=== PATIENT | male | born 1955 | race Caucasian/White ===

== ENCOUNTER 2019-01-01 15:55 | Outpatient (REF) | payer OTHER, SELFPAY ==
[2019-01-01 21:47] LABS: HCT 44.9 % (40.0-50.0); HGB 14.6 g/dL (13.5-17.5); Mean Corp. HGB Concentration 32.5 g/dL (32.0-36.0); Mean Corpuscular Hemoglobin 31.3 pg (27.0-33.0); Mean Corpuscular Volume 96.4 fL (80-95); Mean Platelet Volume 10.9 fL (8.0-11.0); Platelet Count 134 x1000/uL (130-400); RBC 4.66 m/cumm (4.50-6.00); White Blood Cell Count 8.19 k/cumm (4.4-10.8)
[2019-01-01 22:02] LABS: ALT 24 U/L (12-78); AST 13 U/L (15-37); Albumin 3.5 g/dL (3.4-5.0); Alkaline Phosphatase 60 U/L (46-116); Anion Gap 5.5 mmol/L (3-11); BUN 19 mg/dL (7-18); Bilirubin, Total 0.6 mg/dL (0.2-1.0); CO2 33.5 mmol/L (21.0-32.0); Calcium 8.6 mg/dL (8.5-10.1); Calculated LDL 88 mg/dL; Chloride 103 mmol/L (98-107); Cholesterol 166 mg/dL (50-200); Glucose 115 mg/dL (70-100); HDL Cholesterol 43 mg/dL (40-60); Hemoglobin A1C 5.7 % (4.5-6.2); Sodium 142 mmol/L (136-145); Total Protein 6.6 g/dL (6.4-8.2); Triglyceride 175 mg/dL (30-150)
== END 2019-01-01 16:15 ==
LOC: NCHCN 15:55
PROVIDERS: PCP Specialist/Technologist Athletic Trainer; Visit Provider Specialist/Technologist Athletic Trainer
DX: I50.9 Heart failure, unspecified (principal); I10 Essential (primary) hypertension; E78.1 Pure hyperglyceridemia; G47.33 Obstructive sleep apnea (adult) (pediatric); R79.89 Other specified abnormal findings of blood chemistry
CPT/HCPCS: 80053; 80061; 83721; 85027; 83036

== ENCOUNTER 2019-03-10 16:04 | Outpatient (REF) | payer OTHER, SELFPAY ==
[2019-03-10 21:46] LABS: ALT 23 U/L (16-63); AST 12 U/L (15-37); Albumin 3.6 g/dL (3.4-5.0); Alkaline Phosphatase 55 U/L (46-116); Anion Gap 3.8 mmol/L (3-11); BUN 18 mg/dL (7-18); Bilirubin, Total 0.9 mg/dL (0.2-1.0); CO2 38.2 mmol/L (21.0-32.0); CREATININE 1.15 mg/dL (0.70-1.30); Calcium 8.5 mg/dL (8.5-10.1); Chloride 102 mmol/L (98-107); Glucose 103 mg/dL (70-100); NT-proBNP 108 pg/mL; Potassium 3.7 mmol/L (3.5-5.1); Sodium 144 mmol/L (136-145); Total Protein 6.5 g/dL (6.4-8.2)
== END 2019-03-10 16:24 ==
LOC: NCHCN 16:04
PROVIDERS: PCP Specialist/Technologist Athletic Trainer; Visit Provider Specialist/Technologist Athletic Trainer
DX: I50.9 Heart failure, unspecified (principal); R09.02 Hypoxemia
CPT/HCPCS: 80053; 83880

== ENCOUNTER 2019-03-24 11:57 | Observation (INO) | payer OTHER, SELFPAY ==
[2019-03-24] VITALS (53 sets, daily range): BP systolic 99–125; BP diastolic 55–75; PULSE 62–83; RESP 14–26; TEMP 36.5–36.9; O2SAT 90–97
--- NOTE | 2019-03-24 12:12 | W.ED.GENAD ---
Discharge Plan Disposition Patient Disposition: [facility] INPATIENT Condition: Serious Discharge Details Chief Complaint: Dizzy/Sync Clinical Impression: Dizziness Primary Care Provider: Angel Toscano ED Provider: Adarsh Whitney Home Meds and New Rx's Prescriptions: No Action ascorbic acid (vitamin C) [Vitamin C] 500 MG capsule, extended release 500 mg PO DAILY RF: 0 cholecalciferol (vitamin D3) 1,000 UNIT capsule 1,000 unit PO DAILY RF: 0 Oxygen EACH NS Qty: 2 RF: 0 vitamin B complex Capsule 1 cap PO DAILY RF: 0 losartan 25 mg tablet 25 mg PO DAILY RF: 0 vitamin E (dl, acetate) 1,000 unit capsule 1,000 unit PO DAILY RF: 0 metoprolol succinate 25 mg tablet extended release 24 hr 25 mg PO DAILY RF: 0 potassium chloride 20 mEq tablet extended release 20 meq PO DAILY RF: 0 mupirocin 2 % ointment 1 applic TP TID RF: 0 (DME) Oxygen Tank See Rx Instructions .ROUTE .MEDSUPPLY Qty: 1 RF: 0 meloxicam 15 MG tablet 15 mg PO DAILY RF: 0 allopurinol 300 MG tablet 300 mg PO DAILY RF: 0 Fish Oil 500 MG capsule,delayed release(DR/EC) 500 mg PO TID RF: 0 furosemide 40 MG tablet 40 mg PO DAILY Qty: 90 RF: 0 Medical Decision Making 12:22 --63-year-old male with history of CHF presents with dizziness and associated shortness of breath. Patient has no chest pain. ECG was reviewed and interpreted by me: Normal sinus rhythm 77 bpm, ST depressions with T wave inversions noted lead II, V1 and V3. A posterior ECG was reviewed and interpreted by me: Concern for minimal 0.5 ST elevation V3 to V6. Concern for ACS. Plan to obtain troponin. Patient has no active chest pain at this time. Consider pulmonary embolism. Plan to obtain CT of the chest. --CT chest was reviewed and interpreted by radiology: IMPRESSION: Negative chest CT. No evidence pulmonary emboli or other acute abnormality. Labs reviewed: Initial troponin negative. Second delta troponin at 3 hours negative and unchanged. Patient continues to have dizziness. Blood pressure with patient sitting up was systolic of 100. Patient is on multiple antihypertensive/diuretic and may need dosing adjustment. I called and spoke with Dr. Pires, on-call hospitalist, discussed ED presentation and course, she will admit the patient. HPI General Mode of arrival: EMS. Date/Time Provider Initiated Documentation: 03/24/19 12:10. Limitations to Documentation: no limitations. Information obtained by: patient and EMS. HPI Narrative: 63-year-old male with history of CHF, poor historian, presents with chief complaint of dizziness. Patient states he has been feeling dizzy, specifically described as lightheaded over the past 2 days. Dizziness is moderate to severe. Symptoms have persisted. No modifiers. He has associated shortness of breath and dyspnea on exertion. He denies associated chest pain. No new leg swelling or calf pain. No recent long distance travel. Related Data Home Medications Medication Instructions Recorded Confirmed Fish Oil 500 mg PO TID 01/12/14 03/24/19 allopurinol 300 mg PO DAILY 01/12/14 03/24/19 meloxicam 15 mg PO DAILY 01/12/14 03/24/19 furosemide 40 mg PO DAILY #90 tab 06/24/15 03/24/19 Oxygen l NS #2 10/17/17 ascorbic acid (vitamin C) [Vitamin 500 mg PO DAILY NS 10/17/17 03/24/19 C] cholecalciferol (vitamin D3) 1,000 unit PO DAILY NS 10/17/17 03/24/19 Oxygen #1 each 03/23/19 losartan 25 mg tablet 25 mg PO DAILY 03/23/19 03/24/19 metoprolol succinate 25 mg 25 mg PO DAILY 03/23/19 03/24/19 tablet,extended release 24 hr mupirocin 2 % topical ointment 1 applic TP TID 03/23/19 03/24/19 potassium chloride 20 mEq 20 meq PO DAILY 03/23/19 03/24/19 tablet,extended release vitamin B complex 1 cap PO DAILY 03/23/19 03/24/19 vitamin E (dl, acetate) 1,000 unit 1,000 unit PO DAILY 03/23/19 03/24/19 capsule Previous Rx's Medication Instructions Recorded furosemide 40 mg PO DAILY #90 tab 06/24/15 Allergies Allergy/AdvReac Type Severity Reaction Status Date / Time amlodipine besylate Allergy Severe Racing Unverified 03/24/19 12:21 [From [facility]] heart lisinopril Allergy Mild Verified 03/24/19 12:21 General Stated Complaint: Dizzy/Sync PAPI: 2 Review of Systems Review of Systems ROS Unobtainable: All systems reviewed & are unremarkable except as noted in HPI and below Constitutional Constitutional: Denies fever(s) Cardiovascular Cardiovascular: Reports chest pain, Reports lightheadedness and Reports dyspnea Respiratory Respiratory: Denies cough and Reports dyspnea Gastrointestinal Gastrointestinal: Denies vomiting [facility] Medical History Asbestos exposure (Acute) Carpal tunnel syndrome, bilateral upper limbs (Acute) Gout (Chronic) Hypertension (Chronic) Hypertriglyceridemia (Acute) Morbid obesity (Acute) Obstructive sleep apnea (Chronic) Osteoarthrosis (Chronic) Ulcer of foot, chronic (Acute) Social History Smoking/Tobacco Use Status: Never Alcohol Intake: current Alcohol Intake frequency: holidays/special occasions only Drug use: Rarely Substance use type: marijuana Do you feel safe at home: Yes Do you feel safe in your relationship?: Yes Exam Const General: cooperative, no acute distress and well developed Orientation: alert and awake [facility] Head: normocephalic and atraumatic Mouth: moist mucous membranes Eyes Conjunctivae: normal conjunctivae Sclera: normal sclerae Neck Neck: trachea midline and supple Resp Auscultation: clear to auscultation bilaterally, no rales, no rhonchi and no wheezes Cardio Jugular venous pressure: no JVD Rate: regular rate and not tachycardic Rhythm: regular rhythm GI Palpation: soft, not firm, no guarding, no masses, not rigid and nontender Skin General skin exam: no rashes or lesions noted Neuro General: alert, awake, oriented x3 and tone normal Extrem General: no edema Psych Appearance: grossly normal Mental Status: mental status grossly normal Course Vital Signs Vital signs: Vital Signs Temperature 36.5 C 03/24/19 12:02 Pulse 72 03/24/19 12:02 Respiratory Rate 24 03/24/19 12:02 Pulse Oximetry 94 L 03/24/19 12:02 Temperature 36.5 C 03/24/19 12:02 Temperature Source Skin 03/24/19 12:02 Pulse 72 03/24/19 12:02 Respiratory Rate 24 03/24/19 12:02 Pulse Oximetry 94 L 03/24/19 12:02 Oxygen Delivery Method Nasal Cannula 03/24/19 12:02 Oxygen Flow Rate 3 03/24/19 12:02 Pain Level 0 03/24/19 12:02
[2019-03-24 12:21] LABS: Abs Immature Grans 0.01 k/cumm (0.0-0.09); Absolute Basophil Count 0.03 k/cumm (0.0-0.2); Absolute Eosinophil Count 0.13 k/cumm (0.0-0.7); Absolute Lymphocyte Count 1.44 k/cumm (1.2-3.4); Absolute Neutrophil Count 5.14 k/cumm (1.2-6.7); Basophils % 0.4; Eosinophils % 1.8; HCT 49.5 % (40.0-50.0); HGB 15.5 g/dL (13.5-17.5); Immature Grans % 0.1; Lymphocytes % 19.9; Mean Corp. HGB Concentration 31.3 g/dL (32.0-36.0); Mean Corpuscular Hemoglobin 30.8 pg (27.0-33.0); Mean Corpuscular Volume 98.4 fL (80-95); Mean Platelet Volume 10.2 fL (8.0-11.0); Monocytes % 6.9; Neutrophils % 70.9; Platelet Count 135 x1000/uL (130-400); RBC 5.03 m/cumm (4.50-6.00); RBC Distribution Width 14.3 % (11.8-14.1); White Blood Cell Count 7.25 k/cumm (4.4-10.8)
[2019-03-24 12:36] LABS: ALT 21 U/L (16-63); AST 17 U/L (15-37); Albumin 3.7 g/dL (3.4-5.0); Alkaline Phosphatase 65 U/L (46-116); BUN 16 mg/dL (7-18); Bilirubin, Total 0.8 mg/dL (0.2-1.0); CREATININE 1.02 mg/dL (0.70-1.30); Calcium 8.6 mg/dL (8.5-10.1); Chloride 101 mmol/L (98-107); Glucose 109 mg/dL (70-100); Magnesium 1.9 mg/dL (1.8-2.4); PTT Activated 25.1 sec (21.0-31.4); Prothrombin Time 9.6 sec (9.3-11.0); Sodium 141 mmol/L (136-145); Total Protein 7.2 g/dL (6.4-8.2)
[2019-03-24 12:39] LABS: Troponin I < 0.05 ng/mL (0.00-0.06)
[2019-03-24 12:40] LABS: NT-proBNP 154 pg/mL
[2019-03-24] MEDS: Omnipaque 350 MG/ML 100 ML BTL IJ (13:17)
[2019-03-24] MEDS: Normal Saline Flush 10 ML SYR IVP (13:18)
--- NOTE | 2019-03-24 13:18 | DI.CT_ITS ---
EXAM: CT CHEST PE CTA CLINICAL HISTORY: shortness of breath. TECHNIQUE: PE COMPARISON: CHEST 2 VIEWS PA,LAT from 06/24/2015 FINDINGS: The pulmonary arteries are well opacified with IV contrast and no pulmonary emboli are identified. The aorta is normal in diameter. There is no evidence of dissection. Heart size is normal. There a re no pleural or pericardial effusions. No infiltrates masses or is IMPRESSION: Negative chest CT. No evidence pulmonary emboli or other acute abnormality.
--- NOTE | 2019-03-24 15:22 | NUR.NOTE ---
Nursing Note: provided pt with water. pt reading his book NAD
[2019-03-24 15:43] LABS: Troponin I < 0.05 ng/mL (0.00-0.06)
[2019-03-24] MEDS: Enoxaparin 40 MG/0.4 ML SYR SC (17:46)
[2019-03-24] MEDS: Normal Saline 1,000 ML 100 ML IV (17:47)
[2019-03-24 18:05] LABS: *AMPHETAMINES SCREEN URINE Negative (Negative); *BARBITURATES SCREEN URINE Negative (Negative); *BENZODIAZEPINES SCREEN URINE Negative (Negative); Cannabinoids THC Negative (Negative); Cocaine Screen,Urine Negative (Negative); METHADONE URINE SCREEN Negative (Negative); OPIATES URINE SCREEN Negative (Negative)
[2019-03-24 18:09] LABS: Tricyclic Antidepressants Negative (Negative)
--- NOTE | 2019-03-24 18:47 | NUR.NOTE ---
Nursing Note: Pt to [facility] floor at 1645. A&Ox3. VSS. Transferred from stretcher to bed with standby. Pt reports using cane at home; does not have it with him. Pt changed his mind multiple times regarding putting valuables in safe. At last ask, pt refusing offer of safe. RN unsure what pt has for valuables, money, etc. Pt could use a CM consult; many questions/insecurities regarding rent, living situation, etc. Pt oriented to MS floor, call [facility], TV, etc. Call langford within reach. RN will continue to monitor.
--- NOTE | 2019-03-24 19:34 | W.PM.HP.N ---
Date of service: 03/24/19 Time of Service: 19:34 Assessment and Plan Assessment and plan (1) Dizziness: Status: Acute Assessment and plan: I am underwhelmed by the physical exam, but worried about the EKG changes. The patient states that he got cardiac care about a year ago in a hospital in [place] - it would be a good idea to get those records and compare EKG's. Obtain CT of the head given the headache. Obtain an echo. Monitor serial troponins. Trial meclizine. (2) Abnormal EKG: Status: Acute Assessment and plan: As above (3) Chronic respiratory failure with hypoxia: Status: Chronic Assessment and plan: At baseline. Provide prn albuterol. (4) Obstructive sleep apnea: Status: Chronic Assessment and plan: Provide BIPAP tonight (5) Hypertension: Status: Chronic Assessment and plan: Hold BP meds as actually borderline hypotensive in ED and dizzy (6) Anxiety and depression: Status: Chronic Assessment and plan: Will need outpatient follow up (7) Headache: Status: Chronic Assessment and plan: Check CT head. This is a chronic issue and could have to do with EMI/not sleeping well. (8) DVT prophylaxis: Status: Acute Assessment and plan: Lovenox SC (9) Discharge planning issues: Status: Acute Assessment and plan: Full code History of Present Illness History of Present Illness Chief Complaint: dizziness Narrative: Mr Manzanares is a 63 year old male with PMHx of chronic hypoxic respiratory failure (?due to restrictive lung disease), as well as EMI, not on CPAP, chronic diastolic vs R-sided CHF, obesity with BMI of 41, who presented to [facility] today complaining of dizziness. The story the patient provided to me appears to differ significantly from the one he told to the ED provider. While reported shortness of breath in ED, to me he says that it's actually better than it had been before and it is not an issue at this time. However, dizziness is. He states he first felt dizzy while trying to get ouf bed in the camper where he was staying 2 days ago. He stated it was specifically moving the head side to side/turning around in bed that made him dizzy. The dizziness he describes feels like if you drink one too many drinks, which also characterizes a little bit like the room spinning and also feeling off balance. He did not have any nausea associated with the symptoms, any chest pain, worsening shortness of breath, palpitations, or felt like he might pass out. He again felt this way last night when he woke up in his now new apartment where he just moved in yesterday - he felt he had to hold on to something because he felt off balance. He states his ears are always ringing. Denies any recent colds, nasal congestions, fever, chills, sore throat, cough. His CTA of the chest done in the ED was negative. It is important to note that the patient describes a chronic headache and is worried he might have a growth. He states he had an MRI before, but got very claustrophobic. He also describes thoughts always running through his head and difficulty sleeping. Review of Systems Review of Systems Narrative: 12 systems reviewed. Pertinent positives and negatives as per HPI. [facility] Medical History Anxiety and depression (Chronic) Asbestos exposure (Acute) Carpal tunnel syndrome, bilateral upper limbs (Acute) Chronic respiratory failure with hypoxia (Chronic) COPD (chronic obstructive pulmonary disease) (Chronic) Gout (Chronic) Homeless single person (Inactive) Hypertension (Chronic) Hypertriglyceridemia (Acute) Morbid obesity (Acute) Obstructive sleep apnea (Chronic) Osteoarthrosis (Chronic) Shoulder pain, bilateral (Inactive) Ulcer of foot, chronic (Acute) Surgical History S/p bilateral carpal tunnel release (Acute) S/P bilateral cataract extraction (Acute) S/P bunionectomy (Acute) 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) Family History (Updated 03/24/19 @ 19:49 by Sarah Pires MD) Mother CHF (congestive heart failure) Hypertension Father Hypertension Alzheimer disease Social History Smoking/Tobacco Use Status: Never Alcohol Intake: current Alcohol Intake frequency: holidays/special occasions only Drug use: Rarely Substance use type: marijuana Do you feel safe at home: Yes Do you feel safe in your relationship?: Yes Meds Home Medications and Allergies Home Medications Medication Instructions Recorded Confirmed Type Fish Oil 500 mg PO TID 01/12/14 03/24/19 History allopurinol 300 mg PO DAILY 01/12/14 03/24/19 History meloxicam 15 mg PO DAILY 01/12/14 03/24/19 History furosemide 40 mg PO DAILY #90 tab 06/24/15 03/24/19 Rx Oxygen l NS #2 10/17/17 History ascorbic acid (vitamin C) [Vitamin 500 mg PO DAILY NS 10/17/17 03/24/19 History C] cholecalciferol (vitamin D3) 1,000 unit PO DAILY NS 10/17/17 03/24/19 History Oxygen #1 each 03/23/19 History losartan 25 mg tablet 25 mg PO DAILY 03/23/19 03/24/19 History metoprolol succinate 25 mg 25 mg PO DAILY 03/23/19 03/24/19 History tablet,extended release 24 hr mupirocin 2 % topical ointment 1 applic TP TID 03/23/19 03/24/19 History potassium chloride 20 mEq 20 meq PO DAILY 03/23/19 03/24/19 History tablet,extended release vitamin B complex 1 cap PO DAILY 03/23/19 03/24/19 History vitamin E (dl, acetate) 1,000 unit 1,000 unit PO DAILY 03/23/19 03/24/19 History capsule Allergies Allergy/AdvReac Type Severity Reaction Status Date / Time amlodipine besylate Allergy Severe Racing Unverified 03/24/19 12:21 [From [facility]] heart lisinopril Allergy Mild Verified 03/24/19 12:21 Exam Narrative Exam Narrative: General: very pleasant, obese male, anxious, A&Ox3, laying comfortably in bed, no tachypnea noted Neuro: A&Ox3, no nystagmus noted on EOM exam Psych: anxious Skin: visible skin inact HEENT: Atraumatic, normocephalic, EOMI, MMM, large neck diameter, PER, clear oropharynx with a large tongue (Mallampati IV), henriquez prevents good exam of submandibular lymph nodes, thyroid, or of JVD Heart: RRR, no m/r/g Lungs; CTAB GI: abdomen is soft, obese, nontender Extremities: no e/c/c BLE's Results Imaging Additional studies: CTA chest: Negative chest CT. No evidence pulmonary emboli or other acute abnormality. EKG: NSR, ?prolonged VT interval, Inferior T wave inversions, these are new since EKG in 2016 Labs Result diagrams: 03/24/19 11:45 03/24/19 11:45 Labs: Laboratory Results - last 24 hr 03/24/19 03/24/19 03/24/19 11:45 11:45 11:45 WBC RBC Hgb Hct MCV MCH MCHC RDW Plt Count MPV Immature Gran % Neutrophils % Lymphocytes % Monocytes % Eosinophils % Basophils % Absolute Neutrophils Absolute Lymphocytes Absolute Monocytes Absolute Eosinophils Absolute Basophils PT 9.6 INR 1.0 APTT 25.1 Sodium 141 Potassium 4.0 Chloride 101 Carbon Dioxide 35.0 H Anion Gap 5.0 BUN 16 Creatinine 1.02 Estimated GFR/1.73 m2 >= 60.00 Glucose 109 H Calcium 8.6 Magnesium 1.9 Total Bilirubin 0.8 AST 17 ALT 21 Alkaline Phosphatase 65 Troponin I < 0.05 NT-Pro-B Natriuret Pep 154 Total Protein 7.2 Albumin 3.7 Urine Opiates Screen Urine Methadone Screen Ur Barbiturates Screen Ur Tricyclics Screen Ur Amphetamines Screen U Benzodiazepines Scrn Urine Cocaine Screen Ur THC Screen 03/24/19 03/24/19 03/24/19 11:45 15:16 17:00 WBC 7.25 RBC 5.03 Hgb 15.5 Hct 49.5 MCV 98.4 H MCH 30.8 MCHC 31.3 L RDW 14.3 H Plt Count 135 MPV 10.2 Immature Gran % 0.1 Neutrophils % 70.9 Lymphocytes % 19.9 Monocytes % 6.9 Eosinophils % 1.8 Basophils % 0.4 Absolute Neutrophils 5.14 Absolute Lymphocytes 1.44 Absolute Monocytes 0.50 Absolute Eosinophils 0.13 Absolute Basophils 0.03 PT INR APTT Sodium Potassium Chloride Carbon Dioxide Anion Gap BUN Creatinine Estimated GFR/1.73 m2 Glucose Calcium Magnesium Total Bilirubin AST ALT Alkaline Phosphatase Troponin I < 0.05 NT-Pro-B Natriuret Pep Total Protein Albumin Urine Opiates Screen Negative Urine Methadone Screen Negative Ur Barbiturates Screen Negative Ur Tricyclics Screen Negative Ur Amphetamines Screen Negative U Benzodiazepines Scrn Negative Urine Cocaine Screen Negative Ur THC Screen Negative Last Vital Signs Temp 36.7 C 03/24/19 19:02 Pulse 70 03/24/19 19:02 Resp 18 03/24/19 19:02 BP 106/66 03/24/19 19:02 Pulse Ox 96 03/24/19 19:02
--- NOTE | 2019-03-24 20:35 | DI.CT_ITS ---
EXAM: CT HEAD WO CLINICAL HISTORY: long-standing headache. TECHNIQUE: The noncontrast enhanced examination was carried out according to the usual protocol. COMPARISON: No exams were available for comparison FINDINGS: There is no evidence of an intra or extra-axial hemorrhage. There is no evidence of a mass. The ayala -white matter differentiation is well maintained. There is nothing to suggest a territorial infarctio n. Ventricles are unremarkable. There is no skull fracture. The paranasal sinuses and mastoid air c ells are intact. No soft tissue abnormality is identified. IMPRESSION: No acute intracranial abnormality is demonstrated.
--- NOTE | 2019-03-24 20:53 | DI.VRAD_ITS ---
PROCEDURE INFORMATION: Exam: CT Head Without Contrast Exam date and time: 03/24/2019 7:35 PM Clinical history: 63 years old, male; Pain; Headache not specified; Patient HX: Long standing headache on top of head TECHNIQUE: Imaging protocol: Computed tomography of the head without contrast. Radiation optimization: All CT scans at this facility use at least one of these dose optimization techniques: automated exposure control; mA and/or kV adjustment per patient size (includes targeted exams where dose is matched to clinical indication); or iterative reconstruction. COMPARISON: No relevant prior studies available. FINDINGS: Brain: Normal. No hemorrhage. Unremarkable white matter. A 1.4 cm dural-based calcification is seen and the left frontal convexity, which could represent a small calcified meningioma. No signficant mass effect or midline shift. There is no large acute territorial cerebral infarct. Ventricles: Normal. No ventriculomegaly. Bones/joints: Unremarkable. No acute fracture. Sinuses: Visualized sinuses are unremarkable. No fluid levels. Mastoid air cells: Visualized mastoid air cells are well aerated. Soft tissues: Unremarkable. IMPRESSION: 1. No acute intracranial abnormality. 2. Small calcified lesion in the left frontal convexity could represent a small calcified meningioma. Dictated and Authenticated by: Chen Molina MD. Ordering:GRACIA Simth MD
[2019-03-24] MEDS: Aspirin E.C. 325 MG TABEC PO (21:33)
[2019-03-24 21:46] LABS: Troponin I < 0.05 ng/mL (0.00-0.06)
[2019-03-24 22:11] LABS: Hemoglobin A1C 5.4 % (4.5-6.2)
[2019-03-24] MEDS: Acetaminophen 325 MG TAB PO (23:37)
[2019-03-24] MEDS: Meloxicam 15 MG TAB PO (23:37)
[2019-03-25] VITALS (9 sets, daily range): BP systolic 87–118; BP diastolic 44–70; PULSE 60–84; RESP 14–20; TEMP 36.2–36.9; O2SAT 91–99
[2019-03-25] MEDS: Normal Saline 1,000 ML 100 ML IV (04:31)
[2019-03-25] MEDS: Acetaminophen 325 MG TAB PO ×2 (06:56→21:31)
[2019-03-25 07:33] LABS: ALT 15 U/L (16-63); AST 11 U/L (15-37); Albumin 3.3 g/dL (3.4-5.0); Alkaline Phosphatase 57 U/L (46-116); Anion Gap 4.3 mmol/L (3-11); BUN 14 mg/dL (7-18); Bilirubin, Direct 0.17 mg/dL (0.00-0.20); Bilirubin, Total 0.8 mg/dL (0.2-1.0); CO2 35.7 mmol/L (21.0-32.0); CREATININE 0.87 mg/dL (0.70-1.30); Calcium 8.8 mg/dL (8.5-10.1); Chloride 104 mmol/L (98-107); Glucose 112 mg/dL (70-100); Magnesium 2.2 mg/dL (1.8-2.4); Sodium 144 mmol/L (136-145); TSH (W/Ref FT4) 1.84 uIU/mL (0.36-3.74); Total Protein 6.5 g/dL (6.4-8.2)
--- NOTE | 2019-03-25 08:00 | DI.US_ITS ---
EXAM: US CAROTID CLINICAL HISTORY: dizziness. TECHNIQUE: Ultrasound performed using standard protocol. COMPARISON: No exams were available for comparison FINDINGS: No significant plaque is visible. The velocity measurements are within the normal range. The verteb ral arteries show antegrade. IMPRESSION: No significant internal carotid artery stenosis.
[2019-03-25] MEDS: Allopurinol 300 MG TAB PO (08:31)
[2019-03-25] MEDS: Potassium Chloride 20 MEQ TABCR PO (08:31)
[2019-03-25] MEDS: Ascorbic Acid 500 MG TAB PO (08:31)
[2019-03-25] MEDS: Aspirin E.C. 81 MG TABEC PO (08:31)
[2019-03-25] MEDS: Vitamins B Comp w/C TAB 1 TAB PO (08:31)
[2019-03-25] MEDS: Cholecalciferol (Vitamin D3) 1,000 UNIT TAB 1000 UNITS PO (08:31)
--- NOTE | 2019-03-25 09:00 | DI.US_ITS ---
APPROVED REPORT EXAM: Comprehensive 2D, Doppler, and color-flow Echocardiogram Patient Location: In-Patient [employer] Workers: DANIEL Beauchamp (AE) Rhythm: NSR Indications: dizziness Left Ventricle The left ventricle is normal size. The left ventricular systolic function is normal. The left ventric ular ejection fraction is within the normal range. Mild concentric left ventricular hypertrophy. Ther e is normal LV segmental wall motion. The left ventricular diastolic function is normal. LVEF is 55-6 0%. Right Ventricle Right ventricle is moderate to severely dilated. Right ventricle is mildly hypokinetic. The intravent ricular septum is flattened suggesting RV volume and pressure overload Atria Left atrium is moderately dilated. Right atrium is moderately dilated. Aortic Valve The Aortic valve is sclerotic. There is no aortic valvular stenosis. No aortic regurgitation is prese nt. Mitral Valve The mitral valve is normal in structure. No evidence of mitral valve stenosis. There is no mitral cecelia ve regurgitation noted. Tricuspid Valve The tricuspid valve is normal in structure. There is mild tricuspid regurgitation. TR peak gradient= 54 mmHg which corresponds with an RVSP over 60 mmHg. Pulmonic Valve The pulmonary valve is normal in structure. Trace to mild pulmonic regurgitation. Great Vessels The aortic root is normal in size. The IVC is mildly dilated with >50% collapse Pericardium There is no pericardial effusion. 2D Dimensions IVSd 1.7 cm M: 0.6-1.2 LA Volume Index A4C 39.0 mL/m2 PWd 1.4 cm M: 0.6 - 1.2 LA Area A4C 25.0 cm2 LVDd 4.7 cm M: 4.2 - 5.9 LVDs 3.2 cm M: 2.5 - 4.0 Aortic Root 3.1 cm M: 3.1 - 3.7 RA Area A4C 24.0 cm2 LVOT 2.2 cm (M/F) 1.5-2.5 Ascending Aorta 3.7 cm M: 2.6 - 3.4 LVEF (Loredo's) 61.0 % M: 52 - 72 FS 32.0 % LV Diastology E/A Ratio 0.9 MED E' 0.1 (<0.07 m/s) LV E/e MED 9.0 (>14) LAT E' 0.1 (<0.1 m/s) LV E/e LAT 10.2 (>14) Aortic Valve LVOT Peak Mehul. 1.1 m/s LVOT Peak Gr. 4.5 mmHg LVOT Mean Gr. 2.9 mmHg LVOT VTI 0.3 m Mitral Valve MV E Max Mehul. 0.8 (0.4-1.3 m/s) MV A Velocity 0.9 (0.4-1.3 m/s) E/A Ratio 1.0 MV Decel. Time 225.0 (160-240 msec) MV PHT 65.1 msec MVA PHT 3.4 cm2 Pulmonary Valve RVOT Mean Gr. 1.1 mmHg RVOT VTI 0.1 m Tricuspid Valve TR P. Velocity 3.7 m/s TR P. Gradient 54.0 mmHg Conclusion Left Ventricle : The left ventricle is normal size. Mild concentric left ventricular hypertrophy. The left ventricular diastolic function is normal. There is normal LV segmental wall motion. LVEF is 55- 60%. Right Ventricle : Right ventricle is moderate to severely dilated. Right ventricle is mildly hypokine tic. The intraventricular septum is flattened suggesting RV volume and pressure overload Atria : Left atrium is moderately dilated. Right atrium is moderately dilated. Aortic Valve : The Aortic valve is sclerotic. There is no aortic valvular stenosis. No aortic regurg itation is present. Mitral Valve : The mitral valve is normal in structure. There is no mitral valve regurgitation noted. No evidence of mitral valve stenosis. Tricuspid Valve : The tricuspid valve is normal in structure. There is mild tricuspid regurgitation. TR peak gradient=54 mmHg which corresponds with an RVSP >60 mmHg. Great Vessels : The aortic root is normal in size. Pericardium : There is no pericardial effusion. Great Vessels : The IVC is mildly dilated with >50% collapse
--- NOTE | 2019-03-25 16:25 | PT.INIE ---
Date of service: 03/25/19 Time of Service: 13:58 PT Notes Inpatient Physical Therapy Evaluation Date: 03/25/2019 Referring Doctor: Sarah Doherty MD PT Orders: PT CONSULT: Testing for vertigo Precautions: Fall. Standard. Patient Profile/Admitting Diagnosis: Patient is a 63 year old male with past medical history significant for chronic respiratory failure with hypoxia, COPD, anxiety morbid obesity and hypertension who presented to the ED on 03/24/2019 with chief complaint of dizziness. Patient was diagnosed with dizziness, abnormal EKG findings, and chronic respiratory failure with hypoxia. PMHX: Medical History Anxiety and depression (Chronic) Asbestos exposure (Acute) Carpal tunnel syndrome, bilateral upper limbs (Acute) Chronic respiratory failure with hypoxia (Chronic) COPD (chronic obstructive pulmonary disease) (Chronic) Gout (Chronic) Homeless single person (Inactive) Hypertension (Chronic) Hypertriglyceridemia (Acute) Morbid obesity (Acute) Obstructive sleep apnea (Chronic) Osteoarthrosis (Chronic) Shoulder pain, bilateral (Inactive) Ulcer of foot, chronic (Acute) Surgical History S/p bilateral carpal tunnel release (Acute) S/P bilateral cataract extraction (Acute) S/P bunionectomy (Acute) 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) Social History/Home Situation: Previously homeless but has spent one night in a new apartment on his own. He still has belongings to move from his temporary camper. He states he is independent with all aspects of ADLs without the need for an assistive ambulatory device nor adaptive equipment prior to admission. Equipment Owned/DME: None. Subjective: Patient reports he is not in pain. He denies dizziness at the time of evaluation except for when changing from [place]-hallpike position to sitting upright. He is agreeable to PT evaluation. Objective: General Observation: Patient is seen sitting in his chair with an IV in his R UE. Telemetry monitoring in place. Mental Status: Alert and oriented x 4 Pain: 0/10 ROM: Right Lower Extremity: Hip flexion WFL. Hip abduction WFL. Knee flexion WFL. Ankle dorsiflexion WFL. Ankle plantarflexion WFL. Left Lower Extremity: Hip flexion WFL. Hip abduction WFL. Knee flexion WFL. Ankle dorsiflexion 0 degrees. Ankle plantarflexion WFL. Strength: Right Lower Extremity: Hip flexors 5/5. Hip abductors 5/5. Knee flexors 5/5. Knee extensors 5/5. Ankle dorsiflexors 5/5. Ankle plantarflexors 5/5. Left Lower Extremity:Hip flexors 5/5. Hip abductors 5/5. Knee flexors 5/5. Knee extensors 5/5. Ankle dorsiflexors 3-/5. Ankle plantarflexors 5/5. Bed Mobility/Transfers: Rolling Independent Supine to sit Independent Sit to supine Independent Sit to stand Independent Stand to sit Independent Bed to chair Independent Chair to bed Independent Gait: Patient ambulated 5?+5? using reciprocal gait, no assistive device, and no level of assistance. He had moderate trunk sway which may be attributed to high BMI. Balance: Static Sitting: Normal Dynamic Sitting: Normal Static Standing: Normal Dynamic Standing: Good Special Tests: Mobility Limitations Standardized Measure [facility] 6 clicks Basic Mobility Inpatient Short Form: Raw Score: 24 CMS Score: 0% BPPV Testing: Patient was cleared for [place] Hallpike Maneuver after yielding negative to [employer] Saravanan and alar ligament testing. Patient did not present with nystagmus for the [place]-Hallpike maneuver on both sides but did report dizziness upon sitting up from supine after testing [place]-Hallpike on the left side. 4 Stage Balance Test: Completed 2 out of 4 stages indicating moderate fall risk. Informed Consent/Education: Patient instructed in purpose of PT consult and plan of care. Assessment: Patient is a 63 year old male admitted to the medical surgical unit complaining of dizziness. He has a history of CHF, which has caused episodes of dizziness in the past. He tested negative for vertigo using the [place]-hallpike maneuver. Patient's dizziness may be attributable to chronic hypoxia from pre-existing chronic respiratory failure. Although he has no functional deficits, he was only able to perform 2 stages of the 4-stage balance test. He would benefit from a home exercise program to enhance his balance. He is severely deconditioned. His prognosis is fair. Patient presents with clinical signs and symptoms consistent with current/admitting diagnoses that have resulted to mobility limitations, gait instability, generalized weakness, and impairment of motor control as demonstrated by the following impairment level findings: 1. Decreased strength to L ankle dorsiflexors 2. Impaired standing balance 3. Impaired activity tolerance 4. Limitation of joint range of motion in L ankle dorsiflexion Impairments are contributing to the following functional limitations: 1. Increase completion time for mobility ADL performance 2. Increased fall risk Patient is assessed as a 42420 moderate complexity based on the following: History: Patient was diagnosed with dizziness, abnormal EKG findings, and chronic respiratory failure with hypoxia. Examination: Demonstrable impairment in strength, balance, and range of motion with underlying impairments and functional limitations as documented above Presentation: Evolving Decision Makin moderate complexity Goals: Goals X1 week 1. Independent with home exercise program 2. Good static and dynamic standing balance/tolerance Plan of Care/Treatment Plan: 1x/day, 1 day/week, 1 week. Plan of care has been reviewed with the AERONAUTICAL DESIGN ENGINEER providing the service under Physical Therapy direction. Initiate Physical Therapy intervention for strengthening, bed mobility, transfers, gait, stairs, balance training, use of assistive device. DISCHARGE RECOMMENDATIONS: Patient is to be discharged to home after all of the above goals are met and he is medically stable. TREATMENT CODE/TIME: 05172 x 36 minutes beginning at 13:58 PM. Thank you very much for this referral. Brendan Figueredo, [facility] With supervision of: Ashley Cason PT, DPT, CLT [facility], [facility]
--- NOTE | 2019-03-25 17:00 | PDOC.CMIN ---
Care Management Initial Assess REASON FOR HOSPITALIZATION:: Dizziness, Presyncope PAST MEDICAL HISTORY/PAST SURGICAL HISTORY:: Anxiety and depression, asbestos exposure, carpal tunnel syndrome, chronic respiratory failure with hypoxia, COPD, previous homelessness, hypertension, hypertiglyceridemia, morbid obesity, EMI, osteoarthritis, shoulder pain, ulcer of foot; chronic. bilat carpal tunnel release, bilateral cataract extraction, bunionectomy, amputation of toe of left foot PREVIOUS FUNCTIONAL STATUS/SOCIAL/FAMILY SUPPORTS:: Jori reports he was given sixty days notice to vacate his home of 28 years in [place] this summer. He has been [place] since leaving his home. He moved into [facility] [address] last 03/24/19. CM updated demographic information. Jori reports no current natural supports in the area. 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 He is oxygen dependent and has a concentrator through [facility]. He reports his home is handicap accessible and he has met a nice gentleman who resides in the apartment next to his. He requests additional home supports including [place]/[employer] meals and homemaker services as he struggles to manage home tasks. CURRENT FUNCTIONAL STATUS:: Jori is sitting in his chair when meets with him. He is well spoken and friendly in interaction. He is forthcoming with information and agreeable to recommendations. ADVANCE DIRECTIVES:: None on file at [facility]. Has patient been provided with information about the portal?: No Did the patient sign up for the portal?: No CODE STATUS:: Full Code INSURANCE COVERAGE / FINANCIAL ISSUES:: [facility] PPO CURRENT HOME/COMMUNITY SERVICES/EQUIPMENT:: Oxygen, concentrator; [employer]. SSDI. PRIMARY CARE PHYSICIAN:: Angel Toscano POTENTIAL DISCHARGE NEEDS:: Increased home services. Follow up appointments. PATIENT/FAMILY EDUCATION NEEDS:: Review of community based supports, discharge planning considerations, [employer] Me Three. ANTICIPATED BARRIERS TO DISCHARGE:: None identified. TRANSPORTATION:: RCT PLAN:: Jori will return to his new home upon discharge. He will follow up with community providers and have new referrals for increased home services supports. He will transport via RCT coordinated by this screenplay writer.
[2019-03-25] MEDS: Enoxaparin 40 MG/0.4 ML SYR SC (17:05)
[2019-03-25] MEDS: Furosemide 20 MG/2 ML VIAL IVP (17:06)
[2019-03-25] MEDS: Normal Saline Flush 10 ML SYR IVP (17:06)
--- NOTE | 2019-03-25 18:01 | W.PM.PROGNOT ---
Date of Service Date of service: 03/25/19 Time of Service: 18:01 Assessment and Plan Assessment and plan (1) Dizziness: Status: Acute Assessment and plan: I am underwhelmed by the physical exam, but worried about the EKG changes. No ACS. Echo shows severe pulmonary hypertension with RV volume and pressure overload. I agree with PT that dizziness could be due to chronic hypoxia/hypercapnia. EKG's did not arrive with the patient's records from [place] - will try to obtain again. CT head negative. The decision to pursue MRI should be made after the patient is initiated on CPAP/BiPAP at home. (2) Abnormal EKG: Status: Acute Assessment and plan: As above We are not actually sure that EKG changes are acute. Obtaining EKG's from the hospital in [place]. Will benefit from outpatient cardiology follow up. (3) Obstructive sleep apnea: Status: Chronic Assessment and plan: Provide BIPAP. Patient advised why he has to wear it. Will investigate if he is a candidate for a trilogy machine. (4) Hypertension: Status: Chronic Assessment and plan: Resume lasix. (5) Anxiety and depression: Status: Chronic Assessment and plan: Will need outpatient follow up (6) Headache: Status: Chronic Assessment and plan: As above. LIkely due to EMI/not sleeping well. CT head negative. May consider outpatient MRI, if sx persist after treating EMI. (7) Pulmonary hypertension: Status: Acute Assessment and plan: I explained to the patient how the heart and the lungs are connected. Must undergo sleep study. Trial bipap here. D/c IVF and resume lasix. (8) Chronic respiratory failure with hypoxia and hypercapnia: Status: Chronic Assessment and plan: At baseline. Read above. Could be a candidate for a trilogy machine - we will look into this. 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 Will need referrals for a sleep study. Will need referral for outpatient pulmonology and cardiology. Subjective Subjective Interval history since last seen: Mr Manzanares states he is no longer dizzy. We spoke for a long time about why it is important for him to wear a mask at night. He states he didn't realize the connection between the EMI/hypoxia, pulmonary hypertension, and the heart. He states he understands it now and is willing to try to wear the mask. He does state he has a hard time accepting it. He denies chest pain, shortness of breath, nausea, vomiting. He expresses he is interested in a colonoscopy - we spoke about the fact that (a) he would have to get it done as an outpatient and (b) that it would have to be done at a tertiary care facility because of his pulmonary hypertension. Exam Narrative Exam Narrative: General: very pleasant, obese male, anxious, A&Ox3, sitting in a chair, looks well HEENT: EOMI, MMM Heart: RRR, no m/r/g Lungs; Crackles at B bases GI: abdomen is soft, obese, nontender Extremities:+1 edema BLE's, no c/c BLE's Objective Objective Clinical Data: Abnormal lab results 03/25/19 Range/Units 06:55 Carbon Dioxide 35.7 H (21.0-32.0) mmol/L Glucose 112 H (70-100) mg/dL AST 11 L (15-37) U/L ALT 15 L (16-63) U/L Albumin 3.3 L (3.4-5.0) g/dL Vital Signs Temperature 36.9 C 03/25/19 11:10 Temperature Source Tympanic 03/25/19 11:10 Pulse 60 03/25/19 15:16 Pulse Rhythm Regular 03/25/19 09:39 Pulse 66 03/24/19 16:01 Respiratory Rate 16 03/25/19 11:10 Respiratory Effort Non-Labored 03/25/19 09:39 Respiratory Depth Normal 03/25/19 09:39 Respiratory Pattern Normal 03/25/19 09:39 Blood Pressure 118/69 03/25/19 11:10 Blood Pressure Mean 65 03/24/19 16:01 Pulse Oximetry 97 03/25/19 11:10 Oxygen Delivery Method Room Air 03/25/19 11:10 Oxygen Flow Rate 3 03/25/19 16:57 Pain Level 7 03/25/19 11:10 Comment 03/25/19 04:25 Intake & Output 03/24/19 03/25/19 03/25/19 23:59 11:59 23:59 Intake Total 480 / 480 2438.333 / 2793.333 355 / 2793.333 Balance 480 / 480 2438.333 / 2793.333 355 / 2793.333 Weight 142.428 kg 143.7 kg Intake: IV 1498.333 / 1853.333 355 / 1853.333 Oral 480 / 480 940 / 940 Other: Urine Color Yellow Pale Urine Appearance Clear Clear Urine Odor Normal None Voiding Methods Bedside Commode Toilet Bedside Commode Laboratory Results WBC 7.25 k/cumm (4.4-10.8) 03/24/19 11:45 RBC 5.03 m/cumm (4.50-6.00) 03/24/19 11:45 Hgb 15.5 g/dL (13.5-17.5) 03/24/19 11:45 Hct 49.5 % (40.0-50.0) 03/24/19 11:45 MCV 98.4 fL (80-95) H 03/24/19 11:45 MCH 30.8 pg (27.0-33.0) 03/24/19 11:45 MCHC 31.3 g/dL (32.0-36.0) L 03/24/19 11:45 RDW 14.3 % (11.8-14.1) H 03/24/19 11:45 Plt Count 135 x1000/uL (130-400) 03/24/19 11:45 MPV 10.2 fL (8.0-11.0) 03/24/19 11:45 Immature Gran % 0.1 03/24/19 11:45 Neutrophils % 70.9 03/24/19 11:45 Lymphocytes % 19.9 03/24/19 11:45 Monocytes % 6.9 03/24/19 11:45 Eosinophils % 1.8 03/24/19 11:45 Basophils % 0.4 03/24/19 11:45 Absolute Neutrophils 5.14 k/cumm (1.2-6.7) 03/24/19 11:45 Absolute Lymphocytes 1.44 k/cumm (1.2-3.4) 03/24/19 11:45 Absolute Monocytes 0.50 k/cumm (0.11-0.7) 03/24/19 11:45 Absolute Eosinophils 0.13 k/cumm (0.0-0.7) 03/24/19 11:45 Absolute Basophils 0.03 k/cumm (0.0-0.2) 03/24/19 11:45 PT 9.6 sec (9.3-11.0) 03/24/19 11:45 INR 1.0 (0.9-1.1) 03/24/19 11:45 APTT 25.1 sec (21.0-31.4) 03/24/19 11:45 Sodium 144 mmol/L (136-145) 03/25/19 06:55 Potassium 4.0 mmol/L (3.5-5.1) 03/25/19 06:55 Chloride 104 mmol/L (98-107) 03/25/19 06:55 Carbon Dioxide 35.7 mmol/L (21.0-32.0) H 03/25/19 06:55 Anion Gap 4.3 mmol/L (3-11) 03/25/19 06:55 BUN 14 mg/dL (7-18) 03/25/19 06:55 Creatinine 0.87 mg/dL (0.70-1.30) 03/25/19 06:55 Estimated GFR/1.73 m2 >= 60.00 (mL/min/1.73m2) 03/25/19 06:55 Glucose 112 mg/dL (70-100) H 03/25/19 06:55 Hemoglobin A1c 5.4 % (4.5-6.2) 03/24/19 11:45 Calcium 8.8 mg/dL (8.5-10.1) 03/25/19 06:55 Magnesium 2.2 mg/dL (1.8-2.4) 03/25/19 06:55 Total Bilirubin 0.8 mg/dL (0.2-1.0) 03/25/19 06:55 Conjugated Bilirubin 0.17 mg/dL (0.00-0.20) 03/25/19 06:55 AST 11 U/L (15-37) L 03/25/19 06:55 ALT 15 U/L (16-63) L 03/25/19 06:55 Alkaline Phosphatase 57 U/L (46-116) 03/25/19 06:55 Troponin I < 0.05 ng/mL (0.00-0.06) 03/24/19 21:10 NT-Pro-B Natriuret Pep 154 pg/mL (-299) 03/24/19 11:45 Total Protein 6.5 g/dL (6.4-8.2) 03/25/19 06:55 Albumin 3.3 g/dL (3.4-5.0) L 03/25/19 06:55 TSH 1.84 uIU/mL (0.36-3.74) 03/25/19 06:55 Urine Opiates Screen Negative (Negative) 03/24/19 17:00 Urine Methadone Screen Negative (Negative) 03/24/19 17:00 Ur Barbiturates Screen Negative (Negative) 03/24/19 17:00 Ur Tricyclics Screen Negative (Negative) 03/24/19 17:00 Ur Amphetamines Screen Negative (Negative) 03/24/19 17:00 U Benzodiazepines Scrn Negative (Negative) 03/24/19 17:00 Urine Cocaine Screen Negative (Negative) 03/24/19 17:00 Ur THC Screen Negative (Negative) 03/24/19 17:00
[2019-03-25] MEDS: Meloxicam 15 MG TAB PO (21:31)
[2019-03-26 00:45] VITALS: BP 122/71; PULSE 69; RESP 16; RESP 20; TEMP 36.4; O2SAT 97
[2019-03-26 03:50] VITALS: BP 146/73; PULSE 76; RESP 22; TEMP 36.8; O2SAT 94
[2019-03-26 07:00] VITALS: PULSE 64
[2019-03-26 07:09] LABS: Anion Gap 2.8 mmol/L (3-11); BUN 18 mg/dL (7-18); CO2 36.2 mmol/L (21.0-32.0); CREATININE 0.96 mg/dL (0.70-1.30); Calcium 8.9 mg/dL (8.5-10.1); Chloride 102 mmol/L (98-107); Glucose 210 mg/dL (70-100); Magnesium 2.1 mg/dL (1.8-2.4); Potassium 3.9 mmol/L (3.5-5.1); Sodium 141 mmol/L (136-145)
[2019-03-26] MEDS: Aspirin E.C. 81 MG TABEC PO (07:36)
[2019-03-26] MEDS: Cholecalciferol (Vitamin D3) 1,000 UNIT TAB 1000 UNITS PO (07:37)
[2019-03-26] MEDS: Ascorbic Acid 500 MG TAB PO (07:37)
[2019-03-26] MEDS: Allopurinol 300 MG TAB PO (07:37)
[2019-03-26] MEDS: Potassium Chloride 20 MEQ TABCR PO (07:37)
[2019-03-26] MEDS: Vitamins B Comp w/C TAB 1 TAB PO (07:37)
[2019-03-26 08:02] VITALS: BP 107/62; PULSE 70; RESP 21; TEMP 36.8; O2SAT 95
[2019-03-26 10:24] VITALS: RESP 16
[2019-03-26] MEDS: Furosemide 40 MG TAB PO (11:40)
[2019-03-26 11:45] VITALS: BP 120/73; PULSE 66; RESP 20; TEMP 37; O2SAT 96
--- NOTE | 2019-03-26 12:03 | PT.INDS ---
Date of service: 03/26/19 Time of Service: 11:42 PT Notes Inpatient Physical Therapy Discharge Summary Dates: 03/26/2019 Dates of Service: 03/25/2019 and 03/26/2019 Referring Doctor: Sarah Doherty MD PT Orders: PT CONSULT: Testing for vertigo Precautions: Fall. Standard. Patient Profile/Admitting Diagnosis: Patient is a 63 year old male with past medical history significant for chronic respiratory failure with hypoxia, COPD, anxiety morbid obesity and hypertension who presented to the ED on 03/24/2019 with chief complaint of dizziness. Patient was diagnosed with dizziness, abnormal EKG findings, and chronic respiratory failure with hypoxia. PMHX: Medical History Anxiety and depression (Chronic) Asbestos exposure (Acute) Carpal tunnel syndrome, bilateral upper limbs (Acute) Chronic respiratory failure with hypoxia (Chronic) COPD (chronic obstructive pulmonary disease) (Chronic) Gout (Chronic) Homeless single person (Inactive) Hypertension (Chronic) Hypertriglyceridemia (Acute) Morbid obesity (Acute) Obstructive sleep apnea (Chronic) Osteoarthrosis (Chronic) Shoulder pain, bilateral (Inactive) Ulcer of foot, chronic (Acute) Surgical History S/p bilateral carpal tunnel release (Acute) S/P bilateral cataract extraction (Acute) S/P bunionectomy (Acute) 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) Social History/Home Situation: Previously homeless but has spent one night in a new apartment on his own. He still has belongings to move from his temporary camper. He states he is independent with all aspects of ADLs without the need for an assistive ambulatory device nor adaptive equipment prior to admission. Equipment Owned/DME: None. Subjective: Patient reports he is not in pain. Objective: General Observation: Patient is seen sitting in his chair with an IV in his R UE. Telemetry monitoring in place. Mental Status: Alert and oriented x 4 Pain: 0/10 ROM: Right Lower Extremity: Hip flexion WFL. Hip abduction WFL. Knee flexion WFL. Ankle dorsiflexion WFL. Ankle plantarflexion WFL. Left Lower Extremity: Hip flexion WFL. Hip abduction WFL. Knee flexion WFL. Ankle dorsiflexion 0 degrees. Ankle plantarflexion WFL. Strength: Right Lower Extremity: Hip flexors 5/5. Hip abductors 5/5. Knee flexors 5/5. Knee extensors 5/5. Ankle dorsiflexors 5/5. Ankle plantarflexors 5/5. Left Lower Extremity:Hip flexors 5/5. Hip abductors 5/5. Knee flexors 5/5. Knee extensors 5/5. Ankle dorsiflexors 3-/5. Ankle plantarflexors 5/5. Bed Mobility/Transfers: Rolling Independent Supine to sit Independent Sit to supine Independent Sit to stand Independent Stand to sit Independent Bed to chair Independent Chair to bed Independent Gait: Patient ambulated 300' x 2 using reciprocal gait, no assistive device, and no level of assistance. He had moderate trunk sway which may be attributed to high BMI. Balance: Static Sitting: Normal Dynamic Sitting: Normal Static Standing: Normal Dynamic Standing: Good Assessment: Patient is a 63-year-old male admitted to the medical surgical unit complaining of dizziness. He has a history of CHF, which has caused episodes of dizziness in the past. He tested negative for vertigo using the [place]-hallpike maneuver. Patient's dizziness may be attributable to chronic hypoxia from pre-existing chronic respiratory failure. Although he has no functional deficits, he was only able to perform 2 stages of the 4-stage balance test. He would benefit from a home exercise program to enhance his balance. He is severely deconditioned. His prognosis is fair. Patient presents with clinical signs and symptoms consistent with current/admitting diagnoses that have resulted to mobility limitations, gait instability, generalized weakness, and impairment of motor control as demonstrated by the following impairment level findings: 1. Decreased strength to L ankle dorsiflexors 2. Limitation of joint range of motion in L ankle dorsiflexion Impairments are contributing to the following functional limitations: 1. Increase completion time for mobility ADL performance 2. Increased fall risk Goals: Goals X1 week 1. Independent with home exercise program MET 2. Good static and dynamic standing balance/tolerance MET DISCHARGE RECOMMENDATIONS: Patient is to be discharged to home. No skilled PT services recommended at this time. TREATMENT CODE/TIME: 71897 x 36 minutes beginning at 13:58 PM. Thank you very much for this referral. Ashley Cason PT, DPT, CLT [facility]
--- NOTE | 2019-03-26 13:10 | W.PM.DS.N ---
Date of service: 03/26/19 Time of Service: 13:11 DS: Diagnosis Discharge Diagnosis (1) Dizziness: Status: Acute (2) Abnormal EKG: Status: Acute (3) Obstructive sleep apnea: Status: Chronic (4) Hypertension: Status: Chronic (5) Anxiety and depression: Status: Chronic (6) Headache: Status: Chronic (7) Pulmonary hypertension: Status: Acute (8) Chronic respiratory failure with hypoxia and hypercapnia: Status: Chronic (9) Obesity hypoventilation syndrome: Status: Acute Discharge Plan Disposition Patient Disposition: HOME W/HOME HEALTH SERVICE Condition: Stable Discharge Details Chief Complaint: Dizzy/Sync Clinical Impression: Dizziness Reason For Visit: DIZZINESS, PRESYNCOPE Admit Date/Time: 03/24/19 16:03 Admit Provider: Saarh Pires Attending Provider: Sarah Pires Primary Care Provider: Angel Toscano ED Provider: Adarsh [facility] Course Hospital Course: Mr Manzanares is a 63 year old male with PMHx of chronic hypoxic respiratory failure due to EMI/OHS, not on CPAP/BIPAP, ?COPD, normally on 3L of O2, as well as severe pulmonary hypertension, chronic diastolic CHF as well as cor pulmonale, who was observed on [facility] hospitalist service from 03/24/19 until 03/26/19 for dizziness in setting of hypotension. PE was ruled out by CTA. EKG was abnormal, but his troponins remained flat and negative. There were no wall motion abnormalities on his echo other than mildly hypokinetic RV consistent with RV pressure/volume overload. He did not have an acute coronary syndrome on this admission. We were unable to locate prior EKG's for comparison. As far as hypotension, the patient's antihypertensives were held, and he was given IV fluid to rehydrate him as there was suggestion of dehydration on his admission blood work. With this, the dizziness resolved. Lasix was re-introduced, but the balance of his blood pressure medications (losartan, metoprolol) are being discontinued on discharge home. The patient reports frequent headaches. He was worried he might have a brain tumor. The headache resolved after the patient used BiPAP overnight. He had a negative CT head. I do not think that further workup of headaches is necessary, but the patient must undergo a sleep study and start using his BiPAP. I am referring him for outpatient PFTs in hopes that he cane resume going to cardiopulmonary rehab. He is being referred to both cardiology and pulmonology for his severe pulmonary hypertension and RV pressure overload. He is at his baseline oxygen requirements. Oxygen is being delivered to his new apartment by Milag[facility] on the day of discharge. The patient is medically stable for discharge home today with home health nursing and HEALTH INFORMATION DIRECTOR. He will need to follow up with his PCP within 1 week, if possible. Home Meds and New Rx's Prescriptions: New aspirin 81 mg Tablet,Delayed Release (Dr/Ec) 81 mg PO DAILY 30 Days Qty: 30 RF: 0 Continued ascorbic acid (vitamin C) [Vitamin C] 500 MG capsule, extended release 500 mg PO DAILY RF: 0 cholecalciferol (vitamin D3) 1,000 UNIT capsule 1,000 unit PO DAILY RF: 0 Oxygen EACH NS Qty: 2 RF: 0 vitamin B complex Capsule 1 cap PO DAILY RF: 0 vitamin E (dl, acetate) 1,000 unit capsule 1,000 unit PO DAILY RF: 0 potassium chloride 20 mEq tablet extended release 20 meq PO DAILY RF: 0 mupirocin 2 % ointment 1 applic TP TID RF: 0 meloxicam 15 MG tablet 15 mg PO DAILY RF: 0 allopurinol 300 MG tablet 300 mg PO DAILY RF: 0 Fish Oil 500 MG capsule,delayed release(DR/EC) 500 mg PO TID RF: 0 furosemide 40 MG tablet 40 mg PO DAILY Qty: 90 RF: 0 Discontinued losartan 25 mg tablet 25 mg PO DAILY RF: 0 metoprolol succinate 25 mg tablet extended release 24 hr 25 mg PO DAILY RF: 0 No Action (DME) Oxygen Tank See Rx Instructions .ROUTE .MEDSUPPLY Qty: 1 RF: 0 Discharge Instructions Instructions: Cor Pulmonale (DC), Sleep Apnea (DC), Dehydration (DC), Pulmonary Arterial Hypertension (DC), Polysomnography (DC), Hypotension (DC) Additional Instructions: Return to the hospital with any fever, bleeding, chest pain, shortness of breath. Follow up with your PCP within 1 week of discharge. Follow up with cardiology, pulmonology, for your PFT's and your sleep study. Care Plan Goals: Home with home health nursing and HEALTH INFORMATION DIRECTOR. Stand Alone Forms: Nursing Discharge Form Referrals: PULMONOLOGY,[facility] [place] [OTHER] - (Severe pulmonary hypertension, EMI/OHS, ?COPD) SLEEP CLINIC,[facility] [OTHER] - (EMI, chronic hypoxic hypercapnic respiratory failure, evaluate for BiPAP) Angel Toscano [Primary Care Provider] - 04/01/19 11:30 am Ruslan Mays MD [MD CONSULTING PHYSICIAN] - (Severe pulmonary hypertension with RV pressure/volume overload) Activity:: Activity as Tolerated Equipment/Supplies:: No Equipment Needed Diet:: Low Sodium Discharge Orders Discharge Orders: Discharge Order (Routine); Ordered 03/26/19 Ordered By: Sarah Pires Other Ambulatory Orders: PFT ([place]/[facility]/Volumes) (Outpt) (ONCE) Location: None Selected Ordered By: Sarah Pires DS: Summary Status at Discharge Functional status at discharge: independent ambulation Overall status at discharge: patient is back to baseline Mental Status: mental status grossly normal Speech and Movement: speech and movement normal Mood: congruent mood and anxious mood Affect: normal affect Exam Narrative Exam Narrative: General: very pleasant, obese male, anxious, A&Ox3, sitting in a chair, looks well HEENT: EOMI, MMM Heart: RRR, no m/r/g Lungs; CTAB GI: abdomen is soft, obese, nontender Extremities:+1 edema BLE's, no c/c BLE's Psych Mental Status: mental status grossly normal Speech and Movement: speech and movement normal Mood: congruent mood and anxious mood Affect: normal affect DS: Data Vitals/I&O Vitals and I&O: Vital Signs Temperature 37 C 03/26/19 11:45 Temperature Source Tympanic 03/26/19 11:45 Pulse 66 03/26/19 11:45 Pulse Rhythm Regular 03/26/19 11:20 Pulse 66 03/24/19 16:01 Respiratory Rate 20 03/26/19 11:45 Respiratory Effort Non-Labored 03/26/19 11:20 Respiratory Depth Normal 03/26/19 11:20 Respiratory Pattern Normal 03/26/19 11:20 Blood Pressure 120/73 03/26/19 11:45 Blood Pressure Mean 65 03/24/19 16:01 Pulse Oximetry 96 03/26/19 11:45 Oxygen Delivery Method Nasal Cannula 03/26/19 11:45 Oxygen Flow Rate 3 03/26/19 11:45 Pain Level 7 03/26/19 11:45 Comment 03/25/19 04:25 Intake & Output 03/25/19 03/26/19 03/26/19 23:59 11:59 23:59 Intake Total 835 / 3273.333 360 / 360 Balance 835 / 3273.333 360 / 360 Weight 143 kg Intake: IV 355 / 1853.333 Oral 480 / 1420 360 / 360 Other: Comment Pt voids independently Data Completed and Pending Completed studies during hospitalization [Text1]: Echo 03/25/19: Left Ventricle : The left ventricle is normal size. Mild concentric left ventricular hypertrophy. The left ventricular diastolic function is normal. There is normal LV segmental wall motion. LVEF is 55-60%. Right Ventricle : Right ventricle is moderate to severely dilated. Right ventricle is mildly hypokinetic. The intraventricular septum is flattened suggesting RV volume and pressure overload Atria : Left atrium is moderately dilated. Right atrium is moderately dilated. Aortic Valve : The Aortic valve is sclerotic. There is no aortic valvular stenosis. No aortic regurgitation is present. Mitral Valve : The mitral valve is normal in structure. There is no mitral valve regurgitation noted. No evidence of mitral valve stenosis. Tricuspid Valve : The tricuspid valve is normal in structure. There is mild tricuspid regurgitation. TR peak gradient=54 mmHg which corresponds with an RVSP >60 mmHg. Great Vessels : The aortic root is normal in size. Pericardium : There is no pericardial effusion. Great Vessels : The IVC is mildly dilated with >50% collapse US carotid: No significant internal carotid artery stenosis. CT head: No acute intracranial abnormality is demonstrated. CTA chest: Negative chest CT. No evidence pulmonary emboli or other acute abnormality. Labs on day of discharge: Labs from last 24 hours 03/26/19 06:12 Sodium 141 Potassium 3.9 Chloride 102 Carbon Dioxide 36.2 H Anion Gap 2.8 L BUN 18 Creatinine 0.96 Estimated GFR/1.73 m2 >= 60.00 Glucose 210 H D Calcium 8.9 Magnesium 2.1 [facility] Medical History (Updated 03/25/19 @ 18:19 by Sarah Pires MD) Anxiety and depression (Chronic) Asbestos exposure (Acute) Carpal tunnel syndrome, bilateral upper limbs (Acute) Chronic respiratory failure with hypoxia (Chronic) Chronic respiratory failure with hypoxia and hypercapnia (Chronic) COPD (chronic obstructive pulmonary disease) (Chronic) Gout (Chronic) Homeless single person (Inactive) Hypertension (Chronic) Hypertriglyceridemia (Acute) Morbid obesity (Acute) Obesity hypoventilation syndrome (Acute) Obstructive sleep apnea (Chronic) Osteoarthrosis (Chronic) Pulmonary hypertension (Acute) Shoulder pain, bilateral (Inactive) Ulcer of foot, chronic (Acute) Surgical History S/p bilateral carpal tunnel release (Acute) S/P bilateral cataract extraction (Acute) S/P bunionectomy (Acute) 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) Family History (Updated 03/24/19 @ 19:49 by Sarah Pires MD) Mother CHF (congestive heart failure) Hypertension Father Hypertension Alzheimer disease Social History Smoking/Tobacco Use Status: Never Alcohol Intake: current Alcohol Intake frequency: holidays/special occasions only Drug use: Rarely Substance use type: marijuana Do you feel safe at home: Yes Do you feel safe in your relationship?: Yes
--- NOTE | 2019-03-26 13:37 | PDOC.HHF2F_ITS ---
Home Health Certification Home Health Certification: 1. Encounter Date and Reason I certify that JONAS MARTINEZ was seen by Sarah Pires on 03/26/19 and that I had a [id number] encounter with this patient that meets the physician face to face encounter requirements. 2. Clinical Findings Supporting Skilled Need and Homebound Status I certify that home health services are medically necessary, include either intermittent group home and/or physical/speech therapy, and that this patient is homebound in that absences from the home require considerable and taxing effort and are infrequent or of short duration, or are attributable to the need to receive medical care. [X] (a) Attached documentation from encounter provides clinical findings supporting skilled need and homebound status (including what assistance patient requires to leave the home). The encounter with the patient was in whole, or in part, for the following medical condition, which is the primary reason for home health care: DIZZINESS, PRESYNCOPE Fdc: patient with CHF, pulmonary hypertension, chronic hypoxic hypercapnic respiratory failure, EMI, OHS. TEST SPECIALIST: evaluate for needs at home Homebound: unable to leave home without assistance 3. Certification and Authentication I certify that I composed the above information based on my clinical judgement relating to this patient's medical condition and, if applicable, clinical findings communicated to me by the NPP or inpatient physician who performed the Home Health Referral. All further orders will be obtained through ____Angel Toscano____ (Community Based Physician - PCP)
--- NOTE | 2019-03-27 08:55 | CMDISCH_ITS ---
LACE Index Scoring Tool - Questions: Length of Stay (in days): 2 Acuity (Admit via E.D.?): Yes Comorbidities: Congestive Heart Failure, Chronic Pulmonary Disease E.D. Visits: 1 - Answers: Total Score: 11 Risk of Readmission: High Risk Care Management Discharge Reason for Hospitalization: Dizziness, Presyncope Discharge Plan: Jori will return to his new home upon discharge. He will follow up with his community providers and have new referrals through the [facility] for [place] meals and Options Counseling. He will have skilled services ordered through [facility] for Nursing and Social work. Respiratory therapist yoselin Milagros will be meeting him at home shortly after discharge to provide updated equipment. Jori will transport via [facility] coordinated by this mortgage or loan underwriter. Patient/Family Education Needs: Review of community based supports, discharge recommendations, Ask Me Three. Services Needed at Discharge: DME Agency, Home Delivered Meals, Home Health Care Services, Homemaking Services, Oxygen Therapy, Respiratory Care Services, Transportation
== END 2019-03-26 14:09 | disposition home health service (06) ==
LOC: ER 16:32 → MS 16:56
PROVIDERS: Admitting Provider Internal Medicine; Emergency Provider Student in an Organized Health Care Education/Training Program; PCP Specialist/Technologist Athletic Trainer; Visit Provider Internal Medicine
DX: R42 Dizziness and giddiness (principal); R94.31 Abnormal electrocardiogram [ECG] [EKG]; E86.0 Dehydration; I95.9 Hypotension, unspecified; I10 Essential (primary) hypertension; E87.79 Other fluid overload; F41.8 Other specified anxiety disorders; R51 Headache; I27.20 Pulmonary hypertension, unspecified; J96.12 Chronic respiratory failure with hypercapnia; J96.11 Chronic respiratory failure with hypoxia; E66.2 Morbid (severe) obesity with alveolar hypoventilation; Z68.42 Body mass index [BMI] 45.0-49.9, adult; Z99.81 Dependence on supplemental oxygen; I50.32 Chronic diastolic (congestive) heart failure
CPT/HCPCS: 36415; 71275; 80048; 80053; 80076; 80307; 93005; 93306; 94618; 97162; 97530; 99217; 99220; 99225; 99285; J1650; 70450; 83036; 83735; 83880; 84443; 84484; 85025; 85610; 85730; 93010; 93880; 94660; G0378; J1941; J3490

== ENCOUNTER 2019-04-16 08:22 | Outpatient (CLI) | payer OTHER, SELFPAY | END 2019-04-16 08:42 | PROVIDERS: PCP Specialist/Technologist Athletic Trainer; Visit Provider Internal Medicine Cardiovascular Disease | DX: R94.31 Abnormal electrocardiogram [ECG] [EKG] (principal); E66.2 Morbid (severe) obesity with alveolar hypoventilation; I11.0 Hypertensive heart disease with heart failure; I50.9 Heart failure, unspecified | CPT/HCPCS: 99205; 93005; 93010 ==

== ENCOUNTER → 2019-07-21 14:11 | Outpatient (BNVA) | payer OTHER, SELFPAY | PROVIDERS: PCP Specialist/Technologist Athletic Trainer; Referring Provider Specialist/Technologist Athletic Trainer; Visit Provider Internal Medicine Cardiovascular Disease | DX: E66.2 Morbid (severe) obesity with alveolar hypoventilation (principal); I10 Essential (primary) hypertension; R94.31 Abnormal electrocardiogram [ECG] [EKG] | CPT/HCPCS: 99214 ==

== ENCOUNTER 2019-08-14 12:32 | Outpatient (CLI) | payer OTHER, SELFPAY ==
[2019-08-14 14:44] LABS: Ferritin 161 ng/mL (26-388)
== END 2019-08-14 12:52 ==
PROVIDERS: PCP Specialist/Technologist Athletic Trainer; Visit Provider Nurse Practitioner
DX: M25.50 Pain in unspecified joint (principal)
CPT/HCPCS: 36415; 82728

== ENCOUNTER 2019-08-19 14:37 | Outpatient (REF) | payer OTHER, SELFPAY ==
[2019-08-19 22:34] LABS: HCT 43.5 % (40.0-50.0); HGB 13.4 g/dL (13.5-17.5)
[2019-08-19 22:48] LABS: BUN 18 mg/dL (7-18); CREATININE 1.02 mg/dL (0.70-1.30); Calcium 8.5 mg/dL (8.5-10.1); Chloride 102 mmol/L (98-107); Glucose 111 mg/dL (74-106); NT-proBNP 73 pg/mL (<300); Potassium 3.5 mmol/L (3.5-5.1); Sodium 145 mmol/L (136-145)
[2019-08-19 22:58] LABS: Anion Gap -0.3 mmol/L (3-11); CO2 43.3 mmol/L (21.0-32.0)
== END 2019-08-19 14:57 ==
LOC: NCHCN 14:37
PROVIDERS: PCP Specialist/Technologist Athletic Trainer; Visit Provider Specialist/Technologist Athletic Trainer
DX: I50.30 Unspecified diastolic (congestive) heart failure (principal); Z51.81 Encounter for therapeutic drug level monitoring
CPT/HCPCS: 80048; 83880; 85014; 85018

== ENCOUNTER 2019-10-15 10:14 | Emergency (ER) | payer OTHER, SELFPAY ==
[2019-10-15] VITALS (7 sets, daily range): BP systolic 152–156; BP diastolic 76–124; PULSE 76–88; RESP 20; TEMP 36.6; O2SAT 78–93
--- NOTE | 2019-10-15 10:35 | ED.GENADUL_ITS ---
Discharge Plan Disposition Patient Disposition: HOME Condition: Stable Discharge Details Chief Complaint: Epistaxis Clinical Impression: Epistaxis Primary Care Provider: Angel Toscano ED Provider: Michelle Toure Home Meds and New Rx's Prescriptions: Continued ginkgo biloba 40 mg capsule 40 mg PO TID RF: 0 losartan 25 mg tablet 25 mg PO DAILY RF: 0 glucosamine sulfate [Glucosamine] 500 mg tablet 500 mg PO BID RF: 0 furosemide 20 mg tablet 60 mg PO BID RF: 0 ascorbic acid (vitamin C) [Vitamin C] 500 MG capsule, extended release 500 mg PO DAILY RF: 0 cholecalciferol (vitamin D3) 1,000 UNIT capsule 1,000 unit PO DAILY RF: 0 vitamin B complex Capsule 1 cap PO DAILY RF: 0 vitamin E (dl, acetate) 1,000 unit capsule 1,000 unit PO DAILY RF: 0 (DME) Oxygen Tank See Rx Instructions .ROUTE .MEDSUPPLY Qty: 1 RF: 0 meloxicam 15 MG tablet 15 mg PO DAILY RF: 0 allopurinol 300 MG tablet 300 mg PO DAILY RF: 0 gabapentin 300 mg Capsule 300 mg PO TID RF: 0 saw palmetto 500 mg Capsule 500 mg BID RF: 0 sertraline 50 mg Tablet 50 mg PO DAILY RF: 0 potassium chloride 20 mEq Tablet Extended Release 20 meq PO DAILY RF: 0 Discharge Instructions Instructions: Nosebleed (ED) Additional Instructions: Mil[facility] will come to your home tomorrow to set up your humidified oxygen. You can leave a bowl of water out today and overnight to help with moisture in the air. Keep your nose lubricated with Vaseline. Avoid picking or blowing your nose. Be sure to sneeze with your mouth open. You can call respiratory therapy here at [facility] at [phone] to schedule a time to bring in your CPAP machine to help with set up if needed. A referral was placed to Home health to follow up with you at home regarding your humidified oxygen set up and to assist you with your CPAP machine if needed. Follow up with your primary care doctor's office in 1 week. Return to the emergency department if you develop any worsening or new concerning symptoms. Discharge Data Discharge Physician: Michelle Toure Medical Decision Making 1025 -- 63-year-old male with morbid obesity, obesity hypoventilation syndrome, CHF, COPD, pulmonary hypertension, sleep apnea presents for left-sided epistaxis for the past 90 minutes. Bleeding stopped on arrival. There is some blood noted within left nares but no obvious source. There is no blood in oropharynx. He denies any symptoms at present. He is chronically on 4 L nasal cannula during the day and 5 L at night. He states he is awaiting a veterans contact representative to set up his CPAP at home. 2 sprays of Afrin placed in left nares. Oxygen saturation 85% on room air. Patient placed on facemask 6 L with O2 sat 95%. We will continue to monitor to make sure nosebleed does not restart. Patient evaluated by respiratory bedside. There is no humidified oxygen bottle or tubing to send with patient for home so recommends a humidifier to place in room at home while awaiting [facility]. 1200 -- No further bleeding noted. There was a small area of fresh blood noted anteriorly on septum which was cauterized with silver nitrate. His O2 was decreased to 3L and O2 mid-high 90s and no acute complaints. Case discussed with care management who called [facility] who will come to patient's home tomorrow. A referral was also made for home health to ensure that patient's home humidifier and CPAP set up. Patient was advised that he can call respiratory therapy here to bring in his CPAP machine if he needs help with setting up. Patient feels good with plan for home. Usual and customary return precautions given prior to discharge. HPI General Mode of arrival: EMS . Date/Time Provider Initiated Documentation: 10/15/19 10:16 . Limitations to Documentation: no limitations . Information obtained by: patient . HPI Narrative: Patient is a 63-year-old male with multiple medical problems including morbid obesity, COPD, obesity hypoventilation syndrome, CHF, pulmonary hypertension, obstructive sleep apnea who presents for nosebleed for the past 90 minutes. Patient states nosebleed awoke him from sleep. He states he is chronically on 4 L of nasal cannula oxygen during the day and 5 L at night for the past 2 years. He states prior to this he had been on intermittent nasal cannula oxygen as needed. He states he takes aspirin occasionally for headaches but denies any chest pain, shortness of breath, headache or dizziness at this time. He does not use to humidified oxygen and he was not aware of this option. He states he occasionally uses Vaseline. Related Data Home Medications Medication Instructions Recorded Confirmed allopurinol 300 mg PO DAILY 01/12/14 10/15/19 meloxicam 15 mg PO DAILY 01/12/14 10/15/19 ascorbic acid (vitamin C) [Vitamin 500 mg PO DAILY NS 10/17/17 10/15/19 C] cholecalciferol (vitamin D3) 1,000 unit PO DAILY NS 10/17/17 10/15/19 Oxygen #1 each 03/23/19 07/21/19 vitamin B complex 1 cap PO DAILY 03/23/19 10/15/19 vitamin E (dl, acetate) 1,000 unit 1,000 unit PO DAILY 03/23/19 10/15/19 capsule glucosamine sulfate 500 mg tablet 500 mg PO BID 04/16/19 10/15/19 furosemide 20 mg tablet 60 mg PO BID tab 07/21/19 10/15/19 ginkgo biloba 40 mg capsule 40 mg PO TID 07/21/19 07/21/19 losartan 25 mg tablet 25 mg PO DAILY 07/21/19 07/21/19 gabapentin 300 mg PO TID 10/15/19 10/15/19 potassium chloride 20 meq PO DAILY 10/15/19 10/15/19 saw palmetto 500 mg BID 10/15/19 10/15/19 sertraline 50 mg PO DAILY 10/15/19 10/15/19 Allergies Allergy/AdvReac Type Severity Reaction Status Date / Time lisinopril Allergy Mild Verified 10/15/19 10:32 amlodipine besylate AdvReac Severe Racing Unverified 10/15/19 10:[address] [[address] [facility]] heart General Stated Complaint: Epistaxis PAPI: 4 Review of Systems All systems reviewed & are unremarkable except as noted in HPI and below Constitutional Constitutional: Reports as per HPI, Denies chills and Denies fever(s) Eyes Eyes: Denies blurry vision ENT Ears, Nose, Mouth, and Throat: Denies dizziness, Reports epistaxis, Denies sore throat and Denies throat swelling Cardiovascular Cardiovascular: Denies chest pain and Denies dyspnea Respiratory Respiratory: Denies cough and Denies dyspnea Gastrointestinal Gastrointestinal: Denies abdominal pain, Denies diarrhea and Denies vomiting Genitourinary Genitourinary: Denies hematuria and Denies dysuria Musculoskeletal Musculoskeletal: Denies back pain and Denies numbness Integumentary/Breasts Skin/Breast: Denies lesions and Denies rash Neurologic Neurologic: Denies dizziness, Denies localized weakness and Denies numbness Allergic/Immunologic Allergic/Immunologic: Denies throat swelling [facility] Social History Smoking/Tobacco Use Status: Never Alcohol Intake: current Alcohol Intake frequency: holidays/special occasions only Drug use: Rarely Substance use type: marijuana Do you feel safe at home: Yes Do you feel safe in your relationship?: Yes Exam Const General: cooperative and no acute distress Nutritional Appearance: obese morbidly obese Orientation: alert, awake and oriented x3 HENMT Head: normal to inspection Ears: hearing grossly normal bilaterally and external ears normal General nose exam: epistaxis on the left source not visualized (blood noted within L nares) and other (clotted blood noted from L nares, L side of mustache and henriquez. ) Face and sinus: normal facial exam Mouth: oral mucosae normal Throat: posterior oropharynx normal, tonsils normal, uvula midline and no peritonsillar masses Eyes General: appearance normal, both eyes and all related structures EOM: EOM intact bilaterally Neck Neck: normal visual inspection and No submandibular swelling Lymphatic: no lymphadenopathy noted Chest Chest: normal inspection of the chest and no tenderness Resp Effort & Inspection: normal respiratory effort and able to speak in complete sentences Auscultation: clear to auscultation bilaterally Cardio Rate: regular rate Rhythm: regular rhythm Skin General skin exam: no rashes or lesions noted Neuro General: patient alert, patient awake and patient oriented x3 Cognition: normal cognition Speech: speech normal Motor: muscle tone normal throughout Sensory Exam: no sensory deficits noted Extrem General: normal to inspection, full ROM, capillary refill normal, no calf tenderness bilaterally and no edema Psych Appearance: grossly normal Mental Status: mental status grossly normal Speech and Movement: speech and movement normal Affect: normal affect Course Vital Signs Vital signs: Vital Signs Temperature 97.9 F 10/15/19 10:19 Pulse 76 10/15/19 10:19 Respiratory Rate 20 10/15/19 10:19 Blood Pressure 156/124 H 10/15/19 10:19 Pulse Oximetry 85 L 10/15/19 10:19 Temperature 97.9 F 10/15/19 10:19 Temperature Source Temporal Artery Scan 10/15/19 10:19 Pulse 76 10/15/19 10:19 Respiratory Rate 20 10/15/19 10:19 Respiratory Effort Non-Labored 10/15/19 10:33 Blood Pressure 156/124 H 10/15/19 10:19 Blood Pressure Position Sitting 10/15/19 10:19 Pulse Oximetry 85 L 10/15/19 10:19 Oxygen Delivery Method Room Air 10/15/19 10:19 Oxygen Flow Rate 0 10/15/19 10:19
[2019-10-15] MEDS: Oxymetazolone 0.05% SPRAY 15 ML BTL (10:40)
[2019-10-15] MEDS: Silver Nitrate Stick 1 EACH (11:51)
--- NOTE | 2019-10-15 11:58 | CMPROGNOTE_ITS ---
- If Service Date Differs Date of service: 10/15/19 Time of Service: 11:58 Care Management Progress Note ADRIANA was consulted to meet with Jori during his ED visit. Jori presented with nose bleeds, which the provider states may be from his O2, as he does not have a humidifier for it. ADRIANA contacted [facility]ag[facility], who stated they will deliver the O2 humidifier tomorrow to his apartment in [facility]. CM verified his address and phone number, which match the information currently on the EMR. Jori also s tated that he has not been using his CPAP machine because it has not been set up. The provider ordered HH RN for assessment of compliance and to assist him with his new O2 requirements. (CPAP machine as well as humidified O2). Jori stated that his 'mind is not what it used to be'. If HH cannot visit him due to Covid restrictions, Jori was given the option to bring in his CPAP machine to [facility] RT department, who can assist him in setting it up. ADRIANA advised that he call ahead to make an appointment due to Covid restrictions.
== END 2019-10-15 12:15 | disposition home or self-care (01) ==
PROVIDERS: Emergency Provider Physician Assistant; PCP Specialist/Technologist Athletic Trainer
DX: R04.0 Epistaxis (principal); I11.0 Hypertensive heart disease with heart failure; I50.9 Heart failure, unspecified; J44.9 Chronic obstructive pulmonary disease, unspecified; Z99.81 Dependence on supplemental oxygen
CPT/HCPCS: 30901; 99282

== ENCOUNTER → 2019-12-30 13:56 | Outpatient (BNVA) | payer OTHER, SELFPAY | PROVIDERS: PCP Specialist/Technologist Athletic Trainer; Referring Provider Family Medicine; Visit Provider Nurse Practitioner Adult Health | DX: G56.23 Lesion of ulnar nerve, bilateral upper limbs (principal); G56.03 Carpal tunnel syndrome, bilateral upper limbs; I11.0 Hypertensive heart disease with heart failure; I50.9 Heart failure, unspecified; J44.9 Chronic obstructive pulmonary disease, unspecified | CPT/HCPCS: 95911; 99214 ==

== ENCOUNTER 2020-01-26 11:08 | Outpatient (CLI) | payer OTHER, SELFPAY ==
--- NOTE | 2020-01-26 11:00 | DI.RAD_ITS ---
EXAM: XR HIP RT COMPLETE AP PELVIS CLINICAL HISTORY: pain. TECHNIQUE: 2D digital imaging was performed. COMPARISON: No exams were available for comparison FINDINGS: BONES: No acute fracture is present. No bony destructive lesion is seen. JOINTS: No dislocation present. Degenerative changes of the hips are noted characterized by joint spa ce narrowing and small osteophytes. SOFT TISSUE: Normal. IMPRESSION: Mild degenerative changes of the right hip. DATA REPOSITORY: RADIATION DOSE DELIVERED:
== END 2020-01-26 11:28 ==
PROVIDERS: PCP Internal Medicine; Referring Provider Nurse Practitioner Adult Health; Visit Provider Orthopaedic Surgery
DX: M16.11 Unilateral primary osteoarthritis, right hip (principal); G56.23 Lesion of ulnar nerve, bilateral upper limbs; G56.03 Carpal tunnel syndrome, bilateral upper limbs; J44.9 Chronic obstructive pulmonary disease, unspecified; I11.0 Hypertensive heart disease with heart failure; I50.9 Heart failure, unspecified
CPT/HCPCS: 99201; 99213; 73502

== ENCOUNTER → 2020-02-04 14:01 | Outpatient (BNVA) | payer OTHER, SELFPAY | PROVIDERS: PCP Internal Medicine; Referring Provider Specialist/Technologist Athletic Trainer; Visit Provider Internal Medicine Cardiovascular Disease | DX: I27.20 Pulmonary hypertension, unspecified (principal); E66.8 Other obesity; G47.33 Obstructive sleep apnea (adult) (pediatric); I11.0 Hypertensive heart disease with heart failure; I50.9 Heart failure, unspecified; J44.9 Chronic obstructive pulmonary disease, unspecified | CPT/HCPCS: 99214 ==

== ENCOUNTER → 2020-03-08 10:34 | Outpatient (BNVA) | payer OTHER, SELFPAY | PROVIDERS: PCP Internal Medicine; Referring Provider Internal Medicine; Visit Provider Orthopaedic Surgery | DX: M25.551 Pain in right hip (principal); G56.23 Lesion of ulnar nerve, bilateral upper limbs; G56.03 Carpal tunnel syndrome, bilateral upper limbs; J44.9 Chronic obstructive pulmonary disease, unspecified; I11.0 Hypertensive heart disease with heart failure; I50.9 Heart failure, unspecified | CPT/HCPCS: 99213 ==

== ENCOUNTER 2020-04-29 03:36 | Outpatient (CLI) | payer OTHER, SELFPAY ==
--- NOTE | 2020-04-29 | DI.MRI_ITS ---
EXAM: MR LOWER EXTREMITY LT WO/W CLINICAL HISTORY: ACUTE OSTEOMYELITIS PHALANX OF [id number]. TECHNIQUE: Multiplanar multisequence MRI was performed. COMPARISON: No exams were available for comparison FINDINGS: MR examination of the foot was performed according to the usual protocol with additional pre and post contrast T1 fat sat imaging. There is reportedly suspicion of acute osteomyelitis of the toe, not s pecified. There is no visible ulceration of the soft tissues of the toes on these images. Bones: There are multiple apparent small periarticular degenerative cysts of the hindfoot and midfoot bones. Mild marginal osteophytes noted at multiple sites. The great toe contains an approximately 19 x 12 millimeter in diameter rounded well-circumscribed les ion at the head of the 1st metatarsal. This has a a low signal subtle rim on T2 fat sat images sugge sting bony sclerosis at this site. The lesion is intermediate to high signal on T2 fat sat images an d shows significant enhancement on post contrast imaging. Smaller focus of high signal is also seen on T2 weighted images in the head of the 1st metatarsal measuring up to about 4 millimeters in diamet er. Of note is that the surrounding bone is not of increased signal on T2 weighted images nor does n ot show significant enhancement on postcontrast imaging. The well-circumscribed lesion of the head of the 1st metatarsal is of low signal on T1 weighted image s. There are apparent severe degenerative changes of the joints of the toes. There is lateral deviation /cysts subluxation of the proximal phalanx of the 2nd toe, the phalanges of the 3rd toe are absent. There is deformity of the base of the distal phalanx of the great toe which appears to be old. Pleas e correlate regarding prior surgical history. Of note is at the sesamoids of the 1st metatarsal head show normal signal and do not enhance on post contrast imaging. This would be unusual in the presence of osteomyelitis. Tendons: No gross tendinous disruption identified. Ligaments: Apart from the aforementioned deformity at the base of the 2nd toe there is no gross acute ligamentous injury in the region surveyed. IMPRESSION: Indeterminate findings involving the head of the 1st metatarsal, possibility of osteomyelitis is rais ed but the findings are not typical for osteomyelitis and other etiologies including inflammatory art hritis could cause a similar picture. Please correlate clinically. DATA REPOSITORY:
[2020-04-29 14:22] LABS: CREATININE 1.02 mg/dL (0.70-1.30)
[2020-04-29] MEDS: Normal Saline Flush 10 ML SYR IVP (14:27)
[2020-04-29] MEDS: Gadoterate meglumine 20 ML VIAL IVP (14:28)
== END 2020-04-29 03:56 ==
PROVIDERS: PCP Podiatrist Foot Surgery; Visit Provider Podiatrist Foot Surgery
DX: R93.6 Abnormal findings on diagnostic imaging of limbs (principal); M89.8X7 Other specified disorders of bone, ankle and foot; M19.072 Primary osteoarthritis, left ankle and foot; L97.828 Non-pressure chronic ulcer of other part of left lower leg with other specified severity
CPT/HCPCS: 73720; 82565

== ENCOUNTER → 2020-08-23 13:21 | Outpatient (BNVA) | payer OTHER, SELFPAY | PROVIDERS: PCP Podiatrist Foot Surgery; Referring Provider Internal Medicine; Visit Provider Internal Medicine Cardiovascular Disease | DX: I27.20 Pulmonary hypertension, unspecified (principal); G47.33 Obstructive sleep apnea (adult) (pediatric); I50.9 Heart failure, unspecified; I11.0 Hypertensive heart disease with heart failure; Z79.899 Other long term (current) drug therapy | CPT/HCPCS: 99214 ==

== ENCOUNTER 2020-09-01 02:45 | Outpatient (CLI) | payer OTHER, SELFPAY ==
[2020-09-01 14:29] LABS: Anion Gap 2.7 mmol/L (3-11); BUN 21 mg/dL (7-18); CO2 38.3 mmol/L (21.0-32.0); CREATININE 1.1 mg/dL (0.70-1.30); Chloride 99 mmol/L (98-107); Glucose 143 mg/dL (74-106); Potassium 3.8 mmol/L (3.5-5.1); Sodium 140 mmol/L (136-145)
== END 2020-09-01 02:46 | disposition home or self-care (01) ==
LOC: LBO 02:45
PROVIDERS: PCP Podiatrist Foot Surgery; Visit Provider Internal Medicine Cardiovascular Disease
DX: I10 Essential (primary) hypertension (principal)
CPT/HCPCS: 36415; 80048

== ENCOUNTER → 2020-09-26 13:18 | Outpatient (BNVA) | payer OTHER, SELFPAY | PROVIDERS: PCP Podiatrist Foot Surgery; Referring Provider Podiatrist Foot Surgery; Visit Provider Internal Medicine Cardiovascular Disease | DX: E66.2 Morbid (severe) obesity with alveolar hypoventilation (principal); I27.20 Pulmonary hypertension, unspecified | CPT/HCPCS: 99212; 99442 ==

== ENCOUNTER → 2021-03-28 13:54 | Outpatient (BNVA) | payer OTHER, SELFPAY | PROVIDERS: PCP Podiatrist Foot Surgery; Referring Provider Podiatrist Foot Surgery; Visit Provider Internal Medicine Cardiovascular Disease | DX: J96.11 Chronic respiratory failure with hypoxia (principal); J96.12 Chronic respiratory failure with hypercapnia; I27.20 Pulmonary hypertension, unspecified; J44.9 Chronic obstructive pulmonary disease, unspecified; I11.0 Hypertensive heart disease with heart failure; G47.33 Obstructive sleep apnea (adult) (pediatric); I50.9 Heart failure, unspecified | CPT/HCPCS: 99214 ==

== ENCOUNTER 2021-06-30 04:56 | Outpatient (CLI) | payer MEDICARE, SELFPAY ==
[2021-06-30] MEDS: Inhaler, Assist Device 1 EACH MC (16:18)
[2021-06-30] MEDS: Albuterol HFA 18 GM 200 PUFF INH IH (16:18)
--- NOTE | 2021-07-03 10:59 | W.PFT ---
Date of service: 06/30/21 Time of Service: 14:50 Pulmonary Function Test Result Requesting Provider Duchene Indications: Dyspnea Interpretation Spirometry: There is no airflow limitation. Spirometry has a restricted pattern. There is no significant bronchodilator response. Lung Volumes: Moderate restrictive lung disease Diffusion Capacity: Uncorrected diffusion is low normal. Airway Pressure: Normal airways resistance. Impression Moderate restrictive lung disease. Clinical Correlation therefore is recommended.
== END 2021-06-30 04:57 | disposition home or self-care (01) ==
LOC: RT 04:57
PROVIDERS: PCP Family Medicine; Visit Provider Student in an Organized Health Care Education/Training Program
DX: J96.10 Chronic respiratory failure, unspecified whether with hypoxia or hypercapnia (principal); R06.09 Other forms of dyspnea; J98.4 Other disorders of lung
CPT/HCPCS: 94060; 94726; 94729

== ENCOUNTER 2021-07-20 01:26 | Outpatient (CLI) | payer MEDICARE, SELFPAY ==
--- NOTE | 2021-07-20 08:15 | DI.CT_ITS ---
Exam(s) CT CHEST HIGH RESOLUTION EXAM: CT CHEST HIGH RESOLUTION CLINICAL HISTORY: restrictive lung disease on PFT's - r/o ILD,j98.4 TECHNIQUE: COMPARISON: No exams were available for comparison FINDINGS: Noncontrast CT examination of the chest was performed utilizing helical scanning as well as inspirato ry and expiratory high-resolution imaging. The patient was unable to comply Lafleur with breathing ins tructions. Images obtained through the upper abdomen show grossly unremarkable appearance of visualized portions of the liver, spleen, and pancreas. Note is made of a few prominent lymph nodes in the upper abdome n, the largest an approximately 20 millimeter in diameter celiac node. No gross mediastinal or hilar adenopathy seen. Tracheobronchial tree appears intact. There are multiple small calcified pulmonary nodules. There is mild mosaic attenuation seen on the h elical scan. No focal consolidation or mass identified. No pleural effusion or pleural-based mass. Cardiac size within normal limits. Inspiratory and expiratory high-resolution scanning shows mild scattered no specific abnormality iden tified involving the pulmonary interstitium or the bronchi on high-resolution imaging. Air trapping in all pulmonary lobes of on the expiratory images. IMPRESSION: Mild mosaic attenuation noted which is nonspecific, mild scattered air trapping noted on expiratory i mages. Multiple calcified small intrapulmonary nodules are consistent with healed granulomatous disease. Incidental finding of mildly enlarged upper abdominal lymph nodes, the largest a 20 millimeter in hany meter celiac node. Incidental Findings RADIATION DOSE DELIVERED: 1,030.28mGy.cm Total DLP CTDIvol RADIATION OPTIMIZATION: All CT scans at this facility use at least one of these dose optimization te chniques: automated exposure control; mA and/or kV adjustment per patient size (includes targeted exa ms where dose is matched to clinical indication); or iterative reconstruction.
== END 2021-07-20 01:46 ==
PROVIDERS: PCP Family Medicine; Visit Provider Student in an Organized Health Care Education/Training Program
DX: J98.4 Other disorders of lung (principal); R59.0 Localized enlarged lymph nodes; R91.8 Other nonspecific abnormal finding of lung field
CPT/HCPCS: 71250

== ENCOUNTER 2021-07-31 00:17 | Outpatient (CLI) | payer MEDICARE, SELFPAY ==
--- NOTE | 2021-07-31 07:15 | DI.NM_ITS ---
Exam(s) NM LUNG SCAN VENT PERF GRP EXAM: NM LUNG SCAN VENT PERF GRP CLINICAL HISTORY: concern for CTEPH, pulmonary hypertension,restrictive lung disease,i27.20. TECHNIQUE: Injected Dose: Ventilation: 35 mCi Tc-99m DTPA via inhalation Perfusion: 4.5 mCi Tc-99m MAA via IV COMPARISON: NM MPI REST AND STRESS 2 DAY from 06/23/2015 CR XR CHEST 2V PA LATERAL from 07/31/2021 FINDINGS: Chest x-ray performed today was reviewed. There are no significant perfusion defects. There are no V/Q mismatches. IMPRESSION: 1. By the PIOPED criteria this scan is low probability for the presence of recent hemodynamically sig nificant pulmonary emboli. DATA REPOSITORY:
--- NOTE | 2021-07-31 07:15 | DI.RAD_ITS ---
Exam(s) XR CHEST 2V PA LATERAL EXAM: XR CHEST 2V PA LATERAL CLINICAL HISTORY: pulmonary hypertension,i27.20,restrictive lung disease,j98.4. TECHNIQUE: 2D digital imaging was performed. COMPARISON: CR CHEST 2 VIEWS PA,LAT from 06/24/2015 FINDINGS: Heart size is upper normal. The mediastinum is not widened. Mild increased markings in the right lung base. No pleural effusion. Increased markings behind the left side of the heart are unchanged from 2016 and most probably vascular markings. IMPRESSION: Mild increased markings in the right lung base. No pleural effusions. No pulmonary edema DATA REPOSITORY: RADIATION DOSE DELIVERED:
== END 2021-07-31 00:37 ==
PROVIDERS: PCP Family Medicine; Visit Provider Student in an Organized Health Care Education/Training Program
DX: I27.20 Pulmonary hypertension, unspecified (principal); J98.4 Other disorders of lung; R91.8 Other nonspecific abnormal finding of lung field
CPT/HCPCS: 78582; 71046

== ENCOUNTER 2021-08-23 18:17 | Outpatient (REF) | payer MEDICARE, SELFPAY ==
[2021-08-24 23:31] LABS: Rheumatoid Factor <8.6 IU/mL (<12.0)
[2021-08-25 09:42] LABS: Cyclic Citrullinated Peptide <2.5 U/mL (<5.0)
[2021-08-25 10:52] LABS: HIV-1/2 Ag & Ab Screen Negative (Negative)
[2021-08-25 12:13] LABS: ANA Interpretation Positive (Negative); ANA Titer Pattern 1:320 Homogeneous
[2021-08-25 16:09] LABS: Myeloperoxidase Ab IgG <0.2 U; Proteinase 3 Ab (PR3) <0.2 U; Scl 70 Antibodies, IgG <0.2 U
[2021-08-29 13:22] LABS: SS-A Antibody 1.7 Units (<20.0)
[2021-08-29 13:25] LABS: SS-B (La) Ab, IgG 1.7 Units (<20.0)
[2021-08-29 15:47] LABS: dsDNA Ab, IgG 102.3 IU/mL (<30.0)
== END 2021-08-23 18:18 | disposition home or self-care (01) ==
LOC: LBN 18:17
PROVIDERS: PCP Family Medicine; Visit Provider Student in an Organized Health Care Education/Training Program
DX: I27.20 Pulmonary hypertension, unspecified (principal)
CPT/HCPCS: 86200; 87389; 83516; 86038; 86225; 86235; 86431

== ENCOUNTER 2021-09-05 16:40 | Outpatient (REF) | payer MEDICARE, SELFPAY ==
[2021-09-07 13:42] LABS: dsDNA Ab, IgG 84.4 IU/mL (<30.0)
== END 2021-09-05 16:41 | disposition home or self-care (01) ==
LOC: LBN 16:40
PROVIDERS: PCP Family Medicine; Visit Provider Student in an Organized Health Care Education/Training Program
DX: R89.9 Unspecified abnormal finding in specimens from other organs, systems and tissues (principal)
CPT/HCPCS: 86225

== ENCOUNTER → 2021-11-16 01:17 | Outpatient (CLI) | payer MEDICARE, SELFPAY ==
--- NOTE | 2021-11-16 13:59 | DI.US_ITS ---
APPROVED REPORT EXAM: Comprehensive 2D, Doppler, and color-flow Echocardiogram Patient Location: Out-Patient Tunnel Worker: Shanna Pillai RDCS (AE) Indications: Pulmonary Hypertension Echo Enhancing Agent Indication: Rule out Shunt Agent(s) / Amount(s) Used: Agitated Saline 30.0 cc Comments: Contrast study was performed with 3 IV injections of 10ccs of agitated normal saline, at re st, with cough and post valsalva maneuver. Negative contrast study for shunt flow. Bubble study was limited by body habitus. Other Information Study Quality: Fair. Technically limited study due to body habitus. Conclusion Technically limited study Left ventricle appears normal in size, wall thickness and systolic function. Estimated EF is 55%. N o wall motion abnormalities were identified The right ventricle was not well visualized Both atria were normal in size The aortic valve is sclerotic and probably trileaflet without stenosis or regurgitation Mild mitral annular calcification. Trace to mild mitral regurgitation Normal tricuspid valve with trace regurgitation. Estimated right ventricular systolic pressure is 34 mmHg Mildly dilated ascending aorta measuring 3.75 cm No intracardiac shunting identified with agitated saline Wall motion Left Ventricle The left ventricle is normal size. The overall left ventricular systolic function appears normal. The re is normal left ventricular wall thickness. Regional wall motion is grossly normal. There is no gabby tricular septal defect visualized. LVEF is 55%. Right Ventricle Right ventricle is not well visualized. Right ventricular systolic function could not be assessed. Th e RVSP is 33.7mmHg. Atria The left atrium size is normal. Right atrium is not well visualized. The interatrial septum is intact with no evidence for an atrial septal defect. Saline bubble contrast intravenous injection does not demonstrate PFO. Aortic Valve The Aortic valve is sclerotic. Aortic valve is probably trileaflet. There is no aortic valvular steno sis. No aortic regurgitation is present. Mitral Valve Mild mitral annular calcification. No evidence of mitral valve stenosis. Trace to mild mitral regurgi tation. Tricuspid Valve The tricuspid valve is normal in structure. There is no tricuspid valve stenosis. Trace tricuspid reg urgitation. Pulmonic Valve The pulmonary valve is normal in structure. There is no pulmonic valvular stenosis. There is no pulmo alysia valvular regurgitation. Great Vessels The aortic root is normal in size. The ascending aorta is mildly dilated.3.75 cm Aortic arch is not w ell visualized. IVC is normal in size and collapses >50% with inspiration. Pericardium There is no pericardial effusion. 2D Dimensions IVSD d PLAX 1.10 cm M: 0.6-1.2 LV Vol A2C d MOD 155.9 mL LVPW d PLAX 1.10 cm M: 0.6 - 1.2 LV Vol A4C d MOD 170.8 mL LVID d PLAX 5.51 cm M: 4.2 - 5.8 LA vol/ BSA A2C s A-L 22.8 mL/m2 LVDs 3.90 cm M: 2.5 - 4.0 LA Area A2C s MOD 19.20 cm2 Ao Root d 2.69 cm M: 3.1 - 3.7 LV EF A4C MOD 55.4 % Ao Asc Diam d 3.75 cm M: 2.6 - 3.4 LV EF A2C MOD 55.6 % LV EF Teichholz 54.3 % LV EF Biplane MOD 55.7 % LVEF (Loredo's) 55.75 % M: 52 - 72 SV 95.67 mL LV Volume 119.26 mL M: 62 - 150 SV Index 37.29 mL/m2 LV Volume Index 46.58 mL/m2 M: 34 - 74 LV Vol Biplane MOD 171.6 mL FS 28.40 % LV Diastology MV E' medial 0.070 (>0.07 m/s) E/A Ratio 0.9 LV E/e MED 9.40 (<14) MV E Vmax 0.66 (0.4-1.3 m/s) MV E' lateral 0.074 (>0.1 m/s) MV A Vmax 0.75 (0.4-1.3 m/s) LV E/e LAT 8.85 (<14) MV E/A Ratio 0.86 MV E/E' medial 9.43 MV E/E' lateral 8.86 Aortic Valve LVOT Area 3.35 cm2 AoV Area Vmax 2.31 cm2 LVOT Vmax 1.01 m/s AoV Area/ BSA (Vmax) 0.90 cm2/m2 LVOT Mean Mehul. 0.69 m/s KEREN Mean Mehul. 2.17 cm2 LVOT Peak Grad 4.1 mmHg KEREN Mean Mehul. Index 0.84 cm2/m2 LVOT Mean Grad 2.2 mmHg LVOT VTI 0.236 m LVOT Diam s 2.05 cm AoV Vmax 1.47 m/s Velocity Ratio 0.68 AoV Mean Mehul. 1.06 m/s AoV Peak Grad 8.6 mmHg LVOT SV 79.01 mL AoV Mean Grad 5.0 mmHg AoV VTI 0.333 m AoV Area VTI 2.37 cm2 AoV Area/ BSA (VTI) 0.92 cm/m2 Mitral Valve MV DT 254 (160-240 msec) MV PHT 74 msec MV Area PHT 2.98 cm2 MV VTI 0.308 m MV Area VTI 2.56 (4.0-6.0 cm2) Pulmonary Valve PV Vmax 1.55 (0.5-1.5 m/s) RVOT Peak Gr. 3.77 mmHg PV Peak Grad 9.6 mmHg RVOT Mean Gr. 1.85 mmHg PV Mean Grad 5.3 mmHg RVOT VTI 0.210 m PV VTI 0.324 m RVOT Vmax 0.97 m/s Tricuspid Valve TR Peak Grad 30.6 mmHg TR Vmax 2.77 m/s RA Pressure 3.00 mmHg RVSP (TR) 33.7 mmHg
== END ==
PROVIDERS: PCP Family Medicine; Visit Provider Student in an Organized Health Care Education/Training Program
DX: I27.20 Pulmonary hypertension, unspecified (principal)
CPT/HCPCS: 93306

== ENCOUNTER 2021-12-22 02:35 | Outpatient (CLI) | payer MEDICARE, SELFPAY ==
[2021-12-22] MEDS: Inhaler, Assist Device 1 EACH MC (15:53)
[2021-12-22] MEDS: Albuterol HFA 18 GM 200 PUFF INH IH (15:53)
--- NOTE | 2021-12-25 11:41 | W.PFT ---
Date of service: 12/22/21 Time of Service: 14:43 Pulmonary Function Test Result Requesting Provider Duchene Indications: Dyspnea Interpretation Spirometry: There is no airflow limitation. Spirometry is restrictive. No significant bronchodilator response. Lung Volumes: Moderate restrictive lung disease. Diffusion Capacity: Normal diffusion Airway Pressure: Normal airways resistance. Impression Moderate restrictive lung disease with a normal diffusion. Note: When compared to 06/30/21, the TLC has significantly decreased. Clinical Correlation therefore is recommended.
== END 2021-12-22 02:36 | disposition home or self-care (01) ==
LOC: RT 02:35
PROVIDERS: PCP Family Medicine; Visit Provider Student in an Organized Health Care Education/Training Program
DX: J98.4 Other disorders of lung (principal); J44.9 Chronic obstructive pulmonary disease, unspecified; R94.2 Abnormal results of pulmonary function studies; R06.09 Other forms of dyspnea; R05.9 Cough, unspecified
CPT/HCPCS: 94060; 94726; 94729

== ENCOUNTER 2022-03-27 08:15 | Outpatient (CLI) | payer MEDICARE, SELFPAY | END 2022-03-27 08:16 | disposition home or self-care (01) | LOC: DI.CARD 08:18 | PROVIDERS: PCP Family Medicine; Visit Provider Internal Medicine Cardiovascular Disease | CPT/HCPCS: 93010 ==

== ENCOUNTER → 2022-06-04 13:09 | Outpatient (BNVA) | payer MEDICARE, SELFPAY | PROVIDERS: PCP Family Medicine; Visit Provider Internal Medicine Cardiovascular Disease | DX: I27.20 Pulmonary hypertension, unspecified (principal); I10 Essential (primary) hypertension; J96.11 Chronic respiratory failure with hypoxia; J96.12 Chronic respiratory failure with hypercapnia; G47.33 Obstructive sleep apnea (adult) (pediatric); Z99.89 Dependence on other enabling machines and devices | CPT/HCPCS: 99212; 99213 ==

== ENCOUNTER 2022-07-11 13:47 | Outpatient (CLI) | payer MEDICARE, SELFPAY ==
--- NOTE | 2022-07-11 13:32 | DI.RAD_ITS ---
Exam(s) XR SHOULDER LT COMPLETE 2+V EXAM: XR SHOULDER LT COMPLETE 2+V CLINICAL HISTORY: left shoulder pain. TECHNIQUE: 2D digital imaging was performed. AP and axillary views. COMPARISON: No exams were available for comparison FINDINGS: BONES: No acute fracture is present. No bony destructive lesion is seen. Small degenerative cysts in the humeral head. JOINTS: No dislocation present. Mild spurring at the AC joint. Moderate to severe narrowing glenohu meral joint with mild spurring at the inferior humeral head. SOFT TISSUE: Normal. IMPRESSION: Moderate to severe degenerative changes of the glenohumeral joint. DATA REPOSITORY: RADIATION DOSE DELIVERED:
--- NOTE | 2022-07-11 13:51 | DI.RAD_ITS ---
Exam(s) XR SHOULDER RT COMPLETE 2+V EXAM: XR SHOULDER RT COMPLETE 2+V CLINICAL HISTORY: right shoulder pain. TECHNIQUE: 2D digital imaging was performed. AP and axillary views. COMPARISON: CR XR SHOULDER LT COMPLETE 2+V from 07/11/2022 FINDINGS: BONES: No acute fracture is present. No bony destructive lesion is seen. Degenerative cystic changes at the greater tuberosity. JOINTS: No dislocation present. Severe degenerative changes with of the glenohumeral joint. Spurrin g at the inferior humeral head. AC joint spurring also present. SOFT TISSUE: Normal. IMPRESSION: Severe degenerative changes of the glenohumeral joint. DATA REPOSITORY: RADIATION DOSE DELIVERED:
== END 2022-07-11 13:48 | disposition home or self-care (01) ==
PROVIDERS: PCP Family Medicine; Referring Provider Family Medicine; Visit Provider Student in an Organized Health Care Education/Training Program
DX: M19.011 Primary osteoarthritis, right shoulder (principal); M19.012 Primary osteoarthritis, left shoulder
CPT/HCPCS: 20610; 99203; 99213; 73030; J1030

== ENCOUNTER 2023-01-11 13:18 | Outpatient (REF) | payer MEDICARE, SELFPAY ==
[2023-01-11 21:21] LABS: Anion Gap 4.5 mmol/L (3-11); BUN 20 mg/dL (7-18); CO2 33.5 mmol/L (21.0-32.0); CREATININE 1.1 mg/dL (0.70-1.30); Calcium 9.1 mg/dL (8.5-10.1); Chloride 103 mmol/L (98-107); Glucose 105 mg/dL (74-106); Potassium 4.3 mmol/L (3.5-5.1); Sodium 141 mmol/L (136-145)
== END 2023-01-11 13:19 | disposition home or self-care (01) ==
LOC: NCHCN 13:18
PROVIDERS: PCP Family Medicine; Visit Provider Family Medicine
DX: I50.30 Unspecified diastolic (congestive) heart failure (principal); I10 Essential (primary) hypertension
CPT/HCPCS: 80048

== ENCOUNTER → 2023-01-23 13:18 | Outpatient (BNVA) | payer MEDICARE, SELFPAY | PROVIDERS: PCP Family Medicine; Referring Provider Family Medicine; Visit Provider Student in an Organized Health Care Education/Training Program | DX: M19.011 Primary osteoarthritis, right shoulder (principal); M19.012 Primary osteoarthritis, left shoulder | CPT/HCPCS: 20610; 99213; J1030 ==

== ENCOUNTER 2023-11-02 15:25 | Emergency (ER) | payer MEDICARE, SELFPAY ==
[2023-11-02] VITALS (26 sets, daily range): BP systolic 106; BP diastolic 83; PULSE 76–95; RESP 11–31; TEMP 37; O2SAT 90–98
--- NOTE | 2023-11-02 15:30 | RT.EKG_ITS ---
APPROVED REPORT Exam: Resting ECG Reason for Exam: Ab Pain Patient Location: E HR:82 bpm ECG Measurements Heart Rate 82 AXIS VA 190 P 72 QRSd 97 QRS 60 QT 394 T 63 QTc 459 Conclusion Sinus rhythm. 82 no stemi
--- NOTE | 2023-11-02 15:45 | DI.CT_ITS ---
Exam(s) CT ABDOMEN PELVIS W EXAM: CT ABDOMEN PELVIS W CLINICAL HISTORY: periumbilical pain, acute in onset,radiates to rigo. TECHNIQUE: Imaging Protocol: Axial computed tomography images with coronal and sagittal reformatted images were created and reviewed CONTRAST MATERIAL: Intravenous: Omnipaque-350 100cc Oral: None COMPARISON: CT CT CHEST PE CTA from 03/24/2019 FINDINGS: VISUALIZED LUNG BASES: No nodules nor pleural effusions evident. ABDOMEN: There is no ascites. Stomach is distended. There is a hyperdensity in the dependent aspect of the g astric fundus which is probably a recently swallowed pill. There is no evidence of bowel obstruction . Some streaking in the central mesentery is noted. No gross lymphadenopathy. Incidentally noted i s a fat containing lesion in the distal duodenal wall measuring 1.3 x 1.1 cm consistent with a lipoma . LIVER: There are no focal hepatic lesions evident. No dilated intrahepatic ducts. GALLBLADDER/BILIARY: No obvious gallbladder pathology. CBD is not dilated. PANCREAS: No evidence of pancreatic mass nor dilatation of the pancreatic duct. SPLEEN: Spleen is not enlarged. No obvious intrasplenic lesions. Splenic and portal veins are paten t. ADRENALS: There are no significant adrenal masses. KIDNEYS:There is a 1 millimeter punctate calculus in the right kidney, nonobstructive. There is a sm all cyst in the superior pole of the left kidney measuring 1 cm. No other focal left kidney findings . No hydronephrosis but the urinary bladder is grossly distended, measuring 16 cm by 11.5 cm by 11 c m.. Prostate not enlarged.. ABDOMINAL AORTA: Abdominal aorta is not enlarged. LYMPH NODES:There is no retroperitoneal nor paraaortic adenopathy. ABDOMINAL WALL: No evidence of significant anterior abdominal wall nor inguinal hernia. GI: There is no evidence of bowel obstruction, free air, nor abscess. PELVIS: GI: No evidence of appendicitis.Redundant sigmoid with diverticuli. No obvious acute diverticulitis. LYMPH NODES: There is no intrapelvic nor inguinal adenopathy. REPRODUCTIVE: Prostate not enlarged. Seminal vesicles unremarkable URINARY BLADDER: Grossly distended as described above. OSSEOUS: No fractures. Multilevel degenerative disc disease. The inferior endplate of L2 vertebral body appears somewhat ragged. Cannot exclude sequelae of discitis. IMPRESSION: 1. Urinary bladder is grossly distended. Prostate not enlarged. No true hydronephrosis. Punctate n onobstructive 1 millimeter calculus noted in the right kidney. 2. Redundant sigmoid with diverticulosis. No obvious acute diverticulitis. 3. Stomach is distended with fluid. No evidence of small bowel obstruction. 4. There is mild nonspecific streaking in the central mesentery. Few slightly prominent mesenteric l ymph nodes are noted... 5. Some irregularity of the inferior endplate of L2 vertebral body is noted. This may imply the presenc e of discitis/osteomyelitis. Findings discussed by phone with ER provider. RADIATION DOSE DELIVERED: 1,616.4mGy.cm Total DLP DATA REPOSITORY: All CT scans at this facility are submitted to the National Radiology Data Registry (NRDR) Dose Index Registry (DIR) with the [employer] (A[employer]). RADIATION OPTIMIZATION: All CT scans at this facility use at least one of these dose optimization te chniques: automated exposure control; mA and/or kV adjustment per patient size (includes targeted exa ms where dose is matched to clinical indication); or iterative reconstruction.
[2023-11-02 16:22] LABS: Abs Immature Grans 0.04 10^3/uL (0.0-0.06); Absolute Basophil Count 0.04 10^3/uL (0.0-0.2); Absolute Eosinophil Count 0.11 10^3/uL (0.0-0.7); Absolute Lymphocyte Count 1.19 10^3/uL (1.2-3.4); Absolute Monocyte Count 0.53 10^3/uL (0.1-0.8); Absolute Neutrophil Count 5.91 10^3/uL (1.2-6.7); Basophils % 0.5 %; Eosinophils % 1.4 %; HCT 43.1 % (40.0-50.0); Immature Grans % 0.5 %; Lymphocytes % 15.2 %; MCH 29.2 pg (27.0-33.0); MCHC 32.5 % (32.0-36.0); MCV 90 fL (80-95); MPV 10.5 fL (8.0-11.0); Monocytes % 6.8 %; Neutrophils % 75.6 %; Platelet Count 196 10^3/uL (130-400); RDW 14.4 % (11.8-14.1); RDW-SD 47.6 fL; WBC 7.82 10^3/uL (4.4-10.8)
[2023-11-02 16:23] LABS: Lactate 2.2 mmol/L (0.6-1.4)
[2023-11-02] MEDS: Normal Saline - Diluent 50 ML VIAL IJ (16:30)
[2023-11-02] MEDS: Omnipaque 350 MG/ML 100 ML BTL IJ (16:31)
[2023-11-02 16:43] LABS: ALT 20 U/L (16-63); AST 11 U/L (15-37); Alkaline Phosphatase 81 U/L (46-116); Anion Gap 11.6 mmol/L (3-11); BUN 22 mg/dL (7-18); Bilirubin, Total 0.5 mg/dL (0.2-1.0); CO2 28.4 mmol/L (21.0-32.0); CREATININE 1.1 mg/dL (0.70-1.30); Calcium 9.2 mg/dL (8.5-10.1); Chloride 99 mmol/L (98-107); Estimated GFR 74.04 (mL/min/1.73m2); Glucose 111 mg/dL (74-106); Lipase 107 U/L (16-77); Potassium 3.6 mmol/L (3.5-5.1); Sodium 139 mmol/L (136-145); Total Protein 8.3 g/dL (6.4-8.2)
--- NOTE | 2023-11-02 17:26 | W.ED.GENAD ---
Discharge Plan Disposition Patient Disposition: Home Discharge Details Clinical Impression: Acute urinary retention Primary Care Provider: Neha Mcmahan ED Provider: Saba Sanchez Home Meds and New Rx's Prescriptions: New tamsulosin [Flomax] 0.4 mg capsule 0.4 mg PO QHS Qty: 6 0RF Continued furosemide 20 mg tablet 60 mg PO BID Patient Comments: per patient. vitamin E 1,000 unit capsule 1,000 unit PO DAILY potassium chloride 20 mEq tablet extended release 20 meq PO DAILY melatonin 5 mg tablet 5 mg PO HS PRN glucosamine HCl 500 mg tablet 500 mg PO BID Rx Instructions: administer with meals ascorbic acid (vitamin C) [Vitamin C] 500 MG capsule, extended release 500 mg PO DAILY cholecalciferol (vitamin D3) 1,000 UNIT capsule 1,000 unit PO DAILY (DME) Oxygen Tank See Rx Instructions .ROUTE .MEDSUPPLY Qty: 1 Rx Instructions: As directed acetaminophen [Tylenol] 325 mg tablet 650 mg PO ONCE Patient Comments: Takes daily at night for arthritis. spironolactone 25 mg tablet 12.5 mg PO DAILY Qty: 45 6RF allopurinol 300 MG tablet 300 mg PO DAILY Discharge Instructions Instructions: Urinary Retention in Men (ED) Additional Instructions: Take the Flomax as prescribed Follow up with Dr. Fong in 1 week to have your Lafleur catheter removed Follow-up with your primary care physician on Saturday, you have abnormal finding on your CT scan , however I have very low suspicion that this is an infectious process and likely not an acute process your inflammatory markers are reassuring Referrals: Neha Mcmahan [Primary Care Provider] - 2 days Bronson Fong MD [ [facility] STAFF PHYSICIAN] - 2 days HPI General Date/Time Provider Initiated Documentation: 11/02/23 15:33. HPI Narrative: This 68-year-old male presents with report of abdominal pain and rectal pressure which came on suddenly after eating a tuna fish sandwich this afternoon. Denies history of similar symptoms in the past. Denies any chest pain or shortness of breath states he typically has bowel movement daily and has not had a bowel movement since which is atypical for him. He denies any changes in medications. Denies any prior abdominal surgeries. Denies any current chest pain or shortness of breath. Denies any nausea or vomiting. Denies known exacerbating or alleviating factors. Related Data Home Medications Medication Instructions Recorded Confirmed allopurinol 300 mg tablet 300 mg PO DAILY 01/12/14 11/02/23 Vitamin C 500 mg capsule,extended 500 mg PO DAILY 10/17/17 11/02/23 release (ascorbic acid (vitamin C)) cholecalciferol (vitamin D3) 25 1,000 unit PO DAILY 10/17/17 11/02/23 mcg (1,000 unit) capsule Oxygen #1 ea 03/23/19 11/02/23 furosemide 20 mg tablet 60 mg PO BID 07/21/19 11/02/23 acetaminophen 325 mg tablet 650 mg PO ONCE 08/23/20 11/02/23 (Tylenol) potassium chloride 20 mEq 20 meq PO DAILY 06/21/21 11/02/23 tablet,extended release vitamin E 670 mg (1,000 unit) 1,000 unit PO DAILY 06/21/21 11/02/23 capsule glucosamine HCl 500 mg tablet 500 mg PO BID 08/23/21 11/02/23 melatonin 5 mg tablet 5 mg PO HS PRN 08/23/21 11/02/23 spironolactone 25 mg tablet 12.5 mg (1/2 x 25 mg) PO DAILY #45 10/31/21 11/02/23 tabs tamsulosin 0.4 mg capsule (Flomax) 0.4 mg PO QHS #6 caps 11/02/23 Previous Rx's Medication Instructions Recorded spironolactone 25 mg tablet 12.5 mg (1/2 x 25 mg) PO DAILY #45 10/31/21 tabs tamsulosin 0.4 mg capsule (Flomax) 0.4 mg PO QHS #6 caps 11/02/23 Allergies Allergy/AdvReac Type Severity Reaction Status Date / Time lisinopril Allergy Mild Verified 01/23/23 13:29 amlodipine besylate AdvReac Severe Racing Verified 01/23/23 13:29 [From [facility]] heart General Stated Complaint: Abd Prob PAPI: 3 Exam Narrative Exam Narrative: Alert and oriented oxygen dependent male with out scleral icterus, lungs clear to auscultation, cardiac rate rhythm regular, abdominal tenderness with guarding suprapubically, no pallor, alert and oriented x 4, 1+ edema to bilateral lower extremities, neurovascularly intact all 4 extremities, no CVA tenderness, no palpable abdominal bruit or pulsatile mass Course Vital Signs Vital signs: Vital Signs Temperature 37.0 C 11/02/23 15:28 Pulse 85 11/02/23 15:28 Respiratory Rate 15 11/02/23 15:28 Blood Pressure 106/83 11/02/23 15:28 Pulse Oximetry 97 11/02/23 15:28 Temperature 37.0 C 11/02/23 15:31 Temperature Source Tympanic 11/02/23 15:31 Pulse 85 11/02/23 15:31 Respiratory Rate 15 11/02/23 15:31 Respiratory Effort Non-Labored 11/02/23 15:31 Blood Pressure 106/83 11/02/23 15:31 Blood Pressure Position Sitting 11/02/23 15:31 Pulse Oximetry 97 11/02/23 15:31 Oxygen Delivery Method Room Air 11/02/23 15:31 Oxygen Flow Rate 0 11/02/23 15:31 Pain Level 8 11/02/23 15:31 Lab/Test Results Lab/Test Results: Laboratory Tests Range/Units 11/02/23 16:05 WBC (4.4-10.8) 10^3/uL 7.82 RBC (4.36-5.78) 10^6/uL 4.80 Hgb (13.5-17.5) g/dL 14.0 Hct (40.0-50.0) % 43.1 MCV (80-95) fL 90 MCH (27.0-33.0) pg 29.2 MCHC (32.0-36.0) % 32.5 RDW (11.8-14.1) % 14.4 H Plt Count (130-400) 10^3/uL 196 MPV (8.0-11.0) fL 10.5 Immature Gran % % 0.5 Neutrophils % % 75.6 Lymphocytes % % 15.2 Monocytes % % 6.8 Eosinophils % % 1.4 Basophils % % 0.5 Nucleated RBC % (0.0-0.3) % 0.0 Absolute Neutrophils (1.2-6.7) 10^3/uL 5.91 Absolute Lymphocytes (1.2-3.4) 10^3/uL 1.19 L Absolute Monocytes (0.1-0.8) 10^3/uL 0.53 Absolute Eosinophils (0.0-0.7) 10^3/uL 0.11 Absolute Basophils (0.0-0.2) 10^3/uL 0.04 VBG Lactate (0.6-1.4) mmol/L 2.2 H* Sodium (136-145) mmol/L 139 Potassium (3.5-5.1) mmol/L 3.6 Chloride (98-107) mmol/L 99 Carbon Dioxide (21.0-32.0) mmol/L 28.4 Anion Gap (3-11) mmol/L 11.6 H BUN (7-18) mg/dL 22 H Creatinine (0.70-1.30) mg/dL 1.1 Est GFR (CKD-EPI 2020) (mL/min/1.73m2) 74.04 Glucose (74-106) mg/dL 111 H Calcium (8.5-10.1) mg/dL 9.2 Total Bilirubin (0.2-1.0) mg/dL 0.5 AST (15-37) U/L 11 L ALT (16-63) U/L 20 Alkaline Phosphatase (46-116) U/L 81 Total Protein (6.4-8.2) g/dL 8.3 H Albumin (3.4-5.0) g/dL 4.0 Lipase (16-77) U/L 107 H Medical Decision Making 68-year-old male presenting with rectal pressure and suprapubic pain. Initial bladder scan showed 200 cc of urine, however on CT scan, bladder is significantly enlarged and pressing on sigmoid colon which is likely contributing to patient's constipation. A Lafleur catheter was placed with 2400 cc of urine and patient is feeling marked improvement. I did a rectal exam and there is no stool in the vault, patient is encouraged to give bowel movement some time as his colon has been decompressed with Lafleur catheter placement. Patient will be placed on Flomax and referred to urology in the outpatient setting. The CT scan did show some evidence of a possible discitis or osteomyelitis, of note, the patient has no acute back pain, is not an IV drug user and is not immunosuppressed. I evaluated patient's back and he has no palpable spinal tenderness or radicular symptoms. He also has a CRP and sed rate that are quite reassuring. His pain is completely alleviated after Lafleur catheter placement and he is encouraged to take his Lasix and follow-up with urology in the outpatient setting. At this time I am not sure contributed to the acute urinary retention. There is no physical finding consistent with cauda equina syndrome and patient is ambulatory with steady gait with marked improvement. Lafleur education was performed by nursing staff. I personally discussed the CT scan with the radiologist, Dr. Chauhan. Patient is encouraged to follow-up with his primary care physician on Saturday and they may order an outpatient MRI at their discretion. I see no indication for admission at this time as my suspicion that this is infectious in nature is quite low. Urinalysis was reviewed and does not show evidence of acute abnormality. Quality:[facility] Health Related Social Needs: No Data to Display PFSH All Active Problems (Updated 11/02/23 @ 20:46 by DANIEL Hayes) Acute urinary retention (Acute) Osteoarthritis of bilateral glenohumeral joints (Chronic) Bilateral 40 mg subacromial injections: 01/23/23, 07/11/22 Restrictive lung disease (Acute) Right hip pain (Acute) Cubital tunnel syndrome, bilateral (Acute) Bilateral carpal tunnel syndrome (Acute) Obesity hypoventilation syndrome (Acute) Chronic respiratory failure with hypoxia and hypercapnia (Chronic) Pulmonary hypertension (Acute) Discharge planning issues (Acute) DVT prophylaxis (Acute) Headache (Chronic) Abnormal EKG (Acute) Dizziness (Acute) Hypertriglyceridemia (Acute) Hypertension (Chronic) Anxiety and depression (Chronic) Obstructive sleep apnea (Chronic) Tachycardia (Acute) Elevated glucose (Acute) Medical History Anxiety with depression Asbestos exposure CHF (congestive heart failure) Chronic respiratory failure with hypoxia Diastolic heart failure Gout Low back pain Morbid obesity Nail hypertrophy Osteoarthrosis Shoulder pain, bilateral Ulcer of foot, chronic Surgical History S/p bilateral carpal tunnel release S/P bilateral cataract extraction S/P bunionectomy Status post amputation of toe of left foot Family History Mother CHF (congestive heart failure) Hypertension Father Hypertension Alzheimer disease Social History Smoking/Tobacco Use Status: Never Smoking risk assessment performed?: Yes Alcohol Intake: current Alcohol Intake frequency: holidays/special occasions only Drug use: Never Housing: apartment Number of Children: 0 Current gender identity: male What type of physical activity do you participate in: none Seatbelt use: sometimes Do you feel safe at home: Yes Do you feel safe in your relationship?: Yes
--- NOTE | 2023-11-02 17:40 | DI.VRAD_ITS ---
PROCEDURE INFORMATION: Exam: CT Abdomen And Pelvis With Contrast Exam date and time: 11/02/2023 4:43 PM Age: 68 years old Clinical indication: Other: Periumbilical pain, acute in onset, radiates to rigo TECHNIQUE: Imaging protocol: Computed tomography of the abdomen and pelvis with contrast. Contrast material: OMNIPAQUE 350; Contrast volume: 100 ml; Contrast route: INTRAVENOUS (IV); COMPARISON: CR XR HIP RT COMPLETE AP PELVIS 01/26/2020 11:09 AM FINDINGS: Liver: No mass. Gallbladder and bile ducts: No calcified stones. No ductal dilation. Pancreas: No ductal dilation. No masses. Spleen: No splenomegaly or focal lesions. Adrenal glands: No mass. Kidneys and ureters: Mild bilateral hydronephrosis. Punctate right nephrolithiasis. No renal masses. Normal morphology of the appendix. Stomach and bowel: Incidental benign-appearing duodenal lipoma. Rectum mildly distended with stool however no specific proctitis identified. Colonic diverticulosis without diverticulitis. No focal pathology in the small bowel. Appendix: See Kidneys and ureters finding. Intraperitoneal space: Minimal densities in the root of the small bowel mesentery suggesting a nonspecific mesenteric edema or fibrosis. Vasculature: No abdominal aortic aneurysm. Lymph nodes: No significantly enlarged lymph nodes. Urinary bladder: The urinary bladder is distended. Mild edema around the urinary bladder without significant wall thickening. Reproductive: Unremarkable as visualized. Bones/joints: Chronic bony changes with no acute fracture. Soft tissues: Prominent subcutaneous fat. Large fat-containing umbilical hernia. IMPRESSION: 1. Mild bilateral hydronephrosis, favor reflux from the distended urinary bladder. 2. Mild edema around the urinary bladder without significant wall thickening, could be secondary to distension, less likely cystitis. 3. Minimal densities in the root of the small bowel mesentery suggesting a nonspecific mesenteric edema or fibrosis. 4. Incidental findings as described. Dictated and Authenticated by: Mary Jane Wong MD. Ordering:ALBERT Walter MD
[2023-11-02 18:07] LABS: Bilirubin Negative (Negative); Blood Negative (Negative); Clarity Clear (Clear); Glucose Negative (Negative); Ketones Negative (Negative); Leukocyte Esterase Negative (Negative); Nitrite Negative (Negative); Specific Gravity <= 1.005 (1.005-1.025); Urobilinogen 0.2 mg/dL (Up to 0.2); pH 5.5 (5-8)
[2023-11-02] MEDS: Normal Saline 250 ML IV (18:21)
[2023-11-02 19:28] LABS: Lactate 1.6 mmol/L (0.6-1.4)
[2023-11-02] MEDS: Lidocaine 2% Jelly 11 ML SYR UR (20:07)
[2023-11-02 20:09] LABS: ESR 26 mm/hr (0-20)
[2023-11-02 20:17] LABS: C-Reactive Protein 0.53 mg/dL (<or=0.5)
[2023-11-02] MEDS: Magnesium Citrate 300 ML BTL PO (20:58)
[2023-11-02] MEDS: Tamsulosin 0.4 MG CAPCR PO (20:58)
--- NOTE | 2023-11-03 00:33 | NUR.NOTE ---
Referrals faxed to patients pcp and [facility] Urology to f/u for urinary retention and abnormal CT read. Urology per Dr Fong, pcp in one week.Nursing Note:
[2023-11-03] MEDS: Tamsulosin 0.4 MG CAPCR PO (01:08)
== END 2023-11-02 23:00 | disposition home or self-care (01) ==
LOC: ER 22:23
PROVIDERS: Emergency Provider Physician Assistant; PCP Family Medicine
DX: R10.30 Lower abdominal pain, unspecified (principal); R33.8 Other retention of urine
CPT/HCPCS: 36415; 51702; 80053; 83690; 85652; 93005; 96360; 99284; 74177; 81003; 83605; 85025; 86140; 93010; 99283; J3490

== ENCOUNTER → 2023-11-20 07:56 | Outpatient (BNVA) | payer MEDICARE, SELFPAY | PROVIDERS: PCP Family Medicine; Referring Provider Family Medicine; Visit Provider Nurse Practitioner Gerontology | DX: R33.8 Other retention of urine (principal) | CPT/HCPCS: 51798; 99214 ==

== ENCOUNTER → 2023-12-05 13:35 | Outpatient (BNVA) | payer MEDICARE, SELFPAY | PROVIDERS: PCP Family Medicine; Referring Provider Family Medicine; Visit Provider Urology | DX: R33.8 Other retention of urine (principal) | CPT/HCPCS: 51798; 99213 ==

== ENCOUNTER 2024-01-10 01:54 | Outpatient (CLI) | payer MEDICARE, SELFPAY ==
--- OUTSIDE RECORDS SUMMARY | 2024-01-10 02:14 | XMS_ITS | Data Portability ---
Author Organization [place] - [facility] Address [facility] [place] [address] Assessment Encounter Date Assessment Date Assessment LastModified by Organization Details LastModified Time 11/08/2023 11/08/2023 The total time devoted to today's encounter, including both the [id number] time with the patient and/or family/caregi cm and mgh-wnts-ov-f angie time I personally spent is 37 minutes. lbisson Not available 11/08/2023 16:49:16 Plan of Treatment Reminders Order Date Submit Date Provider Last Modified By Organization Details Last Modified Time Details Appointments Office Visit 30 2023 02:10P M NEHA ALMAGUER Not available Not available Not available Lab None recorded. Referral None recorded. Procedures None recorded. Surgeries None recorded. Imaging None recorded. Medication Orders albuterol sulfate HFA 90 mcg/actua tion aerosol inhaler 2023 024 [facility], [address] [place], [address], 07/05/2023 13:37:55 docusate sodium 100 mg capsule 2023 024 [facility], [address] [place], [address], 11/08/2023 16:41:09 Miralax 17 gram/dose oral powder 2023 024 [facility] [address], [address] [place], [address], 11/08/2023 16:42:35 tamsulosi n 0.4 mg capsule 2023 024 [facility], [address] [place], [address], 11/08/2023 16:39:51 Patient TargetsNo targets recorded. Patient InstructionsNo instructions recorded. Reason for Referral Director Of Tax Services Referral for Package Checker alysia ulcer of foot Referring Physician: Neha Almaguer, [facility], Encounter Date: 09/13/2023 Referring Physician: Neha cagle, [facility], Encounter Date: 09/18/2023 Urologist Referral for Reten tion of urine Referring Physician: Neha Almaguer, [facility], Encounter Date: 11/04/2023 Results Created Date Observation Date Name Description Value Unit Range Abnormal Flag LastModifiedBy Organization Detail LastModifiedTime 11/02/1911/02/2023 LACTA TE lactate 2.2 mmol/ L 0.6-1. 4 panic high Not Available [address] [place], [address] 11/02/2023 16:25:44 11/02/19 24 11/02/2023 COMPL ETE BLOOD COUNT W/DIF F WBC 7.82 10_3/ uL 4.4-10 .8 normal Not Available [address] [facility] [place], [address] 11/02/2023 16:25:45 11/02/19 24 11/02/2023 COMPL ETE BLOOD COUNT W/DIF F RBC 4.80 10_6/ uL 4.36-5 .78 normal Not Available [address] [facility] [place], [address] 11/02/2023 16:25:45 11/02/19 24 11/02/2023 COMPL ETE BLOOD COUNT W/DIF F HGB 14.0 g/dL 13.5-1 7.5 normal Not Available [address] [place] [facility] [place], [address] 11/02/2023 16:25:45 11/02/19 24 11/02/2023 COMPL ETE BLOOD COUNT W/DIF F HCT 43.1 % 40.0-5 0.0 normal Not Available [address] [place], [address] 11/02/2023 16:25:45 11/02/19 24 11/02/2023 COMPL ETE BLOOD COUNT W/DIF F MCV 90 fL 80-95 normal Not Available [address] [place], [address] 11/02/2023 16:25:45 11/02/19 24 11/02/2023 COMPL ETE BLOOD COUNT W/DIF F MCH 29.2 pg 27.0-3 3.0 normal Not Available [address] [place], [address] 11/02/2023 16:25:45 11/02/19 24 11/02/2023 COMPL ETE BLOOD COUNT W/DIF F MCHC 32.5 % 32.0-3 6.0 normal Not Available [address] [place], [address] 11/02/2023 16:25:45 11/02/19 24 11/02/2023 COMPL ETE BLOOD COUNT W/DIF F RDW 14.4 % 11.8-1 4.1 high Not Available [address] [place], [address] 11/02/2023 16:25:45 11/02/19 24 11/02/2023 COMPL ETE BLOOD COUNT W/DIF F platelet count 196 10_3/ uL 130-40 0 normal Not Available [address] [place], [address] 11/02/2023 16:25:45 11/02/19 24 11/02/2023 COMPL ETE BLOOD COUNT W/DIF F MPV 10.5 fL 8.0-11 .0 normal Not Available [address] [place], [address] 11/02/2023 16:25:45 11/02/19 24 11/02/2023 COMPL ETE BLOOD COUNT W/DIF F neutrophils % 75.6 % Not Available [address] [place], [address] 11/02/2023 16:25:45 11/02/19 24 11/02/2023 COMPL ETE BLOOD COUNT W/DIF F lymphocytes % 15.2 % Not Available [address] [place], [address] 11/02/2023 16:25:45 11/02/19 24 11/02/2023 COMPL ETE BLOOD COUNT W/DIF F monocytes % 6.8 % Not Available [address] [place], [address] 11/02/2023 16:25:45 11/02/19 24 11/02/2023 COMPL ETE BLOOD COUNT W/DIF F eosinophils % 1.4 % Not Available [address] [place], [address] 11/02/2023 16:25:45 11/02/19 24 11/02/2023 COMPL ETE BLOOD COUNT W/DIF F basophils % 0.5 % Not Available [address] [place], [address] 11/02/2023 16:25:45 11/02/19 24 11/02/2023 COMPL ETE BLOOD COUNT W/DIF F immature grans % 0.5 % Not Available [address] [place], [address] 11/02/2023 16:25:45 11/02/19 24 11/02/2023 COMPL ETE BLOOD COUNT W/DIF F nucleated RBC 0.0 % 0.0-0. 3 normal Not Available [address] [place], [address] 11/02/2023 16:25:45 11/02/19 24 11/02/2023 COMPL ETE BLOOD COUNT W/DIF F absolute neutrophil count 5.91 10_3/ uL 1.2-6. 7 normal Not Available [address] [place], [address] 11/02/2023 16:25:45 11/02/19 24 11/02/2023 COMPL ETE BLOOD COUNT W/DIF F absolute lymphocyte count 1.19 10_3/ uL 1.2-3. 4 low Not Available [address] [place], [address] 11/02/2023 16:25:45 11/02/19 24 11/02/2023 COMPL ETE BLOOD COUNT W/DIF F absolute monocyte count 0.53 10_3/ uL 0.1-0. 8 normal Not Available [address] [place], [address] 11/02/2023 16:25:45 11/02/19 24 11/02/2023 COMPL ETE BLOOD COUNT W/DIF F absolute eosinophil count 0.11 10_3/ uL 0.0-0. 7 normal Not Available [address] [place], [address] 11/02/2023 16:25:45 11/02/19 24 11/02/2023 COMPL ETE BLOOD COUNT W/DIF F absolute basophil count 0.04 10_3/ uL 0.0-0. 2 normal Not Available [address] [place], [address] 11/02/2023 16:25:45 11/02/19 24 11/02/2023 COMPR EHENS MARION METAB OLIC PANEL calcium 9.2 mg/dL 8.5-10 .1 normal Not Available [address] [place], [address] 11/02/2023 16:45:45 11/02/19 24 11/02/2023 COMPR EHENS MARION METAB OLIC PANEL glucose 111 mg/dL 74-106 high Not Available [address] [place], [address] 11/02/2023 16:45:45 11/02/19 24 11/02/2023 COMPR EHENS MARION METAB OLIC PANEL BUN 22 mg/dL 7-18 high Not Available [address] [place], [address] 11/02/2023 16:45:45 11/02/19 24 11/02/2023 COMPR EHENS MARION METAB OLIC PANEL creatinine 1.1 mg/dL 0.70-1 .30 normal Not Available [address] [place], [address] 11/02/2023 16:45:45 11/02/19 24 11/02/2023 COMPR EHENS MARION METAB OLIC PANEL estimated GFR 74.04 mL/min /1.73m 2 Not Available [address] [place], [address] 11/02/2023 16:45:45 11/02/19 24 11/02/2023 COMPR EHENS MARION METAB OLIC PANEL total protein 8.3 g/dL 6.4-8. 2 high Not Available [address] [place], [address] 11/02/2023 16:45:45 11/02/19 24 11/02/2023 COMPR EHENS MARION METAB OLIC PANEL albumin 4.0 g/dL 3.4-5. 0 normal Not Available [address] [place], [address] 11/02/2023 16:45:45 11/02/19 24 11/02/2023 COMPR EHENS MARION METAB OLIC PANEL bilirubin, total 0.5 mg/dL 0.2-1. 0 normal Not Available [address] [place], [address] 11/02/2023 16:45:45 11/02/19 24 11/02/2023 COMPR EHENS MARION METAB OLIC PANEL alk phos 81 U/L 46-116 normal Not Available [address] [place], [address] 11/02/2023 16:45:45 11/02/19 24 11/02/2023 COMPR EHENS MARION METAB OLIC PANEL sodium 139 mmol/ L 136-14 5 normal Not Available [address] [place], [address] 11/02/2023 16:45:45 11/02/19 24 11/02/2023 COMPR EHENS MARION METAB OLIC PANEL potassium 3.6 mmol/ L 3.5-5. 1 normal Not Available [address] [place], [address] 11/02/2023 16:45:45 11/02/19 24 11/02/2023 COMPR EHENS MARION METAB OLIC PANEL chloride 99 mmol/ L 98-107 normal Not Available [address] [place], [address] 11/02/2023 16:45:45 11/02/19 24 11/02/2023 COMPR EHENS MARION METAB OLIC PANEL CO2 28.4 mmol/ L 21.0-3 2.0 normal Not Available [address] [place], [address] 11/02/2023 16:45:45 11/02/19 24 11/02/2023 COMPR EHENS MARION METAB OLIC PANEL anion gap 11.6 mmol/ L 3-11 high Not Available [address] [place], [address] 11/02/2023 16:45:45 11/02/19 24 11/02/2023 COMPR EHENS MARION METAB OLIC PANEL AST 11 U/L 15-37 low Not Available [address] [place], [address] 11/02/2023 16:45:45 11/02/19 24 11/02/2023 COMPR EHENS MARION METAB OLIC PANEL ALT 20 U/L 16-63 normal Not Available [address] [place], [address] 11/02/2023 16:45:45 11/02/19 24 11/02/2023 LIPAS E lipase 107 U/L 16-77 high Not Available [address] [place], [address] 11/02/2023 16:45:46 11/02/19 24 11/02/2023 URINA LYSIS color Yellow yellow Not Available [address] [place], [address] 11/02/2023 18:13:50 11/02/19 24 11/02/2023 URINA LYSIS clarity Clear clear Not Available [address] [place], [address] 11/02/2023 18:13:50 11/02/19 24 11/02/2023 URINA LYSIS specific gravity <= 1.005 1.005- 1.025 normal Not Available [address] [place], [address] 11/02/2023 18:13:50 11/02/19 24 11/02/2023 URINA LYSIS pH 5.5 5-8 normal Not Available Pete hannonjs [address] [place], [address] 11/02/2023 18:13:50 11/02/19 24 11/02/2023 URINA LYSIS leukocyte esterase Negati ve negati ve Not Available [address] [place], [address] 11/02/2023 18:13:50 11/02/19 24 11/02/2023 URINA LYSIS nitrite Negati ve negati ve Not Available [address] [place], [address] 11/02/2023 18:13:50 11/02/19 24 11/02/2023 URINA LYSIS protein Negati ve mg/dL neg-tr angie Not Available [address] [place], [address] 11/02/2023 18:13:50 11/02/19 24 11/02/2023 URINA LYSIS glucose Negati ve mg/dL negati ve Not Available [address] [place], [address] 11/02/2023 18:13:50 11/02/19 24 11/02/2023 URINA LYSIS ketones Negati ve mg/dL negati ve Not Available [address] [place], [address] 11/02/2023 18:13:50 11/02/19 24 11/02/2023 URINA LYSIS urobilinogen 0.2 mg/dL up to 0.2 Not Available [address] [place], [address] 11/02/2023 18:13:50 11/02/19 24 11/02/2023 URINA LYSIS bilirubin Negati ve negati ve Not Available [address] [place], [address] 11/02/2023 18:13:50 11/02/19 24 11/02/2023 URINA LYSIS blood Negati ve negati ve Not Available [address] [place], [address] 11/02/2023 18:13:50 11/02/19 24 11/02/2023 LACTA TE lactate 1.6 mmol/ L 0.6-1. 4 high Not Available [address] [place], [address] 11/02/2023 19:32:58 11/02/1911/02/2023 ESR ESR 26 mm/HR 0-20 high Not Available [address] [place], [address] 11/02/2023 20:14:00 11/02/19 24 11/02/2023 C-GUI CTIVE PROTE IN C-reactive protein 0.53 mg/dL <or=0. 5 high Not Available [address] [place], [address] 11/02/2023 20:20:00 09/13/19 24 09/12/2023 XR, foot No observ ation record ed. [facility] (Med Surg) [address] [place] [address], [place], [address], 09/13/2023 10:14:59 11/02/19 24 11/02/2023 vrad rafat hassan Name: Jori Manzanares Unit #: [id number] Loc: ER Orderi [facility] er: Accoun t #: [id number] Status : PRE ER Primar y Care Provid er: Neha Almaguer Date of Exam: Sex: M : 1955 Age: 68 Exam(s ) PROCED URE INFORM ATION: Exam: CT Abdome n And Pelvis With Contra st Exam date and time: 024 4:43 PM Age: 68 years old Clinic al indica tion: Other: Perium bilica l pain, acute in onset, radiat es to rigo TECHNI QUE: Imagin g protoc ol: Comput ed tomogr aphy of the abdome n and pelvis with contra st. Contra st materi al: OMNIPA QUE 350; Contra st volume : 100 ml; Contra st route: INTRAV ENOUS (IV); COMPAR FRAN: CR XR HIP RT COMPLE TE AP PELVIS 020 11:09 AM FINDIN GS: Liver: No mass. Gallbl adder and bile ducts: No calcif ied stones . No ductal dilati on. Pancre as: No ductal dilati on. No masses . Spleen : No spleno megaly or focal lesion s. Adrena l glands : No mass. Kidney s and ureter s: Mild bilate ral hydron ephros is. Puncta te right nephro lithia sis. No renal masses . Normal morpho logy of the append ix. Stomac h and bowel: Incide ntal benign -appea ring duoden al lipoma . Rectum mildly disten ded with stool howeve r no specif ic procti tis identi fied. Coloni c divert iculos is withou t divert iculit is. No focal pathol ogy in the small bowel. Append ix: See Kidne ys and ureter s findin g. Intrap eriton eal space: Minima l densit ies in the root of the small bowel mesent modesto sugges ting a nonspe cific mesent felix edema or fibros is. Vascul ature: No abdomi nal aortic aneury sm. Lymph nodes: No signif icantl y enlarg ed lymph nodes. Urinar y bladde r: The urinar y bladde r is disten ded. Mild edema around the urinar y bladde r withou t signif icant wall thicke cory. Reprod uctive : Unrema rkable as visual ized. Bones/ joints : Chroni c bony change s with no acute fractu re. Soft tissue s: Promin ent subcut aneous fat. 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 IMPRES TOD: 1. Mild bilate ral hydron ephros is, favor reflux from the disten ded urinar y bladde r. 2. Mild edema around the urinar y bladde r withou t signif icant wall thicke cory, could be second kenneth to disten tod, less likely cystit is. 3. Minima l densit ies in the root of the small bowel mesent modesto sugges ting a nonspe cific mesent felix edema or fibros is. 4. Incide ntal findin gs as descri bed. Dictat ed and Authen ticate d by: Tiffanie Wong MD. Orderi ng:Dipti Walter MD Access ion#=[id number] Ordere d By: CC: ------ ------ ------ ------ ------ ------ ------ ------ ------ ------ ------ ------ ---- Dictat ed By: Report s vrad 1643 1739 Transc ribed By: Di Merge 1643 This is privil eged, confid ential inform ation intend ed only for the provid er named. Any use or distri bution by any person other than this provid er is strict ly prohib ited. If you receiv e this report in error, please notify us immedi ately at and return the origin al report to us at the addres s above. Thank- you. [facility] [address], [place], [address] 11/04/2023 07:16:21 11/02/19 24 11/02/2023 CT imagi ng repor t Corinne t Name: Jori Manzanares Unit #: [id number] Loc: ER Orderi ng Provid er: Yumiko Gallagher Accoun t #: [id number] Status : PRE ER Primar y Care Provid er: Neha Almaguer Date of Exam: Sex: M : 1955 Age: 68 Exam(s ) a CT:CT abdome n pelvis w Exam(s ) CT ABDOME N PELVIS W EXAM: CT ABDOME N PELVIS W CLINIC AL HISTOR Y: perium bilica l pain, acute in onset, radiat es to rigo. TECHNI QUE: Imagin g Protoc ol: Axial comput ed tomogr aphy images with monroy l and sagerika davis reform atted images were create d and review ed CONTRA ST MATERI AL: Intrav enous: Omnipa que-35 0 100cc Oral: None COMPAR FRAN: CT CT CHEST PE CTA from 2018 FINDIN GS: VISUAL IZED LUNG BASES: No nodule s nor pleura l effusi ons eviden t. ABDOME N: There is no ascite s. Stomac h is disten ded. There is a hyperd ensity in the depend ent aspect of the gastri c fundus which is probab ly a recent ly swallo wed pill. There is no eviden ce of bowel obstru ction. Some streak ing in the centra l mesent modesto is noted. No gross lympha denopa thy. Incide ntally noted is a fat contai cory lesion in the distal duoden al wall measur ing 1.3 x 1.1 cm consis tent with a lipoma . LIVER: There are no focal hepati c lesion s eviden t. No dilate d intrah epatic ducts. GALLBL ADDER/ BILIAR Y: No obviou s gallbl adder pathol ogy. CBD is not dilate d. PANCRE : No eviden ce of pancre atic mass nor dilata tion of the pancre atic duct. SPLEEN : Spleen is not enlarg ed. No obviou s intras plenic lesion s. Spleni c and portal veins are patent . ADRENA LS: There are no signif icant adrena l masses . KIDNEY S:Ther e is a 1 millim eter puncta te calcul us in the right kidney , nonobs tructi ve. There is a small cyst in the superi or pole of the left kidney measur ing 1 cm. No other focal left kidney findin gs. No hydron ephros is but the urinar y bladde r is grossl y disten ded, measur ing 16 cm by 11.5 cm by 11 cm.. Prosta te not enlarg ed.. ABDOMI NAL AORTA: Abdomi nal aorta is not enlarg ed. LYMPH NODES: There is no retrop eriton eal nor paraao rtic adenop athy. ABDOMI NAL WALL: No eviden ce of signif icant anteri or abdomi nal wall nor inguin al hernia . GI: There is no eviden ce of bowel obstru ction, free air, nor absces s. PELVIS : GI: No eviden ce of append icitis .Redun dant sigmoi d with divert iculi. No obviou s acute divert iculit is. LYMPH NODES: There is no intrap elvic nor inguin al adenop athy. REPROD UCTIVE : Prosta te not enlarg ed. Semina l vesicl es unrema rkable URINAR Y BLADDE R: Grossl y disten ded as descri bed above. OSSEOU S: No fractu res. Multil evel degene rative disc diseas e. The inferi or endpla te of L2 verteb ral body appear s somewh at ragged . Cannot exclud e sequel ae of discit is. IMPRES TOD: 1. Urinar y bladde r is grossl y disten ded. Prosta te not enlarg ed. No true hydron ephros is. Puncta te nonobs tructi ve 1 millim eter calcul us noted in the right kidney . 2. Redund ant sigmoi d with divert iculos is. No obviou s acute divert iculit is. 3. Stomac h is disten ded with fluid. No eviden ce of small bowel obstru ction. 4. There is mild nonspe cific streak ing in the centra l mesent modesto. Few slight ly promin ent mesent felix lymph nodes are noted. .. 5. Some irregu larity of the inferi or endpla te of L2 verteb ral body is noted. This may imply the presen ce of discit is/ost eomyel itis. Findin gs discus sed by phone with ER provid er. RADIAT ION DOSE DELIVE RED: 1,616. 4mGy.c m Total DLP DATA REPOSI TORY: All CT scans at this facili ty are submit mally to the Nation al Radiol ogy Data Regist ry (NRDR) Dose Index Regist ry (DIR) with the [place] shawn rajput of Radiol ogy (ACR). RADIAT ION OPTIMI ZATION : All CT scans at this facili ty use at least one of these dose optimi zation techni ques: automa mally exposu re contro l; mA and/or kV adjust ment per patien t size (inclu norma target ed exams where dose is matche d to clinic al indica tion); or iterat marion recons tructi on. 012: Total DLP = 0.00 mGy-cm Ordere d By: Ricci gore,Yumiko SANCHEZ CC: ------ ------ ------ ------ ------ ------ ------ ------ ------ ------ ------ ------ ---- Dictat ed By: Nguyễn Chauhan M.D. 1739 Transc ribed By: Gissel RODRIGUEZ,Uma krueger 1739 This is privil eged, confid ential inform ation intend ed only for the provid er named. Any use or distri bution by any person other than this provid er is strict ly prohib ited. If you receiv e this report in error, please notify us immedi haleyly at and return the origin al report to us at the addres s above. Thank- you. vivienne [facility] [address] [place], [address] 11/04/2023 07:16:21 Result Notes None recorded. Problems Name Status Onset Date Resolution Date Notes Provider Name and Address Organization Details Recorded Time Obstructive sleep apnea syndrome Active 2002 EMI[facility]CPAP Hunter Fernandez [facility] 4 10:03:42 Severe obesity Active 2001 [facility]log[facility] Fernandez [facility] 4 10:04:49 Essential hypertension Active 2007 [facility]logan Fernandez [facility] 4 10:02:21 History of clinical finding in subject Completed 200209/07/2023 Problem Code: Z87.898; Problem Code Type: ICD-10; Hunter Fernandez [facility] 4 10:06:39 Gout Active 2002 [facility]. 4 10:02:45 Pure hyperglyceridemia Active 2010 [facility]. 4 10:05:42 Osteoarthritis of multiple joints Active 2002 Chronic left knee [facility] 4 10:04:16 Chronic ulcer of foot Active 2014 [facility] 4 10:03:16 Diastolic heart failure Active 2015 [facility]. 4 10:02:03 Bilateral carpal tunnel syndrome Active 2015 [facility] 4 10:01:47 Therapeutic drug monitoring assay Active 2017 [facility] 4 10:05:27 Anxiety Active 2017 [facility]. 4 10:01:39 Pneumonia Completed 201701/18/2018 Problem Code: J18.9; Problem Code Type: ICD-10; Not Available [facility] 3 04:49:40 Shoulder joint pain Active 2018 [facility]. 4 10:05:03 Extreme obesity with alveolar hypoventilation Active 2018 [facility] 4 10:03:28 Onychogryphosis Active 2019 [facility] 4 10:03:59 Low back pain Active 2019 [facility] 4 10:02:53 Screening for malignant neoplasm of colon Active 2019 [facility] 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 Active [facility] 4 10:01:26 Dizziness and giddiness Active 2019 [facility] 4 10:02:13 Adult health examination Active 2021 [facility] 4 10:01:32 Pain of left upper arm Active 2022 [facility] 4 10:04:30 Seborrheic dermatitis of scalp Active 2022 [facility] 4 10:04:53 Pain in finger Active 20[facility] 4 10:04:23 Localized eruption of skin Completed 202202/11/2023 Problem Code: R21; Problem Code Type: ICD-10; Not Available [facility] 3 04:49:41 Sleep apnea Completed 200203/13/2023 Not Available [facility] 3 04:49:42 Hyperglycemia Completed 201703/13/2023 Problem Code: R73.9; Problem Code Type: ICD-10; Not Available [facility] 3 04:49:42 Dyspnea Completed 201506/03/2017 Problem Code: R06.02; Problem Code Type: ICD-10; Not Available [facility] 3 04:49:42 Osteoarthritis Completed 200203/13/2023 Not Available [facility] 3 04:49:42 Edema Completed 201506/03/2017 Problem Code: R60.9; Problem Code Type: ICD-10; Not Available [facility] 3 04:49:42 Fever Completed 201506/03/2017 Problem Code: R50.9; Problem Code Type: ICD-10; Not Available [facility] 3 04:49:42 Rumination disorder of infancy Completed 201409/23/2017 Problem Code: F98.21; Problem Code Type: ICD-10; Not Available [facility] 3 04:49:42 Chest pain Completed 201501/01/2019 Problem Code: R07.89; Problem Code Type: ICD-10; Not Available [facility] 3 04:49:42 Blood chemistry outside reference range Completed 201003/13/2023 Problem Code: 790.6; Problem Code Type: ICD-9; Not Available [facility] 3 04:49:43 Prediabetes Completed 201708/19/2019 Problem Code: R73.03; Problem Code Type: ICD-10; Not Available [facility] 3 04:49:43 History of asbestos exposure Completed 200203/13/2023 Problem Code: V15.84; Problem Code Type: ICD-9; Not Available [facility] 3 04:49:43 Homeless Completed 201805/08/2019 Problem Code: Z59.0; Problem Code Type: ICD-10; Not Available [facility] 3 04:49:43 Traumatic or non-traumatic injury Completed 201506/03/2017 Problem Code: T14.8; Problem Code Type: ICD-10; Not Available [facility] 3 04:49:43 Heart failure Completed 201503/13/2023 Problem Code: I50.9; Problem Code Type: ICD-10; Not Available [facility] 3 04:49:44 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 Problem Code: M94.0; Problem Code Type: ICD-10; Not Available [facility] 3 04:49:44 Hypertensive disorder Completed 200703/13/2023 Not Available [facility] 3 04:49:44 Morbid obesity Completed 200103/13/2023 Not Available [facility] 3 04:49:44 Tachycardia Completed 201605/08/2019 Problem Code: R00.0; Problem Code Type: ICD-10; Not Available [facility] 3 04:49:44 Paresthesia Completed 201503/13/2023 Problem Code: R20.2; Problem Code Type: ICD-10; Not Available [facility] 3 04:49:44 Hypoxemia Completed 201803/13/2023 1 - Comments only - Neha Almaguer MD - Patient has chronic hypoxia and is O2 dependent . He has been stable. Problem Code: R09.02; Problem Code Type: ICD-10; Not Available [facility] 3 04:49:45 Pulmonary hypertension Active 2023 RENNY DEUTSCH RN null, [facility]. 4 11:10:16 Ulcer of right foot Active 2023 RENNY DEUTSCH RN null, [facility]. 4 08:11:04 Ulcer of left foot Active 2023 RENNY DEUTSCH RN null, [facility]. 4 08:11:21 Idiopathic peripheral neuropathy Active 2023 RENNY DEUTSCH RN null, [facility]. 4 08:13:56 Chronic ulcer of foot Active [address], [place], [address] , [facility]. 4 10:32:49 Ulcer of toe Active 2023 OLIVA MCNEILL CMA null, [facility]. 4 13:13:03 Retention of urine Active 2023 Jamaica Varghese RN null, [facility]. 4 12:20:29 Acute retention of urine Active [address], [place], [address] , [facility] 4 16:38:43 Constipation Active [address], [place], [address] , [facility] 4 16:39:49 Chronic ulcer of lower extremity Active 2023 JACK LOWE MA null, [facility] 4 15:39:17 Neuropathy Active 2023 JACK LOWE MA null, [facility] 5 15:39:34 Problem Notes None recorded. Procedures Surgical History None recorded. Imaging Results Imaging Date Name Status LastModified by Organiz ation Details LastModified Time 09/12/2023 [facility] [address] [facility], [place], [address], 09/13/2023 10:14:59 11/02/2023 vrad report completed [address] , [facility] [place], [address] 11/04/2023 07:16:21 11/02/2023 CT imaging report completed [address] [place], [address] 11/04/2023 07:16:21 Procedure Notes None recorded. Medical Equipment None Reported. Allergies Allergen ID Allergen Name Allergen Category Reaction Reaction Severity Criticality Documentation Date Start Date Code Code System Note Provider Name and Address Organization Details Recorded Time 34883 Norvasc medicatio n tachycard ia moderate Not available 04/26/20232002 10436 [facility] 4 10:01:11 69422 lisinopri l medicatio n cough mild Not available 04/26/20232017 61757 [facility] 4 10:00:58 Medications Name Sig Start Date Stop Date Status Note LastModified by Organization Details LastModified Time Prescript ion - Prior Authoriza tion Request active Not Available Not Available Not Available losartan 50 mg tablet 05/18 completed Not Available Not Available Not Available amoxicill in 500 mg capsule Take 1 cap by mouth four times daily 06/03 completed Not Available Not Available Not Available furosemid e 40 mg tablet Take 1 tab by mouth daily 2015 active Not Available Not Available Not Avai lable ketoconaz ole 2 % shampoo SHAMPOO LIBERALL Y DIRECTED THREE TIMES A WEEK 06/27 completed Not Available Not Available Not Available Vitamin C 500 mg tablet Take 1 tablet by mouth daily 2016 active Not Available Not Available Not Avai lable trazodone 50 mg tablet 1 tab PO QHS as needed for sleep. 03/04 completed Not Available Not Available Not Available hydrochlo rothiazid e 50 mg tablet Take 1 by mouth daily 06/29 completed Not Available Not Available Not Available Ativan 1 mg tablet 1 TAB twice daily 01/14 completed Not Available Not Available Not Available Keflex 500 mg capsule Take 1 tab by mouth four times daily 05/23 completed Not Available Not Available Not Available vitamin E 100 unit capsule 03/28 completed Not Available Not Available Not Available meloxicam 15 mg tablet Take 1 tablet by mouth once daily 2023 active Not Available Not Available Not Avai lable lisinopri l 20 mg tablet Take 1 by mouth daily 2014 active Not Available Not Available Not Avai lable Tylenol Arthritis Pain 650 mg tablet,ex tended release Take 2 tablets at HS 2019 active Not Available Not Available Not Avai lable nifedipin e ER 30 mg tablet,ex tended release 1 tablet every morning 06/27 completed Not Available Not Available Not Available allopurin ol 100 mg tablet 1 tab daily 09/04 completed Not Available Not Available Not Available Vitamins B Complex capsule Take 1 by mouth daily 2009 active Not Available Not Available Not Avai lable tramadol 50 mg tablet TAKE 1 TABLET BY MOUTH EVERY 6 HOURS 2023 active Not Available Not Available Not Avai lable spironola ctone 25 mg tablet TAKE 1/2 (ONE-ASHELY F) TABLET BY MOUTH ONCE DAILY active Not Available Not Available No t Available lorazepam 0.5 mg tablet Take 1 tab by mouth twice daily as needed 06/03 completed Not Available Not Available Not Available nifedipin e ER 60 mg tablet,ex tended release 24 hr TAKE 1 TABLET BY MOUTH ONCE DAILY active Not Available Not Available No t Available tamsulosi n 0.4 mg capsule TAKE ONE CAPSULE BY MOUTH AT BEDTIME FOR PROSTATE active Not Available Not Available No t Available nystatin 100,000 unit/gram topical cream APPLY CREAM LIBERALL Y TOPICALL Y TO AFFECTED AREA TWICE DAILY 06/27 completed Not Available Not Available Not Available ascorbate calcium (vitamin C) 500 mg tablet Take 1 tablet by oral route. active Not Available Not Available No t Available Keflex 500 mg tablet 1TAB qid 10/29 completed Not Available Not Available Not Available salicylic acid 40 % topical patch 1/2 patch daily active Not Available Not Available No t Available losartan 25 mg tablet TAKE 1 TABLET BY MOUTH ONCE DAILY DIRECTED active Not Available Not Available No t Available indometha hanna 50 mg capsule Take 1 capsule twice a day by oral route. active Not Available Not Available No t Available docusate sodium 100 mg capsule Take 1 capsule 3 times a day by oral route as needed for 90 days, for constipa tion. 2023 active Not Available Not Available Not Avai lable gabapenti n 300 mg capsule TAKE 1 CAPSULE BY MOUTH THREE TIMES DAILY active Not Available Not Available No t Available cephalexi n 500 mg tablet Take 1 by mouth four times daily 03/21 completed [facility] DISCHARG [facility] Not Available Not Available Not Available allopurin ol 300 mg tablet TAKE 1 TABLET BY MOUTH ONCE DAILY active Not Available Not Available No t Available mupirocin 2 % topical ointment Apply 1 a small amount to affected area twice a day 04/03 completed Not Available Not Available Not Available furosemid e 20 mg tablet TAKE 3 TABLETS BY MOUTH TWICE DAILY active Not Available Not Available No t Available metoprolo l succinate ER 25 mg tablet,ex tended release 24 hr Take 1 tab by mouth daily 04/01 completed Not Available Not Available Not Available Aspir-81 mg tablet,de layed release Take 1 tablet by mouth daily 03/04 completed Not Available Not Available Not Available saw palmetto 500 mg capsule one capsule twice daily 2014 active [facility] Not Available Not Available Not Avai lable ibuprofen 600 mg tablet 1TAB four times daily 01/12 completed Not Available Not Available Not Available polyethyl danni glycol 3350 17 gram/dose oral powder MIX 17 GRAMS IN LIQUID AND DRINK BY MOUTH TWICE DAILY DIRECTED FOR CONSTIPA TION active Not Available Not Available No t Available albuterol sulfate HFA 90 mcg/actua tion aerosol inhaler INHALE 2 PUFFS BY MOUTH EVERY 6 HOURS NEEDED WITH SPACER active Not Available Not Available No t Available Naprosyn 500 mg tablet 1 TAB BID 07/24 completed Not Available Not Available Not Available lisinopri l 40 mg tablet Take 1 by mouth daily 2014 active dose increase d at [facility] 06/22/15 Not Available Not Available Not Available sertralin e 50 mg tablet Take 1 tablet every day by oral route. active Not Available Not Available No t Available doxycycli ne hyclate 100 mg tablet Take 1 tab by mouth twice daily 03/03 completed Not Available Not Available Not Available glucosami ne-chondr oitin 500 mg-400 mg capsule 1 tabs twice daily 2014 active [facility] Not Available Not Available Not Avai lable docusate sodium 100 mg tablet Take 1 tablet 3 times a day by oral route as directed . 09/08 completed Not Available Not Available Not Available amoxicill in 875 mg-potass ium clavulana te 125 mg tablet TAKE 1 TABLET BY MOUTH TWICE DAILY active Not Available Not Available No t Available Alph-E-Mi xed 1,000 unit capsule DAILY 2014 active [facility] Not Available Not Available Not Avai lable melatonin 1 mg tablet 3 tablet at bedtime 02/11 completed Not Available Not Available Not Available milk thistle BID 02/21 completed Not Available Not Available Not Available saw palmetto active Not Available Not Available Not Available vitamin E daily 2013 active Not Available Not Available Not Avai lable vitamin B complex 2 tabs daily active Not Available Not Available No t Available Fish Oil 1TAB three times daily 2010 active Not Available Not Available Not Avai lable Darvocet- N 100 1 TAB qid 05/08 completed Not Available Not Available Not Available Glucosami ne 1 tab 2x a day active Not Available Not Available No t Available Glucosami ne-Chondr oiti Complex 1 tablet twice a day 06/27 completed [facility] Not Available Not Available Not Available Hospital Bed to be placed in the home Dx: CHF, Hypoxia, on continui ous O2. 06/27 completed Not Available Not Available Not Available cholecalc iferol (vitamin D3) 25 mcg (1,000 unit) tablet once a day 2010 active Not Available Not Available Not Avai lable melatonin 5 mg tablet Take 1 tab by mouth at bedtime as needed 03/04 completed Not Available Not Available Not Available vitamin E (dl, acetate) 180 mg (400 unit) capsule Take 1000 mg every day by oral route. active Not Available Not Available No t Available Fish Oil 360 mg-1,200 mg capsule one capsul three times daily 03/04 completed Not Available Not Available Not Available potassium chloride ER 20 mEq tablet,ex tended release Take 1 tablet every day by oral route. active Not Available Not Available No t Available Fish Oil 1,000 mg (120 mg-180 mg) capsule Take 2 capsules every day by oral route. active Not Available Not Available No t Available oxygen Dx:CHF 5L per N/C continuo us 2015 active [facility] Not Available Not Available Not Avai lable Rybelsus 14 mg tablet TAKE 1 TABLET BY MOUTH ONCE DAILY active Not Available Not Available No t Available albuterol 90 mcg-budes onide 80 mcg/actua tion HFA aerosol inhaler Inhale 2 inhalati ons every day by inhalati on route. 09/08 completed Not Available Not Available Not Available Vitals Date Recorded Body height Body mass index (BMI) Body weight Body temperature Oxygen saturation Oxygen saturation in Arterial blood by Pulse oximetry Inhaled oxygen concentration Heart rate Respiratory rate Systolic blood pressure Diastolic blood pressure Provider Name and Address Organization Details Last Updated DateTime 4 172.212 cm 48.7 kg/m2 736964. 81 g 97.3 [degF] 95 % 95 % 4 % 78 /min 18 /min 126 mm[Hg] 70 mm[Hg] RENNY DEUTSCH RN [facility] 4 13:30:24 Date Recorded Body height Body mass index (BMI) Body weight Body temperature Oxygen saturation Oxygen saturation in Arterial blood by Pulse oximetry Inhaled oxygen flow rate Heart rate Systolic blood pressure Diastolic blood pressure Provider Name and Address Organization Details Last Updated DateTime 4 172.212 cm 47.8 kg/m2 670617. 9 g 97.3 [degF] 90 % 90 % 4 L/min 86 /min 118 mm[Hg] 60 mm[Hg] RENNY DEUTSCH RN [facility] 4 10:51:53 Date Recorded Body height Body mass index (BMI) Body weight Body temperature Oxygen saturation Oxygen saturation in Arterial blood by Pulse oximetry Heart rate Respiratory rate Systolic blood pressure Diastolic blood pressure Provider Name and Address Organization Details Last Updated DateTime 4 172.212 cm 46.6 kg/m2 569282. 52 g 97.4 [degF] 96 % 96 % 85 /min 16 /min 122 mm[Hg] 62 mm[Hg] RENNY DEUTSCH RN [facility] 4 15:49:46 Social History Question Answer Notes LastModified by Organizat ion Details LastModified Time Tobacco Smoking Status Never Smoker RENNY DEUTSCH RN [facility], [facility] 07/05/2023 13:34:39 What Type Of Diet Are You Following? REGULAR Information not available 07/05/2023 How Many Times Per Week Do You Exercise? Less Than 1 Time Per Week [email or web address] Information not available 07/05/2023 Last Care Team Meeting 10/02/2023 [email or web address] Information not available 10/08/2023 What Was The Date Of Your Most Recent Tobacco Screening? 07/05/2023 [email or web address] Information not available 07/05/2023 Has Tobacco Cessation Counseling Been Provided? No [email or web address] Information not available 07/05/2023 Do You Have Any Dietary Restrictions? No [email or web address] Information not available 07/05/2023 Do You Or Have You Ever Used Any Other Forms Of Tobacco Or Nicotine? No Information not available 07/05/2023 Sex: Male Functional Status Question Answer Note LastModified by Organizat ion Details LastModified Time What is your exercise level? Occasional [email or web address] Information not available 07/05/2023 Mental Status None recorded. Family History Relationship Description Onset Age of this Age Resolved Age Notes Mother Family history of Hypertension Mother Family history of Arthritis Mother Family history of he art failure Father Family history of malignant neoplasm Notes:*Problem: MOTHER - HTN , Depression, Cataracts, CHF, arthritis FATHER - of Ca (ear & kidney) at age 91, Cataracts, Dementia (Alzheimer's), BPH, arthritis BROTHER x 1 - L&W without ongoing medical issues No children Jori reports h/o unknown form of CA in [place], however denies known family h/o CAD, DM2, thyroid conditions, colon CA, or prostate CA. Medical History No medical history recorded. Immunizations Vaccine Type Date Status Provider Name and Address Organization Details Recorded Time Influenza, high-dose, quadrivalent, PF 07/05/2023 completed NEHA ALMAGUER MD [facility] [address], [place], [address], [facility] 07/05/2023 16:37:00 COVID-19, mRNA, LNP-S, PF, felix-sucrose, 30 mcg/0.3 mL 07/10/2023 completed VITOR JUAREZ CMA [facility], [facility] 07/10/2023 13:31:09 Td (adult), 2 Lf tetanus toxoid, preservative free, adsorbed 08/24/2021 completed Not Available [facility] 04/26/2023 05:17:30 Tdap 06/04/2011 completed Not Available [facility] 05:17:31 Td(adult) unspecified formulation 03/04/2008 completed Not Available [facility] 04/26/2023 05:17:31 Influenza, split virus, trivalent, preservative 07/09/2016 completed Not Available [facility] 04/26/2023 05:17:31 Influenza, split virus, quadrivalent, PF 03/09/2020 completed Not Available [facility] 04/26/2023 05:17:31 Influenza, split virus, quadrivalent, PF 03/10/2019 completed Not Available [facility] 04/26/2023 05:17:31 Influenza, split virus, quadrivalent, PF 04/04/2022 completed Not Available [facility] 04/26/2023 05:17:31 Influenza, split virus, quadrivalent, PF 05/09/2021 completed Not Available [facility] 04/26/2023 05:17:31 Influenza, split virus, quadrivalent, preservative 06/03/2017 completed Not Available [facility] 04/26/2023 05:17:31 zoster recombinant 02/22/2021 completed Not Available [facility] 04/26/2023 05:17:31 zoster recombinant 05/09/2021 completed Not Available [facility] 04/26/2023 05:17:31 COVID-19, mRNA, LNP-S, PF, 100 mcg/0.5mL dose or 50 mcg/0.25mL dose 10/12/2020 completed Not Available [facility] 04/26/2023 05:17:31 COVID-19, mRNA, LNP-S, PF, 100 mcg/0.5mL dose or 50 mcg/0.25mL dose 11/09/2020 completed Not Available [facility] 04/26/2023 05:17:32 COVID-19, mRNA, LNP-S, PF, 100 mcg/0.5mL dose or 50 mcg/0.25mL dose 12/12/2021 completed Not Available [facility] 04/26/2023 05:17:32 COVID-19, mRNA, LNP-S, PF, 100 mcg/0.5mL dose or 50 mcg/0.25mL dose 05/09/2021 completed Not Available [facility] 04/26/2023 05:17:32 COVID-19, mRNA, LNP-S, bivalent, PF, 30 mcg/0.3 mL dose 12/14/2022 completed Not Available [facility] 04/26/20 05:17:32 COVID-19, mRNA, LNP-S, bivalent, PF, 30 mcg/0.3 mL dose 04/04/2022 completed Not Available [facility] 04/26/20 05:17:32 pneumococcal polysaccharide PPV23 11/28/2015 completed Not Available [facility] 2022 05:17:32 influenza, unspecified formulation 02/22/2014 completed Not Available [facility] 04/26/2023 05:17:32 Pneumococcal conjugate PCV20, polysaccharide QUA680 conjugate, adjuvant, PF 09/09/2023 completed RENNY DEUTSCH RN [facility] 09/09/2023 12:33:32 Past Encounters Encounter ID Performer Location Encounter Start Date Encounter Closed Date Diagnosis/Indication Diagnosis SNOMED-CT Code [id number] NEHA ALMAGUER MD [address] [address] 07/05/2023 13:14:12 07/05/2023 14:41:29 Obstructive sleep apnea syndrome 10999705 Pre-surger y evaluation 728543450 Active or passive immunization 583224928 [id number] VITOR JUAREZ CMA [address] [address] 07/10/2023 13:15:34 07/10/2023 13:32:19 Active or passive immunization [id number] NEHA ALMAGUER MD [address] [address] 09/09/2023 10:42:46 09/09/2023 12:35:05 Chronic ulcer of foot 708745844 [id number] NEHA ALMAGUER MD [address] [address] 11/08/2023 15:31:45 11/08/2023 16:36:00 Acute retention of urine 070693312 Constipation 75008209 Chronic ulcer of foot 42 9921148 Health Concerns Section Related Observation LastModified by Organization Detai ls LastModified Time None Recorded Concern Status LastModified by Organization Details LastModified Time None Recorded Advance Directives Directive None Recorded Payers Encounter Date Sequence Insurance Name Policy Number Policy Lomeli Covered Member ID Lomeli Member ID Guarantor Name 07/05/2023 1 [facility] (MEDICARE REPLACEMENT/A DVANTAGE - PPO) [id number] Jori Manzanares [id number] Jori Manzanares 07/10/2023 1 [facility] (MEDICARE REPLACEMENT/A DVANTAGE - PPO) [id number] Jori Manzanares [id number] Jori Manzanares 09/09/2023 1 [facility] (MEDICARE REPLACEMENT/A DVANTAGE - PPO) [id number] Jori Manzanares [id number] Jori Manzanares 11/08/2023 1 [facility] (MEDICARE REPLACEMENT/A DVANTAGE - PPO) [id number] Jori Manzanares [id number] Jori Manzanares Notes Date Note Type Note Provider Name and Address Organization Details Recorded Time 07/05/2023 text/html HPI Notes: Jori is a morbidly obese 67-year-old gentleman who comes in today for for preop physical because he has a chronic ulcerative lesion on the plantar surface of his left first metatarsal. He is following with a bread icer who recommends removing the bone beneath that lesion. Jori was recently started on Ozempic to help promote weight loss. Patient has a history of hypoventilation syndrome secondary to morbid obesity. He has chronic sleep apnea and uses BiPAP. He has essential hypertension that is well-controlled significant amount of osteoarthritis. Jori reports that he had surgery on his foot in the past that did not require general anesthesia. He does not recall what was used to perform the surgery. Jori recently was seen by the facsimile machine operator that october and had an outpatient echocardiogram that was done on June 13, 2023 he does not remember what the outcome was. NEHA ALMAGUER MD [address], [place], [address], [facility]. 07/05/2023 16:49:12 09/09/2023 text/html HPI Notes: Jori is a 67-year-old gentleman with hypoventilation syndrome and hypoxia who has had a great deal of problems with nonhealing lesions on his feet. His left foot has a large bunion it with a very large open sore and tissue that seems to be trying to slough off. He is following very closely with a bread icer. He had been scheduled for surgery but the bread icer put the surgery on hold or stopped it because of his other health problems. Unfortunately Jori is not sure what the plan going forward is. I he states that today it does look so much worse that he came in to have us look at it. There is no signs of infection there is no drainage. It does not hurt he does not have a lot of sensation in his feet at all. Jori is morbidly obese and it is difficult for him to clean the foot. He is able to sit on his chair in the shower pull the leg up onto his other leg and then use the hands prior to cleaning. Unfortunately he has difficult reaching it to wrap it up once he is no longer in that sitting position. He does not clean it more than every other day because of the cost of the bandages and he has does not shower every day because it is difficult procedure for him. He does have follow-up with the surgeon on of this week. He is not really having any systemic symptoms he is not feverish she is not nauseous and does not really cause him pain. MD [address], [place], [address], [facility]. 09/16/2023 07:18:54 11/08/2023 text/html HPI Notes: Madeleine cantor is a 68-year-old gentleman who comes in today for an ER follow-up. He has severe hide both ventilation syndrome he has bilateral foot ulcers and because of the foot ulcers he has been taking protein powder. That is improved his healing but it has caused some constipation. He became quite constipated and that he could not urinate he became very painful and presented to the emergency room. While there they placed a Lafleur catheter to drain his bladder and sent him home with a Lafleur catheter in place. Visiting nurses are currently coming in on a regular basis to do wound care secondary to his severe foot ulcers. He states that he has been home the hospital given him stuff to get his bowels moving he has been having fairly good bowel movements he does take 3 Dukas 8 sodium's a day but that was not enough at work at once he started the protein powder. He has follow-up to be seen by urology on November 19 which is about 12 days from now. 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 He denies any fevers or chills he had no black or tarry stools. MD [address]ona [address], [place], [address], [facility]. 11/08/2023 16:49:33
--- OUTSIDE RECORDS SUMMARY | 2024-01-10 02:14 | XMS_ITS | Encounter Summary ---
[place] [address] Care Team Providers Care Wildlife Science Professor Name Role Phone Neha Mcmahan MD Primary Care Provider [phone] Encounter Details Date Type Department Care Team (Latest Contact Info) Description 01/07/2024 Travel Social History Tobacco Use Types Packs/Day Years Used Date Smoking Tobacco: Never Smokeless Tobacco: Never Alcohol Use Standard Drinks/Week Comments Not Currently 0 (1 standard drink = 0.6 oz pur e alcohol) Sex and Gender Information Value Date Recorded Sex Assigned at Not on file Gender Identity Not on file Sexual Orientation Not on file documented as of this encounter Plan of Treatment Upcoming Encounters Date Type Department Care Team (Late st Contact Info) Description 01/13/2024 2:30 PM EDT Office Visit Rheumatology at [place] [phone] Dillon Trinidad MD [facility] [place] [address] 01/21/2024 2:30 PM EDT Office [place] [phone] Rosa Elena Villagomez APRN [facility] [place] [address] 02/05/2024 2:00 PM EDT Office [place] [phone] Rosa Elena Muhammad, RN documented as of this encounter Visit Diagnoses Not on filedocumented in this encounter Care Teams Wildlife Science Professor Relationship Specialty Start Date End Date Neha Mcmahan MD [address] [place] [address] PCP - General Family Medicine 03/25/20 documented as of this encounter
--- OUTSIDE RECORDS SUMMARY | 2024-01-10 02:14 | XMS_ITS | Clinical Summary ---
Author Organization [facility] Address [facility] [place] [address] Care Team Providers Care Roto Rooter Operator Name Role Phone Neha Mcmahan MD Primary Care Provider [phone] Allergies Active Allergy Reactions Criticality Noted Date Comments Amlodipine Besylate High 03/24/2019 Lisinopril Low 03/24/2019 Medications Medication Sig Dispensed Refills Start Date End Date Status traMADol (ULTRAM) 50 mg tablet Take 50 mg by mouth every 6 hours as needed. Active indomethacin (INDOCIN) 50 mg capsule Take 50 mg by mouth 2 times daily (with meals). Active DOCOSAHEXANOIC ACID/EPA (FISH OIL ORAL) Take by mouth 2 times daily. Active VITAMIN B COMPLEX (B COMPLEX ORAL) Take by mouth daily. Active CHOLECALCIFEROL, VITAMIN D3, (VITAMIN D3 ORAL) Take 1,000 Units by mouth daily. Active SAW PALMETTO XTR/ZINC PICOLIN (SAW PALMETTO EXTRACT ORAL) Take by mouth 2 times daily. Active ASCORBATE CALCIUM (VITAMIN C ORAL) Take 500 mg by mouth daily. Active GLUC HCL/GLUC FLOYD/AC-D-GLUCOS (GLUCOSAMINE COMPLEX ORAL) Take by mouth 3 times daily. Active acetaminophen (Tylenol) 325 mg Tablet Take 650 mg by mouth every 6 hours as needed for Pain (2 tablets at befor bed). Active allopurinoL (Zyloprim) 300 mg Tablet Daily 01/12/2014 Active vitamin E (vitamin E) 400 unit Capsule Take 1,000 Units by mouth. Active losartan (Cozaar) 25 mg tablet Take 25 mg by mouth daily. Active Docusate Sodium 100 mg Tablet Take 100 mg by mouth daily. Active gabapentin (Neurontin) 300 mg capsule Take 300 mg by mouth nightly. Active sertraline (Zoloft) 50 mg tablet Take 50 mg by mouth Daily. Active potassium chloride ER (Klor-Con M) 20 mEq ER micro-encapsulated crystal tablet Take 20 mEq by mouth daily. Active mupirocin (Bactroban) 2 % Ointment Apply topically as needed. 03/23/2019 Active Epiyi-9-SHL-EPA-Fish Oil 1,000 mg (120 mg-180 mg) Capsule Take 2 capsules by mouth daily. 01/12/2014 Active meloxicam (Mobic) 15 mg tablet Take 15 mg by mouth daily. Active albuteroL 90 mcg/actuation HFA Aerosol Inhaler Inhale 2 puffs into the lungs every 6 hours as needed for Wheezing. Use with spacer Active furosemide (Lasix) 20 mg tabletIndications:Pulm onary hypertension TAKE 3 TABLETS BY MOUTH TWICE DAILY 180 tablet 2 04/05/2023 Active spironolactone (Aldactone) 25 mg tabletIndications:Pulm onary hypertension Take 1/2 (one-half) tablet by mouth once daily 45 tablet 2 05/08/2023 Active NIFEdipine (Procardia XL) 60 mg ER 24 hr tabletIndications:Pulm onary hypertension Take 1 tablet by mouth once daily 90 tablet 2 05/08/2023 Active Rybelsus 14 mg tablet Take 1 tablet by mouth Daily at Noon. 04/09/2023 Active amoxicillin-clavulanat e (Augmentin) 875-125 mg tabletIndications:Infl ammation of interphalangeal joint of right toe due to infection Take 1 tablet by mouth 2 times daily. 14 tablet 10/10/2023 Active salicylic acid (Mediplast Fdpx-Gldycu-Bkyw) 40 % Adhesive Patch, MedicatedIndications:V erruca plantaris Apply half patch daily to the bilateral big toes. 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, limited to breakdown of skin; Neuropathic ulcer of toe of left foot, limited to breakdown of skin; Verruca pedis 01/07/2024 Travel 12/24/2023 3:30 PM EDT [place] [address] Jeovanny, Evie, DPM Skin ulcer of left great toe with fat layer exposed; Plantar wart 12/24/2023 2:30 PM EDT Office [place] [phone] Rosa Elena Muhammad RN Neuropathic ulcer of toe of right foot with fat layer exposed; Neuropathic ulcer of toe of left foot with fat layer exposed; Neuropathy 12/24/2023 Travel 12/10/2023 2:30 PM EDT Office [place] [phone] Alexandra Renteria, ABIMAEL Neuropathic ulcer of toe of right foot with fat layer exposed; Neuropathic ulcer of toe of left foot with fat layer exposed 12/10/2023 Travel 11/27/2023 2:30 PM EDT [place] [address] Alison Guerrero RN Neuropathic ulcer of toe of right foot with fat layer exposed; Neuropathic ulcer of toe of left foot with fat layer exposed 11/27/2023 Travel 11/21/2023 9:00 AM EDT Office Visit Dermatology at [address] [phone] Kaylyn Capps MD Verruca plantaris; Impaired sensation to light touch; Charcot's joint of foot, unspecified laterality 11/21/2023 Travel 11/05/2023 4:00 PM EDT [place] [phone] Karma Souza RN Neuropathy; Onychomycosis 11/05/2023 3:15 PM EDT [place] [phone] Alexandra Renteria APRN Neuropathic ulcer of toe of right foot with fat layer exposed; Neuropathic ulcer of toe of left foot with fat layer exposed 11/05/2023 Travel 10/29/2023 Orders [place] [phone] Rosa Elena Villagomez APRN Neuropathic ulcer of toe of left foot with fat layer exposed 10/28/2023 2:30 PM EDT Tech [place] [phone] De[place] Diabetic ulcer of other part of left foot associated with diabetes mellitus due to underlying condition, with fat layer exposed 10/28/2023 Travel 10/14/2023 [place] [phone] Rosa Elena Diaz LPN 10/14/2023 [place] [phone] Evie Up DPM Skin ulcer of left great toe with fat layer exposed 10/11/2023 [place] [phone] Christi Velazquez APRN from Last 3 Months Family History Medical History Relation Comments Cancer Father ear, kidney Cancer Maternal Grandmother unknown Depression Mother Heart Failure Mother Relation Status Comments Father Maternal Grandmother Mother Social History Tobacco Use Types Packs/Day Years Used Date Smoking Tobacco: Never Smokeless Tobacco: Never Tobacco Cessation:Counseling Given: Not Answered Alcohol Use Standard Drinks/Week Comments Not Currently 0 (1 standard drink = 0.6 oz pur e alcohol) Sex and Gender Information Value Date Recorded Sex Assigned at Not on file Gender Identity Not on file Sexual Orientation Not on file Last Filed Vital Signs Vital Sign Reading Time Taken Comments Blood Pressure 118/58 11/21/2023 9:40 AM EDT Pulse 83 11/21/2023 9:40 AM EDT Temperature 36.6 ??C (97.9 ??F) 09/30/2023 2:46 PM ED T Respiratory Rate 20 09/30/2023 2:46 PM EDT Oxygen Saturation 94% 11/21/2023 9:40 AM EDT Inhaled Oxygen Concentration - - Weight 144.8 kg (319 lb 3.6 oz) 06/24/2023 2:50 PM EST Height 175.3 cm (5' 9) 06/24/2023 2:50 PM EST Body Mass Index 47.14 06/24/2023 2:50 PM EST Plan of Treatment Upcoming Encounters Date Type Department Care Team (Late st Contact Info) Description 01/13/2024 2:30 PM EDT Office [place] [phone] Dillon Trinidad MD [facility] [place] [address] 01/21/2024 2:30 PM EDT Office [place] [phone] Rosa Elena Villagomez APRN [facility] [place] [address] 02/05/2024 2:00 PM EDT Office [place] [phone] Rosa Elena Muhammad, RN Health Maintenance Due Date Last Done Comments CT Colonography 1957 Colonoscopy 1957 Colorectal Cancer Screening 1957 FIT DNA 1957 FIT 1957 Sigmoidoscopy (10 year) with FIT yearly 1957 Sigmoidoscopy 1957 Lipid Screening 10/28/1975 Tdap adult 1976 Tetanus vaccine 1976 Zoster vaccine (1 of 2) 10/28/2007 Advance Directive 2012 Pneumoccocal Vaccine: 65+ (1 of 1 - PCV) 2022 Covid-19 Vaccine (6 - 2022-2 4 season) 2023 07/10/2023, 12/14/2022, 04/04/2022, Additional history exists Influenza (Flu) vaccine (1 o f 1 - Influenza standard series) 02/16/2024 Diabetes Screening (HgbA1C o r Glucose) 02/07/2026 02/07/2023, 11/21/2021, 09/21/2021 Hepatitis C Screening Completed 09/21/2021 Procedures Procedure Name Priority Date/Time Associated Diagnosis Comments KATE, LEGS, MULTIPLE LEVELS Routine 10/28/2023 1:36 PM EDT Diabetic ulcer of other part of left foot associated with diabetes mellitus due to underlying condition, with fat layer exposed BASIC METABOLIC PANEL (NON-FASTING) Routine 02/07/2023 3:11 PM EDT Pulmonary hypertension Chronic respiratory failure with hypoxia Restrictive lung disease HC HEPATITIS C ANTIBODY Routine 09/21/2021 4:13 PM EDT Pulmonary hypertension from Last 3 Months or Most Recently Relevant to Health Maintenance Results * KATE, legs, multiple levels (10/28/2023 1:36 PM EDT) VB Text Report Department: Vascular Surgery Lab Patient: [id number] (JONAS MARTINEZ) CPT: 16912 Referring Physician: ROSA ELENA VILLAGOMEZ ?? Phone: Indications: Bilat foot wounds ? PAD Diabetes mellitus: No Findings: Right ?Pressure (mm Hg) ?? KATE ??Waveform ?TBI ?? Brachial Artery ?136 ? Common Femoral Artery ?Triphasic ? Popliteal Artery ? Triphasic ? Dorsalis Pedis (Ankle) Artery ?174 ? 1.28 ??Triphasic ? Posterior Tibial (Ankle) Artery ??163 ? 1.20 ??Triphasic ? Great Toe ?157 ?1.15 ?? Left ? Pressure (mm Hg) ?? KATE ??Waveform ?TBI ?? Brachial Artery ?130 ? Common Femoral Artery ?Triphasic ? Popliteal Artery ? Triphasic ? Dorsalis Pedis (Ankle) Artery ?165 ? 1.21 ??Triphasic ? Posterior Tibial (Ankle) Artery ??148 ? 1.09 ??Triphasic ? Great Toe ?167 ?1.23 ?? Interpretation: RIGHT: No significant lower extremity arterial occlusive disease. Normal ankle/brachial pressure ratios, ankle Doppler waveforms and toe pressures. LEFT: No significant lower extremity arterial occlusive disease. Normal ankle/brachial pressure ratios, ankle Doppler waveforms and toe pressures. Comparison: ??No previous study in our vascular lab database for comparison. Electronically Signed by: ROSA ELENA GALLAGHER on 2023-11-01 11:08:15 AM VASCU[facility] VB Text Report End of Report [facility] 10/28/2023 1:36 PM EDT Rosa Elena Villagomez PROPERTY VALUER VASCULAR ORDERABL ES [facility]ASCU[facility] * Basic Metabolic Panel (non-fasting) (02/07/2023 3:11 PM EDT) Glucose Lvl 98 65 - 199 mg/dL [facility] Comment:Diabetes: >=200 mg/d L plus symptoms BUN 18 10 - 20 mg/dL [facility] Creatinine 1.01 0.80 - 1.50 mg/dL [facility] Sodium 139 135 - 145 mmol/L [facility] Potassium 3.9 3.5 - 5.0 mmol/L [facility] Comment: Please note: ??Patients with WBC >100,000 may have falsely elevated Potassium levels. ??For accurate Potassium quantification in these patients send serum separator tube (gold top) for subsequent determinations. ??Contact the Clinical Chemistry Laboratory if there are any questions. Chloride 101 98 - 107 mmol/L [facility] CO2 28 22 - 31 mmol/L [facility] Anion Gap 10 5 - 15 mmol/L [facility] Calcium 9.3 8.5 - 10.5 mg/dL [facility] Estimated GFR 83 >=60 mL/min/1. 73 m?? [facility] Comment: This patient's estimated GFR was calculated using the 2020 CKD-EPI equation. The estimated GFR can vary from the measured GFR by up to 30% in the absence of rapidly changing kidney function. Assessment of the estimated GFR is not appropriate when creatinine concentrations are rapidly changing. For clinical situations in which a more precise estimate of GFR is necessary, consider alternative methods of GFR estimation such as a 24-hour urine creatinine clearance. Assignment of CKD stage 1-5 for patients with an eGFR near the transition point between stages may be based on clinical assessment of muscle mass and symptoms in addition to eGFR. Blood 02/07/2023 3:11 PM EDT 02/07/2023 3:21 PM EDT Narrative Resulting Agency Comment Spec In Lab Baldemar Castro MD CHEMISTRY ORDERABL ES Performing Organization Address [facility]/ZIP Co de Phone Number [facility] [place] [address] * Hepatitis C Antibody (09/21/2021 4:13 PM EDT) Hepatitis C Ab Negative Negative [facility] Blood 09/21/2021 4:13 PM EDT 09/21/2021 4:34 PM EDT Narrative Resulting Agency Comment Spec In Lab Cruz Tanner MD IMMUNOLOGY ORDERABLE S [facility] [place] [address] from Last 3 Months or Most Recently Relevant to Health Maintenance Advance Directives * Attempt Cardiopulmonary Resuscitation - Inpatient (Latest Code Status on File) Date Activated Date Inactivated Comments 11/21/2021 1:50 PM 11/21/2021 8:27 PM Question Answer Comments Code Status decision made by: Patient Care Teams Roto Rooter Operator Relationship Specialty Start Date End Date Neha Mcmahan MD [address] [place] [address] PCP - General Family Medicine 03/25/20
--- OUTSIDE RECORDS SUMMARY | 2024-01-10 02:14 | XMS_ITS | Encounter Summary ---
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, limited to breakdown of skin; Neuropathic ulcer of toe of left foot, limited to breakdown of skin; Verruca pedis Social History Tobacco Use Types Packs/Day Years Used Date Smoking Tobacco: Never Smokeless Tobacco: Never Alcohol Use Standard Drinks/Week Comments Not Currently 0 (1 standard drink = 0.6 oz pur e alcohol) Sex and Gender Information Value Date Recorded Sex Assigned at Not on file Gender Identity Not on file Sexual Orientation Not on file documented as of this encounter Patient Instructions * Patient Instructions* Rosa Elena Muhammad RN - 01/07/2024 2:30 PM EDT Right great toe and left hallux/plantar foot Change dressing every 2-3 days or sooner for 50% or greater strike through drainage. Remove old dressing. Cleanse wound with wound cleanser or normal saline and gauze. Cut a piece of Mediplast to fit wound bed. Cover with foam and secure with tape Patient could not afford the $70.00 compounded topical wart preparation Offload feet throughout the day. Float your heels. Use offloading shoes when up and ambulating. Please report to the Emergency Department if you develop signs/symptoms of infection, this may include the following: Fever Sweats Chills Nausea, Vomiting or Diarrhea: general malaise Spiking Blood Glucose levels, unprovoked Around the wound site: Redness Warmth Purulent drainage Malodor Try to eat 5-6 servings of following foods: High Protein foods: Beef, chicken, fish Beans, Lentils, peanut butter Citizen Of [place] and regular yogurt Cheese, eggs Boost, Ensure shakes Protein powder in a smoothie of your choice documented in this encounter Progress Notes * Rosa Elena Muhammad RN - 01/07/2024 2:30 PM EDT Images from the original note were not included. [facility] anesthesiologist assistant certified Note Reason for Visit: Patient is a 68 y.o.male who returns today for wound assessment and treatment. Etiology of Wound(s): Neuropathic ulcer Location of Wound(s): bilateral plantarHallux toe Patient denies fever, chills, sweats. Denies nausea, vomiting, loose bowels. Last FSBS: Denies having diabetes, PCP office reports no diabetes Appetite is good Taking protein supplements: Yes Protein powder (whey) mixed with water and eats meat, eggs, peanuts Updates/Changes/Reports since last visit: Patient saw dermatology on 11/21/23 who is treating wounds as warts. He has been using mediplast pads with good effect but has not cleared up the problem. Objective: Activity/Mobility: Ambulatory w. assistive device uses a wheelchair for office visits at hospital Imaging: Reviewed prior to exam, see report in EMR for details. -Date of Last Pertinent Imaging: sent for X-rays of bilateral feet today 10/10/23 Vascular Studies: Reviewed prior to visit 10/28/23 KATE's done Specialty Visits Since Last Wound Care Visit: None Pulses: Dorsalis Pedis: Right: Palpable Left: Palpable Posterior Tibia: Right: Palpable Left: Palpable Wound Assessment: Wound 01/07/24 12/24/23 12/10/23 11/27/23 11/05/23 10/10/23 Measurement (Initial) 09/30/23 Wound Bed & Thickness Periwound Skin Drainage Odor Debridement Primary Dressing Secondary Dressing Left hallux Open area: 0.4 cm x 0.1 cm x <0.1 cm Area of Verrucoid epidermal hyperplasia 0.8 cm x 1.0 cm x <0.1 cm Open area: 0.6 cm x 0.1 cm x <0.1 cm Area of Verrucoid epidermal hyperplasia 1.2 cm x 1.5 cm x <0.1 cm 0.8 cm x 0.2cm x <0.1cm 0.8 cm x 0.4 cm x <0.1 cm Open area on abnormal tissue: 1.1cm x 0.2cm x <0.1cm Area 2.5 cm x 2.5 cm @ 9 to 0.5 cm 2.8 x 2.0 x <0.1 cm 100% pink smooth tissue Full callus intradermal bleeding Moderate Serosanguineous No Surgical (sharps instrument or laser) Mediplast foam Foam, tape Left 2nd toe Healed Healed healed healed healed No open area 0.2 x 0.2 <0.1 cm 100% pale pink with verrucoid tissue full Callus skin tone None No None None None Right hallux 0.5 cm x 0.1 cm x <0.1 cm 0.5 cm x 0.6 cm x <0.1 cm 0.6 cm x 0.4cm x <0.1cm 0.7 cm x 0.7 cm x <0.1 cm 1.0cm x 0.7cm x 0.1cm UM@7-10: 0.1 1.0 cm x 0.5 cm 0.8 cm x <0.1 cm 2.0 x 1.5 x 0.1 cm 100% pale pink Full callus intradermal bleeding Moderate serosanguineous No Surgical sharp Mediplast foam Foam, tape Assessment of Wound: The wound remains stable to decreasing measurements. Right hallux wound with area of hypergranulation. There continues to be verrucoid tissue with dermal hyperplasia. There is also hemorrhagic crusting noted to periwound skin. Plan to continue with mediplast pads (1/2 pad per toe) as per dermatology. This was then covered by non-bordered foam for exudate management. Patient could not afford the $70.[address] medication [facility]. Signs of Infection: there are no signs or symptoms of infection noted on assessment today PHOTOS Right hallux Left hallux Wound Treatment: Cleansing: Wound cleansed with normal saline and cleansed with Vashe Analgesia: none administered prior to debridement Debridement: Conservative sharp debridement was performed of the bilateral hallux toe. Devitalized tissue was removed using a #15 blade and a curette, down to and including subcutaneous tissue to reveal healthier tissue. Total area of debridement was .09 cm sq. Bleeding: mild controlled with saline and gauze Silver Nitrate: None Dressings/Compression Applied: Dressings applied to wounds as indicated above. Offloading Device: Patient is wearing bilateral post-op offloading shoes . Patient has pes planus. Education Provided: offloading the wound, elevating lower extremities, increasing protein intake, inspecting their feet daily, as well as their footwear daily, keeping wound covered to prevent bacterial contamination and to promote moist wound healing, and when to change dressing Plan of Care: - Continue wound care. -Continue with Dermatology Continue with podiatry - Diagnostics: -ABIs: done on 10/28/23 -X-Ray: last done on 10/10/23 -Labs: Consider if wound stalls or deteriorates -Wound Culture: Consider if wound stalls or deteriorates -MRI: Appearance of Wound: Consider if wound stalls or deteriorates -Valve Incompetence Studies: Consider if wound stalls or deteriorates -Biopsy: 10/10/[address] Up Left plantar wound (looks verrucal in nature) - Scheduled Consultations/Referrals and Appointment Dates: -Follow-up as per dermatology Follow-up with Podiatry (Dr. Up) today. Rx for compounded Fluoroucil 5%/Salicylic Acid 17% cream-[facility] compounded cream (will stop medipast pads when compounded meds received and start new med as directed) PATIENT COULD NOT AFFORD RX, will continue mediplast pads - Offloading: continue to offload as able Wound Care Visit Orders/Medicare Plan of Care: RN Plan of Care: Patient to return to the wound center 1-3 times per week, over the next 10 weeks for ongoing wound evaluation, conservative sharp debridement and treatment by RN as indicated by Dr. Up, DPM, on DOS 12/24/23. Follow up with Provider at least every 10 visits. Post Visit Instructions: Return to Wound Clinic: in two weeks VNA: Yes [facility]. Instructions Faxed: Yes Dressing Instructions: Monitor for signs of infection which may include: Fever Sweats Chills Nausea, Vomiting or Diarrhea Unexplained increase in Blood Glucose levels At or around the wound site: Increased pain Swelling or edema Redness Warmth Purulent drainage (thick yellow/green drainage) Malodor [facility] with any above symptoms Saturday- Saturday 8:00AM-4:30PM ([phone]). If weekends / holidays / evenings, please report to the Emergency Department. Supplies Ordered: Jolene VNA documented in this encounter Plan of Treatment Upcoming Encounters Date Type Department Care Team (Late st Contact Info) Description 01/13/2024 2:30 PM EDT Office [place] [phone] Dillon Trinidad MD [facility] [place] [address] 01/21/2024 2:30 PM EDT Office [place] [phone] Rosa Elena Villagomez APRN [facility] [place] [address] 02/05/2024 2:00 PM EDT Office [place] [phone] Rosa Elena Muhammad, RN documented as of this encounter Visit Diagnoses Diagnosis 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
--- OUTSIDE RECORDS SUMMARY | 2024-01-10 02:14 | XMS_ITS | Encounter Summary ---
Author Organization [facility] Address [facility] [place] [address] Care Team Providers Care Social Insurance Specialist Name Role Phone Neha Mcmahan MD Primary Care Provider Encounter Details Date Type Department Care Team (Late st Contact Info) Description 12/24/2023 3:30 PM EDT Office Visit Podiatry at [facility] [place] [phone] Evie Up DPM [facility] [place] [address] Skin ulcer of left great toe with fat layer exposed; Plantar wart Social History Tobacco Use Types Packs/Day Years Used Date Smoking Tobacco: Never Smokeless Tobacco: Never Alcohol Use Standard Drinks/Week Comments Not Currently 0 (1 standard drink = 0.6 oz pur e alcohol) Sex and Gender Information Value Date Recorded Sex Assigned at Not on file Gender Identity Not on file Sexual Orientation Not on file documented as of this encounter Progress Notes * Evie Up DPM - 12/24/2023 3:30 PM EDT Asked to see Jori Manzanares at the request of Rosa Elena Muhammad RN, for evaluation and assessment of plantar warts. Plan: - compound topical Rx consisting of 5% 5-FU, 2% lidocaine, and 20% salicylic acid prescribed to [facility]. Reviewed process. Apply to affected sites BID. If any concerns call clinic. Poultry Feed Supervisor Updated Plan of Care: Patient presented for visit with RN today. Due to change in wound status, plan of care is updated. Patient will continue to follow up with RN. documented in this encounter Plan of Treatment Upcoming Encounters Date Type Department Care Team (Late st Contact Info) Description 01/13/2024 2:30 PM EDT Office [place] [phone] Dillon Trinidad MD [facility] [place] [address] 01/21/2024 2:30 PM EDT Office [place] [address] Rosa Elena Villagomez APRN [facility] [place] [place] [address] 02/05/2024 2:00 PM EDT Office [place] [phone] Rosa Elena Muhammad, RN documented as of this encounter Visit Diagnoses Diagnosis Skin ulcer of left great toe with fat layer exposed Plantar wart documented in this encounter Care Teams Social Insurance Specialist Relationship Specialty Start Date End Date Neah Mcmahan MD [address] [place] [address] PCP - General Family Medicine 03/25/20 documented as of this encounter
--- OUTSIDE RECORDS SUMMARY | 2024-01-10 02:14 | XMS_ITS | Continuity of Care Document ---
Author Organization [facility] Address [address] [place] [address] Assessment Encounter Date Assessment Date Assessment LastModified by Organization Details LastModified Time 11/08/2023 11/08/2023 The total time devoted to today's encounter, including both the kfim-rh-vzat time with the patient and/or family/caregi cm and jby-unmp-iy-f angie time I personally spent is 37 minutes. lbisson Not available 11/08/2023 16:49:16 Plan of Treatment Reminders Order Date Submit Date Provider Last Modified By Organization Details Last Modified Time Details Appointments Office Visit 30 2023 02:10P M NEHA ALMAGUER Not available Not available Not available Lab None recorded. Referral None recorded. Procedures None recorded. Surgeries None recorded. Imaging None recorded. Medication Orders docusate sodium 100 mg capsule 2023 024 [facility] [address] [place], [address], 11/08/2023 16:41:09 Miralax 17 gram/dose oral powder 2023 024 [facility] [address], [address] [place], [address], 11/08/2023 16:42:35 tamsulosi n 0.4 mg capsule 2023 024 [facility], [address] [place], [address], 11/08/2023 16:39:51 Patient TargetsNo targets recorded. Patient InstructionsNo instructions recorded. Reason for Referral Shipping Inspector Referral for Time Clock Inspector alysia ulcer of foot Referring Physician: Neha Almaguer, [facility], Encounter Date: 09/13/2023 Referring Physician: Neha cagle, [facility], Encounter Date: 09/18/2023 Urologist Referral for Reten tion of urine Referring Physician: Neha Almaguer [facility], Encounter Date: 11/04/2023 Results Created Date Observation Date Name Description Value Unit Range Abnormal Flag LastModifiedBy Organization Detail LastModifiedTime 11/02/19 24 11/02/2023 vrad repor t Patien t Name: Jori Manzanares Unit #: [id number] Loc: ER Orderi ng Provid er: Accoun t #: [id number] Status : PRE ER Primar y [...] gs as descri bed. Dictat ed and Kayla ulrich d by: Tiffanie Wong MD. Sid ng:Dipti Walter MD Access ion#=1 [id number] Orderatiya d By: CC: ------ ------ ------ ------ [...] at the addres s above. Thank- you. lbisson [facility] [address], [place], [address] 11/04/2023 07:16:21 11/02/19 24 11/02/2023 CT imagi ng repor t Patikathleen t Name: Jori Manzanares Unit #: [id number] Loc: ER Orderi ng Provid er: Ricci gore,Yumiko n PA Accoun t #: [id number] Status : PRE ER Primar [...] tomogr aphy images with monroy l and sagitt al reform atted images were create d and [...] ZATION : [facility] use at least one of these dose optimi zation techni ques: automa mally exposu re contro l; mA and/or kV adjust ment per patien t size (inclu norma target ed exams where dose is matche d to clinic al indica tion); or iterat jeremias recons tructi on. 012: Total DLP = 0.00 mGy-cm Ordere d By: Yumiko Gallagher CC: ------ ------ ------ ------ ------ ------ ------ ------ ------ ------ ------ ------ ---- Dictat ed By: Nguyễn Chauhan M.D. 1739 Transc ribed By: Gissel RODRIGUEZ,Uma krueger 1740 This is privil eged, confid ential inform ation intend ed only for the provid er named. Any use or distri bution by any person other than this provid er is strict ly prohib ited. If you receiv e this report in error, please notify us immedi johnny at [phone] and return the origin al report to us at the addres s above. Thank- you. vivienne [facility] [address] [place], [address] 11/04/2023 07:16:21 Result Notes None recorded. Problems Name Status Onset Date Resolution Date Notes Provider Name and Address Organization Details Recorded Time Obstructive sleep apnea syndrome Active 2002 EMI-CPAP [facility] 4 10:03:42 Severe obesity Active 2001 [facility] 4 10:04:49 Essential hypertension Active 2007 [facility] 4 10:02:21 History of clinical finding in subject Completed 200209/07/2023 Problem Code: Z87.898; Problem Code Type: ICD-10; [facility] 4 10:06:39 Gout Active 2002 [facility] 4 10:02:45 Pure hyperglyceridemia Active 2010 [facility] 4 10:05:42 Osteoarthritis of multiple joints Active 2002 Chronic left knee [facility] 4 10:04:16 Chronic ulcer of foot Active 2014 [facility] 4 10:03:16 Diastolic heart failure Active 2015 [facility] 4 10:02:03 Bilateral carpal tunnel syndrome [facility] 4 10:01[facility]47 Therapeutic drug monitoring assay [facility] 4 10:05:27 Anxiety [facility] 2017 [facility] 4 10:01:39 Pneumonia Completed 201701/18/2018 Problem Code: J18.9; Problem Code Type: ICD-10; Not Available [facility] 3 04:49:40 Shoulder joint pain Active 2018 Hunter Fernandez [facility]. 4 10:05:03 Extreme obesity with alveolar hypoventilation [facility] 2018 [facility] 4 10:03:28 [facility]ychogryphosis Active 2019 [facility] 4 10:03:59 Low back pain Active 2019 [facility] Fern[facility]. 4 10:02:53 Screening for malignant neoplasm of colon Active 2019 [facility] Fernandez [facility] 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 Active 2019 Hunter Rebecca [facility]. 4 10:01:26 Dizziness and giddiness Active 2019 [facility] 4 10:02:13 Adult health examination Active 2021 [facility] 4 10:01:32 Pain of left upper arm Active 2022 [facility]log[facility] Fernandez [facility] 4 10:04:30 Seborrheic dermatitis of scalp Active 2022 Hunter Fernandez [facility] 4 10:04:53 Pain in finger Active 2022 Hunter Fernandez [facility] 4 10:04:23 Localized eruption of skin Completed 202202/11/2023 Problem Code: R21; Problem Code Type: ICD-10; Not Available [facility] 3 04:49:41 Sleep apnea Completed 200203/13/2023 Not Available [facility] 3 04:49:42 Hyperglycemia Completed 201703/13/2023 Problem Code: R73.9; Problem Code Type: ICD-10; Not Available [facility] 3 04:49:42 Dyspnea Completed 201506/03/2017 Problem Code: R06.02; Problem Code Type: ICD-10; Not Available [facility] 3 04:49:42 Osteoarthritis Completed 200203/13/2023 Not Available [facility] 3 04:49:42 Edema Completed 201506/03/2017 Problem Code: R60.9; Problem Code Type: ICD-10; Not Available [facility] 3 04:49:42 Fever Completed 201506/03/2017 Problem Code: R50.9; Problem Code Type: ICD-10; Not Available [facility] 3 04:49:42 Rumination disorder of infancy Completed 201409/23/2017 Problem Code: F98.21; Problem Code Type: ICD-10; Not Available [facility] 3 04:49:42 Chest pain Completed 201501/01/2019 Problem Code: R07.89; Problem Code Type: ICD-10; Not Available [facility] 3 04:49:42 Blood chemistry outside reference range Completed 201003/13/2023 Problem Code: 790.6; Problem Code Type: ICD-9; Not Available [facility] 3 04:49:43 Prediabetes Completed 201708/19/2019 Problem Code: R73.03; Problem Code Type: ICD-10; Not Available [facility] 3 04:49:43 History of asbestos exposure Completed 200203/13/2023 Problem Code: V15.84; Problem Code Type: ICD-9; Not Available [facility] 3 04:49:43 Homeless Completed 201805/08/2019 Problem Code: Z59.0; Problem Code Type: ICD-10; Not Available [facility] 3 04:49:43 Traumatic or non-traumatic injury Completed 201506/03/2017 Problem Code: T14.8; Problem Code Type: ICD-10; Not Available [facility] 3 04:49:43 Heart failure Completed 201503/13/2023 Problem Code: I50.9; Problem Code Type: ICD-10; Not Available [facility] 3 04:49:44 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 Problem Code: M94.0; Problem Code Type: ICD-10; Not Available [facility] 3 04:49:44 Hypertensive disorder Completed 200703/13/2023 Not Available [facility] 3 04:49:44 Morbid obesity Completed 200103/13/2023 Not Available [facility] 3 04:49:44 Tachycardia Completed 201605/08/2019 Problem Code: R00.0; Problem Code Type: ICD-10; Not Available [facility] 3 04:49:44 Paresthesia Completed 201503/13/2023 Problem Code: R20.2; Problem Code Type: ICD-10; Not Available [facility] 3 04:49:44 Hypoxemia Completed 201803/13/2023 1 - Comments only - Neha Almaguer MD - Patient has chronic hypoxia and is O2 dependent . He has been stable. Problem Code: R09.02; Problem Code Type: ICD-10; Not Available [facility] 3 04:49:45 Pulmonary hypertension Active 2023 RENNY DEUTSCH RN null, [facility] 4 11:10:16 Ulcer of right foot Active 2023 RENNY DEUTSCH RN null, [facility] 4 08:11:04 Ulcer of left foot Active 2023 RENNY DEUTSCH RN null, [facility] 4 08:11:21 Idiopathic peripheral neuropathy Active 2023 RENNY DEUTSCH RN null, [facility] 4 08:13:56 Chronic ulcer of foot Active [address], [facility] [address] , [facility] 4 10:32:49 Ulcer of toe Active 2023 OLIVA MCNEILL CMA null, [facility] 4 13:13:03 Retention of urine Active 2023 Jamaica Varghese RN null, [facility] 4 12:20:29 Acute retention of urine Active [address], [facility] [address] , [facility] 4 16:38:43 Constipation Active [address], [facility] [address] , [facility] 4 16:39:49 Chronic ulcer of lower extremity Active 2023 JACK LOWE MA null, [facility] 4 15:39:17 Neuropathy Active 2023 JACK LOWE MA null, [facility] 4 15:39:34 Problem Notes None recorded. Medical Equipment None Reported. Allergies Allergen ID Allergen Name Allergen Category Reaction Reaction Severity Criticality Documentation Date Start Date Code Code System Note Provider Name and Address Organization Details Recorded Time 96027 Norvasc medicatio n tachycard ia moderate Not available 04/26/20232002 07455 [facility] 4 10:01:11 79710 lisinopri l medicatio n cough mild Not available 04/26/20232017 59487 Rx[facility] 4 10:00:58 Medications Name Sig Start Date [...] Updated DateTime 4 172.212 cm 46.6 kg/m2 162885. 52 g 97.4 [degF] 96 % 96 % 85 /min 16 /min 122 mm[Hg] 62 mm[Hg] RENNY DEUTSCH RN [facility] 15:49:46 Social History Question Answer Notes LastModified by Contests4Causes Details LastModified Time Tobacco Smoking Status Never Smoker RENNY DEUTSCH RN [facility], [facility] 07/05/2023 13:34:39 What Type Of Diet Are You Following? REGULAR Information not available 07/05/2023 How Many Times Per Week Do You Exercise? Less Than 1 Time Per Week [email or web address] Information not available 07/05/2023 Last Care Team Meeting 10/02/2023 [email or web address] Information not available 10/08/2023 What Was The Date Of Your Most Recent Tobacco Screening? 07/05/2023 [email or web address] Information not available 07/05/2023 Has Tobacco Cessation Counseling Been Provided? No [email or web address] Information not available 07/05/2023 Do You Have Any Dietary Restrictions? No [email or web address] Information not available 07/05/2023 Do You Or Have You Ever Used Any Other Forms Of Tobacco Or Nicotine? No [email or web address] Information not available 07/05/2023 Sex: Male Functional Status Question Answer Note LastModified by Contests4Causes Details LastModified Time What is your exercise level? Occasional [email or web address] Information not available 07/05/2023 Mental Status None [...] reports h/o unknown form of CA in MGM, however denies known family h/o CAD, DM2, thyroid conditions, colon CA, or prostate CA. Medical History No medical history recorded. Immunizations Vaccine Type Date Status Provider Name and Address Organization Details Recorded Time Influenza, high-dose, quadrivalent, PF 07/05/2023 completed NEHA ALMAGUER MD [facility] [address], [place], [address], [facility] - [facility] 07/05/2023 16:37:00 COVID-19, mRNA, LNP-S, PF, felix-sucrose, 30 mcg/0.3 mL 07/10/2023 completed VITOR JUAREZ CMA [facility], [place] - [facility] 07/10/2023 13:31:09 Td (adult), 2 Lf tetanus toxoid, preservative free, adsorbed 08/24/2021 completed Not Available [facility] 04/26/2023 05:17:30 Tdap 06/04/2011 completed Not Available [facility] 05:17:31 Td(adult) unspecified formulation 03/04/2008 completed Not Available [facility] 04/26/2023 05:17:31 Influenza, split virus, trivalent, preservative 07/09/2016 completed Not Available [facility] 04/26/2023 05:17:31 Influenza, split virus, quadrivalent, PF 03/09/2020 completed Not Available [facility] 04/26/2023 05:17:31 Influenza, split virus, quadrivalent, PF 03/10/2019 completed Not Available [facility] 04/26/2023 05:17:31 Influenza, split virus, quadrivalent, PF 04/04/2022 completed Not Available [facility] 04/26/2023 05:17:31 Influenza, split virus, quadrivalent, PF 05/09/2021 completed Not Available [facility] 04/26/2023 05:17:31 Influenza, split virus, quadrivalent, preservative 06/03/2017 completed Not Available [facility] 04/26/2023 05:17:31 zoster recombinant 02/22/[address] [facility] 04/26/2023 05:17:31 zoster recombinant 05/09/[address] [facility] 04/26/2023 05:17:31 COVID-19, mRNA, LNP-S, PF, 100 mcg/0.5mL dose or 50 mcg/0.25mL dose 10/12/2020 completed Not Available [facility] 04/26/2023 05:17:31 COVID-19, mRNA, LNP-S, PF, 100 mcg/0.5mL dose or 50 mcg/0.25mL dose 11/09/2020 completed Not Available [facility] 04/26/2023 05:17:32 COVID-19, mRNA, LNP-S, PF, 100 mcg/0.5mL dose or 50 mcg/0.25mL dose 12/12/2021 completed Not Available [facility] 04/26/2023 05:17:32 COVID-19, mRNA, LNP-S, PF, 100 mcg/0.5mL dose or 50 mcg/0.25mL dose 05/09/2021 completed Not Available [facility] 04/26/2023 05:17:32 COVID-19, mRNA, LNP-S, bivalent, PF, 30 mcg/0.3 mL dose 12/14/2022 completed Not Available [facility] 04/26/20 05:17:32 COVID-19, mRNA, LNP-S, bivalent, PF, 30 mcg/0.3 mL dose 04/04/2022 completed Not Available [facility] 04/26/20 05:17:32 pneumococcal polysaccharide PPV23 11/28/2015 completed Not Available [facility] 2022 05:17:32 influenza, unspecified formulation 02/22/2014 completed Not Available [facility] 04/26/2023 05:17:32 Pneumococcal conjugate PCV20, polysaccharide [id number] conjugate, adjuvant, PF 09/09/2023 completed RENNY DEUTSCH RN [facility], [place] - [facility] 09/09/2023 12:33:32 Past Encounters Encounter ID Performer Location Encounter Start Date Encounter Closed Date Diagnosis/Indication Diagnosis SNOMED-CT Code [id number] NEHA ALMAGUER MD [facility] [address] [place] [address] 11/08/2023 15:31:45 11/08/2023 16:36:00 Acute retention of urine [id number] Constipation 43049959 Chronic ulcer of foot 42 1811972 Health Concerns Section Related Observation LastModified by Organization Detai ls LastModified Time None Recorded Concern Status LastModified by Organization Details LastModified Time None Recorded Payers Encounter Date Sequence Insurance Name Policy Number Policy Lomeli Covered Member ID Lomeli Member ID Guarantor Name 11/08/2023 1 [facility] (MEDICARE REPLACEMENT/A DVANTAGE - PPO) [id number] Jori Manzanares [id number] Jori Manzanares Notes Date Note Type Note Provider Name and Address Organization Details Recorded Time 11/08/2023 text/html HPI Notes: Gentleman is a 68-year-old gentleman who comes in [...] needs to get to the pharmacy to product picker a prescription he is not sure if they sent 1 then. He denies any fevers or chills he had no black or tarry stools. MD [address], [place], [address], [facility]. 11/08/2023 16:49:33
--- OUTSIDE RECORDS SUMMARY | 2024-01-10 02:15 | XMS_ITS | Encounter Summary ---
[place] [address] Care Team Providers Care Facility Security Officer Name Role Phone Neha Mcmahan MD Primary Care Provider Encounter Details Date Type Department Care Team (Latest Contact Info) Description 03/18/2023 Travel Social History Tobacco Use Types Packs/Day [...] 2:30 PM EDT Office Visit Rheumatology at [place] [phone] Dillon Trinidad MD [facility] [place] [address] 01/21/2024 2:30 PM EDT Office [place] [phone] Rosa Elena Villagomez APRN [facility] [place] [place] [address] 02/05/2024 2:00 PM EDT Office [place] [phone] Rosa Elena Muhammad, RN documented as of this encounter Visit Diagnoses Not on filedocumented in this encounter Care Teams Facility Security Officer Relationship Specialty Start Date End Date Neha Mcmahan MD [address] [place] [address] PCP - General Family Medicine 03/25/20 documented as of this encounter
--- OUTSIDE RECORDS SUMMARY | 2024-01-10 02:15 | XMS_ITS | Encounter Summary ---
Author Organization [facility] Address [facility] [place] [address] Care Team Providers Care Welt Stitch Cleaner Name Role Phone Neha Mcmahan MD Primary Care Provider [phone] Encounter Details Date Type Department Care Team (Latest Contact Info) Description 04/12/2023 12:05 PM EDT - 04/12/2023 11:59 PM EDT Hospital En[place] [address] Pulmonary hypertension; Chronic respiratory failure with hypoxia; Restrictive lung disease Discharge Disposition: Home Social History Tobacco Use Types Packs/Day Years Used Date Smoking Tobacco: Never Smokeless Tobacco: Never Alcohol Use Standard Drinks/Week Comments Not Currently 0 (1 standard drink = 0.6 oz pur e alcohol) Sex and Gender Information Value Date Recorded Sex Assigned at Not on file Gender Identity Not on file Sexual Orientation Not on file documented as of this encounter Medications at Time of Discharge Medication Sig Dispensed Refills Start Date End Date Rybelsus 14 mg tablet Take 1 tablet by mouth Daily at Noon. 04/09/2023 furosemide (Lasix) 20 mg tabletIndications:Pulmo nary hypertension TAKE 3 TABLETS BY MOUTH TWICE DAILY 180 tablet 2 04/05/2023 albuteroL 90 mcg/actuation HFA Aerosol Inhaler Inhale 2 puffs into the lungs every 6 hours as needed for Wheezing. Use with spacer gabapentin (Neurontin) 300 mg capsule Take 300 mg by mouth nightly. sertraline (Zoloft) 50 mg tablet Take 50 mg by mouth Daily. potassium chloride ER (Klor-Con M) 20 mEq ER micro-encapsulated crystal tablet Take 20 mEq by mouth daily. mupirocin (Bactroban) 2 % Ointment Apply topically as needed. 03/23/2019 Tafsn-4-UTQ-EPA-Fish Oil 1,000 mg (120 mg-180 mg) Capsule Take 2 capsules by mouth daily. 01/12/2014 meloxicam (Mobic) 15 mg tablet Take 15 mg by mouth daily. losartan (Cozaar) 25 mg tablet Take 25 mg by mouth daily. Docusate Sodium 100 mg Tablet Take 100 mg by mouth daily. acetaminophen (Tylenol) 325 mg Tablet Take 650 mg by mouth every 6 hours as needed for Pain (2 tablets at befor bed). allopurinoL (Zyloprim) 300 mg Tablet Daily 01/12/2014 vitamin E (vitamin E) 400 unit Capsule Take 1,000 Units by mouth. traMADol (ULTRAM) 50 mg tablet Take 50 mg by mouth every 6 hours as needed. indomethacin (INDOCIN) 50 mg capsule Take 50 mg by mouth 2 times daily (with meals). DOCOSAHEXANOIC ACID/EPA (FISH OIL ORAL) Take by mouth 2 times daily. VITAMIN B COMPLEX (B COMPLEX ORAL) Take by mouth daily. CHOLECALCIFEROL, VITAMIN D3, (VITAMIN D3 ORAL) Take 1,000 Units by mouth daily. SAW PALMETTO XTR/ZINC PICOLIN (SAW PALMETTO EXTRACT ORAL) Take by mouth 2 times daily. ASCORBATE CALCIUM (VITAMIN C ORAL) Take 500 mg by mouth daily. GLUC HCL/GLUC FLOYD/AC-D-GLUCOS (GLUCOSAMINE COMPLEX ORAL) Take by mouth 3 times daily. NIFEdipine (Procardia XL) 60 mg ER 24 hr tabletIndications:Pulmo nary hypertension Take 1 tablet by mouth once daily 90 tablet 02/05/2023 05/08/2023 spironolactone (Aldactone) 25 mg tabletIndications:Pulmo nary hypertension Take 0.5 tablets by mouth daily. 45 tablet 02/04/2023 05/08/2023 Silver (SilvaSorb) Gel, Sustained Release daily. 06/24/2023 documented as of this encounter Plan of Treatment Upcoming Encounters Date Type Department Care Team (Late st Contact Info) Description 01/13/2024 2:30 PM EDT Office [place] [address] Dillon Trinidad MD [facility] [place] [address] 01/21/2024 2:30 PM EDT Office [place] [address] Rosa Elena Villagomez APRN [facility] [place] [address] 02/05/2024 2:00 PM EDT [place] [address] Rosa Elena Muhammad RN documented as of this encounter Procedures Procedure Name Priority Date/Time Associated Diagnosis Comments COMMON PULMONARY FUNCTION TEST Routine 04/12/2023 1:49 PM EDT Pulmonary hypertension Chronic respiratory failure with hypoxia Restrictive lung disease documented in this encounter Results * Pulmonary Function Testing (04/12/2023 1:49 PM EDT) FVC Actual Pre-BD 1.83 L COMPAS PFT FVC Pre-BD % of Predicted 47 % COMPAS PFT FVC Predicted 3.91 L COMPAS PFT FVC Pre-BD Z-Score -3.56 COMPAS PFT FVC Lower Limits of Normal 2.94 L COMPAS PFT FEV1 Actual Pre-BD 1.39 L COMPAS PFT FEV1 Pre-BD % of Predicted 46 % COMPAS PFT FEV1 Predicted 3.02 L COMPAS PFT FEV1 Pre-BD Z-Score -3.23 COMPAS PFT FEV1 Lower Limits of Normal 2.23 L COMPAS PFT FEV1 / FVC Actual Pre-BD 76 % COMPAS PFT FEV1/FVC Pre-BD Z-Score -0.14 COMPAS PFT FEV1 / FVC LLN 64 % COMPAS PFT YFG17-08 Actual Pre-BD 1.16 L/s COMPAS PFT [id number] Pre-BD % of Predicted 47 % COMPAS PFT [id number] Predicted 2.46 L/s COMPAS PFT [id number] Pre-BD Z-Score -1.61 COMPAS PFT DLCO Hb Actual Pre-BD 15.97 mL/min/mmHg COMPAS PFT DLCO Hb Pre-BD % of Predicted 67 % COMPAS PFT DLCO Hb Pre-BD Z-Score -2.19 COMPAS PFT DLCO Hb Predicted 23.91 mL/min/mmHg COMPAS PFT DLCO UNC ACT PRE-BD 15.97 mL/min/mmHg COMPAS PFT DLCO UNC PRE-BD % of PRED 67 % COMPAS PFT DLCO UNC PRE-BD Z-SCORE -2.19 % COMPAS PFT DLCO UNC Predicted 23.91 mL/min/mmHg COMPAS PFT DLCO/VA Actual Pre-BD 4.13 mL/min/mmHg /L COMPAS PFT DLCO/VA Pre-BD % of Predicted 98 % COMPAS PFT DLCO/VA Pre-BD Z-Score -0.13 COMPAS PFT DLCO/VA Predicted 4.22 mL/min/mmHg /L COMPAS PFT FRC Pre-BD % of Predicted 64 % COMPAS PFT FRC Pre-BD Z-Score -2.07 % COMPAS PFT FRC Actual Pre-BD 2.21 L COMPAS PFT FRC Predicted 3.45 L COMPAS PFT TLC Actual Pre-BD 4.08 L COMPAS PFT TLC Pre-BD % of Predicted 64 % COMPAS PFT TLC Pre-BD Z-Score -3.34 COMPAS PFT TLC Predicted 6.42 L COMPAS PFT RV Actual Pre-BD 2.03 L COMPAS PFT RV Pre-BD % of Predicted 84 % COMPAS PFT RV Pre-BD Z-Score -0.95 COMPAS PFT RV Predicted 2.42 L COMPAS PFT RVoTLC Actual Pre-BD 50 % COMPAS PFT RVoTLC Pre-BD % of Predicted 128 % COMPAS PFT RVoTLC Pre-BD Z-Score 2.01 COMPAS PFT RVoTLC Predicted 39 % COMPAS PFT VC Actual Pre-BD 2.05 L COMPAS PFT VC Pre-BD % of Predicted 52 % COMPAS PFT VC Pre-BD Z-Score -3.13 COMPAS PFT VC Predicted 3.91 L COMPAS PFT Narrative COMPAS PFT - 04/12/2023 1:49 PM EDT FINDINGS: FEV1 and FVC are reduced, FEV1/VC is normal. TLC is reduced and RV/TLC is increased. Diffusion capacity not adjusted for hemoglobin is reduced. IMPRESSION: Spirometry suggests restriction. Reduced TLC confirms moderate restriction (TLC 60 to 70%). The combination of a reduced TLC with an elevated RV/TLC suggests restriction due to respiratory muscle weakness. Mild reduction in diffusing capacity (DLCO > 60% and < lower limit of normal). Compared to the last study on 08/18/19, the FVC and FEV1 are not significantly changed, but the DLCO decreased by 17%. Restrictive physiology with a low diffusion capacity can be seen in interstitial lung disease, but is not specific. Procedure Note Karma Cee MD - 04/13/2023 FINDINGS: FEV1 and FVC are reduced, FEV1/VC is normal. TLC is reduced andRV/TLC is increased. Diffusion capacity not adjusted for hemoglobin is reduced. IMPRESSION:Spirometry suggests restriction. Reduced TLC confirms moderate restriction (TLC 60 to 70%).The combination of a reduced TLC with an elevated RV/TLC suggests restriction due torespiratory muscle weakness. Mild reduction in diffusing capacity (DLCO > 60% and < lower limit ofnormal). Compared to the last study on 08/18/19, the FVC and FEV1 are not significantly changed, butthe DLCO decreased by 17%. Restrictive physiology with a low diffusion capacity can be seen ininterstitial lung disease, but is not specific. Baldemar Castro MD PFT ORDERABLES COMPAS PFT documented in this encounter Visit Diagnoses Diagnosis Pulmonary hypertension Other chronic pulmonary heart diseases Chronic respiratory failure with hypoxia Chronic respiratory failure Restrictive lung disease Other diseases of lung, not elsewhere classified documented in this encounter Care Teams Welt Stitch Cleaner Relationship Specialty Start Date End Date Neha Mcmahan MD [address] [place] [address] PCP - General Family Medicine 03/25/20 documented as of this encounter
--- OUTSIDE RECORDS SUMMARY | 2024-01-10 02:15 | XMS_ITS | Encounter Summary ---
[place] [address] Care Team Providers Care Guitar Teacher Name Role Phone Neha Mcmahan MD Primary Care Provider [phone] Encounter Details Date Type Department Care Team (Latest Contact Info) Description 02/07/2023 Travel Social History Tobacco Use Types Packs/Day [...] 2:30 PM EDT Office Visit Rheumatology at [place] [phone] Dillon Trinidad MD [facility] [place] [address] 01/21/2024 2:30 PM EDT Office [place] [phone] Rosa Elena Villagomez APRN [facility] [place] [place] [address] 02/05/2024 2:00 PM EDT Office [place] [phone] Rosa Elena Muhammad, RN documented as of this encounter Visit Diagnoses Not on filedocumented in this encounter Care Teams Guitar Teacher Relationship Specialty Start Date End Date Neha Mcmahan MD [address] [place] [address] PCP - General Family Medicine 03/25/20 documented as of this encounter
--- OUTSIDE RECORDS SUMMARY | 2024-01-10 02:15 | XMS_ITS | Encounter Summary ---
[place] [address] Care Team Providers Care Flaker Tender Name Role Phone Neha Mcmahan MD Primary Care Provider [phone] Encounter Details Date Type Department Care Team (Late st Contact Info) Description 10/14/2023 Telephone [place] [address] Rosa Elena Diaz LPN Social History Tobacco Use Types Packs/Day Years Used Date Smoking Tobacco: Never Smokeless Tobacco: Never Alcohol Use Standard Drinks/Week Comments Not Currently 0 (1 standard drink = 0.6 oz pur e alcohol) Sex and Gender Information Value Date Recorded Sex Assigned at Not on file Gender Identity Not on file Sexual Orientation Not on file documented as of this encounter Miscellaneous Notes * Telephone Encounter - Rosa Elena Diaz LPN - 10/14/2023 10:24 AM EDT Call placed to patient relaying information. Patient will get labs drawn prior to his next appointment. ----- Message from Evie Up DPM sent at 10/14/2023 9:08 AM EDT ----- Regarding: Xrays This wound care patient's xrays returned showing mild bone changes with mild inconclusive resorption of the left great toe bone. I would recommend he have labs done prior to his next wound care visit. Orders placed today. If you could just let him know to go to the lab before wound care. Thanks! documented in this encounter Plan of Treatment Upcoming Encounters Date Type Department Care Team (Late st Contact Info) Description 01/13/2024 2:30 PM EDT Office [place] [address] Dillon Trinidad MD [facility] [place] [address] 01/21/2024 2:30 PM EDT Office [place] [phone] Rosa Elena Villagomez APRN [facility] [place] [place] [address] 02/05/2024 2:00 PM EDT Office [place] [phone] Rosa Elena Muhammad, RN documented as of this encounter Visit Diagnoses Not on filedocumented in this encounter Care Teams Flaker Tender Relationship Specialty Start Date End Date Neha Mcmahan MD [address] [place] [address] PCP - General Family Medicine 03/25/20 documented as of this encounter
--- OUTSIDE RECORDS SUMMARY | 2024-01-10 02:15 | XMS_ITS | Encounter Summary ---
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 Remove old dressing. Cleanse wound with wound cleanser or normal saline and gauze. Cut a piece of Hydrofera Blue Ready to fit wound bed. Apply the dressing over the wound bed with the foam side towards the wound and the shiny film side facing up. Secure the dressing in place using Medipore tape OR Conform gauze and tape. Left foot Change dressing every 2-3 days or sooner for 50% or greater strike through drainage. Remove old dressing. Cleanse wound with wound cleanser or normal saline and gauze. Cover wound bed with non-bordered Ag foam and secure with tape Please report to the Emergency Department if you develop signs/symptoms of infection, this may include the following: Fever Sweats Chills Nausea, Vomiting or Diarrhea: general malaise Spiking Blood Glucose levels, unprovoked Around the wound site: Redness Warmth Purulent drainage Malodor Try to eat 5-6 servings of following foods: High Protein foods: Beef, chicken, fish Beans, Lentils, peanut butter Scottish and regular yogurt Cheese, eggs Boost, Ensure shakes Protein powder in a smoothie of your choice documented in this encounter Progress Notes * Geri Villagomez APRN - 11/05/2023 3:15 PM EDT Images from the original note were not included. [facility] Follow up note CC: Jori Manzanares is a 68 y.o. male who presents for follow up of right hallux, left hallux and [id number] to neuropathic ulcers. HPI: referred by Neha Mcmahan for evaluation of foot ulcer. He has been followed by podiatry. PCP started him on medi honey on 09/16/23. He reports that wounds have been present for oral about 2 years. He has been followed by podiatry and would feel but does not recall ever having a biopsy or vascular studies. He states that he has been changing the dressings independently but now has [facility]NA helping him daily. On exam today he had Telfa pad and Ольга wrap. He reports he is not diabetic although his problem list reports him as being diabetic. No recent labs available for review. He did have x-ray of left foot recently which showed no signs of bone infection. He is wearing postop shoes which do not appear to apply pressure to hallux areas. He does have history of left third toe amputation 10/10/23: Dr Up A 3 mm punch biopsy was then taken from the chronic left hallux ulceration. A #15 scalpel and forceps were used to remove specimen which was sent in formalin for pathology. Order placed. Surgifoam and direct pressure used for hemostasis. No active bleeding. Dressing applied by wound care team. Encouraged close monitoring continue wound care. The medical history and recent labs were reviewed prior to the patient's appointment. ' PMH significant for pulmonary HTN (followed by Rheumatology), O2 requirement (4- 5 L via NC), Gout, severe obesity, anxiety, sleep apnea, HTN, diastolic HF, seborrheic dermaitits of scalp, chronic ulcer of foot, osteoarthritis, carpal tunnel. Home Care: Jolene [facility]. 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 Normal ankle/brachial pressure ratios, ankle Doppler waveforms and toe pressures. LEFT: No significant lower extremity arterial occlusive disease. Normal ankle/brachial pressure ratios, ankle Doppler waveforms and toe pressures. Imagin09/12/23 Left foot/Right foot IMPRESSION No radiographic finding of left forefoot osteomyelitis. 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 of Pathology, [place] [id number] Cigarette Making Machine Operator: Dixie Regan MD, FCAP, CLIA Certificate: [id number] DISCUSSION The differential diagnosis could include an irritated verruca, prurigo or less likely a digital fibrokeratoma. Clinicopathologic correlation is recommended. Should the biopsy represent portion of a larger lesion, then the diagnosis may not be extrapolated to the lesion in its entirety Review Of Systems: Denies constitutional symptoms of fever, chills, sweats, fatigue. Neuro: denies FINE, dizziness Diet: Reports eats fairly well, two meals daily and has Whey protein as well as other sources Wound care: VNA helping with dressing changes Leg fatigue +, calf cramping -, skin itching - Nocturnal pain - Pain with ambulation - Neuropathy: + Pain: None PE: There were no vitals taken for this visit. General: pleasant, 68 y.o. male in NAD. Arrives alone Mobility: Ambulates with cane Edema: Minimal to feet DP, PT pulses audible with doppler bilaterally: + DPs palpable Varicosities: Positive to ankles Hemosiderin staining: Some to lower legs Stasis dermatitis: None Callus: Significant to bilateral hallux Nails: Thick fungal long Wound 11/05/23 10/10/23 Measurement (Initial) 09/30/23 Wound Bed & Thickness Periwound Skin Drainage Odor Debridement Primary Dressing Secondary Dressing Left hallux Open area on abnormal tissue: 1.1cm x 0.2cm x <0.1cm Area 2.5 cm x 2.5 cm @ 9 to 0.5 cm 2.8 x 2.0 x <0.1 cm 100% pink smooth, hypergranular tissue Full Macerated callus intradermal bleeding Moderate Serosanguineous No Surgical (sharps instrument or laser) HFB tape Left 2nd toe healed No open area 0.2 x 0.2 <0.1 cm 100% pale pink full Callus skin tone Moderate serosanguineous No Surgical sharp Small bordered foam None Right hallux 1.0cm x 0.7cm x 0.1cm UM@7-10: 0.1 1.0 cm x 0.5 cm 0.8 cm x <0.1 cm 2.0 x 1.5 x 0.1 cm 50% pale pink 50% yellow Full Macerated callus intradermal bleeding Slight erythema no significant warmth Moderate serosanguineous Yes Surgical sharp Ag non bordered foam tape The following photo was taken: Left medial foot Right hallux Treatment: Cleansed wound with normal saline and gauze. Wound cleansed with VASHE wound cleanser Local Anesthesia used: None needed Conservative sharp debridement was performed of the bilateral great toe and foot. Devitalized tissue was removed using a #15 blade, down to and including subcutaneous tissue to reveal healthier tissue. Total area of debridement was 1.7 cm sq. Bleeding: minimal and controlled with NS Dsg: applied per above Patient tolerated procedure well Bilateral post op shoes given to patient today as his were worn out. Assessment: Jori Manzanares is a 68 y.o. male with skin ulcers of left and right hallux. ABIs done 10/2023 did not show any LEAD. Last x-ray of left foot was on 09/12/23 with results as above. 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 He was referred to Dermatology, however he has not yet heard from them to get scheduled. On exam today there are no signs or symptoms of infection. Left hallux/foot with irregular hyperkeratotic/veruccus type tissue. This was able to be debrided slightly though tissue is friable. Fissure of thefoot has healed. Area covered with Mepilex Ag foam for antimicrobial, protection, and exudate management. The right hallux has hypergranular tissue and significant periwound callus. The hypergranulartissue was treated with Silver Nitrate and the callus pared down. Will initiate HFB foam for antimicrobial as well as help with hypergranular tissue. Secured this with medipore tape. The patient continues to have VNA services to assist with dressing changes. The patient was wearing postop shoe to left and right to avoid pressure to hallux areas. . These were both significantly worn today so he was provided with new shoes today. He notes he will shower twice a week prior to VNA coming to change his dressings. He will then keep wound uncovered and wear flip flops for about an hour until they come to do his dressing. Strongly advised that he at least cover the wound with a bandaid and sock until VNA arrives to avoid contamination and further injury. Education was provided regarding the importance of offloading the wound, elevating lower extremities, increasing protein intake, keeping callus filed, inspecting their feet daily, as well as their footwear daily, keeping wound covered to prevent bacterial contamination and to promote moist wound healing, and when to change dressing to facilitate wound healing. Reviewed signs and symptoms of infection and when to seek emergency medical attention. The patient will contact us with any questions. The patient verbalized understanding and agreement with the plan of care. Goals: Wound healing, prevention of infection Perceived barriers: Co-morbidities, ability to offload Plan: -Wound care as above -Offloading -Schedule visit with Dermatology for assessment and management of the abnormal tissue on the left foot STEAMER OPERATOR Plan of Care: Patient to return to the wound center 1-3 times per week, over the next 10 weeks, for ongoing wound evaluation, conservative sharp debridement and treatment by RN as outlined below. Verbal and written wound care instructions were provided. He/she will call with any questions or concerns. The patient will follow up here at the [facility] in two weeks. Instructions: Right great toe Change dressing every 2-3 days or sooner for 50% or greater strike through drainage. Remove old dressing. Cleanse wound with wound cleanser or normal saline and gauze. Cut a piece of Hydrofera Blue Ready to fit wound bed. Apply the dressing over the wound bed with the foam side towards the wound and the shiny film side facing up. Secure the dressing in place using Medipore tape OR Conform gauze and tape. Left foot Change dressing every 2-3 days or sooner for 50% or greater strike through drainage. Remove old dressing. Cleanse wound with wound cleanser or normal saline and gauze. Cover wound bed with non-bordered Ag foam and secure with tape Please report to the Emergency Department if you develop signs/symptoms of infection, this may include the following: Fever Sweats Chills Nausea, Vomiting or Diarrhea: general malaise Spiking Blood Glucose levels, unprovoked Around the wound site: Redness Warmth Purulent drainage Malodor Try to eat 5-6 servings of following foods: High Protein foods: Beef, chicken, fish Beans, Lentils, peanut butter Scottish and regular yogurt Cheese, eggs Boost, Ensure shakes Protein powder in a smoothie of your choice Diabetic Foot Care If you have high blood pressure and/or high cholesterol, work with your health care provider to lower it. Never walk barefoot, neither indoors or outdoors. Examine your feet daily for redness, warmth, blisters, ulcers, scratches, cuts and nail problems from shoes or other sources. Look at the bottoms and between toes. Use a mirror or have someone else look for you. Call your doctor immediately if you experience any injury to your feet. Even a minor injury is an emergency for a patient at high risk. Examine your shoes for foreign objects, protruding nails and rough spots inside before putting themone. Look and feel. Buy shoes late in the day. Never buy shoes that need ???breaking in?? . They should be immediately comfortable. Request shoes with deep toe boxes and made of soft leather upper material. Lubricate your entire foot after bathing or if your skin is dry, but avoid putting cream between toes. Avoid Vaseline, petroleum jelly, mineral oil and baby oil. Godinez???s wool may be used between toes. Diabetaderm is one good foot cream option. Do not soak your feet. Skin can break down and won???t heal well. Avoid direct heat (heating pads, hot water pads, electric blankets, radiator, fireplaces). You can burn your feet without knowing it. Water temperature should be less than 92 degrees. Estimate with your elbow or bath thermometer (You can get one in any store that sells infant products.) Don???t use any tape or sticky products such as corn plasters on your feet. The can tear your skin. Do not file, remove or shave calluses or corns yourself, unless instructed otherwise. These should be taken care of by your physician or television production technician. Avoid using any chemical or strong antiseptic solutions on your feet. Iodine, salicylic acid, corn/callus removers may burn the skin. [facility] with any worsening symptoms Saturday-Saturday 8:00AM-4:30PM ([phone]). If weekends / holidays / evenings, please report to the urgent care or call specialty team if they follow your wound. Cc: No referring provider defined for this encounter. PCP: Neha Mcmahan MD documented in this encounter Plan of Treatment Upcoming Encounters Date Type Department Care Team ([place] Contact Info) Description 01/13/2024 2:30 PM EDT Office [place] [phone] Dillon Trinidad MD [facility] [place] [address] 01/21/2024 2:30 PM EDT Office [place] [address] Rosa Elena Villagomez APRN [facility] [place] [address] 02/05/2024 2:00 PM EDT Office [place] [phone] Rosa Elena Muhammad RN documented as of this encounter Visit Diagnoses Diagnosis 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
--- OUTSIDE RECORDS SUMMARY | 2024-01-10 02:15 | XMS_ITS | Encounter Summary ---
[place] [address] Care Team Providers Care Police Guard Name Role Phone Neha Mcmahan MD Primary Care Provider Encounter Details Date Type Department Care Team (Latest Contact Info) Description 10/10/2023 Travel Social History Tobacco Use Types Packs/Day [...] 2:30 PM EDT Office Visit Rheumatology at [place] [phone] Dillon Trinidad MD [facility] DR RHEUMATOLOGY [place] [address] 01/21/2024 2:30 PM EDT Office [place] [phone] Rosa Elena Villagomez APRN [facility] [place] [address] 02/05/2024 2:00 PM EDT Office [place] [phone] Rosa Elena Muhammad, RN documented as of this encounter Visit Diagnoses Not on filedocumented in this encounter Care Teams Police Guard Relationship Specialty Start Date End Date Neha Mcmahan MD [address] [place] [address] PCP - General Family Medicine 03/25/20 documented as of this encounter
--- OUTSIDE RECORDS SUMMARY | 2024-01-10 02:15 | XMS_ITS | Encounter Summary ---
Author Organization [facility] [place] [address] Care Team Providers Care Optic Fibre Drawer Name Role Phone Neha Mcmahan MD Primary Care Provider [phone] Reason for Visit * Reason Comments Medication Refill Nifedipine & Spirono lactone Encounter Details Date Type Department Care Team (Late st Contact Info) Description 05/06/2023 Refill Cardiology at [address] [phone] Mariam Dutta, [facility] [place] [address] Medication Refill (Nifedipine & Spironolactone) Social History Tobacco Use Types Packs/Day Years [...] 2:30 PM EDT Office [place] [address] Dillon Trinidad MD [facility] [place] [address] 01/21/2024 2:30 PM EDT [place] [address] Rosa Elena Villagomez, FRONT END WEB DESIGNER [facility] [place] [address] 02/05/2024 2:00 PM EDT Office [place] [address] Rosa Elena Muhammad RN documented as of this encounter Visit Diagnoses Diagnosis Pulmonary hypertension Other chronic pulmonary heart diseases documented in this encounter Care Teams Optic Fibre Drawer Relationship Specialty Start Date End Date Neha Mcmahan MD [address] [place] [address] PCP - General Family Medicine 03/25/20 documented as of this encounter
--- OUTSIDE RECORDS SUMMARY | 2024-01-10 02:15 | XMS_ITS | Encounter Summary ---
Author Organization [facility] [place] [address] Care Team Providers Care Loop Drier Operator Name Role Phone Neha Mcmahan MD Primary Care Provider [phone] Encounter Details Date Type Department Care Team (Late st Contact Info) Description 04/09/2023 Interpretation Only [address] [phone] Babita Guido, DPM [address] [place] [address] Social History Tobacco Use Types Packs/Day Years [...] 2:30 PM EDT Office [place] [phone] Dillon Trinidad MD [facility] DR [place] [address] 01/21/2024 2:30 PM EDT Office [place] [phone] Rosa Elena Villagomez APRN [facility] [place] [address] 02/05/2024 2:00 PM EDT Office [place] [address] Rosa Elena Muhammad RN documented as of this encounter Procedures Procedure Name Priority Date/Time Associated Diagnosis Comments XR FOOT MIN 3 VIEWS LEFT Routine 04/09/2023 3:26 PM EDT documented in this encounter Results * XR Foot Min 3 views Left (Generic) (04/09/2023 3:26 PM EDT) PT CLASS O RAD ADMITDTTM RAD PT RAD MD INFO [id number]^W ILTON^BABITA^ P RAD EXAM DESC [id number]^XR LEFT FOOT ROUTINE^RIS RAD Anatomical Region Laterality Modality Foot Left Radiographic Shayna ging Impressions 04/09/2023 3:44 PM EDT No interval change. Thank you for letting us participate in the care of this patient. ??If you are a health care provider and have any questions regarding this report, please contact the number below. ??For patients who have questions please contact the health landcare officer that requested your imaging first. ? Narrative 04/09/2023 3:44 PM EDT EXAMINATION: XR LEFT FOOT ROUTINE CLINICAL HISTORY: Pain in left foot TECHNIQUE: 3 views of the left foot COMPARISON: Left toes dated April 11, 2020 FINDINGS: Absent second digit. Unchanged lateral subluxation of the proximal second metatarsophalangeal joint with degenerative changes. Midfoot degenerative arthropathy and loss of longitudinal arch. Inferior calcaneal spurring. Procedure Note Jeb Sheldon MD - 04/09/2023 EXAMINATION: XR LEFT FOOT ROUTINE CLINICAL HISTORY: Pain in left foot TECHNIQUE: 3 views of the left foot COMPARISON: Left toes dated April 11, 2020 FINDINGS: Absent second digit. Unchanged lateral subluxation of the proximalsecond metatarsophalangeal joint with degenerative changes. Midfootdegenerative arthropathy and loss of longitudinal arch. Inferior calcaneal spurring. IMPRESSION No interval change. Thank you for letting us participate in the care of this patient. If youare a health care provider and have any questions regarding this report,please contact the number below. For patients who have questions please contactthe health landcare officer that requested your imaging first. Babita Guido DPM IMG DX ORDERABLES documented in this encounter Visit Diagnoses Not on filedocumented in this encounter Care Teams Loop Drier Operator Relationship Specialty Start Date End Date Neha Mcmahan MD [address] [place] [address] PCP - General Family Medicine 03/25/20 documented as of this encounter
--- OUTSIDE RECORDS SUMMARY | 2024-01-10 02:15 | XMS_ITS | Encounter Summary ---
[place] [address] Care Team Providers Care Relay Assembler Name Role Phone Neha Mcmahan MD Primary Care Provider [phone] Encounter Details Date Type Department Care Team (Latest Contact Info) Description 02/07/2023 1:30 PM EDT Procedure [place] [address] Cardiac Rehab Prog, Crp None Pulmonary hypertension Social History Tobacco Use Types Packs/Day Years Used Date Smoking Tobacco: Never Smokeless Tobacco: Never Alcohol Use Standard Drinks/Week Comments Not Currently 0 (1 standard drink = 0.6 oz pur e alcohol) Sex and Gender Information Value Date Recorded Sex Assigned at Not on file Gender Identity Not on file Sexual Orientation Not on file documented as of this encounter Progress Notes * Alyssa Cm RN - 02/07/2023 1:30 PM EDT 6 Minute Walk Test Pre-Walk Vitals: BP: 116/60 HR: 73 bpm O2 Sat: 93% O2 3L pulse Exertion Ratin to 3, slight to moderate Post-Walk Vitals: BP: 120/70 HR: 101 bpm O2 Sat: 89% O2 3L pulse, improved to 90% within 30 seconds of rest Exertion Ratin- somewhat severe Comments: Jori Manzanares walked a total of 122 meters during this attempted six minute test. He stopped this test after 3 minutes, 10 seconds due to lightheadedness. He walked with a cane for this test. documented in this encounter Plan of Treatment Upcoming Encounters Date Type Department Care Team (Late st Contact Info) Description 01/13/2024 2:30 PM EDT [place] [address] Dillon Trinidad MD [facility] [place] [address] 01/21/2024 2:30 PM EDT Office [place] [address] Rosa Elena Villagomez APRN [facility] [place] [place] [address] 02/05/2024 2:00 PM EDT Office [place] [phone] Rosa Elena Muhammad RN documented as of this encounter Visit Diagnoses Diagnosis Pulmonary hypertension Other chronic pulmonary heart diseases documented in this encounter Care Teams Relay Assembler Relationship Specialty Start Date End Date Neha Mcmahan MD [address] [place] [address] PCP - General Family Medicine 03/25/20 documented as of this encounter
--- OUTSIDE RECORDS SUMMARY | 2024-01-10 02:15 | XMS_ITS | Encounter Summary ---
[place] [address] Care Team Providers Care Transfer Engineer Name Role Phone Neha Mcmahan MD Primary Care Provider [phone] Encounter Details Date Type Department Care Team (Latest Contact Info) Description 12/10/2023 Travel Social History Tobacco Use Types Packs/Day [...] 2:30 PM EDT Office Visit Rheumatology at [place] [phone] Dillon Trinidad MD [facility] [place] [address] 01/21/2024 2:30 PM EDT Office [place] [phone] Rosa Elena Villagomez APRN [facility] [place] [place] [address] 02/05/2024 2:00 PM EDT Office [place] [phone] Rosa Elena Muhammad, RN documented as of this encounter Visit Diagnoses Not on filedocumented in this encounter Care Teams Transfer Engineer Relationship Specialty Start Date End Date Neha Mcmahan MD [address] [place] [address] PCP - General Family Medicine 03/25/20 documented as of this encounter
--- OUTSIDE RECORDS SUMMARY | 2024-01-10 02:15 | XMS_ITS | Encounter Summary ---
Author Organization [facility] [place] [address] Care Team Providers Care Catalyst Impregnator Name Role Phone Neha Mcmahan MD Primary Care Provider [phone] Reason for Referral * Diagnostic Test (Routine) - Closed Specialty Diagnoses / Procedures Referred By Contac t Referred To Contact Radiology Diagnoses Pulmonary hypertension Chronic respiratory failure with hypoxia Restrictive lung disease Procedures CT Chest wo Contrast (Generic) Baldemar Marshall MD [facility] [place] [address] [facility] [place] [address] Referral ID Status Reason Start Date Expiration Date V isits Requested Visits Authorized [id number] Closed Specialty Service Requested 02/07/2023 08/10/2024 1 1 Reason for Visit * Diagnostic Test (Routine) - Closed Specialty Diagnoses / Procedures Referred By Contac t Referred To Contact Radiology Diagnoses Pulmonary hypertension Chronic respiratory failure with hypoxia Restrictive lung disease Procedures CT Chest wo Contrast (Generic) Baldemar Marshall MD [facility] [place] [address] [facility] [place] [address] Referral ID Status Reason Start Date Expiration Date V isits Requested Visits Authorized [id number] Closed Specialty Service Requested 02/07/2023 08/10/2024 1 1 Encounter Details Date Type Department Care Team (Latest Contact Info) Description 04/12/2023 11:16 AM EDT - 04/12/2023 12:04 PM EDT Hospital [place] [address] Baldemar Marshall MD [facility] PULMONARY DISEASE [place] [id number] Pulmonary hypertension; Chronic respiratory failure with hypoxia; [...] % Ointment Apply topically as needed. 03/23/2019 Cduil-5-CGY-EPA-Fish Oil 1,000 mg (120 mg-180 mg) Capsule [...] 2:30 PM EDT Office [place] [address] Dillon Trinidad MD [facility] [place] [address] 01/21/2024 2:30 PM EDT Office [place] [address] Rosa Elena Villagomez APRN [facility] DR WOUND CENTER [place], [place] [id number] 02/05/2024 2:00 PM EDT Office [place] [address] Rosa Elena Muhammad, RN documented as of this encounter Procedures Procedure Name Priority Date/Time Associated Diagnosis Comments CT CHEST WO CONTRAST (GENERIC) Routine 04/12/2023 11:27 AM EDT Pulmonary hypertension Chronic respiratory failure with hypoxia Restrictive lung disease documented in this encounter Results * CT Chest wo Contrast (Generic) (04/12/2023 11:27 AM EDT) Anatomical Region Laterality Modality Chest Computed Tomogra phy Impressions 04/13/2023 8:36 AM EDT No apparent new pathology compared to prior outside CT from 2019. Multiple bilateral punctate calcified nodules may be the result of remote granulomatous disease or varicella pneumonia. There is a very subtle mosaic pattern of the lungs which is unchanged compared to the prior exam and is compatible with areas of air trapping. No expiratory images are available to confirm this. Enlarged caliber of the main pulmonary artery may indicate some degree of pulmonary arterial hypertension. Thank you for letting us participate in the care of this patient. ??If you are a health care provider and have any questions regarding this report, please contact the number below. ??For patients who have questions please contact the health health care specialist that requested your imaging first. ? Narrative 04/13/2023 8:36 AM EDT EXAMINATION: CT CHEST WO CONTRAST (GENERIC) CLINICAL HISTORY: Dyspnea, chronic, unclear etiology; Respiratory illness, nondiagnostic xray TECHNIQUE: Helical CT of the chest without intravenous contrast administration. Thin-section reconstructions as well as coronal and sagittal reformatted images were generated. COMPARISON: Outside CT 03/24/2019 FINDINGS: Pulmonary parenchyma: Stable sub-6 mm pleural-based nodule in the left lower lobe (series 5 image 287). Multiple bilateral punctate calcified granulomata. A very subtle mosaic pattern of the lungs is unchanged. Airways: No central endobronchial abnormality. Pleura: No effusion. Lymph nodes: No lymphadenopathy. Heart and vasculature: Normal size of the heart. No significant pericardial effusion. Normal caliber of the thoracic aorta. Mild coronary artery atherosclerotic calcification. Large caliber of the main pulmonary artery measures 35 mm. Other mediastinal structures: No significant findings. Upper abdomen: No significant findings. Skeletal structures: Degenerative changes of the spine and both shoulders. Procedure Note Linda Castro MD - 04/13/2023 EXAMINATION: CT CHEST WO CONTRAST (GENERIC) CLINICAL HISTORY: Dyspnea, chronic, unclear etiology; Respiratoryillness, nondiagnostic xray TECHNIQUE: Helical CT of the chest without intravenous contrastadministration. Thin-section reconstructions as well as coronal and sagittal reformattedimages were generated. COMPARISON: Outside CT 03/24/2019 FINDINGS: Pulmonary parenchyma: Stable sub-6 mm pleural-based nodule in the leftlower lobe (series 5 image 287). Multiple bilateral punctate calcified granulomata. A very subtle mosaic pattern of the lungs is unchanged. Airways: No central endobronchial abnormality. Pleura: No effusion. Lymph nodes: No lymphadenopathy. Heart and vasculature: Normal size of the heart. No significantpericardial effusion. Normal caliber of the thoracic aorta. Mild coronary artery atherosclerotic calcification. Large caliber of the main pulmonaryartery measures 35 mm. Other mediastinal structures: No significant findings. Upper abdomen: No significant findings. Skeletal structures: Degenerative changes of the spine and bothshoulders. IMPRESSION No apparent new pathology compared to prior outside CT from 2019. Multiple bilateral punctate calcified nodules may be the result ofremote granulomatous disease or varicella pneumonia. There is a very subtle mosaic pattern of the lungs which is unchangedcompared to the prior exam and is compatible with areas of air trapping. Noexpiratory images are available to confirm this. Enlarged caliber of the main pulmonary artery may indicate some degreeof pulmonary arterial hypertension. Thank you for letting us participate in the care of this patient. If youare a health care provider and have any questions regarding this report,please contact the number below. For patients who have questions please contactthe health health care specialist that requested your imaging first. Baldemar Castro MD IMG CT ORDERABLES documented in this encounter Visit Diagnoses Diagnosis Pulmonary hypertension Other chronic pulmonary heart diseases Chronic respiratory failure with hypoxia Chronic respiratory failure Restrictive lung disease Other diseases of lung, not elsewhere classified documented in this encounter Care Teams Catalyst Impregnator Relationship Specialty Start Date End Date Neha Mcmahan MD [address] [place] [address] PCP - General Family Medicine 03/25/20 documented as of this encounter
--- OUTSIDE RECORDS SUMMARY | 2024-01-10 02:15 | XMS_ITS | Encounter Summary ---
Author Organization [facility] [place] [address] Care Team Providers Care Manager Income Tax Name Role Phone Neha Mcmahan MD Primary Care Provider [phone] Encounter Details Date Type Department Care Team (Late st Contact Info) Description 10/10/2023 3:15 PM EDT Office [place] [id number] Rosa Elena Muhammad RN Neuropathic ulcer of [...] Patient Instructions* Rosa Elena Muhammad RN - 10/10/2023 3:15 PM EDT Left and Right plantar Hallux: Change dressing every 2-3 days or sooner for 50% or greater strike through drainage. Remove old dressing. Cleanse wound with wound cleanser or normal saline. Do not dry the wound surface. Apply VASHE wound cleanser to wound beds (Blue bottle)with gauze and let sit for 5-7 minutes (do not rinse) Remove IODOFLEX from the package, removing the clear plastic film on each side. Cut or mold to the shape of the wound. Apply IODOFLEX to the wound surface. Cover wound bed with non-bordered foam and secure with tape or similar. May secure with a piece of Tubigauze (no need for bulky Kerlix wrap) Left 2nd toe: Change dressing every 2-3 days or sooner for 50% or greater strike through drainage. Remove old dressing. Cleanse wound with wound cleanser or normal saline and gauze. Cover wound bed with bordered gauze dressing or similar . We have extended your Augmentin (amoxicillin- clavulanic acid) for the right great toe infection This is in the penicillin family and if you have had a reaction to penicillin in the past, do not take it. This antibiotic should be taken at the start of a meal. Avoid high fatty foods with the meal. Common side effects include nausea, loose bowels, diarrhea and rash. Call if you experience any of these symptoms. I suggest adding 1-2 yogurts/day or a probiotic to avoid diarrhea. The yogurt should have live cultures, ie: Georgian or Activia. Monitor for signs of infection which may include: Fever Sweats Chills Nausea, Vomiting or Diarrhea Unexplained increase in Blood Glucose levels At or around the wound site: Increased pain Swelling or edema Redness Warmth Purulent drainage (thick yellow/green drainage) Malodor High Protein foods: try to eat 5-6 servings of these per day Beef, chicken, fish Beans, Lentils, peanut butter Georgian and regular yogurt Cheese, eggs Boost, Ensure shakes Protein powder in a smoothie of your choice Contact the [facility] with any above symptoms Saturday- Saturday 8:00AM-4:30PM ([phone]). If weekends / holidays / evenings, please report to the Emergency Department. Please get your bilateral foot X-rays today We will coordinate KATE testing to check the blood flow to lower extremities with your next wound care visit as this needs to be scheduled with vascular documented in this encounter Progress Notes * Rosa Elena Muhammad RN - 10/10/2023 3:15 PM EDT Images from the original note were not included. [facility] steam drier operator Note Reason for Visit: Patient is a 67 y.o.male who returns today for wound assessment and treatment. Etiology of Wound(s): Neuropathic ulcer Location of Wound(s): bilateral plantarHallux toe He has been followed by podiatry (Dr. Marin) but does not recall ever having a biopsy or vascular studies. He states that he has been changing the dressings independently but now has [facility] helping (Jolene) him daily. He reports he is not diabetic. No recent labs available for review. He did have x-ray of left foot recently (09/09/23) which showed no signs of bone infection. He is wearing postop shoes which do not appear to apply pressure to hallux areas. He does have history of left third toe amputation PMH significant for pulmonary HTN (followed by Rheumatology), O2 requirement (4- 5 L via NC), Gout, severe obesity, anxiety, sleep apnea, HTN, diastolic HF, seborrheic dermaitits of scalp, chronic ulcer of foot, osteoarthritis, carpal tunnel. Patient denies fever, chills, sweats. Denies nausea, vomiting, loose bowels. Last FSBS: Denies having diabetes, PCP office reports no diabetes Appetite is good Taking protein supplements: Yes Protein powder (whey) mixed with water and eats meat, eggs, peanuts Updates/Changes/Reports since last visit: Patient was prescribed a course of Augmentin 09/29-10/10/23for presumptive cellulitis of right hallus. No reported side-effects. Objective: Activity/Mobility: Ambulatory w. assistive device uses a wheelchair for office visits at hospital Imaging: Reviewed prior to exam, see report in EMR for details. -Date of Last Pertinent Imaging: sent for X-rays of bilateral feet today 10/10/23 Vascular Studies: Ordered, not yet scheduled. -Date of Last ABIs: None spoke to wound care paralegal legal secretary to schedule KATE's coordinate with next visit, they will call patient with appt times. Specialty Visits Since Last Wound Care Visit: Podiatry today (Jeovanny) for biopsy of left hallux Pulses: Dorsalis Pedis: Right: Palpable Left: Palpable Posterior Tibia: Right: Palpable Left: Palpable Wound Assessment: Wound 10/10/23 Measurement (Initial) 09/30/23 Wound Bed & Thickness Periwound Skin Drainage Odor Debridement Primary Dressing Secondary Dressing Left hallux Area 2.5 cm x 2.5 cm @ 9 to 0.5 cm 2.8 x 2.0 x <0.1 cm 100% pink smooth Full Macerated callus intradermal bleeding Moderate Serosanguineous No Surgical (sharps instrument or laser) Iodoflex Foam and tape Left 2nd toe No open area 0.2 x 0.2 <0.1 cm 100% pale pink full Callus skin tone Moderate serosanguineous No Surgical sharp Small bordered foam None Right hallux 1.0 cm x 0.5 cm 0.8 cm x <0.1 cm 2.0 x 1.5 x 0.1 cm 50% pale pink 50% yellow Full Macerated callus intradermal bleeding Slight erythema no significant warmth Moderate serosanguineous Yes Surgical sharp Iodoflex Foam andtape Assessment of Wound: The wound remains stable to decreasing measurements. We will initiate the application of Iodoflex to the wound bed for autolytic debridement and its absorptive properties. This was then covered by non-bordered foam for exudate management. Signs of Infection: Resolving signs of infection to right hallux still with mild erythema without significant warmth to dorsal surface of toe. Plan to extend Augmentin 10/09-10/17/23. PHOTOS Left hallux (biopsied today) Right hallux Wound Treatment: Cleansing: Wound cleansed with normal saline and cleansed with Vashe Analgesia: none administered prior to debridement Debridement: Conservative sharp debridement was performed of the bilateral hallux toe. Devitalized tissue was removed using a #15 blade and a curette, down to and including subcutaneous tissue to reveal healthier tissue. Total area of debridement was 6.75 cm sq. Bleeding: Yes; moderate amount controlled with silver nitrate Silver Nitrate: used for hemostasis after BX by Dressings/Compression Applied: Dressings applied to wounds as indicated above. Offloading Device: Patient is wearing bilateral post-op offloading shoes Education Provided: offloading the wound, elevating lower extremities, increasing protein intake, inspecting their feet daily, as well as their footwear daily, keeping wound covered to prevent bacterial contamination and to promote moist wound healing, and when to change dressing Plan of Care: - Continue wound care. - Diagnostics: -ABIs: Ordered to be coordinated with the next visit -X-Ray: Bilateral foot X-ray s to be done today -Labs: Consider if wound stalls or deteriorates to be done if abnormal X-rays -Wound Culture: Consider if wound stalls or deteriorates -MRI: Appearance of Wound: Consider if wound stalls or deteriorates -Valve Incompetence Studies: Consider if wound stalls or deteriorates -Biopsy: 10/10/[address] Up Left plantar wound (looks verrucal in nature) - Scheduled Consultations/Referrals and Appointment Dates: To be scheduled for nail care May need referral to Ortho - - Offloading: Wound Care Visit Orders/Medicare Plan of Care: Post Visit Instructions: Return to Wound Clinic: in two weeks VNA: Yes [facility]. Instructions Faxed: Yes Dressing Instructions: Left and Right plantar Hallux: Change dressing every 2-3 days or sooner for 50% or greater strike through drainage. Remove old dressing. Cleanse wound with wound cleanser or normal saline. Do not dry the wound surface. Apply VASHE wound cleanser to wound beds (Blue bottle)with gauze and let sit for 5-7 minutes (do not rinse) Remove IODOFLEX from the package, removing the clear plastic film on each side. Cut or mold to the shape of the wound. Apply IODOFLEX to the wound surface. Cover wound bed with non-bordered foam and secure with tape or similar. May secure with a piece of Tubigauze (no need for bulky Kerlix wrap) Left 2nd toe: Change dressing every 2-3 days or sooner for 50% or greater strike through drainage. Remove old dressing. Cleanse wound with wound cleanser or normal saline and gauze. Cover wound bed with bordered gauze dressing or similar . We have extended your Augmentin (amoxicillin- clavulanic acid) for the right great toe infection This is in the penicillin family and if you have had a reaction to penicillin in the past, do not take it. This antibiotic should be taken at the start of a meal. Avoid high fatty foods with the meal. Common side effects include nausea, loose bowels, diarrhea and rash. Call if you experience any of these symptoms. I suggest adding 1-2 yogurts/day or a probiotic to avoid diarrhea. The yogurt should have live cultures, ie: Georgian or Activia. Monitor for signs of infection which may include: Fever Sweats Chills Nausea, Vomiting or Diarrhea Unexplained increase in Blood Glucose levels At or around the wound site: Increased pain Swelling or edema Redness Warmth Purulent drainage (thick yellow/green drainage) Malodor High Protein foods: try to eat 5-6 servings of these per day Beef, chicken, fish Beans, Lentils, peanut butter Georgian and regular yogurt Cheese, eggs Boost, Ensure shakes Protein powder in a smoothie of your choice [facility] with any above symptoms Saturday- Saturday 8:00AM-4:30PM ([phone]). If weekends / holidays / evenings, please report to the Emergency Department. Please get your bilateral foot X-rays today We will coordinate KATE testing to check the blood flow to lower extremities with your next wound care visit as this needs to be scheduled with vascular Supplies Ordered: Jolene HENRY * Alexandra Renteria APRN - 10/10/2023 3:15 PM EDT DROP SHIPMENT CLERK Addendum: Alexandra Castro APRN, agree with medical engineer from 10/10/23 date of service. Patient will continue to follow up with RN 1-3 times per week, over the next 10 weeks, for ongoing wound evaluation, conservative sharp debridement, and treatment by RN. Dressing changes to be performed as below. Alexandra Renteria APRN documented in this encounter Plan of Treatment Upcoming Encounters Date Type Department Care Team (Late st Contact Info) Description 01/13/2024 2:30 PM EDT Office [place] [address] Dillon Trinidad MD [facility] [place] [address] 01/21/2024 2:30 PM EDT Office [place] [phone] Rosa Elena Villagomez APRN [facility] [place] [address] 02/05/2024 2:00 PM EDT Office [place] [address] Rosa Elena Muhammad RN documented as of this encounter Visit Diagnoses Diagnosis 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
--- OUTSIDE RECORDS SUMMARY | 2024-01-10 02:15 | XMS_ITS | Encounter Summary ---
Author Organization [facility] [place] [address] Care Team Providers Care Matrix Repairer Name Role Phone Neha Mcmahan MD Primary Care Provider [phone] Reason for Referral * Diagnostic Test (Routine) - Closed Specialty Diagnoses / Procedures Referred By Contac t Referred To Contact Diagnoses Diabetic ulcer of other part of left foot associated with diabetes mellitus due to underlying condition, with fat layer exposed Procedures KATE, legs, multiple levels Andre Castrejon APRN [facility] [place] [address] [facility] Lab [address] [place] [address] Referral ID Status Reason Start Date Expiration Date V isits Requested Visits Authorized [id number] Closed Specialty Service Requested 09/30/2023 09/29/2024 1 1 Reason for Visit * Consultation (Routine) - Closed Specialty Diagnoses / Procedures Referred By Contac t Referred To Contact Wound Care Diagnoses Non-pressure chronic ulcer of other part of unspecified foot with unspecified severity chronic ulcer of foot Neha Mcmahan MD [address] [place] [address] [facility] [place] [address] Referral ID Status Reason Start Date Expiration Date V isits Requested Visits Authorized [id number] Closed Consult, Test & Treat PCP Updated and/or Approved 09/18/2023 09/17/2024 1 1 Encounter Details Date Type Department Care Team (Late st Contact Info) Description 09/30/2023 3:15 PM EDT Office [place] [address] Andre Castrejon APRN [facility] [place] [place] [address] Diabetic ulcer of other part of left foot associated with diabetes mellitus due to underlying condition, with fat layer exposed; Diabetic ulcer of toe of right foot associated with diabetes mellitus due to underlying condition, with fat layer exposed Social History Tobacco [...] on file documented as of this encounter Last Filed Vital Signs Vital Sign Reading Time Taken Comments Blood Pressure 136/63 09/30/2023 2:46 PM EDT Pulse 70 09/30/2023 2:46 PM EDT Temperature 36.6 ??C (97.9 ??F) 09/30/2023 2:46 PM ED T Respiratory Rate 20 09/30/2023 2:46 PM EDT Oxygen Saturation 96% 09/30/2023 2:46 PM EDT Inhaled Oxygen Concentration - - Weight - - Height - - Body Mass Index - - documented in this encounter Patient Instructions * Patient Instructions* Andre Castrejon APRN - 09/30/2023 3:15 PM EDT Left and right hallux Change dressing every 2-3 days or sooner for 50% or greater strike through drainage. Remove old dressing. Cleanse wound with wound cleanser or normal saline and gauze. Apply a nickel thick amount of Therahoney to wound bed(s). Cover wound bed(s) with non-bordered foam and secure with tape or similar. Please report to the Emergency Department if you develop signs/symptoms of infection, this may include the following: Fever Sweats Chills Nausea, Vomiting or Diarrhea: general malaise Spiking Blood Glucose levels, unprovoked Around the wound site: Redness Warmth Purulent drainage Malodor Try to eat 5-6 servings of following foods: High Protein foods: Beef, chicken, fish Beans, Lentils, peanut butter Hong Konger and regular yogurt Cheese, eggs Boost, Ensure [...] taken care of by your physician or information architect. Avoid using any chemical or strong antiseptic solutions on your feet. Iodine, salicylic acid, corn/callus removers may burn the skin. I have ordered Augmentin (amoxicillin- clavulanic acid) for you. This is in the penicillin family and [...] The yogurt should have live cultures, ie: Hong Konger or Activia. documented in this encounter Progress Notes * Andre Castrejon APRN - 09/30/2023 3:15 PM EDT Images from the original note were not included. [facility] Initial Consultation Note HPI: Jonas Manzanares is a 67 y.o. male referred by Neha Mcmahan for evaluation of [...] that he has been changing the dressings independentlybut now has VNA helping him daily. On [...] have history of left third toe amputation The medical history and recent labs were reviewed prior to the patient's appointment. ' PMH significant for pulmonary HTN (followed by Rheumatology), O2 requirement (4- 5 L via NC), Gout, severe obesity, anxiety, sleep apnea, HTN, diastolic HF, seborrheic dermaitits of scalp, chronic ulcer of foot, osteoarthritis, carpal tunnel. Home Care: Donna. Patient Active Problem List Diagnosis Code Chronic neck pain M54.2, G89.29 Chronic low back pain M54.50, G89.29 Hip osteoarthritis M16.9 Neuropathy G62.9 Social: Diagnostics: KATE's: none Imagin09/12/23 Left foot IMPRESSION No radiographic finding of left forefoot osteomyelitis. 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 Pertinent labs: none available. Review Of Systems: Denies constitutional symptoms of fever, chills, sweats, fatigue. Neuro: denies FINE, dizziness Diet: Reports eats fairly well Wound care: VNA helping with dressing changes Leg fatigue +, calf cramping -, skin itching - Nocturnal pain - Pain with ambulation - Neuropathy: + Pain: None PE: BP 136/63 Pulse 70 Temp 36.6 ??C (97.9 ??F) (Temporal) Resp 20 SpO2 96% General: pleasant, 67 y.o. male in NAD. Arrives alone Mobility: Ambulates with cane Edema: Minimal to feet DP, PT pulses audible with doppler bilaterally: + DPs palpable Varicosities: Positive to ankles Hemosiderin staining: Some to lower legs Stasis dermatitis: None Callus: Significant to bilateral hallux Nails: Thick fungal long Wound Measurement (Initial) 09/30/23 Wound Bed & Thickness Periwound Skin Drainage Odor Debridement Primary Dressing Secondary Dressing Left hallux 2.8 x 2.0 x <0.1 cm 100% pink smooth Full Callus intradermal bleeding Moderate Serosanguineous No Surgical (sharps instrument or laser) Thera honey None bordered foam and tape Left 2nd toe 0.2 x 0.2 <0.1 cm 100% pale pink full Callus skin tone Moderate serosanguineous No Surgical sharp Thera honey None bordered foam andtape Right hallux 2.0 x 1.5 x 0.1 cm 50% pale pink 50% yellow Full Callus intradermal bleeding Slight erythema no significant warmth Moderate serosanguineous Yes Surgical sharp Thera honey None bordered foam and tape The following photo was taken: Left foot Left 2nd toe Right Hallux Wound treatment: Cleansed wound with NS. Analgesia: None Conservative sharp debridement was performed of the bilateral hallux toe. Devitalized tissue was removed using a #15 blade and Forceps, down to and including subcutaneous tissue to reveal healthier tissue. Total area of debridement was 8.6 cm sq. Vashe soak x 5 minutes Patient tolerated treatment well. Assessment: Jonas Manzanares is a 67 y.o. male with skin ulcers of left and right hallux. ABIs (none). Last x-ray of left foot was on 09/12/23 with results as above. There are signs of infection noted on examination today, which include periwound erythema malodorous drainage increased drainage. Will start on Augmentin x 7 days for cellulitis of right hallux . Left hallux with irregular shaped epithelial tissue with ulceration with smooth with pink tissue did have significant callus which was debrided. Right hallux with positive erythema and odor as well as slough covered wound bed . We will initiate the application of Thera honey to the wound bed antimicrobial and debridement properties. This was then covered by non-bordered foam secured with Medipore tape. We discussed if this tape does not remain in place he could use Curlex or similar to keep dressing in place. The patient continues to have VNA services to assist with dressing changes. The patient was wearing postop shoe to left and provided new postop shoe to right to avoid pressure to hallux areas. . Education was provided regardingthe importance of offloading the wound, elevating lower [...] and agreement with the plan of care. Plan: Wound care as above KATE at next visit X-ray of right foot at next visit Discussed obtaining biopsy with Dr. Pennington of left hallux due to chronicity of wound and irregulartissue He is followed by information architect in [place] we discussed it is up to him if he continues to go to these appointments Needs nail care Augmentin twice a day for 7 days due to cellulitis of right hallux DREDGE MECHANIC Plan of Care: Patient to return to the wound center 1-3 times per week, over the next 10 weeks, for ongoing wound evaluation, conservative sharp debridement and treatment by RN as outlined below. Verbal and written wound care instructions were provided. He/she will call with any questions or concerns. The patient will follow up here at the [facility] in two weeks. Goals of Care: Wound healing and infection prevention Instructions:Left and right hallux Change dressing every 2-3 days or sooner for 50% or greater strike through drainage. Remove old dressing. Cleanse wound with wound cleanser or normal saline and gauze. Apply a nickel thick amount of Therahoney to wound bed(s). Cover wound bed(s) with non-bordered foam and secure with tape or similar. Please report to the Emergency Department if you develop signs/symptoms of infection, this may include the following: Fever Sweats Chills Nausea, Vomiting or Diarrhea: general malaise Spiking Blood Glucose levels, unprovoked Around the wound site: Redness Warmth Purulent drainage Malodor Try to eat 5-6 servings of following foods: High Protein foods: Beef, chicken, fish Beans, Lentils, peanut butter Hong Konger and regular yogurt Cheese, eggs Boost, Ensure [...] get one in any store that sells products.) Don???t use any tape or sticky products such as corn plasters on your feet. The can tear your skin. Do not file, remove or shave calluses or corns yourself, unless instructed otherwise. These should be taken care of by your physician or information architect. Avoid using any chemical or strong antiseptic solutions on your feet. Iodine, salicylic acid, corn/callus removers may burn the skin. I have ordered Augmentin (amoxicillin- clavulanic acid) for you. This is in the penicillin family and [...] The yogurt should have live cultures, ie: Hong Konger or Activia. [facility] with any worsening symptoms Saturday-Saturday 8:00AM-4:30PM ([phone]). If weekends / holidays / evenings, please report to the urgent care or call specialty team if they follow your wound. Cc: Neha Mcmahan MD [address] [place] [address] PCP: Neha Mcmahan MD documented in this encounter Plan of Treatment Upcoming Encounters Date Type Department Care Team (Late st Contact Info) Description 01/13/2024 2:30 PM EDT Office [place] [address] Dillon Trinidad MD [facility] [place] [address] 01/21/2024 2:30 PM EDT Office [place] [phone] Andre Castrejon APRN [facility] [place] [address] 02/05/2024 2:00 PM EDT Office [place] [address] Andre Muhammad RN documented as of this encounter Results * KATE, legs, multiple levels (10/28/2023 1:36 PM EDT) VB Text Report Department: Vascular Surgery Lab Patient: [id number] (JONAS MANZANARES) CPT: 98455 Referring Physician: ANDRE CASTREJON ?? Phone: Indications: Bilat foot wounds ? [...] lab database for comparison. Electronically Signed by: ANDRE GALLAGHER on 2023-11-01 11:08:15 AM VASCUBASE VB Text Report End of Report VASCUBASE 10/28/2023 1:36 PM EDT Andre Castrejon DREDGE MECHANIC VASCULAR ORDERABL ES VASCUBASE * XR Foot Min 3 views Right (Generic) (10/10/2023 4:24 PM EDT) WORKSTATION ID [id number] RAD Anatomical Region Laterality Modality Foot Right Digital Radiogra phy Impressions 10/11/2023 9:56 AM EDT 1. Soft tissue swelling at right great toe without radiographic finding of osteomyelitis. 2. Osteoarthropathy at right ankle and forefoot. Thank you for letting us participate in the care of this patient. ??If you are a health care provider and have any questions regarding this report, please contact the number below. ??For patients who have questions please contact the health director of career resources that requested your imaging first. ? Narrative 10/11/2023 9:56 AM EDT EXAMINATION: XR FOOT MIN 3 VIEWS RIGHT (GENERIC) CLINICAL HISTORY: right hallux ulcer question bone infection E08.621, Diabetes mellitus due to underlying condition with foot ulcer - L97.512, Non-pressure chronic ulcer of other part of right foot with fat layer exposed TECHNIQUE: AP, oblique and lateral weightbearing views RIGHT foot COMPARISON: None FINDINGS: Soft tissue bandage is seen at the medial aspect of distal great toe. Mild soft tissue swelling of the forefoot and around great toe. No subcutaneous air or radiodense foreign body. Bones are intact. No erosion or periostitis at the great toe or calcaneal enthesophytes. Moderate to severe joint space loss is accompanied by osteophytes at the tibiotalar and first MTP joint. Multiple hammertoes. Mild pes planus and hallux valgus alignment. Procedure Note Stefanie Littlejohn MD - 10/11/2023 EXAMINATION: XR FOOT MIN 3 VIEWS RIGHT (GENERIC) CLINICAL HISTORY: right hallux ulcer question bone infection E08.621, Diabetes mellitus due to underlying condition with foot ulcer - L97.512, Non-pressure chronic ulcer of other part of right foot with fatlayer exposed TECHNIQUE: AP, oblique and lateral weightbearing views RIGHT foot COMPARISON: None FINDINGS: Soft tissue bandage is seen at the medial aspect of distal great toe. Mildsoft tissue swelling of the forefoot and around great toe. No subcutaneous airor radiodense foreign body. Bones are intact. No erosion or periostitis at the great toe orcalcaneal enthesophytes. Moderate to severe joint space loss is accompanied by osteophytes at the tibiotalar and first MTP joint. Multiple hammertoes. Mild pes planus andhallux valgus alignment. IMPRESSION 1. Soft tissue swelling at right great toe without radiographic findingof osteomyelitis. 2. Osteoarthropathy at right ankle and forefoot. Thank you for letting us participate in the care of this patient. If youare a health care provider and have any questions regarding this report,please contact the number below. For patients who have questions please contactthe health director of career resources that requested your imaging first. Electronically signed by: Stefanie Littlejohn MD, [facility]([phone]), at 10/11/2023 9:56 AM Andre Castrejon APRN IMG DX ORDERABLES documented in this encounter Visit Diagnoses Diagnosis Diabetic ulcer of other part of left foot associated with diabetes mellitus due to underlying condition, with fat layer exposed Diabetic ulcer of toe of right foot associated with diabetes mellitus due to underlying condition, with fat layer exposed Diabetic ulcer of toe of right foot associated with diabetes mellitus due to underlying condition, with fat layer exposed Skin ulcer of left great toe with fat layer exposed documented in this encounter Care Teams Matrix Repairer Relationship Specialty Start Date End Date Neha Mcmahan MD [address] [place] [address] PCP - General Family Medicine 03/25/20 documented as of this encounter
--- OUTSIDE RECORDS SUMMARY | 2024-01-10 02:15 | XMS_ITS | Encounter Summary ---
Author Organization [facility] Address [facility] [place] [address] Care Team Providers Care Card Fixer Name Role Phone Neha Mcmahan MD Primary Care Provider [phone] Encounter Details Date Type Department Care Team (Latest Contact Info) Description 10/10/2023 4:05 PM EDT - 10/10/2023 11:59 PM EDT Hospital Encounter XRay at [address] [place] [address] Evie Up DPM [facility] [place] [address] Diabetic ulcer of toe of right foot associated with diabetes mellitus due to underlying condition, with fat layer exposed; Skin ulcer of left great toe with fat layer exposed Discharge Disposition: Home Social History Tobacco Use [...] Sig Dispensed Refills Start Date End Date amoxicillin-clavulanate (Augmentin) 875-125 mg tabletIndications:Inflamm ation of interphalangeal joint of right toe due to infection Take 1 tablet by mouth 2 times daily. 14 tablet 10/10/2023 Rybelsus 14 mg tablet Take 1 tablet by mouth Daily at Noon. 04/09/2023 spironolactone (Aldactone) 25 mg tabletIndications:Pulmona ry hypertension Take 1/2 (one-half) tablet by mouth once daily 45 tablet 2 05/08/2023 NIFEdipine (Procardia XL) 60 mg ER 24 hr tabletIndications:Pulmona ry hypertension Take 1 tablet by mouth once daily 90 tablet 2 05/08/2023 furosemide (Lasix) 20 mg tabletIndications:Pulmona ry hypertension TAKE 3 TABLETS BY MOUTH TWICE [...] % Ointment Apply topically as needed. 03/23/2019 [id number]-EPA-Fish Oil 1,000 mg (120 mg-180 mg) Capsule [...] ORAL) Take by mouth 3 times daily. documented as of this encounter Plan of Treatment Upcoming Encounters Date Type Department Care Team (Late st Contact Info) Description 01/13/2024 2:30 PM EDT Office [place] [address] Dillon Trinidad MD [facility] [place] [address] 01/21/2024 2:30 PM EDT Office [place] [address] Rosa Elena Villagomez APRN [facility] WOUND CENTER [place], [place] [id number] 02/05/2024 2:00 PM EDT Office [place] [address] Rosa Elena Muhammad RN documented as of this encounter Procedures Procedure Name Priority Date/Time Associated Diagnosis Comments XR FOOT MIN 3 VIEWS RIGHT Routine 10/10/2023 4:24 PM EDT Diabetic ulcer of toe of right foot associated with diabetes mellitus due to underlying condition, with fat layer exposed XR FOOT MIN 3 VIEWS LEFT Routine 10/10/2023 4:24 PM EDT Skin ulcer of left great toe with fat layer exposed documented in this encounter Results * XR Foot Min 3 views Left (Generic) (10/10/2023 4:24 PM EDT) StyleJam WORKSTATION ID [id number] [facility] Anatomical Region Laterality Modality Foot Left Digital Radiogra phy Impressions 10/11/2023 10:04 AM EDT 1. ??Medial great toe ulcer adjacent to 1 proximal phalanx without soft tissue air or sinus tract detected. 2. ??Equivocal indistinct cortex at medial base of 1 distal phalanx may represent bone resorption or infection. Please note that radiography is ??insensitive in detection of early bone infection. 3. ??The rest of examination is unchanged. Thank you for letting us participate in the care of this patient. ??If you are a health care provider and have any questions regarding this report, please contact the number below. ??For patients who have questions please contact the health senior resident care director that requested your imaging first. ? Narrative 10/11/2023 10:04 AM EDT EXAMINATION: XR FOOT MIN 3 VIEWS LEFT (GENERIC) CLINICAL HISTORY: chronic left hallux ulcer, , entered by ordering service TECHNIQUE: LEFT foot, 3 view[s] COMPARISON: Radiographs, August 2023. FINDINGS: Bones No acute fracture or periostitis. Great toe 1 distal phalanx-the demineralized medial phalangeal base with slightly indistinct cortex is indeterminate for osteomyelitis. 1 proximal phalanx-intact cortex with unchanged appearance 1 proximal phalanx/unchanged attenuated metatarsal head with multiple cysts or erosions. No bone destruction seen. Second toe-unchanged lateral dislocation at MTP joint with mallet toe. Third toe-surgical absence of phalanges. Fourth and fifth toes-unchanged claw toes. Pes planus redemonstrated. Joints Multiple osteophytes arise from mid foot articulations with preserved alignment. Soft Tissue Medial ulcer adjacent to 1 proximal phalanx. High density ossification in ulcer. No air-filled sinus tract of soft tissue air detected. A new tiny radiodensity projected in soft tissues in between the forefoot. This may represent overlying debris. Procedure Note Fern Lomax MD - 10/11/2023 EXAMINATION: XR FOOT MIN 3 VIEWS LEFT (GENERIC) CLINICAL HISTORY: chronic left hallux ulcer, , [facility] TECHNIQUE: LEFT foot, 3 view[s] COMPARISON: Radiographs, August 2023. FINDINGS: Bones No acute fracture or periostitis. Great toe 1 distal phalanx-the demineralized medial phalangeal base with slightly indistinct cortex is indeterminate for osteomyelitis. 1 proximal phalanx-intact cortex with unchanged appearance 1 proximal phalanx/unchanged attenuated metatarsal head with multiplecysts or erosions. No bone destruction seen. Second toe-unchanged lateral dislocation at MTP joint with mallet toe. Third toe-surgical absence of phalanges. Fourth and fifth toes-unchanged claw toes. Pes planus redemonstrated. Joints Multiple osteophytes arise from mid foot articulations with preservedalignment. Soft Tissue Medial ulcer adjacent to 1 proximal phalanx. High density ossification inulcer. No air-filled sinus tract of soft tissue air detected. A new tinyradiodensity projected in soft tissues in between the forefoot. This may representoverlying debris. IMPRESSION 1. Medial great toe ulcer adjacent to 1 proximal phalanx without softtissue air or sinus tract detected. 2. Equivocal indistinct cortex at medial base of 1 distal phalanx mayrepresent bone resorption or infection. Please note that radiography is insensitivein detection of early bone infection. 3. The rest of examination is unchanged. Thank you for letting us participate in the care of this patient. If youare a health care provider and have any questions regarding this report,please contact the number below. For patients who have questions please contactthe health senior resident care director that requested your imaging first. Evie Up DPM IMG DX ORDERABLES * XR Foot Min 3 views Right (Generic) (10/10/2023 4:24 PM EDT) WORKSTATION ID [id number] RAD Anatomical Region Laterality Modality Foot Right [...] who have questions please contact the health senior resident care director that requested your imaging first. ? Narrative [...] patients who have questions please contactthe health senior resident care director that requested your imaging first. Rosa Elena Villagomez APRN IMG DX ORDERABLES documented in this encounter Visit Diagnoses Diagnosis Diabetic ulcer of toe of right foot associated with diabetes mellitus due to underlying condition, with fat layer exposed Skin ulcer of left great toe with fat layer exposed documented in this encounter Care Teams Card Fixer Relationship Specialty Start Date End Date Neha Mcmahan MD [address] [place] [address] PCP - General Family Medicine 03/25/20 documented as of this encounter
--- OUTSIDE RECORDS SUMMARY | 2024-01-10 02:15 | XMS_ITS | Encounter Summary ---
Author Organization [facility] [place] [address] Care Team Providers Care Works Manager Name Role Phone Neha Mcmahan MD Primary Care Provider [phone] Reason for Referral * Diagnostic Test (Routine) - Closed Specialty Diagnoses / Procedures Referred By Contac t Referred To Contact Radiology Diagnoses Pulmonary hypertension Chronic respiratory failure with hypoxia Restrictive lung disease Procedures CT Chest wo Contrast (Generic) Shira Child MD [facility] [place] [address] [facility] [place] [address] Referral ID Status Reason Start Date Expiration Date V isits Requested Visits Authorized [id number] Closed Specialty Service Requested 02/07/2023 08/10/2024 1 1 * Diagnostic Test (Routine) - Closed Specialty Diagnoses / Procedures Referred By Contac t Referred To Contact Cardiology Diagnoses Pulmonary hypertension Chronic respiratory failure with hypoxia Restrictive lung disease Procedures Echocardiogram Transthoracic Shira Child MD [facility] [place] [address] [facility] [place] [address] Referral ID Status Reason Start Date Expiration Date V isits Requested Visits Authorized [id number] Closed Specialty Service Requested 02/07/2023 02/07/2024 1 1 Encounter Details Date Type Department Care Team (Late st Contact Info) Description 02/07/2023 2:00 PM EDT Office Visit Cardiology at [address] [address] Shira Child MD [facility] [place] [address] Pulmonary hypertension (Primary Dx); Chronic respiratory failure with hypoxia; Restrictive lung disease Social History Tobacco Use Types Packs/Day Years [...] Sign Reading Time Taken Comments Blood Pressure 116/60 02/07/2023 1:46 PM EDT Pulse 73 02/07/2023 1:46 PM EDT Temperature - - Respiratory Rate - - Oxygen Saturation 93% 02/07/2023 1:46 PM EDT 3/4 L Inhaled Oxygen Concentration - - Weight 147.4 kg (325 lb) 02/07/2023 1:46 PM EDT Height 175.3 cm (5' 9) 02/07/2023 1:46 PM EDT Body Mass Index 47.99 02/07/2023 1:46 PM EDT documented in this encounter Progress Notes * Shira Child MD - 02/07/2023 2:00 PM EDT Images from the original note were not included. [facility] Medicine Pulmonary Hypertension Clinic [place] [address] Reason for Consultation Referred by Chelsea Bolaños MD (rheumatology) for evaluation of possible pulmonary hypertension Identification Joans Manzanares is a 67 y.o. with the following previously identified CV problems: Pulmonary HTN, multifactorial with PVR 4 and + response to Sang Hx of CHF requiring hospitalization Essential hypertension Comorbidities include SLE, restrictive lung pattern, EMI (BiPap), Chronic resp failure Lives alone in [facility] in [facility]. 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 Disabled related to back pain Rare EtOH. Never smoker No children Maternal aunt with murmur Mother CHF 89 yo Father CHF 91 yo Estranged brother History Patient was last seen on 12/20/2021. He was started on CCB at that time. He uses oxygen 3-5 LPM. Overall he feels that his breathing has somewhat improved although he continues to complain of significant dyspnea including just doing things around the house at times. He complains of atypical chest pain and leg swelling. He denies any syncope. He was given albuterol by his PCP with some improvement in his dyspnea. 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 Thyroid disease x Parasitic infection x Chronic high altitude x Medications Current Outpatient Medications: NIFEdipine (Procardia XL) 60 mg ER 24 hr tablet, Take 1 tablet by mouth once daily, Disp: 90 tablet, Rfl: 0 spironolactone (Aldactone) 25 mg tablet, Take 0.5 tablets by mouth daily., Disp: 45 tablet, Rfl: 0 furosemide (Lasix) 20 mg tablet, Take 3 tablets by mouth 2 times daily., Disp: 180 tablet, Rfl: 0 gabapentin (Neurontin) 300 mg capsule, Take 300 mg by mouth nightly., Disp: , Rfl: sertraline (Zoloft) 50 mg tablet, Take 50 mg by mouth Daily., Disp: , Rfl: potassium chloride ER (Klor-Con M) 20 mEq ER micro-encapsulated crystal tablet, Take 20 mEq by mouth daily., Disp: , Rfl: mupirocin (Bactroban) 2 % Ointment, Apply topically as needed., Disp: , Rfl: Wzoyw-8-GIB-EPA-Fish Oil 1,000 mg (120 mg-180 mg) Capsule, Take 2 capsules by mouth daily., Disp: ,Rfl: meloxicam (Mobic) 15 mg tablet, Take 15 mg by mouth daily., Disp: , Rfl: Silver (SilvaSorb) Gel, Sustained Release, daily., Disp: , Rfl: losartan (Cozaar) 25 mg tablet, Take 25 mg by mouth daily., Disp: , Rfl: Docusate Sodium 100 mg Tablet, Take 100 mg by mouth daily., Disp: , Rfl: acetaminophen (Tylenol) 325 mg Tablet, Take 650 mg by mouth every 4 hours as needed for Pain (2 tablets at befor bed)., Disp: , Rfl: allopurinoL (Zyloprim) 300 mg Tablet, Daily, Disp: , Rfl: vitamin E (vitamin E) 400 unit Capsule, Take 1,000 Units by mouth., Disp: , Rfl: traMADol (ULTRAM) 50 mg tablet, Take 50 mg by mouth every 6 hours as needed. , Disp: , Rfl: indomethacin (INDOCIN) 50 mg capsule, Take 50 mg by mouth 2 times daily (with meals). , Disp: , Rfl: DOCOSAHEXANOIC ACID/EPA (FISH OIL ORAL), Take by mouth 3 times daily. , Disp: , Rfl: VITAMIN B COMPLEX (B COMPLEX ORAL), Take by mouth daily. , Disp: , Rfl: CHOLECALCIFEROL, VITAMIN D3, (VITAMIN D3 ORAL), Take 1,000 Units by mouth daily. , Disp: , Rfl: SAW PALMETTO XTR/ZINC PICOLIN (SAW PALMETTO EXTRACT ORAL), Take by mouth 2 times daily. , Disp: , Rfl: ASCORBATE CALCIUM (VITAMIN C ORAL), Take 500 mg by mouth daily. , Disp: , Rfl: GLUC HCL/GLUC FLOYD/AC-D-GLUCOS (GLUCOSAMINE COMPLEX ORAL), Take by mouth 3 times daily. , Disp: , Rfl: Allergies Allergen Reactions Amlodipine Besylate Lisinopril Exam Blood pressure 116/60, pulse 73, height 175.3 cm (5' 9), weight (!) 147.4 kg (325 lb), SpO2 93 %. Body mass index is 47.99 kg/m??. Wt Readings from Last 3 Encounters: 02/07/23 (!) 147.4 kg (325 lb) 12/10/22 (!) 152.3 kg (335 lb 12.8 oz) 06/05/22 (!) 147.4 kg (325 lb) Vital signs reviewed General: Alert and oriented, in no apparent distress HEENT: Normocephalic, atraumatic, conjunctiva clear, mucosa normal Neck: Supple, trachea midline, no adenopathy Lungs: Clear to auscultation bilaterally, respirations unlabored Heart: Regular rate and rhythm, S1 and S2 normal, no murmur, rub or gallop Abdomen: Soft, non-tender, non-distended Extremities: Trace LE edema bilaterally Neurologic: no focal deficits PH Relevant Test Date Comments LFTs, SERGIO, HIV SERGIO + 1:640. HIV neg. LFTs wnl CT of chest 03/2019 Mosaicism PFTs 08/2019 FVC 1.96 (47%). FEV1 1.47 (46%). FEV1/FVC 0.75. DLCO 77%. V/Q scan 07/2021 Neg Left heart function 2018 LVEF 55-60%, Mod LAE. No VHD Evaluation for EMI BiPap Right heart cath 11/2021 RA 10. PA 70/18 (42). PCW 16. CO 6.53. CI 2.56. PVR 4. PA sat 70%. After Sang: PA 53/12 (30). 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 There was a suspicion for CTD but this was ruled outby rheumatology. His hypoxia and SOB are out of proportion to his degree of pulmonary hypertension.While pulmonary hypertension therapy can be intensified (he is only on a calcium channel bert), his BNP is normal and I'm not convinced pulmonary hypertension is his main issue. I will repeat an echocardiogram. Prior PFTs reveal significant restriction. This may be due to obesity but will check full PFTs with lung volumes. I will also check a chest CT. EMI: Patient with EMI on what sounds like BIPAP. VBG today reveals a pH of 7.36 and pCO2 of 56. I suspect underlying OHS. He is followed by sleep medicine locally. A total of 50 minutes was spent performing this encounter on this date of service. My evaluation ofthis patient, including a review of the chart, history, laboratory, and imaging finding, discussionwith patient, placing orders and documenting the plan is detailed above. Shira Child MD [facility]monary [facility] Critical Care Medicine Pulmonary Hypertension Program documented in this encounter Plan of Treatment Upcoming Encounters Date Type Department Care Team (Late st Contact Info) Description 01/13/2024 2:30 PM EDT [place] [phone] Dillon Trinidad MD [facility] [place] [address] 01/21/2024 2:30 PM EDT Office [place] [address] Rosa Elena Villagomez APRN [facility] [place] [address] 02/05/2024 2:00 PM EDT Office [place] [address] Rosa Elena Muhammad RN documented as of this encounter Procedures Procedure Name Priority Date/Time Associated Diagnosis Comments HC PROBNP Routine 02/07/2023 3:11 PM EDT Pulmonary hypertension Chronic respiratory failure with hypoxia Restrictive lung disease BLOOD GAS VENOUS (NLH) Routine 02/07/2023 3:11 PM EDT BASIC METABOLIC PANEL (NON-FASTING) Routine 02/07/2023 3:11 PM EDT Pulmonary hypertension Chronic respiratory failure with hypoxia Restrictive lung disease documented in this encounter Results * ECHO COMPLETE W CONTRAST (06/13/2023 3:30 PM EST) EF 60 HEARTLAB SYSTEM Anatomical Region Laterality Modality Cardiac Other 06/13/2023 2:13 PM EST Narrative 06/13/2023 4:00 PM EST [address] [place] [address] ? Echocardiogram Report Name: JONAS MANZANARES ? Study Date: 06/13/2023 02:13 PMBP: 125/68 mmHg ? Patient Location: : 1955 ? Height: 177 cm ? Account: [id number] Age: 67 yrs ? Weight: 150 kg Gender: Male ?BSA: 2.6 m2 Ordering Physician: SHIRA CHILD Referring Physician: SHIRA CHILD Performed By: Dulce Rueda RDCS Reason For Study: Chronic respiratory failure with hypoxia, Pulmonary hypertension Exam Location: [facility]. Interpretation Summary Normal left ventricular systolic function Right ventricle appears grossly normal in size with mildly reduced systolic function Normal left atrial size Mild tricuspid regurgitation,. PASP estimated at 27 mm Hg. Compared with images from 11/16/2021, right ventricle is again poorly visualized, no obvious change Procedure Complete-[id number]. Image enhancement Optison was used for left ventricular opacification. Suboptimal quality. Left Ventricle Left ventricle is of normal size. Wall thickness is normal. Mildly increased thickness of the basal septum with no obstruction to LV outflow. There is no ventricular septal defect. Left ventricular systolic function is normal. Left ventricular ejection fraction is estimated visually at 60%. There is flattened septal motion compatible with RV overload. Right Ventricle The right ventricle is of normal size. Right ventricular systolic function is mildly decreased. Left Atrium The left atrium is normal. No abnormality of the interatrial septum is identified. Right Atrium The right atrium is mildly dilated. Aortic Valve The aortic valve is tricuspid. The aortic valve is mildly thickened. The aortic valve is mildly calcified. There is no aortic stenosis. There is no aortic regurgitation. Mitral Valve The mitral valve leaflets are thickened. There is posterior mitral annular calcification. There is no mitral stenosis. There is mild mitral regurgitation. Tricuspid Valve The tricuspid valve is structurally normal. There is trace tricuspid regurgitation. Pulmonic Valve The pulmonic valve is not well visualized. Great Arteries The aortic root is of normal size. No abnormalities are identified. Ascending aorta is normal in size. The pulmonary artery is not well visualized. Venous Inferior vena cava is normal in size. Inferior vena cava collapse greater than 50% with respiration. Pericardium/Pleural There is no pericardial effusion. Hemodynamics The peak right ventricular systolic pressure is 24 mmHg. The estimated right atrial pressure is 3mmHg. There is Grade I LV diastolic dysfunction (abnormal relaxation with normal left ventricular filling pressure). ? 2D Measurements ? Volumes ?IVSd: 1.3 cm ? LAV(MOD-bp) Indexed: ?LVIDd: 4.9 cm ?LVIDs: 4.2 cm ?26.7 ml/m2 ?LVPWd: 0.88 cm ? RA A4Cs_phl: 20.4 cm2 ? SV(LVOT): 72.2 ml ?LV mass(C)d: 201.0 grams ?LV mass(C)dI: 78.2 grams/m2 ?SI(LVOT): 28.1 ml/m2 ?Ao root diam: 3.4 cm ?Ao root diam index: 1.3 ?asc Aorta Diam: 3.3 cm ?LVOT diam: 2.1 cm ?TAPSE_phl: 2.2 cm Doppler LV V1 VTI: 20.2 cm Ao V2 VTI: 29.3 cm Ao Max: 141.5 cm/sec Ao valve max: 8.0 mmHg Ao valve mean: 4.9 mmHg MV E max mehul: 72.8 cm/sec MV A max mehul: 83.7 cm/sec MV E/A: 0.87 MV dec time: 0.23 sec Lat Peak E' Mehul: 9.9 cm/sec E/ e' (lat): 7.3 Med Peak E' Mehul: 9.4 cm/sec E/e' (med): 7.7 E/e' Average: 7.5 KEREN(I,D): 2.5 cm2 Dimensionless index Aov: 0.69 TR max mehul: 231.2 cm/sec RVSP(TR): 24.4 mmHg I ?WMSI = 1.00 ? % Normal = 100 ?Segments ??Size X - Cannot ?2 - ?4 - ?1-2 ? small Interpret ?1 - Normal ?? Hypokinetic 3 - Akinetic Dyskinetic ?? 3-5 ? moderate 5 - ? 6-14 ?large Aneurysmal ?15-16 ?? diffuse Procedure Note Joaquin Chávez MD - 06/13/2023 [address] [place] [address] Echocardiogram Report Name: JONAS MANZANARES Study Date: 302:13 PMBP: 125/68 mmHg Patient Location: : 1955 Height: 177 cm Account: [id number] Age: 67 yrs Weight: 150 kg Gender: Male BSA: 2.6 m2 Ordering Physician: SHIRA CHILD Referring Physician: SHIRA CHILD Performed By: Dulce Rueda RDCS Reason For Study: Chronic respiratory failure with hypoxia, Pulmonary hypertension Exam Location: [facility]. Interpretation Summary Normal left ventricular systolic function Right ventricle appears grossly normal in size with mildly reducedsystolic function Normal left atrial size Mild tricuspid regurgitation,. PASP estimated at 27 mm Hg. Compared with images from 11/16/2021, right ventricle is again poorlyvisualized, no obvious change Procedure Complete-[id number]. Image enhancement Optison was used for left ventricular opacification. Suboptimal quality. Left Ventricle Left ventricle is of normal size. Wall thickness is normal. Mildlyincreased thickness of the basal septum with no obstruction to LV outflow. There isno ventricular septal defect. Left ventricular systolic function is normal.Left ventricular ejection fraction is estimated visually at 60%. There isflattened septal motion compatible with RV overload. Right Ventricle The right ventricle is of normal size. Right ventricular systolic functionis mildly decreased. Left Atrium The left atrium is normal. No abnormality of the interatrial septum isidentified. Right Atrium The right atrium is mildly dilated. Aortic Valve The aortic valve is tricuspid. The aortic valve is mildly thickened. Theaortic valve is mildly calcified. There is no aortic stenosis. There is noaortic regurgitation. Mitral Valve The mitral valve leaflets are thickened. There is posterior mitralannular calcification. There is no mitral stenosis. There is mild mitralregurgitation. Tricuspid Valve The tricuspid valve is structurally normal. There is trace tricuspid regurgitation. Pulmonic Valve The pulmonic valve is not well visualized. Great Arteries The aortic root is of normal size. No abnormalities are identified.Ascending aorta is normal in size. The pulmonary artery is not well visualized. Venous Inferior vena cava is normal in size. Inferior vena cava collapse greaterthan 50% with respiration. Pericardium/Pleural There is no pericardial effusion. Hemodynamics The peak right ventricular systolic pressure is 24 mmHg. The estimatedright atrial pressure is 3mmHg. There is Grade I LV diastolic dysfunction(abnormal relaxation with normal left ventricular filling pressure). 2D Measurements Volumes IVSd: 1.3 cm LAV(MOD-bp)Indexed: LVIDd: 4.9 cm LVIDs: 4.2 cm 26.7 ml/m2 LVPWd: 0.88 cm RA A4Cs_phl: 20.4cm2 SV(LVOT): 72.2ml LV mass(C)d: 201.0 grams LV mass(C)dI: 78.2 grams/m2 SI(LVOT): 28.1ml/m2 Ao root diam: 3.4 cm Ao root diam index: 1.3 asc Aorta Diam: 3.3 cm LVOT diam: 2.1 cm TAPSE_phl: 2.2 cm Doppler LV V1 VTI: 20.2 cm Ao V2 VTI: 29.3 cm Ao Max: 141.5 cm/sec Ao valve max: 8.0 mmHg Ao valve mean: 4.9 mmHg MV E max mehul: 72.8 cm/sec MV A max mehul: 83.7 cm/sec MV E/A: 0.87 MV dec time: 0.23 sec Lat Peak E' Mehul: 9.9 cm/sec E/ e' (lat): 7.3 Med Peak E' Mehul: 9.4 cm/sec E/e' (med): 7.7 E/e' Average: 7.5 KEREN(I,D): 2.5 cm2 Dimensionless index Aov: 0.69 TR max mehul: 231.2 cm/sec RVSP(TR): 24.4 mmHg I WMSI = 1.00 % Normal = 100 SegmentsSize X - Cannot 2 - 4 - 1-2small Interpret 1 - Normal Hypokinetic 3 - Akinetic Dyskinetic 3-5moderate 5 - 6-14large Aneurysmal 15-16diffuse Shira Castro MD ECHO ORDERABLES * Pulmonary Function Testing (04/12/2023 1:49 PM [...] / FVC LLN 64 % COMPAS PFT [id number] Actual Pre-BD 1.16 L/s COMPAS PFT [id number] Pre-BD % of Predicted 47 % COMPAS PFT [id number] Predicted 2.46 L/s COMPAS PFT [id number] Pre-BD Z-Score -1.61 COMPAS PFT DLCO Hb [...] ininterstitial lung disease, but is not specific. Shira Castro MD PFT ORDERABLES COMPAS PFT * CT Chest wo Contrast (Generic) (04/12/2023 [...] who have questions please contact the health career information specialist that requested your imaging first. ? [...] patients who have questions please contactthe health career information specialist that requested your imaging first. Electronically signed by: Linda Becerra MD, [facility] ([phone]), at 04/13/2023 8:36 AM Shira Castro MD IMG CT ORDERABLES * (ABNORMAL) Blood Gas Venous (NLH) (02/07/2023 3:11 PM EDT) pH Robert 7.36 7.32 - 7.42 [facility] pCO2 Robert 56(H) 41 - 51 mmHg [facility] pO2 Robert 36 25 - 40 mmHg [facility] HCO3 Robert 31.4 mmol/L [facility] BE Robert 6.0 mmol/L [facility] Hgb Blood Gas 14.7 13.7 - 16.5 g/dL [facility] O2HB Robert 70.8 % [facility] COHB Robert 0.9 % [facility] Comment: Nonsmokers: 0.5-1.5% COHB Smokers: Variable, but usually less than 10% Toxic: 20-30% COHB Lethal: Greater than 60% COHB METHB Robert 0.1 <=1.5 % [facility] Na Whole Blood 138 135 - 145 mmol/L [facility] K Whole Blood 3.9 3.5 - 5.0 mmol/L [facility] Comment: Please note: Patients with WBC >100,000 may have falsely elevated Potassium levels. Contact the Clinical Chemistry Laboratory if there are any questions. ICa Whole Blood 1.20 1.15 - 1.33 mmol/L [facility] Comment: Note: ??Total bilirubin higher than 20 mg/dL may lead to falsely low ionized calcium. CL Whole Blood 99 98 - 107 mmol/L [facility] Gluc Whole Bld 97 65 - 199 mg/dL [facility] Comment:Diabetes: >=200 mg/d L plus symptoms Lactate WB 1.5 0.5 - 2.2 mmol/L [facility] BGas Source Venous [facility] Blood Venous Draw / Unknown 02/07/2023 3:11 PM EDT 02/07/2023 3:18 PM EDT Narrative Resulting Agency Comment Spec In Lab hSira Castro MD CHEMISTRY ORDERABL ES Performing Organization Address [facility] Co de Phone Number [facility] [place] [address] * pro-Brain Natriuretic Peptide (02/07/2023 3:11 PM EDT) ProBNP <36 <=124 pg/mL [facility] Blood 02/07/2023 3:11 PM EDT 02/07/2023 3:21 PM EDT Narrative Resulting Agency Comment Spec In Lab Shira Castro MD CHEMISTRY ORDERABL ES Performing Organization Address [facility] Co de Phone Number [place] [place] [address] * Basic Metabolic Panel (non-fasting) (02/07/2023 3:11 [...] Narrative Resulting Agency Comment Spec In Lab Shira Castro MD CHEMISTRY ORDERABL ES [place] [address] documented in this encounter Visit Diagnoses Diagnosis Pulmonary hypertension- Primary Other chronic pulmonary heart diseases Chronic respiratory failure with hypoxia Chronic respiratory failure Restrictive lung disease Other diseases of lung, not elsewhere classified Pulmonary hypertension Other chronic pulmonary heart diseases Chronic respiratory failure with hypoxia Chronic respiratory failure Restrictive lung disease Other diseases of lung, not elsewhere classified Pulmonary hypertension Other chronic pulmonary heart diseases Chronic respiratory failure with hypoxia Chronic respiratory failure Restrictive lung disease Other diseases of lung, not elsewhere classified Pulmonary hypertension Other chronic pulmonary heart diseases Chronic respiratory failure with hypoxia Chronic respiratory failure Restrictive lung disease Other diseases of lung, not elsewhere classified documented in this encounter Care Teams Works Manager Relationship Specialty Start Date End Date Neha Mcmahan MD [address] [place] [address] PCP - General Family Medicine 03/25/20 documented as of this encounter
--- OUTSIDE RECORDS SUMMARY | 2024-01-10 02:15 | XMS_ITS | Encounter Summary ---
[place] [address] Care Team Providers Care Client Account Manager Name Role Phone Neha Mcmahan MD Primary Care Provider [phone] Encounter Details Date Type Department Care Team (Latest Contact Info) Description 12/24/2023 Travel Social History Tobacco Use Types Packs/Day [...] 2:30 PM EDT Office Visit Rheumatology at [place] [phone] Dillon Trinidad MD [facility] [place] [address] 01/21/2024 2:30 PM EDT Office [place] [phone] Rosa Elena Villagomez APRN [facility] [place] [address] 02/05/2024 2:00 PM EDT Office [place] [phone] Rosa Elena Muhammad, RN documented as of this encounter Visit Diagnoses Not on filedocumented in this encounter Care Teams Client Account Manager Relationship Specialty Start Date End Date Neha Mcmahan MD [address] [place] [address] PCP - General Family Medicine 03/25/20 documented as of this encounter
--- OUTSIDE RECORDS SUMMARY | 2024-01-10 02:15 | XMS_ITS | Encounter Summary ---
[place] [address] Care Team Providers Care Mission Systems Engineer Name Role Phone Neha Mcmahan MD Primary Care Provider [phone] Encounter Details Date Type Department Care Team (Latest Contact Info) Description 06/13/2023 Travel Social History Tobacco Use Types Packs/Day [...] 2:30 PM EDT Office Visit Rheumatology at [place] [phone] Dillon Trinidad MD [facility] [place] [address] 01/21/2024 2:30 PM EDT Office [place] [phone] Rosa Elena Villagomez APRN [facility] [place] [address] 02/05/2024 2:00 PM EDT Office [place] [phone] Rosa Elena Muhammad, RN documented as of this encounter Visit Diagnoses Not on filedocumented in this encounter Care Teams Mission Systems Engineer Relationship Specialty Start Date End Date Neha Mcmahan MD [address] [place] [address] PCP - General Family Medicine 03/25/20 documented as of this encounter
--- OUTSIDE RECORDS SUMMARY | 2024-01-10 02:15 | XMS_ITS | Encounter Summary ---
Author Organization [facility] [place] [address] Care Team Providers Care Outdoor Landscape Architect Name Role Phone Neha Mcmahan MD Primary Care Provider [phone] Reason for Referral * Diagnostic Test (Routine) - Closed Specialty Diagnoses / Procedures Referred By Contac t Referred To Contact Cardiology Diagnoses Pulmonary hypertension Chronic respiratory failure with hypoxia Restrictive lung disease Procedures Echocardiogram Transthoracic Shira Child MD [facility] [place] [address] [facility] [place] [address] Referral ID Status Reason Start Date Expiration Date V isits Requested Visits Authorized [id number] Closed Specialty Service Requested 02/07/2023 02/07/2024 1 1 Reason for Visit * Diagnostic Test (Routine) - Closed Specialty Diagnoses / Procedures Referred By Contac t Referred To Contact Cardiology Diagnoses Pulmonary hypertension Chronic respiratory failure with hypoxia Restrictive lung disease Procedures Echocardiogram Transthoracic Shira Child MD [facility] [place] [address] [facility] [place] [address] Referral ID Status Reason Start Date Expiration Date V isits Requested Visits Authorized [id number] Closed Specialty Service Requested 02/07/2023 02/07/2024 1 1 Encounter Details Date Type Department Care Team (Latest Contact Info) Description 06/13/2023 1:41 PM EST - 06/13/2023 11:59 PM EST Hospital Encounter Non-Invasive Cardiology Lab [facility] [place] [phone] Shira Child MD [facility] [place] [address] Pulmonary hypertension; Chronic respiratory failure with hypoxia; [...] at Noon. 04/09/2023 spironolactone (Aldactone) 25 mg tabletIndications:Pulmo nary hypertension Take 1/2 (one-half) tablet by mouth once daily 45 tablet 2 05/08/2023 NIFEdipine (Procardia XL) 60 mg ER 24 hr tabletIndications:Pulmo nary hypertension Take 1 tablet by mouth once daily 90 tablet 2 05/08/2023 furosemide (Lasix) 20 mg tabletIndications:Pulmo nary hypertension [...] % Ointment Apply topically as needed. 03/23/2019 Lhjgd-4-XIE-EPA-Fish Oil 1,000 mg (120 mg-180 mg) Capsule [...] ORAL) Take by mouth 3 times daily. Silver (SilvaSorb) Gel, Sustained Release daily. 06/24/2023 documented as of this encounter Plan of Treatment Upcoming Encounters Date Type Department Care Team (Late st Contact Info) Description 01/13/2024 2:30 PM EDT Office [place] [phone] Dillon Trinidad MD [facility] [address] 01/21/2024 2:30 PM EDT Office [place] [phone] Rosa Elena Villagomez APRN [facility] [place] [address] 02/05/2024 2:00 PM EDT Office [place] [phone] Rosa Elena Muhammad, RN documented as of this encounter Procedures Procedure Name Priority Date/Time Associated Diagnosis Comments ECHO COMPLETE W CONTRAST Routine 06/13/2023 3:30 PM EST Pulmonary hypertension Chronic respiratory failure with hypoxia Restrictive lung disease documented in this encounter Results * ECHO COMPLETE W CONTRAST (06/13/2023 3:30 PM EST) EF 60 HEARTLAB SYSTEM Anatomical Region Laterality Modality Cardiac Other 06/13/2023 2:13 PM EST Narrative 06/13/2023 4:00 PM EST [address] [place] [address] ? Echocardiogram Report Name: JONAS MANZANARES ? Study Date: 06/13/2023 02:13 PMBP: 125/68 mmHg ? [facility] 1955 ? [facility]: 177 [facility] ? Account: [id number] Age: 67 yrs ? Weight: 150 kg Gender: Male ?BSA: 2.6 m2 Ordering Physician: SHIRA CHILD Referring Physician: SHIRA CHILD Performed By: Dulce Rueda RDCS Reason For Study: Chronic respiratory failure with hypoxia, Pulmonary hypertension Exam Location: [facility]. Interpretation Summary Normal left ventricular systolic function Right ventricle appears grossly normal in size with mildly reduced systolic function Normal left atrial size Mild tricuspid regurgitation,. PASP estimated at 27 mm Hg. Compared with images from 11/16/2021, right ventricle is again poorly visualized, no obvious change Procedure Complete-[id number]. Image enhancement Optison was used for left [...] Note Joaquin Chávez MD - 06/13/2023 [address] [place] [address] Echocardiogram Report Name: JONAS MANZANARES Study Date: 302:13 PMBP: 125/68 mmHg Patient Location: 4A : 1955 Height: 177 cm Account: [id number] Age: 67 yrs Weight: 150 kg Gender: Male BSA: 2.6 m2 Ordering Physician: SHIRA CHILD Referring Physician: SHIRA CHILD Performed By: Dulce Rueda RDCS Reason For Study: Chronic respiratory failure with hypoxia, Pulmonary hypertension Exam Location: [facility]. Interpretation Summary Normal left ventricular systolic function Right ventricle appears grossly normal in size with mildly reducedsystolic function Normal left atrial size Mild tricuspid regurgitation,. PASP estimated at 27 mm Hg. Compared with images from 11/16/2021, right ventricle is again poorlyvisualized, no obvious change Procedure Complete-[id number]. Image enhancement Optison was used for left [...] Aneurysmal 15-16diffuse Shira Castro MD ECHO ORDERABLES documented in this encounter Visit Diagnoses Diagnosis Pulmonary hypertension Other chronic pulmonary heart diseases Chronic respiratory failure with hypoxia Chronic respiratory failure Restrictive lung disease Other diseases of lung, not elsewhere classified documented in this encounter Administered Medications Inactive Administered Medications - up to 3 most recent administrations Medication Order MAR Action Action Date Dose Rate Site perflutren protein-A microsphers (Optison) (0.22 mg/mL) injection 3 mL 3 mL, Intravenous, ONCE PRN, 1 dose, Starting on Liz 06/13/23 at 1530, Until Liz 06/13/23 at 1445, for enhancement of sub-optimal echo images, Echo Lab (Intra-Procedure), Routine Given 06/13/2023 2:45 PM EST 3 mLs documented in this encounter Care Teams Outdoor Landscape Architect Relationship Specialty Start Date End Date Neha Mcmahan MD [address] [place] [address] PCP - General Family Medicine 03/25/20 documented as of this encounter
--- OUTSIDE RECORDS SUMMARY | 2024-01-10 02:15 | XMS_ITS | Encounter Summary ---
Author Organization [facility] [place] [address] Care Team Providers Care Overedge Machine Operator Name Role Phone Neha Mcmahan MD Primary Care Provider [phone] Encounter Details Date Type Department Care Team (Late st Contact Info) Description 10/11/2023 Telephone [place] [address] Christi Velazquez APRN Social History Tobacco Use Types Packs/Day Years [...] encounter Miscellaneous Notes * Telephone Encounter - Christi Velazquez APRN - 10/11/2023 2:57 PM EDT Called patient to review Xrays results with him showing Left great toe with ? Bone reabsorption vs infection and right with no concerns for bone infection. He denies any signs of infection and feels right toe continues to improve. Dr. Up did extend his Augmentin and he plans to pick this up tomorrow. We discussed monitoring for signs of infection or worsening of left toe ulcer and seeking urgent evaluation as needed in the ED for any concerning findings. He also has VNA monitoring wound 3 x week. Recommend obtaining labs (CBC, Sed rate, CRP) in the future if left ulcer worsens prior to obtaining MRI. He is in agreement to plan. Will RTC 10/27 documented in this encounter Plan of Treatment Upcoming Encounters Date Type Department Care Team (Late st Contact Info) Description 01/13/2024 2:30 PM EDT Office [place] [phone] Dillon Trinidad MD [facility] [place] [address] 01/21/2024 2:30 PM EDT Office Visit [place] [phone] Rosa Elena Villagomez APRN [facility] [place] [place] [address] 02/05/2024 2:00 PM EDT Office Visit [place] [phone] Rosa Elena Muhammad, RN documented as of this encounter Visit Diagnoses Not on filedocumented in this encounter Care Teams Overedge Machine Operator Relationship Specialty Start Date End Date Neha Mcmahan MD [address] [place] [address] PCP - General Family Medicine 03/25/20 documented as of this encounter
--- OUTSIDE RECORDS SUMMARY | 2024-01-10 02:15 | XMS_ITS | Encounter Summary ---
Author Organization [facility] [place] [address] Care Team Providers Care Carbon Capture Power Plant Operator Name Role Phone Neha Mcmahan MD Primary Care Provider [phone] Encounter Details Date Type Department Care Team (Late st Contact Info) Description 10/02/2023 [place] [phone] Rosa Elena Diaz LPN Social History Tobacco [...] Encounter - Rosa Elena Diaz LPN - 10/02/2023 2:17 PM EDT Received call from Davina at [facility] regarding clarification whether patient is diabetic or not. She states he is not diabetic but did have an episode of hypoglycemia from steroid use at one time. documented in this encounter Plan of Treatment Upcoming Encounters Date Type Department Care Team (Late st Contact Info) Description 01/13/2024 2:30 PM EDT Office [place] [address] [facility] [address] 01/21/2024 2:30 PM EDT Office Visit Wound Care [place] [phone] [address] [facility] [place] [address] 02/05/2024 2:00 PM EDT Office [place] [address] Rosa Elena Muhammad, RN documented as of this encounter Visit Diagnoses Not on filedocumented in this encounter Care Teams Carbon Capture Power Plant Operator Relationship Specialty Start Date End Date Neha Mcmahan MD [address] [place] [address] PCP - General Family Medicine 03/25/20 documented as of this encounter
--- OUTSIDE RECORDS SUMMARY | 2024-01-10 02:15 | XMS_ITS | Encounter Summary ---
[place] [address] Care Team Providers Care Grommet Machine Operator Name Role Phone Neha Mcmahan MD Primary Care Provider [phone] Encounter Details Date Type Department Care Team (Latest Contact Info) Description 06/24/2023 Travel Social History Tobacco Use Types Packs/Day [...] 2:30 PM EDT Office Visit Rheumatology at [place] [phone] Dillon Trinidad MD [facility] [place] [address] 01/21/2024 2:30 PM EDT Office [place] [phone] Rosa Elena Villagomez APRN [facility] [place] [address] 02/05/2024 2:00 PM EDT Office [place] [phone] Rosa Elena Muhammad, RN documented as of this encounter Visit Diagnoses Not on filedocumented in this encounter Care Teams Grommet Machine Operator Relationship Specialty Start Date End Date Neha Mcmahan MD [address] [place] [address] PCP - General Family Medicine 03/25/20 documented as of this encounter
--- OUTSIDE RECORDS SUMMARY | 2024-01-10 02:15 | XMS_ITS | Encounter Summary ---
Author Organization [facility] [place] [address] Care Team Providers Care Immunohematologist Name Role Phone Neha Mcmahan MD Primary Care Provider [phone] Encounter Details Date Type Department Care Team (Late st Contact Info) Description 09/12/2023 Interpretation Only [address] [phone] Trever Guido, DPM [address] [place] [address] Social History Tobacco Use Types Packs/Day Years [...] 2:30 PM EDT Office [place] [phone] Dillon Trinidad MD [facility] [place] [address] 01/21/2024 2:30 PM EDT Office [place] [phone] Rosa Elena Villagomez APRN [facility] [place] [address] 02/05/2024 2:00 PM EDT Office [place] [address] Rosa Elena Muhammad RN documented as of this encounter Procedures Procedure Name Priority Date/Time Associated Diagnosis Comments XR FOOT MIN 3 VIEWS LEFT Routine 09/12/2023 3:17 PM EDT documented in this encounter Results * XR Foot Min 3 views Left (Generic) (09/12/2023 3:17 PM EDT) PT CLASS O RAD ADMITDTTM [id number] RAD PT RAD INFO [id number]^[place]^ [place]^P RAD EXAM DESC [id number]^XR Foot Complete 3+ Views Left^RIS RAD Anatomical Region Laterality Modality Foot Left Radiographic Shayna ging 09/12/2023 3:17 PM EDT Impressions 09/13/2023 8:43 AM EDT No radiographic finding of left forefoot osteomyelitis. 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 Thank you for letting us participate in the care of this patient. ??If you are a health care provider and have any questions regarding this report, please contact the number below. ??For patients who have questions please contact the health pulmonary care nurse that requested your imaging first. ? Narrative 09/13/2023 8:43 AM EDT EXAMINATION: XR Foot Complete 3+ Views Left CLINICAL HISTORY: ulcer of left foot with fat layer exposed TECHNIQUE: AP, oblique and lateral weightbearing views left foot COMPARISON: Radiographs April 09, 2023 FINDINGS: Previous amputation through the third MTP joint. Smoothly corticated remodeling of medial first metatarsal head and base of great toe proximal phalanx. Bones are otherwise intact without erosion or periostitis. Lateral subluxation, joint space loss and marginal osteophytes are unchanged at the first and second MTP joints. Pes planus alignment with midfoot joint space loss, osteophytes, subchondral sclerosis and mild dorsal subluxation of first metatarsal with respect to the cuneiforms are unchanged. Soft tissues are prominent around the great toe and second toe. Linear radiodensities medial to the great toe proximal phalanx are superficial and likely reflect bandaging material. No subcutaneous air. Procedure Note Stefanie Littlejohn MD - 09/13/2023 EXAMINATION: XR Foot Complete 3+ Views Left CLINICAL HISTORY: ulcer of left foot with fat layer exposed TECHNIQUE: AP, oblique and lateral weightbearing views left foot COMPARISON: Radiographs April 09, 2023 FINDINGS: Previous amputation through the third MTP joint. Smoothly corticatedremodeling of medial first metatarsal head and base of great toe proximal phalanx. Bones are otherwise intact without erosion or periostitis. Lateral subluxation, joint space loss and marginal osteophytes areunchanged at the first and second MTP joints. Pes planus alignment with midfoot jointspace loss, osteophytes, subchondral sclerosis and mild dorsal subluxation offirst metatarsal with respect to the cuneiforms are unchanged. Soft tissues are prominent around the great toe and second toe. Linear radiodensities medial to the great toe proximal phalanx are superficialand likely reflect bandaging material. No subcutaneous air. IMPRESSION No radiographic finding of left forefoot osteomyelitis. Postoperativeremodeling of the forefoot and midfoot osteoarthropathy are not significantly changedsince March 2023. Thank you for letting us participate in the care of this patient. If youare a health care provider and have any questions regarding this report,please contact the number below. For patients who have questions please contactthe health pulmonary care nurse that requested your imaging first. Electronically signed by: Stefanie Littlejohn MD, [facility]([phone]), at 09/13/2023 8:43 AM Trever Guido DPM IMG DX ORDERABLES documented in this encounter Visit Diagnoses Not on filedocumented in this encounter Care Teams Immunohematologist Relationship Specialty Start Date End Date Neha Mcmahan MD [address] [place] [address] PCP - General Family Medicine 03/25/20 documented as of this encounter
--- OUTSIDE RECORDS SUMMARY | 2024-01-10 02:15 | XMS_ITS | Encounter Summary ---
Author Organization [facility] [place] [address] Care Team Providers Care Casing Trimmer Name Role Phone Neha Mcmahan MD Primary Care Provider [phone] Reason for Visit * Reason Comments Follow-up Encounter Details Date Type Department Care Team (Late st Contact Info) Description 03/18/2023 1:45 PM EDT Office [place] [address] Dillon Trinidad MD [facility] [place] [address] Pulmonary hypertension (Primary Dx) Social History Tobacco Use Types Packs/Day Years [...] Sign Reading Time Taken Comments Blood Pressure 109/53 03/18/2023 1:42 PM EDT Pulse 74 03/18/2023 1:42 PM EDT Temperature 36.5 ??C (97.7 ??F) 03/18/2023 1:42 PM ED T Respiratory Rate 17 03/18/2023 1:42 PM EDT Oxygen Saturation 98% 03/18/2023 1:42 PM EDT 4L o2 Inhaled Oxygen Concentration - - Weight 149.7 kg (330 lb) 03/18/2023 1:42 PM EDT reported Height 176.5 cm (5' 9.5) 03/18/2023 1:42 PM EDT Body Mass Index 48.03 03/18/2023 1:42 PM EDT documented in this encounter Patient Instructions * Patient Instructions* Dillon Trinidad MD - 03/18/2023 1:45 PM EDT Please get your PFT, Echo and Chest CT scheduled with 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 male who we are seeing for the continuing management of pulmonary HTN. Rheum History: #positive SERGIO in the setting of pulmonary HTN -[place] [facility] [place] for dyspnea/hypoxia and PFTs showed severe restrictive ventilatory defect but lost to follow up -seen by pulmonology at [facility] on 08/23/21 where he was referred for pulmonary HTN -prior to that visit, PFTs were done and showed restrictive disease -HRCT chest 07/20/21 showed mild mosaic attenuation which could have represented CTEPH so VQ scan performed on 07/31/21 did not find any VQ mismatches and no significant perfusion deficits -Labs August 2021 (obtained in the [facility] network): SERGIO 1:320 (homogenous), RF <8.6, anti-CCP <2.5, SSA 1.7, SSB 1.7, dsDNA 84.4, and serum creatinine 1.1 -TTE 03/25/19: LVEF 55-60%, LV diastolic function normal, normal LV segmental wall motion, LV normalsize, mild concentric LV hypertrophy; RV is moderate to severely dilated, RV is mildly hypokinetic intraventricular septum is flattened suggesting RV volume and pressure overload; both atria are moderately dilated; mild tricuspid regurgitation, TR peak gradient = 54 mmgH which corresponds with an RVSP >60 mmHg; no pericardial effusion; aortic root normal in size -[place] [facility] [place] 09[place]21/21 (no other signs of symptoms of CTD at that time) -labs 09/21/21: UA normal, urine protein/creatinine <0.1, SERGIO 1:640 (homogenous), anti-RNA polymerase III negative, anti-centromere negative, quantiferon/HIV/HBV/HCV serologies negative, LAC/B2GP/ACL antibodies negative, C4 35, C3 183, CMP normal, WBC/hb/plts normal, dsDNA 52.8 but negative by Crit hidia IFA, KARL negative -TTE 11/16/21: Left ventricle appears normal in size, wall thickness and systolic function. Estimated EF is 55%. No wall motion abnormalities were identified. The right ventricle was not well visualized. Both atria are normal in size. The aortic valve is sclerotic and probably trileaflet without stenosis or regurgitation. Mild mitral annular calcification. Trace to mild mitral regurgitation. Normal tricuspid valve with trace regurgitation. Estimated right ventricular systolic pressure is 34 mmHg. Mildly dilated ascending aorta measuring 3.75 cm. No intracardiac shunting identified with agitated saline. -seen by Dr. Martin of cardiology on 11/08/21, ordered RHC which was performed on 11/21/21 and showed severe pulmonary HTN -cardiology started nifedipine 30 mg daily on 12/20/21 Interval History: The patient is a 67 y/o C M w/ PMH obesity (BMI 48) and severe pulmonary HTN w/ Echo in 2021 showing a RVSP 34mmHg. He underwent a RHC on 11/21/21 which showed severe pulmonary hypertension w/ resting PA at 70mm Hg which improved w/ NO to 54 mm Hg. He is currently on 4-5 L nasal cannula continuously and comes in for routine follow up. His lab work does show SERGIO 1:320 and on repeat was 1:640 but hisENA is normal. He has no fever, chills or night sweats. He continues to have a non-productive cough, wheezing and dyspnea at rest and w/ exertion. He can walk across the parking lot but does have to take some rest. He denies any dry eyes, dry mouth, symptoms of Raynauds, any new skin lesions , rashes or photosensitive rashes. He has no weakness. 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 ROS (positives in bold): General (-)fevers, (-)chills, (-)night sweats, (-)wt loss/gain. HEENT (-)inflammatory eye disease, (-)vision loss, (-)epistaxis, (-)bleeding gums, (-)oral ulcers, (-)dry eyes, (-)dry mouth, (-)dysphagia, (-)GERD, (-)photo sensitivity CVS (-)chest pain, (-)palpitations Pulm (+)shortness of breath, (+)NOYOLA, (+)wheezes, (+)chronic non productive cough, (-)pleuritic pain GI (-)N/V, (-)abdominal pain, (-)hematochezia (-)hematuria, (-)dysuria MS (-)muscle weakness, (-)paralysis, (-)joint pain Endo (-)thyroid disorders, (-)diabetes Neuro (-)focal weakness, (-)paresthesias, (-)gait instability. Skin (-)Raynaud's, (-)rashes - no psoriasis Psych (-) mood disorder. Meds and Allergies: Reviewed in eDH Physical exam: There were no vitals taken for this visit. General: AAOx3, NAD HEENT: (-)scleral injection, mucous membranes are moist, no oral mucosal ulcerations Skin: (-)ulcers, (-)rash Neck: Supple, no lymphadenopathy, full range of motion. Cardiovascular: RR, (-)murmurs, rubs, or gallops. Lungs: Clear to auscultation bilaterally. (-)R/R/W Neuro: Alert and oriented x3. Strength 5/5 throughout Extremities: Shoulders: FROM, non-tender to palpation Elbows:FROM, (-)pain, (-)nodules Wrists: FROM, no swelling, non-tender Hands: No synovitis, no MCP compression tenderness, full claw and fist. Normal nailfold capillarieson capillaroscopy. No nail pitting. No electrical and instrumentation mechanic's hand. Knees: (-)effusions, non-tender ROM Ankles: FROM, non-tender, no swelling Feet: no MTP compression tenderness, no toe splaying Labs/Studies: 12/10/22 C3 177 C4 34 dsDNA negative 09/21/21 SERGIO 1:640 dsDNA 52 Negative dsDNA Crithidia 6 panel KARL - negative Centromere negative RNA Polymerase III negative Assessment/Plan: Severe Pulmonary Artery HTN: The patient comes in for routine exam due to severe pulmonary artery lesions. He was last evaluatedin the rheumatology clinic 6 months ago and since then has not had any significant decline in his health with regards to his pulmonary symptoms or increasing oxygen use. His SERGIO has been elevated buthe did not have any other symptoms concerning for other autoimmune/connective tissue disease. His dsDNA is negative by Crithidia and he has no other active clinical domains to consider systemic lupuserythematous. His 6 panel KARL is negative for Sjogren or Systemic Sclerosis as an etiology, as wellas general lack of symptoms. The patient denies any new rashes or weakness concerning for PM/DM/Anti-Synthetase Syndrome. He has followed up w/ cardiology who note that his symptoms are out of proportion to the degree of his pulmonary hypertension. His BMI and EMI certainly can be contributing to his pulmonary HTN. We need to obtain a CT Chest to evaluate if he has any interstitial lung disease which maybe contributing to his symptoms. He also needs to completed a PFT and Echo along w/ a myositis panel. -Obtain ANCA and Myositis panel -Obtain ESR, CRP, BNP -Cont w/ supplemental oxygen 4-5 L per day 2. Preventive Medicine: Colon Cancer Screening - Colonoscopy ordered on 08/24/21 but unclear if completed Td - 08/24/21 Zoster - 02/22/21 PPVS 23 - 11/28/15 - Will need repeat vaccine for age >65 PCV 13 or 20 - Will need vaccine for age >65 Follow up in 3 months Patient was discussed with Dr. Waleska Saleh. MD Vivi Rheumatology Fellow Pager: [phone] * Waleska Acharya DO - 03/18/2023 1:45 PM EDT ATTENDING ADDENDUM The patient's history was reviewed, and I interviewed and examined the patient with Dr. Trinidad. I agree with his summary, findings, and plan. documented in this encounter Plan of Treatment Upcoming Encounters Date Type Department Care Team (Late st Contact Info) Description 01/13/2024 2:30 PM EDT Office [place] [address] Dillon Trinidad MD [facility] [place] [address] 01/21/2024 2:30 PM EDT Office [place] [address] Rosa Elena Villagomez APRN [facility] [place] [address] 02/05/2024 2:00 PM EDT Office [place] [address] Rosa Elena Muhammad RN documented as of this encounter Procedures Procedure Name Priority Date/Time Associated Diagnosis Comments HC C-REACTIVE PROTEIN Routine 03/18/2023 3:19 PM EDT Pulmonary hypertension HC PCH ANTINEUTROPHIL CYTOPLASMIC ABS Routine 03/18/2023 3:19 PM EDT Pulmonary hypertension HC PROTEINASE-3 AUTOANTIBODIES Routine 03/18/2023 3:19 PM EDT Pulmonary hypertension HC MYELOPEROXIDASE AUTOANTIBODIES Routine 03/18/2023 3:19 PM EDT Pulmonary hypertension HC PC MYOSITIS ANTIBODY PANEL PLUS Routine 03/18/2023 3:19 PM EDT Pulmonary hypertension HC ESR-SEDIMENTATION RATE, BLOOD Routine 03/18/2023 3:19 PM EDT Pulmonary hypertension HC PROBNP Routine 03/18/2023 3:19 PM EDT Pulmonary hypertension HC VENIPUNCTURE Routine 03/18/2023 3:19 PM EDT Pulmonary hypertension documented in this encounter Results * CK (03/18/2023 3:19 PM EDT) CK, Total 60 0 - 200 unit/L [facility] Blood 03/18/2023 3:19 PM EDT 03/18/2023 3:25 PM EDT Narrative Resulting Agency Comment Spec In Lab Waleska Acharya DO CHEMISTRY ORDERABL ES Performing Organization Address [facility]/ZIP Co de Phone Number [facility] [place] [address] * (ABNORMAL) CRP, acute inflammation (03/18/2023 3:19 PM EDT) [facility] CRP 5.6(H) <=4.9 mg/L [facility] Blood 03/18/2023 3:19 PM EDT 03/18/2023 3:25 PM EDT Narrative Resulting Agency Comment Spec In Lab Waleska Acharya DO CHEMISTRY ORDERABL ES Performing Organization Address [facility] Co de Phone Number [facility] [place] [address] * Sedimentation rate (03/18/2023 3:19 PM EDT) [facility] Sed Rate 22 2 - 37 mm/hr [facility] Comment: Effective May 27, 2019 new capillary photometric technology has resulted in a change in reference ranges. It is recommended that each ESR result be reviewed with its own age appropriate reference range. Blood 03/18/2023 3:19 PM EDT 03/18/2023 3:25 PM EDT Narrative Resulting Agency Comment Spec In Lab Waleska Acharya DO HEMATOLOGY ORDERAB LES Performing Organization Address [facility] Co de Phone Number [facility] [place] [address] * pro-Brain Natriuretic Peptide (03/18/2023 3:19 PM EDT) [facility] ProBNP <36 <=124 pg/mL [facility] Blood 03/18/2023 3:19 PM EDT 03/18/2023 3:25 PM EDT Narrative Resulting Agency Comment Spec In Lab Waleska Acharya DO CHEMISTRY ORDERABL ES Performing Organization Address [facility] Co de Phone Number [facility] [place] [address] * Proteinase-3 Antibody (03/18/2023 3:19 PM EDT) PR3 Ab <0.6 <=1.9 unit/mL [facility] Blood 03/18/2023 3:19 PM EDT 03/19/2023 7:10 AM EDT Narrative Resulting Agency Comment Spec In Lab Waleska Acharya DO CHEMISTRY ORDERABL ES Performing Organization Address [facility] Co de Phone Number [facility] [place] [address] * Myeloperoxidase Ab (03/18/2023 3:19 PM EDT) MPO Ab <0.2 <=3.4 unit/mL [facility] Blood 03/18/2023 3:19 PM EDT 03/19/2023 7:10 AM EDT Narrative Resulting Agency Comment Spec In Lab Waleska Acharya DO CHEMISTRY ORDERABL ES Performing Organization Address [facility] Co de Phone Number [facility] [place] [address] * (ABNORMAL) Cytoplasmic Neutrophilic Ab (03/18/2023 3:19 PM EDT) C-ANCA Negative Negative [facility] Comment: Test Performed by: [facility] - [address] [address] Managed Services Sales Consultant: Deion Silva M.D. Ph.D.; CLIA# [id number] P-ANCA Positive(A) Negative [facility] Comment: Positive for pANCA pattern by immunofluorescence. Suggest further testing for anti-myeloperoxidase (anti-MPO) antibodies, if clinically indicated. ADDITIONAL INFORMATION This test was developed and its performance characteristics determined by [facility] in a manner consistent with CLIA requirements. This test has not been cleared or approved by the U.S. Food and Drug Administration. Test Performed by: [facility] - [facility] [place] [address] [place] [address] Managed Services Sales Consultant: Deion Silva M.D. Ph.D.; CLIA# [id number] Blood 03/18/2023 3:19 PM EDT 03/19/2023 9:43 AM EDT Narrative Resulting Agency Comment Spec In Lab Waleska Acharya DO CHEMISTRY ORDERABL [facility] [place] [address] * Myositis Antibody Panel Plus (03/18/2023 3:19 PM EDT) Myositis Ab Panel Test ? Result ? Flag ??Unit ?? RefValue ------- MyoMarker 3 Plus Profile ??Anti-Serenity-1 Ab ? <20 ?Units ??<20 ??Anti-PL-7 Ab ? Negative ?Negative ?This test was developed and its performance characteristics ?determined by [facility]. It has not been cleared or ?approved by the Food and Drug Administration. ??Anti-PL-12 Ab ?Negative ?Negative ?This test was developed and its performance characteristics ?determined by [facility]. It has not been cleared or ?approved by the Food and Drug Administration. ??Anti-EJ Ab ? Negative ?Negative ?This test was developed and its performance characteristics ?determined by [facility]. It has not been cleared or ?approved by the Food and Drug Administration. ??Anti-OJ Ab ? Negative ?Negative ?This test was developed and its performance characteristics ?determined by [facility]. It has not been cleared or ?approved by the Food and Drug Administration. ??Anti-SRP Ab ?Negative ?Negative ?This test was developed and its performance characteristics ?determined by [facility]. It has not been cleared or ?approved by the Food and Drug Administration. ??Xlvc-Cp-1-Ab ? Negative ?Negative ?This test was developed and its performance characteristics ?determined by [facility]. It has not been cleared or ?approved by the Food and Drug Administration. ??Pnug-[id number] Ab ? <20 ?Units ??<20 ?This test was developed and its performance characteristics ?determined by [facility]. It has not been cleared or ?approved by the Food and Drug Administration. ??Anti-MDA-5 Ab (CADM-140) ? <20 ?Units ??<20 ?This test was developed and its performance characteristics ?determined by [facility]. It has not been cleared or ?approved by the Food and Drug Administration. ??Anti-NXP-2 (P140) Ab ? <20 ?Units ??<20 ?This test was developed and its performance characteristics ?determined by [facility]. It has not been cleared or ?approved by the Food and Drug Administration. ??Anti-SAE1 Ab, IgG ?<20 ?Units ??<20 ?This test was developed and its performance characteristics ?determined by [facility]. It has not been cleared or ?approved by the Food and Drug Administration. ??Anti-PM/Scl-100 Ab ? <20 ?Units ??<20 ?This test was developed and its performance characteristics ?determined by [facility]. It has not been cleared or ?approved by the Food and Drug Administration. ??Anti-Ku Ab ? Negative ?Negative ?This test was developed and its performance characteristics ?determined by [facility]. It has not been cleared or ?approved by the Food and Drug Administration. ??Anti-SS-A 52kD Ab, IgG ? <20 ?Units ??<20 ?This test was developed and its performance characteristics ?determined by [facility]. It has not been cleared or ?approved by the Food and Drug Administration. ??Anti-U1 BOOK REVIEWER Ab ? <20 ?Units ??<20 ??Anti-U2 BOOK REVIEWER Ab ? Negative ?Negative ?This test was developed and its performance characteristics ?determined by [facility]. It has not been cleared or ?approved by the Food and Drug Administration. ??Anti-U3 BOOK REVIEWER (Fibrillarin) ?Negative ?Negative ?This test was developed and its performance characteristics ?determined by [facility]. It has not been cleared or ?approved by the Food and Drug Administration. ?Interpretation for Anti-Serenity-1, [id number], ?Anti-MDA-5, Anti-NXP-2, Anti-SAE1, Anti-PM/Scl-100, ?Anti-SS-A 52 kD, Anti-U1 BOOK REVIEWER: ?Negative: ?<20 ?Weak Positive: ? 20 - 39 ?Moderate Positive: ? 40 - 80 ?Strong Positive: ? >80 ?. ?Test Performed by: ?[facility] ?[facility] [place] [address] [facility] Blood 03/18/2023 3:19 PM EDT 03/19/2023 9:39 AM EDT Narrative Resulting Agency Comment Spec In Lab Waleska Acharya DO IMMUNOLOGY ORDERAB LES [facility] [place] [address] documented in this encounter Visit Diagnoses Diagnosis Pulmonary hypertension- Primary Other chronic pulmonary heart diseases documented in this encounter Care Teams Casing Trimmer Relationship Specialty Start Date End Date Neha Mcmahan MD [address] [place] [address] PCP - General Family Medicine 03/25/20 documented as of this encounter
--- OUTSIDE RECORDS SUMMARY | 2024-01-10 02:15 | XMS_ITS | Encounter Summary ---
Author Organization [facility] Address [facility] [place] [address] Care Team Providers Care Environmental Technician Name Role Phone Neha Mcmahan MD Primary Care Provider [phone] Encounter Details Date Type Department Care Team (Late st Contact Info) Description 10/14/2023 [place] [address] Evie Up DPM [facility] [place] [address] Skin ulcer of left great toe with fat layer exposed Social History Tobacco [...] 2:30 PM EDT Office [place] [address] Dillon Trinidad MD [facility] [place] [address] 01/21/2024 2:30 PM EDT Office [place] [address] Rosa Elena Villagomez APRN [facility] [place] [address] 02/05/2024 2:00 PM EDT Office [place] [address] Rosa Elena Muhammad RN Scheduled Orders Name Type Priority Associated Diagnoses Orde r Schedule CBC (with Diff) Lab Routine Skin ulcer of left great toe with fat layer exposed Expected: 10/14/2023, Expires: 01/13/2024 Sedimentation rate Lab Routine Skin ulcer of left great toe with fat layer exposed Expected: 10/14/2023, Expires: 01/13/2024 CRP, acute inflammation Lab Routine Skin ulcer of left great toe with fat layer exposed Expected: 10/14/2023, Expires: 01/13/2024 Uric acid Lab Routine Skin ulcer of left great toe with fat layer exposed Expected: 10/14/2023, Expires: 01/13/2024 documented as of this encounter Visit Diagnoses Diagnosis Skin ulcer of left great toe with fat layer exposed documented in this encounter Care Teams Environmental Technician Relationship Specialty Start Date End Date Neha Mcmahan MD [address] [place] [id number] PCP - General Family Medicine 03/25/20 documented as of this encounter
--- OUTSIDE RECORDS SUMMARY | 2024-01-10 02:15 | XMS_ITS | Encounter Summary ---
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 Rosa Elena Villagomez APRN [facility] [place] [address] [facility] Dermatology [address] [place] [address] Referral ID Status Reason Start Date Expiration Date V isits Requested Visits Authorized [id number] Closed Consult, Test & Treat 10/29/2023 10/28/2024 1 1 Encounter Details Date Type Department Care Team (Late st Contact Info) Description 11/21/2023 9:00 AM EDT Office Visit Dermatology at [facility] [address] [place] [address] Kaylyn Capps MD [facility] [place] [address] Verruca plantaris; Impaired sensation to light touch; Charcot's joint of foot, unspecified laterality Social History Tobacco Use Types Packs/Day Years [...] Pulse 83 11/21/2023 9:40 AM EDT Temperature - - Respiratory Rate - - Oxygen Saturation 94% 11/21/2023 9:40 AM EDT Inhaled Oxygen Concentration - - Weight - - Height - - Body Mass Index - - documented in this encounter Progress Notes * Kaylyn Capps MD - 11/21/2023 9:00 AM EDT Images from the original note were not included. DEPARTMENT OF DERMATOLOGY Medical Dermatology Clinic Note Provider: Kaylyn Capps MD Patient's preferred name Jori Preferred contact method for results [x]Phone []myD-H []Letter Detailed phone message OK? Y Are there any other people with whom we may discuss your care? Past Medical History Date, location, treatment Melanoma Dysplastic nevi SCC BCC AKs UV Exposure & Protection Other relevant past medical history Family History Details Melanoma NMSC Other relevant family history Social History Occupation: Retired Pre-Procedure Questions Details Allergy to lidocaine, epinephrine, Dermabond, chlorhexidine, or adhesives Bleeding disorder or blood thinners Implanted devices (Pacemaker, defibrillator, deep brain stimulator, cochlear implant) History of Present Illness: Jori Manzanares is a 68 y.o. Patient is referred to the clinic at the request of Rosa Elena Villagomez for a neuropathic ulcer of toe on left foot. Patient reports wounds on bothfeet present today. He notes that they are not very painful. He reports poor sensation in his feet. Review of Systems: General: Feeling well. Skin: No other skin concerns. Medications: Reviewed in eD-H Allergies: Reviewed in eD-H Skin Examination: Focused skin examination of the bilateral feet was normal with the exception of the findings below. Assessment/Plan #. Biopsy Proven Irritated Warts Heaped up verrucous nodules on bilateral great toes, right great toe with significant hemorrhagic crust, denies pain, irritation poor proprioception, poor sensation to light tough, poor sensation to firm touch treated a number of times with debridement Previous Pathology: Left halgus with verrucoid epidermal hyperplasia with underlying dermal fibrosis and vascular ectasia; The differential diagnosis could include an irritated verruca, prurigo or less likely a digital fibrokeratoma. - On clinical exam favor warts bilaterally. After thorough discussion of risks and benefits, mutualdecision to pursue conservative treatment. - Laser, freezing, excision, etc would all potentially contribute to a wound that could predispose to infection especially in the setting of what seems to be diabetic neuropathy, and poor wound healing. Given this is asymptomatic for the patient, the best route would be to avoid causing more harm than good and I worry that any of the above interventions would put this patient at risk for local ormore widespread infection. I do not see signs of verrucous carcinoma today. - Recommend patient return to clinic should they become painful or grow significantly larger - Otherwise, continue with gentle footcare and start mediplast. - Start Rx salicylic acid (Mediplast) apply half patch daily to the bilateral big toes - Discussed that on both pathology report and on clinical exam no findings that are consistent withmalignant lesions. Other: N/A RTC: PRN []Note routed to racing secretary []Recall placed in scheduling system []Appointment scheduled at checkout Scribe attestation: Nan Chowdary [facility] has performed the documentation for this encounter in thepresence of and acting as a scribe for Kaylyn Capps MD. I performed the above scribed service and agree with the accuracy of the documentation in this encounter. Reviewed and signed by: Kaylyn Capps MD Dermatology [facility] Patient seen and evaluated with staff yard coordinator: Raul Diaz MD Department of Dermatology [facility] * Raul Diaz MD - 11/21/2023 9:00 AM EDT I directly supervised the Dermatology resident during this office visit. The resident presented thehistory and physical exam to me. I then saw and examined this patient with the resident. We reviewed the history and pertinent details and I confirmed the physical findings. I agree with the details of the history and physical exam as documented in the resident's note. RAUL DIAZ MD Staff Physician documented in this encounter Plan of Treatment Upcoming Encounters Date Type Department Care Team (Late st Contact Info) Description 01/13/2024 2:30 PM EDT Office [place] [address] Dillon Trinidad MD [facility] [place] [address] 01/21/2024 2:30 PM EDT Office [place] [address] Rosa Elena Villagomez APRN [facility] [place] [place] [address] 02/05/2024 2:00 PM EDT Office [place] [address] Rosa Elena Muhammad, RN documented as of this encounter Visit Diagnoses Diagnosis Verruca plantaris Plantar wart Impaired sensation to light touch Charcot's joint of foot, unspecified laterality documented in this encounter Care Teams Core Feeder Relationship Specialty Start Date End Date Neha Mcmahan MD [address] [place] [address] PCP - General Family Medicine 03/25/20 documented as of this encounter
--- OUTSIDE RECORDS SUMMARY | 2024-01-10 02:15 | XMS_ITS | Encounter Summary ---
[place] [address] Care Team Providers Care Stringing Machine Tender Name Role Phone Neha Mcmahan MD Primary Care Provider [phone] Encounter Details Date Type Department Care Team (Latest Contact Info) Description 04/12/2023 Travel Social History Tobacco Use Types Packs/Day [...] 2:30 PM EDT Office Visit Rheumatology at [place] [phone] Dillon Trinidad MD [facility] [place] [address] 01/21/2024 2:30 PM EDT Office Visit [place] [phone] Rosa Elena Villagomez APRN [facility] [place] [address] 02/05/2024 2:00 PM EDT Office Visit [place] [address] Rosa Elena Muhammad, RN documented as of this encounter Visit Diagnoses Not on filedocumented in this encounter Care Teams Stringing Machine Tender Relationship Specialty Start Date End Date Neha Mcmahan MD [address] [place] [address] PCP - General Family Medicine 03/25/20 documented as of this encounter
--- OUTSIDE RECORDS SUMMARY | 2024-01-10 02:15 | XMS_ITS | Encounter Summary ---
[facility] [place] [address] Care Team Providers Care Rn Procedure Name Role Phone Neha Mcmahan MD Primary Care Provider [phone] Encounter Details Date Type Department Care Team (Late st Contact Info) Description 09/12/2023 Interpretation Only [address] [phone] Trever Guido, DPM [address] [place] [address] Social History Tobacco Use Types Packs/Day Years [...] 2:30 PM EDT Office [place] [phone] Dillon Trinidad MD [facility] [place] [address] 01/21/2024 2:30 PM EDT Office [place] [phone] Rosa Elena Villagomez APRN [facility] [place] [address] 02/05/2024 2:00 PM EDT Office [place] [address] Rosa Elena Muhammad RN documented as of this encounter Visit Diagnoses Not on filedocumented in this encounter Care Teams Rn Procedure Relationship Specialty Start Date End Date Neha Mcmahan MD [address] [place] [address] PCP - General Family Medicine 03/25/20 documented as of this encounter
--- OUTSIDE RECORDS SUMMARY | 2024-01-10 02:15 | XMS_ITS | Encounter Summary ---
[place] [address] Care Team Providers Care Field Operator Name Role Phone Neha Mcmahan MD Primary Care Provider [phone] Encounter Details Date Type Department Care Team (Latest Contact Info) Description 11/05/2023 Travel Social History Tobacco Use Types Packs/Day [...] 2:30 PM EDT Office Visit Rheumatology at [place] [phone] Dillon Trinidad MD [facility] [place] [address] 01/21/2024 2:30 PM EDT Office [place] [phone] Rosa Elena Villagomez APRN [facility] [place] [address] 02/05/2024 2:00 PM EDT Office [place] [phone] Rosa Elena Muhammad, RN documented as of this encounter Visit Diagnoses Not on filedocumented in this encounter Care Teams Field Operator Relationship Specialty Start Date End Date Neha Mcmahan MD [address] [place] [address] PCP - General Family Medicine 03/25/20 documented as of this encounter
--- OUTSIDE RECORDS SUMMARY | 2024-01-10 02:15 | XMS_ITS | Encounter Summary ---
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, with fat layer exposed Procedures KATE, legs, multiple levels Andre Castrejon APRN [facility] [place] [address] [facility] Vascular Lab [address] [place] [address] Referral ID Status Reason Start Date Expiration Date V isits Requested Visits Authorized [id number] Closed Specialty Service Requested 09/30/2023 09/29/2024 1 1 Encounter Details Date Type Department Care Team (Late st Contact Info) Description 10/28/2023 2:30 PM EDT Tech [place] [address] [place] Diabetic ulcer of other [...] Encounters Date Type Department Care Team (Late Contact Info) Description 01/13/2024 2:30 PM EDT [place] [address] Dillon Trinidad MD [facility] [place] [address] 01/21/2024 2:30 PM EDT Office [place] [phone] Andre Castrejon APRN [facility] [place] [address] 02/05/2024 2:00 PM EDT Office [place] [address] Andre Muhammad RN documented as of this encounter Procedures Procedure Name Priority Date/Time Associated Diagnosis Comments KATE, LEGS, MULTIPLE LEVELS Routine 10/28/2023 1:36 PM EDT 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
--- OUTSIDE RECORDS SUMMARY | 2024-01-10 02:15 | XMS_ITS | Encounter Summary ---
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 Rosa Elena Villagomez APRN [facility] [place] [address] [facility] Dermatology [address] [place] [address] Referral ID Status Reason Start Date Expiration Date V isits Requested Visits Authorized [id number] Closed Consult, Test & Treat 10/29/2023 10/28/2024 1 1 Encounter Details Date Type Department Care Team (Late st Contact Info) Description 10/29/2023 Orders [place] [address] Rosa Elena Villagomez APRN [facility] [place] [address] Neuropathic ulcer of toe of left foot [...] as of this encounter Progress Notes * Rosa Elena Villagomez APRN - 10/29/2023 2:21 PM EDT CC: reviewed resent bx results showing DIAGNOSIS L eft hallux, skin punch biopsy: - Verrucoid epidermal hyperplasia with underlying dermal fibrosis and vascular ectasia We discussed that this wound should have topical treatment with wide excision or laser therapy per our criminal justice instructor who did bx. We discussed this can change to cancer cells if left untreated. Plan: Referral to dermatology for possible laser treatment. Discussed KATE's showed no LEAD. Rosa Elena Villagomez Advanced Practice Registered Nurse Wound Care [facility] Pager: [phone] documented in this encounter Plan of Treatment Upcoming Encounters Date Type Department Care Team (Late st Contact Info) Description 01/13/2024 2:30 PM EDT [place] [address] Dillon Trinidad MD [facility] [place] [address] 01/21/2024 2:30 PM EDT Office [place] [phone] Rosa Elena Villagomez APRN [facility] [place] [place] [address] 02/05/2024 2:00 PM EDT Office [place] [address] Rosa Elena Muhammad RN Scheduled Referrals Name Type Priority Associated Diagnoses Order Schedule Referral to Dermatology Outpatient Referral Urgent 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
--- OUTSIDE RECORDS SUMMARY | 2024-01-10 02:15 | XMS_ITS | Encounter Summary ---
[place] [address] Care Team Providers Care Filament Shaper Name Role Phone Neha Mcmahan MD Primary Care Provider [phone] Reason for Visit * Reason Comments Wound Check Encounter Details Date Type Department Care Team (Late st Contact Info) Description 12/10/2023 2:30 PM EDT Office [place] [address] Alexandra Renteria APRN [facility] [place] [address] Neuropathic ulcer of toe of right foot [...] * Patient Instructions* Alexandra Renteria APRN - 12/10/2023 2:30 PM EDT Instructions: Right great toe and left hallux/plantar foot Change dressing every 2-3 days or sooner for 50% or greater strike through drainage. Remove old dressing. Cleanse wound with wound cleanser or normal saline and gauze. Cut a piece of Mediplast to fit wound bed. Cover with foam and secure with tape Offload feet throughout the day. Float your [...] Beef, chicken, fish Beans, Lentils, peanut butter Polish and regular yogurt Cheese, eggs Boost, Ensure [...] taken care of by your physician or rn trauma. Avoid using any chemical or strong antiseptic solutions on your feet. Iodine, salicylic acid, corn/callus removers may burn the skin. documented in this encounter Progress Notes * Alexandra Renteria APRN - 12/10/2023 2:30 PM EDT Images from the original note were not included. [facility] Follow up note CC: Jori Manzanares is a 68 y.o. male who presents for follow up of right hallux, left hallux and [id number] to neuropathic ulcers. HPI: referred by Neha [...] osteoarthritis, carpal tunnel. Home Care: [facility]. 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 of Pathology, [place] [address] Ticket Counter: Dixie Regan MD, FCAP, CLIA Certificate: [id number] DISCUSSION The differential diagnosis could include an [...] and has Whey protein as well as Muscle Milk at night Wound care: VNA helping with dressing changes [...] bilateral hallux Nails: Thick fungal long Wound 12/10/23 11/27/23 11/05/23 10/10/23 Measurement (Initial) 09/30/23 Wound Bed & Thickness Periwound Skin Drainage Odor Debridement Primary Dressing Secondary Dressing Left hallux 0.8 cm x 0.2cm x <0.1cm 0.8 [...] Mediplast foam Foam, tape Left 2nd toe healed healed healed No open area 0.2 x 0.2 <0.1 cm 100% pale pink full Callus skin tone Moderate serosanguineous No Surgical sharp Small bordered foam None Right hallux 0.6 cm x 0.4cm x <0.1cm 0.7 cm x 0.7 cm x <0.1 cm 1.0cm x 0.7cm x 0.1cm UM@7-10: 0.1 1.0 cm x 0.5 cm 0.8 cm x <0.1 cm 2.0 x 1.5 x 0.1 cm 100% pale pink Full callus intradermal bleeding Moderate serosanguineous Yes Surgical sharp Mediplast foam Foam, tape The following photo was taken: Left medial foot Right hallux Treatment: Cleansed wound with normal saline and gauze. Local Anesthesia used: None needed Conservative sharp [...] or symptoms of infection. Left hallux/foot with improved wounds. Tissue has receded and is now flatter and smooth as dermatology started him on Mediplast about two weeks ago. VNA has been applying this with foam over the top and secured with tape. Will continue with this at this time. He has been wearing post op shoes bilaterally to help offload the wounds. These were both significantly worn today so he was provided with new shoes today. Education was provided regarding the importance of [...] offload Plan: -Wound care as above -Offloading -Continue with Mediplast dressings per Dermatology. SKIN TANNER Plan of Care: Patient to return to the wound center 1-3 times per week, over the next 10 weeks, for ongoing wound evaluation, conservative sharp debridement and treatment by RN as outlined below. Verbal and written wound care instructions were provided. He/she will call with any questions or concerns. The patient will follow up here at the [facility] in two weeks. Instructions: Right great toe and left hallux/plantar foot Change dressing every 2-3 days or sooner for 50% or greater strike through drainage. Remove old dressing. Cleanse wound with wound cleanser or normal saline and gauze. Cut a piece of Mediplast to fit wound bed. Cover with foam and secure with tape Offload feet throughout the day. Float your [...] Beef, chicken, fish Beans, Lentils, peanut butter Polish and regular yogurt Cheese, eggs Boost, Ensure [...] taken care of by your physician or rn trauma. Avoid using any chemical or strong antiseptic solutions on your feet. Iodine, salicylic acid, corn/callus removers may burn the skin. [facility] with any worsening symptoms Saturday-Saturday 8:00AM-4:30PM ([phone]). If weekends / holidays / evenings, please report to the urgent care or call specialty team if they follow your wound. Cc: No referring provider defined for this encounter. PCP: Neha Mcmahan MD documented in this encounter Plan of Treatment Upcoming Encounters Date Type Department Care Team (Late st Contact Info) Description 01/13/2024 2:30 PM EDT [place] [address] Dillon Trinidad MD [facility] [place] [address] 01/21/2024 2:30 PM EDT Office [place] [phone] Rosa Elena Villagomez APRN [facility] [place] [address] 02/05/2024 2:00 PM EDT Office Visit Wound Care at [place] [phone] Rosa Elena Muhammad RN documented as of this encounter Visit Diagnoses Diagnosis Neuropathic ulcer of toe of right foot with fat layer exposed 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
--- OUTSIDE RECORDS SUMMARY | 2024-01-10 02:15 | XMS_ITS | Encounter Summary ---
[place] [address] Care Team Providers Care Frozen Food Department Manager Name Role Phone Neha Mcmahan MD Primary Care Provider Encounter Details Date Type Department Care Team (Latest Contact Info) Description 11/27/2023 Travel Social History Tobacco Use Types Packs/Day [...] 2:30 PM EDT Office Visit Rheumatology at [place] [phone] Dillon Trinidad MD [facility] [place] [address] 01/21/2024 2:30 PM EDT Office Visit [place] [phone] Rosa Elena Villagomez APRN [facility] [place] [address] 02/05/2024 2:00 PM EDT Office Visit [place] [phone] Rosa Elena Muhammad, RN documented as of this encounter Visit Diagnoses Not on filedocumented in this encounter Care Teams Frozen Food Department Manager Relationship Specialty Start Date End Date Neha Mcmahan MD [address] [place] [address] PCP - General Family Medicine 03/25/20 documented as of this encounter
--- OUTSIDE RECORDS SUMMARY | 2024-01-10 02:15 | XMS_ITS | Encounter Summary ---
Author Organization [facility] [place] [address] Care Team Providers Care Book Editor Name Role Phone Neha Mcmahan MD Primary Care Provider [phone] Encounter Details Date Type Department Care Team (Late st Contact Info) Description 11/27/2023 2:30 PM EDT Office [place] [address] Alison Guerrero, RN Neuropathic ulcer of toe of right [...] this encounter Patient Instructions * Patient Instructions* Alison Guerrero, RN - 11/27/2023 2:30 PM EDT Bilateral Hallux Wounds *please switch to mediplast (as prescribed by dermatology on 11/21/23) on wounds once picked up from the pharmacy by patient* Change dressing every 2-3 days or sooner for 50% or greater strike through drainage. Remove old dressing. Cleanse wound with wound cleanser or normal saline and gauze. Apply vashe soaked gauze to wound bed and let sit for 5 to 10 minutes and pat dry Cut a piece of Hydrofera Blue Ready to fit wound bed. Apply the dressing over the wound bed with the foam side towards the wound and the shiny film side facing up. Secure the dressing in place using Medipore tape OR Conform gauze and tape. Monitor for signs of infection which may include: Fever Sweats Chills Nausea, Vomiting or Diarrhea Unexplained increase in Blood Glucose levels At or around the wound site: Increased pain Swelling or edema Redness Warmth Purulent drainage (thick yellow/green drainage) Malodor [facility] with any above symptoms Saturday- Saturday 8:00AM-4:30PM ([phone]). If weekends / holidays / evenings, please report to the Emergency Department. documented in this encounter Progress Notes * Alison Guerrero RN - 11/27/2023 2:30 PM EDT Images from the original note were not included. [facility] sharepoint developer Note Reason for Visit: Patient is a [...] on 11/21/23 who is treating wounds as warts, patient has not yet picked up mediplast as prescribed. Objective: Activity/Mobility: Ambulatory w. assistive device uses a wheelchair for office visits at hospital Imaging: Reviewed prior to exam, see report in EMR for details. -Date of Last Pertinent Imaging: sent for X-rays of bilateral feet today 10/10/23 Vascular Studies: Ordered, not yet scheduled. -Date of Last ABIs: None spoke to wound care medical unit secretary to schedule KATE's coordinate with next visit, they will call patient with appt times. Specialty Visits Since Last Wound Care Visit: Podiatry today (Jeovanny) for biopsy of left hallux Pulses: Dorsalis Pedis: Right: Palpable Left: Palpable Posterior Tibia: Right: Palpable Left: Palpable Wound Assessment: Wound 11/27/23 11/05/23 10/10/23 Measurement (Initial) 09/30/23 Wound Bed & Thickness Periwound Skin Drainage Odor Debridement Primary Dressing Secondary Dressing Left hallux 0.8 cm x 0.4 cm x <0.1 cm Open area on abnormal tissue: 1.1cm x 0.2cm x <0.1cm Area 2.5 cm x 2.5 cm @ 9 to 0.5 cm 2.8 x 2.0 x <0.1 cm 100% pink smooth, hypergranular tissue Full Macerated callus intradermal bleeding Moderate Serosanguineous No Surgical (sharps instrument or laser) HFBR tape Right hallux 0.7 cm x 0.7 cm x <0.1 cm 1.0cm x 0.7cm x 0.1cm UM@7-10: 0.1 1.0 cm x 0.5 cm 0.8 cm x <0.1 cm 2.0 x 1.5 x 0.1 cm 50% pale pink 50% yellow Full Macerated callus intradermal bleeding Slight erythema no significant warmth Moderate serosanguineous Yes Surgical sharp HFBR tape Assessment of Wound: The wound remains stable to decreasing measurements. Right hallux wound with hypergranulation noted, this was treated with silver nitrate during our visit today. Patient was prescribed mediplast from dermatology at visit last week but has not picked up he was unaware that this was a prescription he thought it was something the [facility] would order, we discussed that he would need to contact the pharmacy ([facility]) and picker operator. Once he picks this up he should have [facility] apply at dressing changes and he voices understanding. We will continue with the application of Hydrofera Blue Ready foam to the wound bed for its antimicrobial and absorptive properties. This was thencovered by non-bordered foam for exudate management. Signs of Infection: there are no signs or symptoms of infection noted on assessment today PHOTOS Left hallux Right hallux Wound Treatment: Cleansing: Wound cleansed with normal saline and cleansed with Vashe Analgesia: none administered prior to debridement Debridement: Conservative sharp debridement was performed of the bilateral hallux toe. Devitalized tissue was removed using a #15 blade and a curette, down to and including subcutaneous tissue to reveal healthier tissue. Total area of debridement was 2.45 cm sq. Bleeding: Yes; moderate amount controlled with silver nitrate Silver Nitrate: applied to hypergranulation tissue Dressings/Compression Applied: Dressings applied to wounds as [...] - Continue wound care. - Diagnostics: -ABIs: done on 10/28/23 -X-Ray: [...] nature) - Scheduled Consultations/Referrals and Appointment Dates: May need referral to Ortho - Offloading: continue to offload as able Wound Care Visit Orders/Medicare Plan of Care: RN Plan of Care: Patient to return to the wound center 1-3 times per week, over the next 10 weeks for ongoing wound evaluation, conservative sharp debridement and treatment by RN as indicated by Alexandra Renteria APRN, on DOS 11/05/23. Follow up with Provider at least every 10 visits. Post Visit Instructions: Return to Wound Clinic: in two weeks VNA: Yes [facility]. Instructions Faxed: Yes Dressing Instructions: Bilateral Hallux Wounds *please switch to mediplast (as prescribed by dermatology on 11/21/23) on wounds once picked up from the pharmacy by patient* Change dressing every 2-3 days or sooner for 50% or greater strike through drainage. Remove old dressing. Cleanse wound with wound cleanser or normal saline and gauze. Apply vashe soaked gauze to wound bed and let sit for 5 to 10 minutes and pat dry Cut a piece of Hydrofera Blue Ready to fit wound bed. Apply the dressing over the wound bed with the foam side towards the wound and the shiny film side facing up. Secure the dressing in place using Medipore tape OR Conform gauze and tape. Monitor for signs of infection which may include: Fever Sweats Chills Nausea, Vomiting or Diarrhea Unexplained increase in Blood Glucose levels At or around the wound site: Increased pain Swelling or edema Redness Warmth Purulent drainage (thick yellow/green drainage) Malodor Contact the [facility] with any above symptoms Saturday- Saturday 8:00AM-4:30PM ([phone]). If weekends / holidays / evenings, please report to the Emergency Department. Supplies Ordered: [facility] documented in this encounter Plan of Treatment Upcoming Encounters Date Type Department Care Team (Late st Contact Info) Description 01/13/2024 2:30 PM EDT Office [place] [phone] Dillon Trinidad MD [facility] [place] [address] 01/21/2024 2:30 PM EDT Office [place] [phone] Rosa Elena Villagomez APRN [facility] [place] [address] 02/05/2024 2:00 PM EDT Office [place] [phone] Rosa Elena Muhammad, RN documented as of this encounter Visit Diagnoses Diagnosis 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
--- OUTSIDE RECORDS SUMMARY | 2024-01-10 02:15 | XMS_ITS | Encounter Summary ---
[place] [address] Care Team Providers Care Instructional Facilitator Name Role Phone Neha Mcmahan MD Primary Care Provider [phone] Encounter Details Date Type Department Care Team (Latest Contact Info) Description 09/30/2023 Travel Social History Tobacco Use Types Packs/Day [...] 2:30 PM EDT Office Visit Rheumatology at [place] [phone] Dillon Trinidad MD [facility] [place] [address] 01/21/2024 2:30 PM EDT Office [place] [phone] Rosa Elena Villagomez APRN [facility] [place] [address] 02/05/2024 2:00 PM EDT Office [place] [phone] Rosa Elena Muhammad, RN documented as of this encounter Visit Diagnoses Not on filedocumented in this encounter Care Teams Instructional Facilitator Relationship Specialty Start Date End Date Neha Mcmahan MD [address] [place] [address] PCP - General Family Medicine 03/25/20 documented as of this encounter
--- OUTSIDE RECORDS SUMMARY | 2024-01-10 02:15 | XMS_ITS | Encounter Summary ---
Author Organization [facility] [place] [address] Care Team Providers Care Dyer Assistant Name Role Phone Neha Mcmahan MD Primary Care Provider [phone] Reason for Visit * Reason Comments Medication Refill Lasix Encounter Details Date Type Department Care Team (Late st Contact Info) Description 04/02/2023 Refill Cardiology at [address] [phone] Mariam Dutta [facility] [place] [address] Medication Refill (Lasix) Social History Tobacco Use Types Packs/Day Years [...] 2:30 PM EDT Office [place] [phone] Dillon Trinidad MD [facility] [address] [place] [address] 01/21/2024 2:30 PM EDT Office [place] [phone] Rosa Elena Villagomez [employer] SUPERVISOR [facility] [place] [address] 02/05/2024 2:00 PM EDT Office [place] [address] Rosa Elena Muhammad RN documented as of this encounter Visit Diagnoses Diagnosis Pulmonary hypertension Other chronic pulmonary heart diseases documented in this encounter Care Teams Dyer Assistant Relationship Specialty Start Date End Date Neha Mcmahan MD [address] [place] [id number] PCP - General Family Medicine 03/25/20 documented as of this encounter
--- OUTSIDE RECORDS SUMMARY | 2024-01-10 02:15 | XMS_ITS | Encounter Summary ---
Author Organization [facility] Pr[facility]ant [facility] [place] [place] [address] Care Team Providers Care Configurator Name Role Phone Neha Mcmahan MD Primary Care Provider [phone] Reason for Visit * Reason Comments Follow-up Attention routine na il/foot care Encounter Details Date Type Department Care Team (Late st Contact Info) Description 11/05/2023 4:00 PM EDT Office [place] [address] Karma Souza RN Neuropathy; Onychomycosis Social History Tobacco Use Types Packs/Day Years Used Date Smoking Tobacco: Never Smokeless Tobacco: Never Alcohol Use Standard Drinks/Week Comments Not Currently 0 (1 standard drink = 0.6 oz pur e alcohol) Sex and Gender Information Value Date Recorded Sex Assigned at Not on file Gender Identity Not on file Sexual Orientation Not on file documented as of this encounter Progress Notes * Karma Souza, RN - 11/05/2023 4:00 PM EDT [facility] Note Name: Jori Manzanares. Age: 68 y.o.. MR#: [id number] Date of Service: 11/05/2023 Chief Complaint: difficult to trim toenails and onychomycosis HPI: Jori Manzanares. is a 68 y.o.. year old male with neuropathy who presents today for nail care. ROS: Denies F/C/N/V/CP/SOB/cough. Patient's medications, allergies, past medical, surgical, social and family histories were reviewedand updated as appropriate. Physical Exam: Gen: alert, oriented. NAD. Derm: Nails are thickened, dystrophic, discolored and elongated. No interdigital macerations. No erythema or ecchymosis noted. Callous to right medial heel, and left 3rd hyponychium. Open lesions to bilateral hallux which wound care saw today and dressed with Hydrafera blue. Skin is warm, dry and supple. Vasc: DP/PT pulses present. CFT < 3 seconds digits 1-5 bilateral. Hair absent to digits bilateral. Trace non-pitting ankle edema. Neuro: Epicritic sensation impaired to light touch bilateral. Protective sensation 2/10 to feet with [place] Aung 5.07 monofilament testing MSK: Patient ambulates independently. He has a history of left 2nd toe amp. Assessment/Plan: Jori Light is a 68 y.o.. year old male with neuropathy and onychomycosis. Procedure: Performed trimming and debridement of 10 dystrophic nails using sterile nippers and electric damaris without incident. Debrided callous x2 with disposable sterile curette and file. Follow up: Every 2-3 months for routine foot care, sooner should issues arise. documented in this encounter Plan of Treatment Upcoming Encounters Date Type Department Care Team (Late st Contact Info) Description 01/13/2024 2:30 PM EDT Office [place] [phone] Dillon Trinidad MD [facility] [place] [address] 01/21/2024 2:30 PM EDT Office [place] [phone] Rosa Elena Villagomez APRN [facility] [place] [address] 02/05/2024 2:00 PM EDT Office [place] [phone] Rosa Elena Muhammad RN documented as of this encounter Visit Diagnoses Diagnosis Neuropathy Mononeuritis of unspecified site Onychomycosis Dermatophytosis of nail documented in this encounter Care Teams Configurator Relationship Specialty Start Date End Date Neha Mcmahan MD [address] [place] [address] PCP - General Family Medicine 03/25/20 documented as of this encounter
--- OUTSIDE RECORDS SUMMARY | 2024-01-10 02:15 | XMS_ITS | Encounter Summary ---
Author Organization [facility] [place] [address] Care Team Providers Care Wire Web Worker Name Role Phone Neha Mmcahan MD Primary Care Provider [phone] Encounter Details Date Type Department Care Team (Late st Contact Info) Description 06/24/2023 3:15 PM EST Office Visit [place] [phone] [facility] DR [place] [address] Pulmonary artery hypertension Social History Tobacco Use Types Packs/Day [...] Sign Reading Time Taken Comments Blood Pressure 118/61 06/24/2023 2:50 PM EST Pulse 70 06/24/2023 2:50 PM EST Temperature 37 ??C (98.6 ??F) 06/24/2023 2:50 PM EST Respiratory Rate - - Oxygen Saturation 99% 06/24/2023 2:50 PM EST Inhaled Oxygen Concentration - - Weight 144.8 kg (319 lb 3.6 oz) 06/24/2023 2:50 PM EST Height 175.3 cm (5' 9) 06/24/2023 2:50 PM EST Body Mass Index 47.14 06/24/2023 2:50 PM EST documented in this encounter Patient Instructions * Patient Instructions* Dillon Trinidad MD - 06/24/2023 3:15 PM EST Please continue to follow up with your pulmonary physician. Continue to use your oxygen documented in this encounter Progress Notes * Dillon Trinidad MD - 06/24/2023 3:15 PM EST Rheumatology Outpatient Follow Up Note PCP: Neha Mcmahan MD Jori Manzanares is a 67 y.o. male who we are seeing for the continuing management of pulmonary hypertension. 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 He has no fever, chills or night sweats. He continues to have dyspnea at rest and w/ exertion but there has been no significant changes from his baseline. He has no coughing, wheezing or worsening lower extremity edema. He can continue to walk across the parking lot but does have to take some rest. He denies any dry eyes, dry mouth, symptoms of Raynauds, any new skin lesions , rashes or photosensitive rashes. He has no weakness. 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 NCM on 03/18/23 was normal. ROS (positives in bold): General (-)fevers, (-)chills, (-)night sweats, (-)wt loss/gain. HEENT (-)inflammatory eye disease, (-)vision loss, (-)epistaxis, (-)bleeding gums, (-)oral ulcers, (-)dry eyes, (-)dry mouth, (-)dysphagia, (-)GERD, (-)photo sensitivity CVS (-)chest pain, (-)palpitations Pulm (+)shortness of breath, (-)NOYOLA, (-)wheezes, (-)cough, (-)pleuritic pain GI (-)N/V, (-)abdominal pain, (-)hematochezia (-)hematuria, (-)dysuria MS (-)muscle weakness, (-)paralysis, (-)joint pain Endo (-)thyroid disorders, (-)diabetes Neuro (-)focal weakness, (-)paresthesias, (-)gait instability. Skin (-)Raynaud's, (-)rashes - no psoriasis Psych (-) mood disorder. Meds and Allergies: Reviewed in eDH Physical exam: BP 118/61 Pulse 70 Temp 37 ??C (98.6 ??F) (Temporal) Ht 175.3 cm (5' 9) Wt (!) 144.8 kg (319 lb 3.6 oz) SpO2 99% BMI 47.14 kg/m?? General: AAOx3, NAD HEENT: (-)scleral injection, mucous membranes are moist, no oral mucosal ulcerations Skin: (-)ulcers, (-)rash Neck: Supple, no lymphadenopathy, full range of motion. Cardiovascular: RR, (-)murmurs, rubs, or gallops. Lungs: Clear to auscultation bilaterally. (-)R/R/W Neuro: Alert and oriented x3. Extremities: Shoulders: FROM, non-tender to palpation Elbows:FROM, (-)pain, (-)nodules Wrists: FROM, no swelling, non-tender Hands: No synovitis, no MCP compression tenderness, full claw and fist. Knees: (-)effusions, non-tender ROM Ankles: FROM, non-tender, no swelling Labs/Studies: Reviewed. 09/21/21 SERGIO 1:640 dsDNA 52 Negative dsDNA Crithidia 6 panel KARL - negative Centromere negative RNA Polymerase III negative 12/10/22 C3 177 C4 34 dsDNA negative 03/18/23 BNP 36 CRP 5.6 C-ANCA negative P-ANCA positive MPO negative PR3 negative Seernity-1 negative PL7 negative PL12 negative EJ negative OJ negative Ka negative Za negative Ku negative Mi2 negative MDA5 negative TIF negative NXP negative DAVID negative SRP negative PM/SCL 100 negative Radiology: Echo (02/07/23) EF 60%. R ventricle with mildly reduced systolic function. Pulmonary Artery Systolic Pressure 27mm Hg Chest CT (04/12/23): No apparent new pathology compared to prior outside CT from 2019. Multiple bilateral punctate calcified nodules may be the result of remote granulomatous disease or varicella pneumonia. There is a very subtle mosaic pattern of the lungs which is unchanged compared to the prior exam and is compatible with areas of air trapping. No expiratory images are available to confirm this. PFT (04/12/23): FVC 47% FEV 1 46% FEV1/FVC 99% DLCO 67% DLCO VA 98% Restrictive lung pathology of PFTs. Assessment/Plan: Severe Pulmonary Artery HTN: The patient comes in for routine exam due to severe pulmonary artery hypertension which has been stable since our last exam. He is on chronic 4-5L NC and there has been no sudden or significant decline in his health with regards to his pulmonary symptoms or increasing oxygen use. His SERGIO has been elevated but he still does not have any other symptoms concerning for other autoimmune/connective tissue disease. His dsDNA is negative by Crithidia and he has no other active clinical domains to consider systemic lupus erythematous. His 6 panel KARL is negative for Sjogren or Systemic Sclerosis as anetiology, as well as general lack of symptoms. The patient denies any new rashes or weakness concerning for PM/DM/Anti-Synthetase Syndrome. He has followed up w/ cardiology who note that his symptomsare out of proportion to the degree of his pulmonary hypertension but his rheumatological workup has been unremarkable. From our last visit his myositis panel is negative. His Chest CT does not show any significant interstitial lung disease. His Echo shows a pulmonary artery pressure of 27mm Hg. His pulmonary HTN is most likely a combination of idiopathic vs obesity. -Cont w/ Nifedipine 60mg daily -Cont w/ supplemental oxygen 4-5 L per day -Myositis panel is unremarkable -Current rheumatological workup w/ elevated SERGIO but negative 6 Burroughs KARL. -Elevated P-ANCA has no concordance to MPO. Suspect false positive. -His symptoms are at baseline and are due to a combination of idiopathic + obesity. 2. Preventive Medicine: Colon Cancer Screening - Colonoscopy ordered on 08/24/21 but unclear if completed Td - 08/24/21 Zoster - 02/22/21 PPVS 23 - 11/27/16 - Will need repeat vaccine for age >65 PCV 13 or 20 - Will need vaccine for age >65 Follow up in 6 months Patient was discussed with Dr. Alonzo Trinidad MD Rheumatology Fellow Pager: [phone] * Alonzo Mckeon MD - 06/24/2023 3:15 PM EST Rheumatology Attending Attestation Note I have seen and examined the patient, reviewed the above history, exam, and assessment. I agree with the details as written. The assessment and plan was formulated with the fellow, Dillon Trinidad MD in discussion with me and I agree with the details as written with possible revisions below. Pertinent History: Jori Manzanares is a 67 y.o. male with severe PA-HTN with extensive rheumatologic workup which was negative and lacking clinical evidence of underlying disease at this time. Pertinent Exam: high BMI, on O2 Major issues addressed and Plan: Recommend contiued monitoring terminal carman in rheum and rferral to weight and wellness for weight loss Alonzo Mckeon MD documented in this encounter Plan of Treatment Upcoming Encounters Date Type Department Care Team (Late st Contact Info) Description 01/13/2024 2:30 PM EDT Office Visit [place] [address] [facility] [address] [place] [address] 01/21/2024 2:30 PM EDT Office [place] [phone] Rosa Elena Villagomez APRN [facility] [place] [address] 02/05/2024 2:00 PM EDT Office [place] [address] Rosa Elena Muhammad RN documented as of this encounter Visit Diagnoses Diagnosis Pulmonary artery hypertension Other chronic pulmonary heart diseases documented in this encounter Care Teams Wire Web Worker Relationship Specialty Start Date End Date Neha Mcmahan MD [address] [place] [address] PCP - General Family Medicine 03/25/20 documented as of this encounter
--- OUTSIDE RECORDS SUMMARY | 2024-01-10 02:15 | XMS_ITS | Encounter Summary ---
[place] [address] Care Team Providers Care Culinary Arts Instructor Name Role Phone Neha Mcmahan MD Primary Care Provider [phone] Encounter Details Date Type Department Care Team (Latest Contact Info) Description 11/21/2023 Travel Social History Tobacco Use Types Packs/Day [...] 2:30 PM EDT Office Visit Rheumatology at [place] [phone] Dillon Trinidad MD [facility] [place] [address] 01/21/2024 2:30 PM EDT Office [place] [phone] Rosa Elena Villagomez APRN [facility] [place] [address] 02/05/2024 2:00 PM EDT Office [place] [phone] Rosa Elena Muhammad, RN documented as of this encounter Visit Diagnoses Not on filedocumented in this encounter Care Teams Culinary Arts Instructor Relationship Specialty Start Date End Date Neha Mcmahan MD [address] [place] [address] PCP - General Family Medicine 03/25/20 documented as of this encounter
--- OUTSIDE RECORDS SUMMARY | 2024-01-10 02:15 | XMS_ITS | Encounter Summary ---
[place] [address] Care Team Providers Care Green Energy Marketing Analyst Name Role Phone Neha Mcmahan MD Primary Care Provider [phone] Encounter Details Date Type Department Care Team (Latest Contact Info) Description 10/28/2023 Travel Social History Tobacco Use Types Packs/Day [...] 2:30 PM EDT Office Visit Rheumatology at [place] [phone] Dillon Trinidad MD [facility] [place] [address] 01/21/2024 2:30 PM EDT Office [place] [phone] Rosa Elena Villagomez APRN [facility] [place] [address] 02/05/2024 2:00 PM EDT Office [place] [phone] Rosa Elena Muhammad, RN documented as of this encounter Visit Diagnoses Not on filedocumented in this encounter Care Teams Green Energy Marketing Analyst Relationship Specialty Start Date End Date Neha Mcmahan MD [address] [place] [address] PCP - General Family Medicine 03/25/20 documented as of this encounter
--- OUTSIDE RECORDS SUMMARY | 2024-01-10 02:15 | XMS_ITS | Encounter Summary ---
Author Organization [facility] Address [facility] [place] [address] Care Team Providers Care Blade Changer Name Role Phone Neha Mcmahan MD Primary Care Provider [phone] Encounter Details Date Type Department Care Team (Latest Contact Info) Description 10/10/2023 4:00 PM EDT Office Visit Podiatry at [facility] [place] [phone] Evie Up D[place] [address] Skin ulcer of left great toe with fat layer exposed; Inflammation of interphalangeal joint of right toe due to infection Social History Tobacco Use Types Packs/Day Years [...] this encounter Patient Instructions * Patient Instructions* Evie Up DPM - 10/10/2023 4:00 PM EDT If you develop signs/symptoms of infection which may include the following: Fever Sweats Chills Nausea, Vomiting or Diarrhea General malaise On the feet: Increased pain Swelling or edema Redness Warmth Pus Malodor Contact directly with any above symptoms Saturday-Saturday 8:00AM-4:30PM. If weekends/holidays/evenings, please report to the Emergency Department. documented in this encounter Progress Notes * Evie Up DPM - 10/10/2023 4:00 PM EDT Images from the original note were not included. Minor Procedure Note Patient Name: Jori Manzanares : 1955 MR#: [id number] Date of Procedure: 10/10/2023 Surgeon: Evie Up DPM Preoperative diagnosis: left hallux chronic ulcer Postoperative diagnosis: same Procedures: wound biopsy left hallux Anesthesia: local anesthesia (1 cc of 2% Lidocaine Plain) Hemostasis: Surgifoam Estimated Blood Loss: < 2 cc Materials: None Injectables: 1 cc of 2% Lidocaine Plain Specimens: sent to pathology Condition: stable with no complications HPI: Jori Manzanares is a 67 y.o. male with chronic left hallux wound with atypical tissue who presents for wound biopsy, he follows up with wound care regularly. I discussed risk, benefits, possible complications, procedure and postprocedure course. Written consent obtained. Left foot xray WB ordered. Right foot also evaluated. Extended abx to pharmacy of choice for right great toe changes (see wound care note) 1 week. Rx sent to pharmacy, patient tolerating well thus far. Procedure: Following written consent for procedure and appropriate skin marking of left lower extremity, patient was positioned in a comfortable semireclined supine position. A timeout was completed.Preoperative injection was then performed on the left foot using 1 cc of 2% lidocaine plain. Site was prepped with Betadine. A 3 mm punch biopsy was then taken from the chronic left hallux ulceration. A #15 scalpel and forceps were used to remove specimen which was sent in formalin for pathology. Order placed. Surgifoam and direct pressure used for hemostasis. No active bleeding. Dressing applied by wound care team. Encouraged close monitoring continue wound care. All questions answered. Patient verbalized understanding of all instructions. Evie Up DPM Hvac Technician [facility] documented in this encounter Plan of Treatment Upcoming Encounters Date Type Department Care Team (Late st Contact Info) Description 01/13/2024 2:30 PM EDT Office [place] [address] Dillon Trinidad MD [facility] [place] [address] 01/21/2024 2:30 PM EDT Office [place] [address] Rosa Elena Villagomez APRN [facility] [place] [address] 02/05/2024 2:00 PM EDT Office [place] [address] Rosa Elena Muhammad RN documented as of this encounter Procedures Procedure Name Priority Date/Time Associated Diagnosis Comments SPECIMEN TO PATHOLOGY Routine 10/10/2023 3:16 PM EDT Skin ulcer of left great toe with fat layer exposed SURGICAL PATHOLOGY REPORT Routine 10/10/2023 3:10 PM EDT documented in this encounter Results * XR Foot Min 3 views Left (Generic) (10/10/2023 4:24 PM EDT) WORKSTATION ID [id number] RAD Anatomical Region Laterality Modality Foot Left Digital [...] who have questions please contact the health reproductive healthcare assistant that requested your imaging first. ? Electronically signed by: Fern Lomax MD, [facility] ([phone]), at 10/11/2023 10:04 AM Narrative 10/11/2023 10:04 AM EDT EXAMINATION: XR [...] chronic left hallux ulcer, , [facility] TECHNIQUE: LEFT foot, 3 view[s] COMPARISON: Radiographs, [...] patients who have questions please contactthe health reproductive healthcare assistant that requested your imaging first. Evie Up DPM IMG DX ORDERABLES * Specimen to Pathology (10/10/2023 3:16 PM EDT) AP Specimen 10/10/2023 3:16 PM EDT 10/10/2023 3:16 PM EDT Narrative [facility] - 10/10/2023 3:16 PM EDT Specimen requisition ordered. ??Separate Pathology report to follow Evie Up DPM PATHOLOGY/CYTOLOGY O RDERABLES [facility] [place] [address] * Surgical Pathology Report (10/10/2023 3:10 PM EDT) FINAL DIAGNOSIS (AP) [id number] ? Location: 4MW The signing pathologist has (i) examined the relevant preparation(s) for the specimen(s) and (ii) rendered or confirmed the diagnosis(es). . ?Surgical Pathology DIAGNOSIS L eft hallux, skin punch biopsy: - ??Verrucoid epidermal hyperplasia with underlying dermal fibrosis and vascular ectasia (see discussion) Electronically signed by: ?Wilfrido RODRIGUEZ, Marsha Verified: ??10/23/2023 16:54 ??Dermatopathologist Performed at: ??-[facility] [place] [place] Dept. of Pathology, [place] [address] Credit Risk Associate: Dixie Regan MD, FCAP, ??CLIA Certificate: [id number] DISCUSSION The differential diagnosis could include an irritated verruca, prurigo or less likely a digital fibrokeratoma. ?? Clinicopathologic correlation is recommended. ?? Should the biopsy represent portion of a larger lesion, then the diagnosis may not be extrapolated to the lesion in its entirety. SPECIMEN(S) SUBMITTED A - left hallux, skin punch (1) CLINICAL INFORMATION Left hallux chronic ulcer SPECIMEN PROCESSING A - Labeled/Fixative: Patient demographics, formalin. Quantity/Size: ??Single, 0.5 cm excised to a depth of 0.6 cm. Tissue Description: Punch of ulcerated zelaya-pink skin. Sections/Processing: Inked, bisected and entirely submitted in 1 cassette labeled A1. ??sdy 10/23/2023 4:54 PM EDT [facility] 10/10/2023 3:10 PM EDT Evie Up DPM PATHOLOGY/CYTOLOGY O RDERABLES [facility] [place] [address] documented in this encounter Visit Diagnoses Diagnosis Skin ulcer of left great toe with fat layer exposed Inflammation of interphalangeal joint of right toe due to infection Diabetic ulcer of toe of right foot associated with diabetes mellitus due to underlying condition, with fat layer exposed Skin ulcer of left great toe with fat layer exposed documented in this encounter Care Teams Blade Changer Relationship Specialty Start Date End Date Neha Mcmahan MD [address] [place] [address] PCP - General Family Medicine 03/25/20 documented as of this encounter
--- OUTSIDE RECORDS SUMMARY | 2024-01-10 02:15 | XMS_ITS | Encounter Summary ---
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 Remove old dressing. Cleanse wound with wound cleanser or normal saline and gauze. Cut a piece of Mediplast to fit wound bed. Cover with foam and secure with tape Dr. Up ordered a new compounded wart medication (if covered by insurance and mailed to your home, VNA may start to use as directed on the bottle) You would stop the mediplast when starting new compounded med. Patient needs to know cost to him before purchasing. Offload feet throughout the day. Float your [...] Beef, chicken, fish Beans, Lentils, peanut butter Tajik and regular yogurt Cheese, eggs Boost, Ensure shakes Protein powder in a smoothie of your choice documented in this encounter Progress Notes * Rosa Elena Muhammad RN - 12/24/2023 2:30 PM EDT Images from the original note were not included. [facility] reimbursement coordinator Note Reason for Visit: Patient is a [...] Right: Palpable Left: Palpable Wound Assessment: Wound 12/24/23 12/10/23 11/27/23 11/05/23 10/10/23 Measurement (Initial) 09/30/23 Wound Bed & Thickness Periwound Skin Drainage Odor Debridement Primary Dressing Secondary Dressing Left hallux Open area: 0.6 cm x 0.1 cm [...] foam Foam, tape Left 2nd toe Healed healed healed healed No open area 0.2 x 0.2 <0.1 cm 100% pale pink with verrucoid tissue full Callus skin tone None No None None None Right hallux 0.5 cm x 0.6 cm x <0.1 [...] healthier tissue. Total area of debridement was .36 cm sq. Bleeding: mild controlled with saline and gauze Silver Nitrate: applied to hypergranulation tissue Dressings/Compression [...] Rx for compounded Fluoroucil 5%/Salicylic Acid 17% cream-[facility] compounded cream (will stop medipast pads when compounded meds received and start new med as directed) - Offloading: continue to offload as able [...] to Wound Clinic: in two weeks VNA: [facility]. Instructions Faxed: Yes Dressing Instructions: Monitor for signs of infection which may include: Fever Sweats Chills Nausea, Vomiting or Diarrhea Unexplained increase in Blood Glucose levels At or around the wound site: Increased pain Swelling or edema Redness Warmth Purulent drainage (thick yellow/green drainage) Malodor Contact the [facility] with any above symptoms Saturday- Saturday 8:00AM-4:30PM ([phone]). If weekends / holidays / evenings, please report to the Emergency Department. Supplies Ordered: [facility] documented in this encounter Plan of Treatment Upcoming Encounters Date Type Department Care Team (Late st Contact Info) Description 01/13/2024 2:30 PM EDT Office [place] [phone] Dillon Trinidad MD [facility] [place] [address] 01/21/2024 2:30 PM EDT Office [place] [address] Rosa Elena Villagomez APRN [facility] [place] [address] 02/05/2024 2:00 PM EDT Office [place] [phone] Rosa Elena Muhammad, RN documented as of this encounter Visit Diagnoses Diagnosis 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
--- OUTSIDE RECORDS SUMMARY | 2024-01-10 02:16 | XMS_ITS | Encounter Summary ---
Author Organization [facility] [place] [address] Care Team Providers Care Quality Control Lead Name Role Phone None Primary Care Provider Unavailabl e Encounter Details Date Type Department Care Team (Late st Contact Info) Description 04/04/2019 Orders Only Pulmonology at [address] Ruslan Turk MD [facility] [place] [address] Dyspnea, unspecified type (Primary Dx) Social History Tobacco Use Types Packs/Day Years Used Date Smoking Tobacco: Never Sex and Gender Information Value Date Recorded Sex Assigned at Not on file Gender Identity Not on file Sexual Orientation Not on file documented as of this encounter Plan of Treatment Upcoming Encounters Date Type Department Care Team (Late st Contact Info) Description 01/13/2024 2:30 PM EDT Office Visit Rheumatology at [address] Dillon Trinidad MD [facility] [place] [address] 01/21/2024 2:30 PM EDT Office [place] [address] Rosa Elena Villagomez APRN [facility] [address] 02/05/2024 2:00 PM EDT Office [place] [address] Rosa Elena Muhammad, RN documented as of this encounter Results * Pulmonary Function Testing (08/18/2019 11:59 PM EST) Narrative Eboni Lees MD - 08/18/2019 11:59 PM EST Eboni Lees MD ? 08/20/2019 ??8:32 AM Pulmonary Function Test Interpretation FEV1 is reduced. ??FVC is reduced. ??The FEV1/FVC ratio is normal. Diffusion capacity is normal. Resting oxyhemoglobin saturation was decreased. Resting oximetry was not assessed while the patient was breathing room air. Resting oximetry was performed on ??supplemental oxygen, the flow rate was 3 liters per minute. 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
--- OUTSIDE RECORDS SUMMARY | 2024-01-10 02:16 | XMS_ITS | Encounter Summary ---
Author Organization [facility] [place] [address] Care Team Providers Care School Social Worker Name Role Phone Neha Mcmahan MD Primary Care Provider [phone] Encounter Details Date Type Department Care Team (Latest Contact Info) Description 12/20/2021 3:30 PM EDT TH Visit (TeleHealth) Cardiology at [address] [phone] Mariam Dutta, MEDIA SERVICES COORDINATOR [facility] [place] [address] Pulmonary hypertension Social History Tobacco Use Types [...] as of this encounter Progress Notes * Mariam Dutta, ABIMAEL - 12/20/2021 3:30 PM EDT Images from the original note were not included. [facility] Cardi[facility] Medicine Pulmonary Hypertension Clinic [place] [id number] Reason for Consultation Referred by Chelsea Bolaños MD (rheumatology) for evaluation of possible pulmonary hypertension Identification Jori Manzanares is a 66 y.o. with the following previously identified CV problems: 1. Pulmonary HTN, multifactorial with PVR 4 and + response to Sang 2. Hx of CHF requiring hospitalization 3. Essential hypertension Comorbidities include SLE, restrictive lung pattern, EMI (BiPap), Chronic resp failure Lives alone in [facility] in [facility]. 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 Disabled related to back pain Rare EtOH. Never smoker No children Maternal aunt with murmur Mother CHF 89 yo Father CHF 91 yo Estranged brother History This is a telephone OV to review the results of RHC. Results noted below. Risk Factor Yes No Comments Family hx [...] high altitude x Medications Current Outpatient Medications: ??? spironolactone (Aldactone) 25 mg Tablet, Take 25 mg by mouth daily., Disp: , Rfl: ??? losartan (Cozaar) 25 mg Tablet, Take 25 mg by mouth daily., Disp: , Rfl: ??? Docusate Sodium 100 mg Tablet, Take 100 mg by mouth daily., Disp: , Rfl: ??? melatonin 5 mg Tablet, Take 10 mg by mouth., Disp: , Rfl: ??? diclofenac (Voltaren) 1 % Gel, Apply 2 grams to upper extremities and 4 grams to lower extremities up to 4 times daily as needed., Disp: 100 g, Rfl: 3 ??? acetaminophen (Tylenol) 325 mg Tablet, Take 650 mg by mouth every 4 hours as needed for Pain (2tablets at befor bed)., Disp: , Rfl: ??? furosemide (Lasix) 20 mg Tablet, , Disp: , Rfl: ??? allopurinoL (Zyloprim) 300 mg Tablet, Daily, Disp: , Rfl: ??? vitamin E (vitamin E) 400 unit Capsule, Take by mouth., Disp: , Rfl: ??? lisinopril (PRINIVIL;ZESTRIL) 40 mg tablet, Take 40 mg by mouth daily. , Disp: , Rfl: ??? traMADol (ULTRAM) 50 mg tablet, Take 50 mg by mouth every 6 hours as needed. , Disp: , Rfl: ??? indomethacin (INDOCIN) 50 mg capsule, Take 50 mg by mouth 2 times daily (with meals). , Disp: ,Rfl: ??? DOCOSAHEXANOIC ACID/EPA (FISH OIL ORAL), Take by mouth 3 times daily. , Disp: , Rfl: ??? VITAMIN B COMPLEX (B COMPLEX ORAL), Take by mouth daily. , Disp: , Rfl: ??? CHOLECALCIFEROL, VITAMIN D3, (VITAMIN D3 ORAL), Take by mouth daily. , Disp: , Rfl: ??? SAW PALMETTO XTR/ZINC PICOLIN (SAW PALMETTO EXTRACT ORAL), Take by mouth 3 times daily. , Disp:, Rfl: ??? ASCORBATE CALCIUM (VITAMIN C ORAL), Take by mouth daily. , Disp: , Rfl: ??? GLUC HCL/GLUC FLOYD/AC-D-GLUCOS (GLUCOSAMINE COMPLEX ORAL), Take by mouth 3 times daily. , Disp: ,Rfl: Allergies Allergen Reactions ??? Amlodipine Besylate ??? Lisinopril Exam There were no vitals taken for this visit. There is no height or weight on file to calculate BMI. Wt Readings from Last 3 Encounters: 11/21/21 (!) 151 kg (333 lb) 11/08/21 (!) 151.3 kg (333 lb 8 oz) 08/18/19 (!) 149 kg (328 lb 7.8 oz) PH Relevant Test Date Comments LFTs, SERIGO, HIV SERGIO + 1:640. HIV neg. LFTs wnl CT of chest PFTs 08/2019 FVC 1.96 (47%). FEV1 1.47 [...] 60 Mod-sev mild 10/2021 III UTD 5L EKG: Normal sinus rhythm at 74 bpm. [place] is normal. There is no evidence of prior AL or ST segment abnormalities. Labs Lab Results Component Value Date WBC 10.5 (H) 11/21/2021 HGB 12.8 (L) 11/21/2021 Lab Results Component Value Date NA 140 11/21/2021 K 4.1 11/21/2021 CL 100 11/21/2021 CO2 30 11/21/2021 BUN 16 11/21/2021 CREATININE 0.89 11/21/2021 GLUCOSE 100 11/21/2021 CALCIUM 9.5 11/21/2021 Lab Results Component Value Date ALT 8 11/21/2021 AST 12 11/21/2021 ALKPHOS 70 11/21/2021 BILITOT 0.4 11/21/2021 No results found for: TSH Assessment Severe PH with non-group 2 HD and PVR 4 with favorable response to aSng. Suspect that this is multifactorial, but will trial CCB therapy. Plan ??? Request echo report from [facility] ??? Begin nifedipine 30 mg daily - uptitrate as tolerated ??? F/u in 6-8 weeks with Merary Dutta APRN cc: ?? Neha Mcmahan MD, [address] / [place] [address] Patient verbally consents to this telephone visit and understands that this visit may be billed, similar to a clinic office visit. I provided care to the patient today via telephone call. The total time associated with this visit was 20 minutes. documented in this encounter Plan of Treatment Upcoming Encounters Date Type Department Care Team (Late st Contact Info) Description 01/13/2024 2:30 PM EDT Office [place] [address] Dillon Trinidad MD [facility] [place] [address] 01/21/2024 2:30 PM EDT Office [place] [phone] Rosa Elena Villagomez APRN [facility] [place] [address] 02/05/2024 2:00 PM EDT Office [place] [address] Rosa Elena Muhammad RN documented as of this encounter Visit Diagnoses Diagnosis Pulmonary hypertension Other chronic pulmonary heart diseases documented in this encounter Care Teams School Social Worker Relationship Specialty Start Date End Date Neha Mcmahan MD [address] [place] [address] PCP - General Family Medicine 03/25/20 documented as of this encounter
--- OUTSIDE RECORDS SUMMARY | 2024-01-10 02:16 | XMS_ITS | Encounter Summary ---
Author Organization [facility] Address [facility] [place] [address] Care Team Providers Care Beam Builder Name Role Phone None Primary Care Provider Unavailabl e Encounter Details Date Type Department Care Team (Latest Contact Info) Description 08/18/2019 12:20 PM EST - 08/18/2019 11:59 PM EST Hospital Encounter [place] [phone] Dyspnea, unspecified type Discharge Disposition: Home Social History Tobacco Use [...] Sig Dispensed Refills Start Date End Date mupirocin (Bactroban) 2 % Ointment Apply topically as needed. 03/23/2019 Iiybg-[id number]-[id number]-EPA-Fish Oil 1,000 mg (120 mg-180 mg) Capsule Take 2 capsules by mouth daily. 01/12/2014 acetaminophen (Tylenol) 325 mg Tablet Take 650 [...] ORAL) Take by mouth 3 times daily. furosemide (Lasix) 20 mg Tablet Take 60 mg by mouth 2 times daily. 06/29/2019 02/04/2023 lisinopril (PRINIVIL;ZESTRIL) 40 mg tablet Take 40 mg by mouth daily. 12/20/2021 hydrochlorothiazide (HYDRODIURIL) 50 mg tablet Take 50 mg by mouth daily. 11/20/2021 ibuprofen (ADVIL;MOTRIN) 600 mg tablet Take 600 mg by mouth every 6 hours as needed. 11/20/2021 SHARK CARTILAGE ORAL Take by mouth 3 times daily. 11/09/2021 aspirin 81 mg EC tablet Take 81 mg by mouth daily. 11/09/2021 documented as of this encounter Procedure Notes * Eboni Lees MD - 08/18/2019 11:59 PM ESTAssociated Order(s): PULMONARY FUNCTION TEST Pulmonary Function Test Interpretation FEV1 is reduced. FVC is reduced. The FEV1/FVC ratio is normal. Diffusion capacity is normal. Resting oxyhemoglobin saturation was decreased. Resting oximetry was not assessed while the patient was breathing room air. Resting oximetry was performed on supplemental oxygen, the flow rate was 3 liters per minute. 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%) Eboni Lees MD documented in this encounter Plan of Treatment Upcoming Encounters Date Type Department Care Team (Late st Contact Info) Description 01/13/2024 2:30 PM EDT Office [place] [phone] Dillon Trinidad MD [facility] [place] [address] 01/21/2024 2:30 PM EDT Office [place] [phone] Rosa Elena Villagomez APRN [facility] [place] [address] 02/05/2024 2:00 PM EDT Office Visit Wound Care at [facility] [place] [address] Rosa Elena Muhammad RN documented as of this encounter Procedures Procedure Name Priority Date/Time Associated Diagnosis Comments COMMON PULMONARY FUNCTION TEST Routine 08/18/2019 11:59 PM EST Dyspnea, unspecified type documented in this encounter Results * Pulmonary [...] this encounter Visit Diagnoses Diagnosis Dyspnea, unspecified type documented in this encounter Care Teams Beam Builder Relationship Specialty Start Date End Date None None PCP - General 05/07/19 03/24/20 documented as of this encounter
--- OUTSIDE RECORDS SUMMARY | 2024-01-10 02:16 | XMS_ITS | Encounter Summary ---
Author Organization [facility] [place] [address] Care Team Providers Care Maintenance Painter Name Role Phone Neha Mcmahan MD Primary Care Provider [phone] Reason for Visit * Reason Onset Date Comments Medication Refill 02/04/2023 Spironolactone Encounter Details Date Type Department Care Team (Late st Contact Info) Description 02/04/2023 Refill Cardiology at [address] [phone] Mariam Dutta APRN [facility] [place] [address] Medication Refill (Spironolactone/) Social History Tobacco Use Types Packs/Day Years [...] encounter Miscellaneous Notes * Telephone Encounter - Linda Liriano RN - 02/04/2023 11:57 AM EDT REMI 12/20/21 visit with PROCESS OPERATOR Luzmaria. NOV 02/07/23 w/ Dr. Marshall See 02/01/23 phone note. documented in this encounter Plan of Treatment Upcoming Encounters Date Type Department Care Team (Late st Contact Info) Description 01/13/2024 2:30 PM EDT Office [place] [phone] Dillon Trinidad MD [facility] [place] [address] 01/21/2024 2:30 PM EDT Office [place] [phone] Rosa Elena Villagomez APRN [facility] [place] [id number] 02/05/2024 2:00 PM EDT Office [place] [phone] Rosa Elena Muhammad RN documented as of this encounter Visit Diagnoses Diagnosis Pulmonary hypertension Other chronic pulmonary heart diseases documented in this encounter Care Teams Maintenance Painter Relationship Specialty Start Date End Date Neha Mcmahan MD [address] [place] [id number] PCP - General Family Medicine 03/25/20 documented as of this encounter
--- OUTSIDE RECORDS SUMMARY | 2024-01-10 02:16 | XMS_ITS | Encounter Summary ---
Author Organization [facility] [place] [address] Care Team Providers Care Screw Machine Tool Setter Name Role Phone Neha Mcmahan MD Primary Care Provider [phone] Encounter Details Date Type Department Care Team (Late st Contact Info) Description 01/05/2021 Interpretation Only [address] [phone] Babita Guido, DPM [address] [place] [address] Social History Tobacco Use Types Packs/Day Years [...] PM EDT Office Visit [place] [phone] [facility] [place] [address] 01/21/2024 2:30 PM EDT Office [place] [phone] Rosa Elena Villagomez APRN [facility] [place] [address] 02/05/2024 2:00 PM EDT Office [place] [phone] Rosa Elena Muhammad RN documented as of this encounter Procedures Procedure Name Priority Date/Time Associated Diagnosis Comments XR FOOT MIN 3 VIEWS LEFT Routine 01/05/2021 12:18 PM EDT documented in this encounter Results * XR Foot Min 3 views Left (Generic) (01/05/2021 12:18 PM EDT) PT CLASS O RAD ADMITDTTM RAD PT RAD INFO [id number]^W [place]^BABITA RAD EXAM DESC [id number]^XR LEFT FOOT ROUTINE^RIS RAD Anatomical Region Laterality Modality Foot Left Radiographic Shayna ging Impressions 01/05/2021 1:07 PM EDT Absent second digit. Unchanged lateral subluxation of the proximal second metatarsophalangeal joint with degenerative changes. Midfoot degenerative arthropathy and loss of longitudinal arch. Inferior calcaneal spurring. Thank you for letting us participate in the care of this patient. ??If you are a health care provider and have any questions regarding this report, please contact the number below. ??For patients who have questions please contact the health day care attendant that requested your imaging first. ? Narrative 01/05/2021 1:07 PM EDT EXAMINATION: XR LEFT FOOT ROUTINE CLINICAL HISTORY: Pain in left foot TECHNIQUE: 3 views of the left foot COMPARISON: Left toes dated April 11, 2020 FINDINGS: See impression. Procedure Note Jeb Sheldon MD - 01/05/2021 EXAMINATION: XR LEFT FOOT ROUTINE CLINICAL HISTORY: Pain in left foot TECHNIQUE: 3 views of the left foot COMPARISON: Left toes dated April 11, 2020 FINDINGS: See impression. IMPRESSION Absent second digit. Unchanged lateral subluxation of the proximalsecond metatarsophalangeal joint with degenerative changes. Midfootdegenerative arthropathy and loss of longitudinal arch. Inferior calcaneal spurring. Thank you for letting us participate in the care of this patient. If youare a health care provider and have any questions regarding this report,please contact the number below. For patients who have questions please contactthe health day care attendant that requested your imaging first. Electronically signed by: Jeb Sheldon MD, [facility]([phone]), at 01/05/2021 1:07 PM Babita Guido DPM IMG DX ORDERABLES documented in this encounter Visit Diagnoses Not on filedocumented in this encounter Care Teams Screw Machine Tool Setter Relationship Specialty Start Date End Date Neha Mcmahan MD [address] [place] [id number] PCP - General Family Medicine 03/25/20 documented as of this encounter
--- OUTSIDE RECORDS SUMMARY | 2024-01-10 02:16 | XMS_ITS | Encounter Summary ---
Author Organization [facility] Address [facility] [address] Care Team Providers Care Yeast Fermentation Attendant Name Role Phone Neha Mcmahan MD Primary Care Provider [phone] Reason for Visit * Reason Comments Medication Refill Nifedipine Encounter Details Date Type Department Care Team (Late st Contact Info) Description 02/05/2023 Refill Cardiology at [address] [phone] Mariam Dutta APRN [facility] [place] [address] Medication Refill (Nifedipine) Social History Tobacco Use Types Packs/Day Years [...] Telephone Encounter - Linda Liriano RN - 02/05/2023 2:39 PM EDT REMI 12/20/21 NOV 02/07/23 w/ Dr. Marshall Last RF unknown - initiated 12/20/21 office visit w/ SCHOOL OFFICE MANAGER Luzmaria documented in this encounter Plan of Treatment Upcoming Encounters Date Type Department Care Team (Late st Contact Info) Description 01/13/2024 2:30 PM EDT Office [place] [phone] Dillon Trinidad MD [facility] [place] [address] 01/21/2024 2:30 PM EDT Office [place] [phone] Rosa Elena Villagomez APRN [facility] [place] [address] 02/05/2024 2:00 PM EDT Office [place] [phone] Rosa Elena Muhammad, RN documented as of this encounter Visit Diagnoses Diagnosis Pulmonary hypertension Other chronic pulmonary heart diseases documented in this encounter Care Teams Yeast Fermentation Attendant Relationship Specialty Start Date End Date Neha Mcmahan MD [address] [place] [address] PCP - General Family Medicine 03/25/20 documented as of this encounter
--- OUTSIDE RECORDS SUMMARY | 2024-01-10 02:16 | XMS_ITS | Encounter Summary ---
Author Organization Formerly [facility], [facility] Address [facility] [place] [address] Care Team Providers Care Forest Logistics Manager Name Role Phone Neha Mcmahan MD Primary Care Provider [phone] Reason for Visit * Auth/Cert Specialty Diagnoses / Procedures Referred By Contac t Referred To Contact Diagnoses Pulmonary hypertension, unspecified Pulmonary hypertension [I27.20] Procedures PRG CATH PLMT CORONARY ART W/INJ FOR ANGIO W/R HEART CATH IMG S&I PRO PHARMACOLOGIC AGENT ADMIN & HEMODYNAMIC MEASURMENT PRG RIGHT HEART CATH O2 SATURATION & CARDIAC OUTPUT CARDIAC CATHETERIZATION CORONARY ANGIOGRAPHY; W RHC PHARMACOLOGIC AGENT ADMIN (VASODILATOR CHALLENGE) Referral ID Status Reason Start Date Expiration Date Visits Re quested Visits Authorized [id number] 1 1 Encounter Details Date Type Department Care Team (Late st Contact Info) Description 11/21/2021 12:30 PM EDT - 11/21/2021 1:30 PM EDT [place] [address] Milton Montano MD [facility] [place] [address] CARDIAC CATHETERIZATION Social History Tobacco Use Types Packs/Day Years [...] Sign Reading Time Taken Comments Blood Pressure 153/79 11/21/2021 1:26 PM EDT Pulse 83 11/21/2021 1:26 PM EDT Temperature 36.1 ??C (97 ??F) 11/21/2021 1:26 PM EDT Respiratory Rate 20 11/21/2021 1:26 PM EDT Oxygen Saturation 99% 11/21/2021 1:26 PM EDT Inhaled Oxygen Concentration - - Weight 151 kg (333 lb) 11/21/2021 1:26 PM EDT Height - - Body Mass Index 49.18 11/08/2021 2:55 PM EDT documented in this encounter Discharge Instructions * Attachments The following attachments cannot be sent through Care Everywhere. * Right Heart Catheterization: Pulmonary Artery Catheterization: Post-op (Latvian) documented in this encounter Medications at Time of Discharge Medication Sig Dispensed Refills Start Date End Date mupirocin (Bactroban) 2 % Ointment Apply topically as needed. 03/23/2019 [id number]-Fish Oil 1,000 mg (120 mg-180 mg) Capsule Take 2 capsules by mouth daily. 01/12/2014 losartan (Cozaar) 25 mg tablet Take 25 [...] ORAL) Take by mouth 3 times daily. spironolactone (Aldactone) 25 mg tablet Take 25 mg by mouth daily. 02/04/2023 melatonin 5 mg tablet Take 10 mg by mouth. 02/07/2023 diclofenac (Voltaren) 1 % Gel Apply 2 grams to upper extremities and 4 grams to lower extremities up to 4 times daily as needed. 100 g 3 09/21/2021 12/10/2022 furosemide (Lasix) 20 mg Tablet Take 60 mg by mouth 2 times daily. 06/29/2019 02/04/2023 lisinopril (PRINIVIL;ZESTRIL) 40 mg tablet Take 40 mg by mouth daily. 12/20/2021 documented as of this encounter Progress Notes * Nela Prescott RN - 11/21/2021 6:21 PM EDT Jori Manzanares discharged to home by car with belongings. All belongings sent with patient. VICENTE removed, incision C/D/I, Discharge instructions, medications, and follow-up appointments reviewed, education provided on when to seek medical care, all questions answered.Patient instructed to call with concerns. documented in this encounter H&P Notes * Dixon Acosta MD - 11/21/2021 1:26 PM EDT Images from the original note were not included. Pre Cardiac Catheterization Note Jori Manzanares is a 66 y.o. male, never smoker, who presents for right heart catheterization. He has a past medical history significant for lupus, restrictive lung disease, and obstructive sleep apnea (on BiPAP). Mr. Manzanares was referred by Dr. Martin for workup of pulmonary hypertension, with an echoca rdiogram in 2019 demonstrating severe right ventricular dilation and pulmonary artery systolic pressure of ~60mmHg. He has undergone V/Q scan 3 years ago with exclusion of CTEPH. At this time, Mr. Manzanares reports that he is feeling at his baseline and is able to lay flat without further increase in dyspnea. He is adamant regarding driving himself home after the procedure and as such does understandthat he is not able to receive sedation for the procedure. Patient Vitals for the past 24 hrs: Temp Pulse Resp BP SpO2 O2 Flow Rate (L/min) O2 Device 11/21/21 1326 36.1 ??C (97 ??F) 83 20 153/79 99 % 3 L/min NC Gen: Pleasant male in no apparent distress Cardiac: regular rate, s1/s2 normal character and amplitude, no murmurs, rubs, or gallops. JVP not elevated Pulm: Decreased breath sounds diffusely Ext: 1-2+ bilateral lower extremity edema Neuro: no appreciated focal deficit ASA: 4: Patient with severe systemic disease that is a constant threat to life Mallampati: IV: none of the structures can be seen Recent CBC Recent Labs 11/21/21 1048 09/21/21 1613 WBC 10.5* 9.3 HGB 12.8* 13.8 HCT 40.3* 42.5 PLATELET 156 158 Recent BMP Recent Labs 11/21/21 1048 09/21/21 1613 NA 140 141 K 4.1 3.8 CL 100 98 CO2 30 29 BUN 16 19 CREATININE 0.89 1.06 The indications, expected benefits, and potential risks of heart catheterization were reviewed in detail with the patient. The potential for , heart attack, stroke, kidney failure, hemorrhage, allergic reaction, vascular complications and infection were reviewed in detail. The possibility of stenting and other percutaneous intervention, with associated risk, was reviewed. The possible need for emergent coronary artery bypass surgery was reviewed. Alternatives were discussed and the patient's questions were answered in full. Following this discussion, the patient consented to the procedure and signed a form attesting to this, which is in the chart. Plan: Right heart catheterization NO SEDATION Dixon Acosta MD 11/21/2021 Associated attestation - Milton Montano MD - 11/21/2021 3:30 PM EDT Images from the original note were not included. I have seen the patient and reviewed the above history/examination and I agree with the details as written. I have personally reviewed all available ECG tracings, echo images and prior cath films. The assessment and plan were formulated in discussion with me and I agree with them as documented. Milton Montano MD 11/21/2021 3:30 PM documented in this encounter Plan of Treatment Upcoming Encounters Date Type Department Care Team (Late st Contact Info) Description 01/13/2024 2:30 PM EDT Office [place] [address] Dillon Trinidad MD [facility] [place] [address] 01/21/2024 2:30 PM EDT Office [place] [address] Rosa Elena Villagomez APRN [facility] [place] [address] 02/05/2024 2:00 PM EDT Office [place] [address] Rosa Elena Muhammad RN documented as of this encounter Procedures Procedure Name Priority Date/Time Associated Diagnosis Comments CARDIAC CATHETERIZATION Routine 11/21/2021 5:20 PM EDT Pulmonary hypertension Pharmacologic Agent Admin & Hemodynamic Measurment (10333) 11/21/2021 4:31 PM EDT Pulmonary hypertension HEMOGRAM STAT 11/21/2021 10:48 AM EDT Pulmonary hypertension Pre-procedural cardiovascular examination DIFFERENTIAL, AUTOMATED STAT 11/21/2021 10:48 AM EDT Pulmonary hypertension Pre-procedural cardiovascular examination HC CBC,PLT & AUTO DIFF STAT 10:48 AM EDT Pulmonary hypertension Pre-procedural cardiovascular examination HC VENIPUNCTURE STAT 11/21/2021 10:48 AM EDT Pulmonary hypertension Pre-procedural cardiovascular examination RIGHT HEART CATH,INC MEASUREMENT OF O2 SAT & CARDIAC OUTPUT (ASHLEY) Routine 11/16/2021 11:16 AM EDT Pulmonary hypertension documented in this encounter Results * CARDIAC CATHETERIZATION (11/21/2021 5:20 PM EDT) Anatomical Region Laterality Modality Other Narrative 11/21/2021 5:24 PM EDT ?[facility] ? Cardiac Catheterization/Intervention Report ? Patient Name: Leighton, Jori Neal. ? Procedure Date: 11/21/2021 ? A #: [id number] ? Primary Physician: Milton Montano ? Case #: [id number] ? File Name: [id number] ? Catheterization Order Number: [id number] ? [facility] ? Final Report [place], [place] ? Patient Name: ? Jori Manzanares ?ID#: ?[id number] ? : ?1955 ? Procedure Date: ? November 21, 2021 ? Case #: ? [id number] ? Room: ? 2 ? Case Physician: ? Milton Montano M.D. ? Start: ?16:49 ?Fellow: ? Dixon Acosta M.D. ?Admission: ??11/21/2021 ? Referring Physician: ??Mariam Dutta APRN ? Procedures: ?* Right Heart Catheterization ?* Oximetry ? History ?Jori Manzanares is a 66 year old man. The patient's smoking status is ?Never. The patient has a history of right ventricular failure and ?pulmonary hypertension. He has a history of CHF. The CHF is NYHA ?Functional Class II and is classified as Diastolic. Prior to the ?initiation of this procedure, the patient was designated as ASA Class IV. ?The CSHA clinical frailty scale is 6: Moderately Frail. ? Diagnostic Tests: ?Electrocardiography: ? EKG was assessed by ECG. EKG was Normal. ? Indications for Diagnostic Cath: ?The priority of the diagnostic procedure was Elective. The indication for ?the lab animal technician visit is other indication. Chest pain symptom assessment ?was: Atypical Angina. ? Technique: ?A 5Fr sheath was inserted in the right median antecubital vein utilizing ?the Seldinger technique. Right heart catheterization was performed ?utilizing a 5Fr BALLOON WEDGE catheter. Radiation: Fluoro time was 1.5 ?minutes, dose area product was 6,213 mGYcm2 and air kerma was 49 mGY. See ?the case log for additional details. ? Hemodynamics: ?Right Heart Pressures ? Resting: ? Syst Diast ? EDP ?a ?v ? m ?RA ? 13 ?10 ?10 ?RV 70 ?10 ?PA 70 ?18 ?42 ?PCW ?15 ?18 ?16 ? Hemodynamic Profile: ?Profile 1 ?CO ? 6.53 ?CI ? 2.56 ?TPR ?515 ?PVR ?319 ?Technique ?Estimated Sharif ? Hemodynamics After Nitric Oxide: ?Right Heart Pressures ? Post Intervention: ? Syst Diast ? EDP ?a ?v ? m ?PA 53 ?12 ?30 ? Hemodynamic Profile: ?Profile 1 ? Oximetry: ?Location ? %Sat ?Location ?%Sat ?Main Pulmonary Artery ??70.0 ?sats on 3 L NC ? 100.0 ? Vascular Access: ?Vascular Access Management: ? Manual Compression of the right median antecubital vein access site ? was performed. ? Conclusions: ?* Severe pulmonary hypertension ? Complications/Events: ?The patient had no complications during these procedures. ? Recommendations: ?Based upon the results of this procedure, it was recommended that the ?patient be managed with medical therapy. ?The attending physician was present for the entire procedure. ?Dr. Milton Montano M.D. was present during the moderate sedation ?intraservice time as documented by the sedation nurse. ??Case time = 00:26. ?Dr. Milton Montano M.D. performed the right heart catheterization and ?oximetry. ? Milton Montano, M.D. ? Electronically Signed by: Milton Coystein, M.D. ? Report Finalized: 11/21/2021 ??17:17 ? Report Last Ammended: 12/01/2021 ??14:46 ? Procedure Note Milton Montano MD - 12/01/2021 [facility] Cardiac Catheterization/Intervention Report Patient Name: Jori Manzanares Procedure Date: 11/21/2021 A #: [id number] Primary Physician: Milton Montano Case #: [id number] File Name: [id number] Catheterization Order Number: [id number] [facility] FinalReport [place], [place] Patient Name: Jori Manzanares ID#:[id number] :1955 Procedure Date: November 21, 2021 Case #: [id number] Room: 2 Case Physician: Milton Montano M.D. Start: 16:49 Fellow: Dixon Acosta M.D. Admission:11/21/2021 Referring Physician: Mariam Dutta APRN Procedures: * Right Heart Catheterization * Oximetry History Jori Manzanares is a 66 year old man. The patient's smoking status is Never. The patient has a history of right ventricular failure and pulmonary hypertension. He has a history of CHF. The CHF is NYHA Functional Class II and is classified as Diastolic. Prior to the initiation of this procedure, the patient was designated as ASAClass IV. The [facility] clinical frailty scale is 6: Moderately Frail. Diagnostic Tests: Electrocardiography: EKG was assessed by ECG. EKG was Normal. Indications for Diagnostic Cath: The priority of the diagnostic procedure was Elective. Theindication for the lab animal technician visit is other indication. Chest pain symptomassessment was: Atypical Angina. Technique: A 5Fr sheath was inserted in the right median antecubital veinutilizing the Seldinger technique. Right heart catheterization was performed utilizing a 5Fr BALLOON WEDGE catheter. Radiation: Fluoro time was1.5 minutes, dose area product was 6,213 mGYcm2 and air kerma was 49mGY. See the case log for additional details. Hemodynamics: Right Heart Pressures Resting: Syst Diast EDP a v m RA 13 10 10 RV 70 10 PA 70 18 42 PCW 15 18 16 Hemodynamic Profile: Profile 1 CO 6.53 CI 2.56 TPR 515 PVR 319 Technique Estimated Sharif Hemodynamics After Nitric Oxide: Right Heart Pressures Post Intervention: Syst Diast EDP a v m PA 53 12 30 Hemodynamic Profile: Profile 1 Oximetry: Location %Sat Location %Sat Main Pulmonary Artery 70.0 sats on 3 L NC 100.0 Vascular Access: Vascular Access Management: Manual Compression of the right median antecubital vein accesssite was performed. Conclusions: * Severe pulmonary hypertension Complications/Events: The patient had no complications during these procedures. Recommendations: Based upon the results of this procedure, it was recommended thatthe patient be managed with medical therapy. The attending physician was present for the entire procedure. Dr. Milton Montano M.D. was present during the moderate sedation intraservice time as documented by the sedation nurse. Case time =00:26. Dr. Milton Montano M.D. performed the right heart catheterizationand oximetry. Milton Montano M.D. Electronically Signed by: Milton Montano M.D. Report Finalized: 11/21/2021 17:17 Report Last Ammended: 12/01/2021 14:46 Milton Montano MD CARDIAC CATH ORDERAB LES * (ABNORMAL) Differential, Automated (11/21/2021 10:48 AM EDT) Neutrophils % 64.6 % [facility] Neutr Abs (ANC) 6.78(H) 1.70 - 6.10 x10(3)/mc L [facility] Lymphocytes % 23.5 % [facility] Lymphocytes Abs 2.5 0.9 - 3.2 x10(3)/[facility] Monocytes % 8.5 % [facility] Monocyte Abs 0.9 0.3 - 0.9 x10(3)/[facility] Eosinophils % 2.1 % [facility] Eosinophils Abs 0.2 0.0 - 0.4 x10(3)/[facility] Basophils % 0.5 % [facility] Basophils Abs 0.0 0.0 - 0.1 x10(3)/[facility] Immature Gran % 0.80 % [facility] Comment: Immature granulocytes(IG's)percentage and absolute count will include metamyelocytes, myelocytes, and promyelocytes. Blood smears from CBCs yielding IG's will be scanned manually for concordance. If this scan disagrees with the automated IG or if promyelocytes are noted, a manual differential will be performed. Astrid Gran Abs 0.08(H) 0.00 - 0.04 x10(3)/[facility] Blood 11/21/2021 10:4 8 AM EDT 11/21/2021 10:55 AM EDT Narrative Resulting Agency Comment Spec In Lab Mariam Dutta APRN HEMATOLOGY ORDERABLE S [facility] [place] [address] * (ABNORMAL) Hemogram (11/21/2021 10:48 AM EDT) WBC 10.5(H) 4.0 - 9.5 x10(3)/[facility] RBC 4.31(L) 4.58 - 5.54 x10(6)/[facility] Hemoglobin 12.8(L) 13.7 - 16.5 g/dL [facility] Hematocrit 40.3(L) 40.5 - 48.5 % [facility] MCV 93.5(H) 82.9 - 93.1 [facility] MCH 29.7 27.5 - 32.1 pg [facility] MCHC 31.8(L) 32.0 - 35.7 g/dL [facility] Platelets 156 145 - 357 x10(3)/[facility] RDWSD 49.9(H) 36.0 - 45.0 [facility] RDWCV 14.6(H) 11.4 - 13.8 % [facility] MPV 10.5 7.6 - 12.9 [facility] nRBC % Auto 0.0 % [facility] nRBC Abs Auto 0.000 0.000 - 0.000 x10(3)/[facility] Blood 11/21/2021 10:4 8 AM EDT 11/21/2021 10:55 AM EDT Narrative Resulting Agency Comment Spec In Lab Mariam Dutta APRN HEMATOLOGY ORDERABLE S [facility] [place] [address] * Comprehensive metabolic panel (non-fasting) (11/21/2021 10:48 AM EDT) Glucose Lvl 100 65 - 199 mg/dL [facility] Comment:Diabetes: >=200 mg/d L plus symptoms BUN 16 10 - 20 mg/dL [facility] Creatinine 0.89 0.80 - 1.50 mg/dL [facility] Sodium 140 135 - 145 mmol/L [facility] Potassium 4.1 3.5 - 5.0 mmol/L [facility] Comment: Please note: ??Patients with WBC >100,000 may have falsely elevated Potassium levels. ??For accurate Potassium quantification in these patients send serum separator tube (gold top) for subsequent determinations. ??Contact the Clinical Chemistry Laboratory if there are any questions. Chloride 100 98 - 107 mmol/L [facility] CO2 30 22 - 31 mmol/L [facility] Anion Gap 10 5 - 15 mmol/L [facility] Calcium 9.5 8.5 - 10.5 mg/dL [facility] Total Protein 6.8 6.1 - 8.0 g/dL [facility] Albumin 4.4 3.2 - 5.2 g/dL [facility] AST 12 0 - 39 unit/L [facility] ALT 8 0 - 55 unit/L [facility] Alk Phos 70 40 - 130 unit/L [facility] Total Bilirubin 0.4 0.2 - 1.3 mg/dL [facility] Estimated GFR 90 >=60 mL/min/1. 73 m?? [facility] Comment: This patient? s estimated glomerular filtration rate (eGFR) is between 90 mL/min/1.73 m2 (patients with less muscle mass per kg body weight) and 105 mL/min/1.73 m2 (patients with more muscle mass per kg body weight) as determined by the CKD-EPI equation. Assessment of eGFR is not appropriate when creatinine concentrations are rapidly changing. For clinical decisions where creatinine clearance will affect therapy, a 24-hour urine creatinine clearance may be advised. Assignment of CKD stage 1 - 5 for patients with an eGFR near the transition point between stages may be based on clinical assessment of muscle mass and symptoms in addition to eGFR. Blood 11/21/2021 10:4 8 AM EDT 11/21/2021 10:55 AM EDT Narrative Resulting Agency Comment Spec In Lab Mariam Dutta APRN CHEMISTRY ORDERABLES [facility] [place] [address] documented in this encounter Visit Diagnoses Diagnosis Pulmonary hypertension Other chronic pulmonary heart diseases Pre-procedural cardiovascular examination Pre-operative cardiovascular examination Pulmonary hypertension Other chronic pulmonary heart diseases documented in this encounter Administered Medications Inactive Administered Medications - up to 3 most recent administrations Medication Order MAR Action Action Date Dose Rate Site sodium chloride 0.9% infusion 75 mL/hr, Intravenous, CONTINUOUS, Starting on Sat11/21/21 at 1345, Until Sat11/21/21 at 1821, Cath (Day of Procedure) New Bag 11/21/2021 1:56 PM EDT 75 mL/hr 75 mL/hr documented in this encounter Active and Recently Administered Medications Times are shown in EDT. Continuous Medication Order 11/19/2021 11/20/2021 11/21/2021 sodium chloride 0.9% infusion (CANCELED) 75 mL/hr, Intravenous, CONTINUOUS, Starting on Sat11/21/21 at 1345, Until Sat11/21/21 at 1821, Cath (Day of Procedure) 1356 (New Bag - Prov ider: Yael Ravi RN) sodium chloride 0.9% infusion 1 mL/hr, Intravenous, CONTINUOUS, Starting on Sat11/21/21 at 1800, Until Sat11/21/21 at 1859, Recovery (Recovery-Hospital Unit) 1800 (Not Given - Pr ovider: Trever Aj RN - Reason: Contraindicated) documented in this encounter Care Teams Forest Logistics Manager Relationship Specialty Start Date End Date Neha Mcmahan MD [address] [place] [address] PCP - General Family Medicine 03/25/20 documented as of this encounter
--- OUTSIDE RECORDS SUMMARY | 2024-01-10 02:16 | XMS_ITS | Encounter Summary ---
Author Organization [facility] Address [facility] [place] [address] Care Team Providers Care Clinical Faculty Name Role Phone Neha Mcmahan MD Primary Care Provider [phone] Reason for Visit * Reason Comments Medication Refill Encounter Details Date Type Department Care Team (Late st Contact Info) Description 05/11/2022 Refill Cardiology at [address] [phone] Mariam Dutta, [facility] [place] [address] Medication Refill Social History Tobacco Use Types Packs/Day Years [...] encounter Miscellaneous Notes * Telephone Encounter - Judd Mcmillan RN - 05/11/2022 1:46 PM EST Requested Prescriptions Pending Prescriptions Disp Refills ??? NIFEdipine (PROCARDIA XL) 60 mg Tablet Extended Rel 24 hr [Pharmacy Med Name: NIFEdipine ER Osmotic Release 60 MG Oral Tablet Extended Release 24 Hour] 30 tablet 0 Sig: Take 1 tablet by mouth once daily Received an electronic prescription refill request for above Procardia XL from the [facility], [place], [place]. Refill request for 90 days with 1 refills advanced, anticipating annual follow up in early November,. Reviewed Epic record and last TH note from Lizy Dutta dated 12/20/2021. Plan ? Request echo report from [facility] ??? Begin nifedipine 30 mg daily - uptitrate as tolerated ??? F/u in 6-8 weeks with Merary Marshall MD ?? Mariam Dutta INTELLIGENCE GROUP SUPERVISOR Refill prepped and forwarded to Provider for authorization Virgil Mcmillan labor standards director Team Nurse [facility] Ambulatory Cardiology documented in this encounter Plan of Treatment Upcoming Encounters Date Type Department Care Team (Late st Contact Info) Description 01/13/2024 2:30 PM EDT Office [place] [phone] Dillon Trinidad MD [facility] [place] [address] 01/21/2024 2:30 PM EDT Office [place] [address] Rosa Elena Villagomez APRN [facility] [place] [address] 02/05/2024 2:00 PM EDT Office [place] [phone] Rosa Elena Muhammad RN documented as of this encounter Visit Diagnoses Diagnosis Pulmonary hypertension Other chronic pulmonary heart diseases documented in this encounter Care Teams Clinical Faculty Relationship Specialty Start Date End Date Neha Mcmahan MD [address] [place] [address] PCP - General Family Medicine 03/25/20 documented as of this encounter
--- OUTSIDE RECORDS SUMMARY | 2024-01-10 02:16 | XMS_ITS | Encounter Summary ---
Author Organization [facility] [place] [address] Care Team Providers Care Grinding Operator Name Role Phone Neha Mcmahan MD Primary Care Provider [phone] Reason for Visit * Reason Onset Date Comments Medication Refill 02/01/2023 Encounter Details Date Type Department Care Team (Late st Contact Info) Description 02/01/2023 Telephone Cardiology at [address] [phone] Mariam Dutta APRN [facility] [address] [place] [address] Medication Refill Social History Tobacco Use Types [...] Liriano RN - 02/04/2023 11:57 AM EDT Images from the original note were not included. Mariam Dutta, Linda Garcia RN Caller: Unspecified (3 days ago, 4:47 PM) Would refill everton 12.5 mg daily Sd Rx refill request sent to ACCOUNT MANAGER B2B Luzmaria to refill. * Telephone Encounter - Linda Liriano RN - 02/01/2023 4:47 PM EDT Call received from [facility] in [place], [place] re: Spironolactone refill request. They report pt was previously taking Spironolactone 25 1/2 tab daily rx'd by another miniature set constructor. Lata reports pt said he's now seen by a provider at [facility] so they're calling for a refill from the last provider who saw him. They said they would give him enough medication to get through the weekend but are requesting a prescription on Saturday. Will discuss with ACCOUNT MANAGER [employer] Luzmaria. We have not rx'd this medication and have in our records Everton 25 mg daily. REMI 12/20/21 TH visit with ACCOUNT MANAGER [employer] Luzmaria. NOV 02/07/23 w/ Dr. Marshall Call to pt re: current dose of Spironolactone. Left message to call back on voicemail. documented in this encounter Plan of Treatment Upcoming Encounters Date Type Department Care Team (Late st Contact Info) Description 01/13/2024 2:30 PM EDT Office [place] [address] Dillon Trinidad MD [facility] DR RHEUMAT[place] [address] 01/21/2024 2:30 PM EDT Office [place] [phone] Rosa Elena Villagomez APRN [facility] [place] [address] 02/05/2024 2:00 PM EDT Office [place] [phone] Rosa Elena Muhammad RN documented as of this encounter Visit Diagnoses Not on filedocumented in this encounter Care Teams Grinding Operator Relationship Specialty Start Date End Date Neha Mcmahan MD [address] [place] [address] PCP - General Family Medicine 03/25/20 documented as of this encounter
--- OUTSIDE RECORDS SUMMARY | 2024-01-10 02:16 | XMS_ITS | Encounter Summary ---
Author Organization [facility] Address [facility] [place] [address] Care Team Providers Care Power Generation Engineer Name Role Phone Neha Mcmahan MD Primary Care Provider [phone] Reason for Referral * Diagnostic Test (Routine) - Closed Specialty Diagnoses / Procedures Referred By Contac t Referred To Contact Gastroenterology Diagnoses Screening for colon cancer screening Procedures colonoscopy Neha Mcmahan MD [address] [place] [address] [facility] End[address] [place] [address] Referral ID Status Reason Start Date Expiration Date V isits Requested Visits Authorized [id number] Closed Test Only 09/02/2021 09/02/2022 12 12 Encounter Details Date Type Department Care Team (Latest Contact Info) Description 09/02/2021 Transcribe Orders eDH Incoming Referrals [phone] Neha Mcmahan MD [address] [place] [address] Screening for colon cancer Social History Tobacco Use Types Packs/Day Years [...] 2:30 PM EDT Office [place] [address] Dillon Trinidad MD [facility] [place] [address] 01/21/2024 2:30 PM EDT Office Visit [place] [phone] Rosa Elena Villagomez APRN [facility] [place] [address] 02/05/2024 2:00 PM EDT Office Visit [place] [address] Rosa Elena Muhammad, TALHA Scheduled Referrals Name Type Priority Associated Diagnoses Order Schedule REFERRAL TO COLONOSCOPY PROCEDURE Outpatient Referral Routine Screening for colon cancer Ordered: 09/02/2021 documented as of this encounter Visit Diagnoses Diagnosis Screening for colon cancer Special screening for malignant neoplasms, colon documented in this encounter Care Teams Power Generation Engineer Relationship Specialty Start Date End Date Neha Mcmahan MD [address] [place] [address] PCP - General Family Medicine 03/25/20 documented as of this encounter
--- OUTSIDE RECORDS SUMMARY | 2024-01-10 02:16 | XMS_ITS | Encounter Summary ---
Author Organization [facility] [place] [address] Care Team Providers Care Search Coordinator Name Role Phone Neha Mcmahan MD Primary Care Provider [phone] Reason for Visit * Reason Onset Date Comments Follow-up 02/04/2023 Returned call re : Spironolactone dose. Encounter Details Date Type Department Care Team (Late st Contact Info) Description 02/04/2023 Telephone Cardiology at [address] [address] Linda Liriano RN Follow-up (Returned call re: Spironolactone dose. ) Social History Tobacco Use Types Packs/Day Years [...] Encounter - Linda Liriano RN - 02/04/2023 1:11 PM EDT Pt returned call re: Spironolactone dose. Pt confirmed it was 12.5 mg daily. Pt reports there's another medication that needs to be refilled but he doesn't have any at [facility] however he can't remember the name of it and is camping all summer with spotty cell phone coverage. [facility] to see if they could figure out which medication needs refilling. Pt wascalling to refill Spironolactone and Furosemide. They have the refills of Spironolactone just waiting for Furosemide. Will send refill request to IDRIS Dutta to approve if appropriate. REMI 12/20/21 NOV 02/07/23 w/ Dr. Marshall Last RF unknown documented in this encounter Plan of Treatment Upcoming Encounters Date Type Department Care Team (Late st Contact Info) Description 01/13/2024 2:30 PM EDT Office [place] [phone] Dillon Trinidad MD [facility] [place] [address] 01/21/2024 2:30 PM EDT Office [place] [phone] Rosa Elena Villagomez APRN [facility] [place] [address] 02/05/2024 2:00 PM EDT Office [place] [phone] Rosa Elena Muhammad, RN documented as of this encounter Visit Diagnoses Not on filedocumented in this encounter Care Teams Search Coordinator Relationship Specialty Start Date End Date Neha Mcmahan MD [address] [place] [address] PCP - General Family Medicine 03/25/20 documented as of this encounter
--- OUTSIDE RECORDS SUMMARY | 2024-01-10 02:16 | XMS_ITS | Encounter Summary ---
Author Organization [facility] [place] [address] Care Team Providers Care Conservator Artifacts Name Role Phone Neha Mcmahan MD Primary Care Provider [phone] Encounter Details Date Type Department Care Team (Latest Contact Info) Description 09/21/2021 3:50 PM EDT Laboratory Appointment Lab [address] [place] [address] Pulmonary hypertension Social History Tobacco Use Types [...] 2:30 PM EDT Office Visit Rheumatology at [place] [phone] Dillon Trinidad MD [facility] [place] [address] 01/21/2024 2:30 PM EDT Office [place] [phone] Rosa Elena Villagomez APRN [facility] [place] [address] 02/05/2024 2:00 PM EDT Office [place] [address] Rosa Elena Muhammad RN documented as of this encounter Procedures Procedure Name Priority Date/Time Associated Diagnosis Comments DSDNA AB IFA Routine 09/21/2021 4:13 PM EDT HC DRVVT RATIO Routine 09/21/2021 4:13 PM EDT Pulmonary hypertension SILICA CLOTTING TIME Routine 09/21/2021 4:13 PM EDT Pulmonary hypertension DRVVT Routine 09/21/2021 4:13 PM EDT Pulmonary hypertension HC PCH RNA POLYMERASE AB Routine 09/21/2021 4:13 PM EDT Pulmonary hypertension HC PCH EXTRACTABLE NUCLEAR ANTIGEN Routine 09/21/2021 4:13 PM EDT Pulmonary hypertension HC QUANTIFERON Routine 09/21/2021 4:13 PM EDT Pulmonary hypertension HC PCH DNA AB DS ([place]) Routine 09/21/2021 4:13 PM EDT Pulmonary hypertension HC PCH IMMUNO CENTROMERE AB QUAL OR SEMI QUANT MULT STEP Routine 09/21/2021 4:13 PM EDT Pulmonary hypertension HEMOGRAM Routine 09/21/2021 4:13 PM EDT Pulmonary hypertension DIFFERENTIAL, AUTOMATED Routine 09/21/2021 4:13 PM EDT Pulmonary hypertension HC HEPATITIS C ANTIBODY Routine 09/21/2021 4:13 PM EDT Pulmonary hypertension HC HEPATITIS B CORE AB Routine 09/21/2021 4:13 PM EDT Pulmonary hypertension HC BETA 2-GLYCOPROTEIN I Routine 09/21/2021 4:13 PM EDT Pulmonary hypertension HC HIV SCREEN, 4TH GENERATION Routine 09/21/2021 4:13 PM EDT Pulmonary hypertension HC HEPATITIS B SURFACE AB Routine 09/21/2021 4:13 PM EDT Pulmonary hypertension HC HEPATITIS B SURFACE AG Routine 09/21/2021 4:13 PM EDT Pulmonary hypertension HC CARDIOLIPIN ANTIBODIES Routine 09/21/2021 4:13 PM EDT Pulmonary hypertension HC CBC,PLT & AUTO DIFF Routine 09/21/2021 4:13 PM EDT Pulmonary hypertension HC COMPLEMENT,C3 SERUM Routine 09/21/2021 4:13 PM EDT Pulmonary hypertension HC COMPLEMENT C4, PLASMA Routine 09/21/2021 4:13 PM EDT Pulmonary hypertension HC PCH ANATITRE (ANDPATTERN) Routine 09/21/2021 4:13 PM EDT Pulmonary hypertension COMPREHENSIVE METABOLIC PANEL (NON-FASTING) Routine 09/21/2021 4:13 PM EDT Pulmonary hypertension HC CREATININE - NON BLOOD Routine 09/21/2021 4:06 PM EDT Pulmonary hypertension URINALYSIS WITH REFLEX CULTURE Routine 09/21/2021 4:06 PM EDT Pulmonary hypertension documented in this encounter Results * dsDNA Ab IFA (09/21/2021 4:13 PM EDT) dsDNA Ab IFA Negative Negative [facility] Comment: Test Performed by: [facility] [place] [address] Stress Engineer: Deion Silva M.D. Ph.D.; CLIA# [id number] dsDNA Ab IFA interp SEE COMMENTS [facility] Comment: Testing for dsDNA antibody by Crith[facility] IFA was negative. Unable to confirm borderline positive result obtained by enzyme immunoassay. Test Performed by: [place] [address] Stress Engineer: Deion Silva M.D. Ph.D.; CLIA# [id number] Blood 09/21/2021 4:13 PM EDT 09/21/2021 4:34 PM EDT Haile Bolaños MD CHEMISTRY ORDER ZEESHAN [facility] [place] [address] * (ABNORMAL) Differential, Automated (09/21/2021 4:13 PM EDT) Neutrophils % 68.4 % [facility] Neutr Abs (ANC) 6.34(H) 1.70 - 6.10 x10(3)/[facility] Lymphocytes % 21.1 % [facility] Lymphocytes Abs 2.0 0.9 - 3.2 x10(3)/[facility] Monocytes % 6.9 % [facility] Monocyte Abs 0.6 0.3 - 0.9 x10(3)/[facility] Eosinophils % 1.9 % [facility] Eosinophils Abs 0.2 0.0 - 0.4 x10(3)/[facility] Basophils % 0.8 % [facility] Basophils Abs 0.1 0.0 - 0.1 x10(3)/[facility] Immature Gran % 0.90 % [facility] Comment: Immature granulocytes(IG's)percentage and absolute count will include metamyelocytes, myelocytes, and promyelocytes. Blood smears from CBCs yielding IG's will be scanned manually for concordance. If this scan disagrees with the automated IG or if promyelocytes are noted, a manual differential will be performed. Astrid Gran Abs 0.08(H) 0.00 - 0.04 x10(3)/[facility] Blood 09/21/2021 4:13 PM EDT 09/21/2021 4:34 PM EDT Narrative Resulting Agency Comment Spec In Lab Haile Bolaños MD HEMATOLOGY YOANA NEAL Performing Organization Address City/[facility]/ZIP Co de Phone Number [facility] [place] [address] * (ABNORMAL) Hemogram (09/21/2021 4:13 PM EDT) [facility] WBC 9.3 4.0 - 9.5 x10(3)/[facility] RBC 4.68 4.58 - 5.54 x10(6)/[facility] Hemoglobin 13.8 13.7 - 16.5 g/dL [facility] Hematocrit 42.5 40.5 - 48.5 % [facility] MCV 90.8 82.9 - 93.1 [facility] MCH 29.5 27.5 - 32.1 pg [facility] MCHC 32.5 32.0 - 35.7 g/dL [facility] Platelets 158 145 - 357 x10(3)/[facility] LABORATORY RDWSD 47.7(H) 36.0 - 45.0 [facility]ATORY RDWCV 14.4(H) 11.4 - 13.8 % [facility] MPV 10.8 7.6 - 12.9 [facility] LABORATORY nRBC % Auto 0.0 % [facility] nRBC Abs Auto 0.000 0.000 - 0.000 x10(3)/[facility]ORY Blood 09/21/2021 4:13 PM EDT 09/21/2021 4:34 PM EDT Narrative Resulting Agency Comment Spec In Lab Haile Bolaños MD HEMATOLOGY YOANA NEAL [facility] [place] [address] * Silica Clotting Time (09/21/2021 4:13 PM EDT) Pathologist [facility] Silica Clotting Time 0.97 <=1.20 ratio [facility] Comment: A result greater than 1.20 TR is consistent with the presence of lupus anticoagulant. Values of 1.20 to 1.24 in this assay are not definitively positive or negative for the presence of a lupus anticoagulant. The silica clotting time may be falsely elevated in patients on anticoagulants, especially heparins and direct oral anticoagulants. An abnormal test result in an anticoagulated patient must therefore be interpreted with caution, and repeat testing after discontinuing anticoagulation may be appropriate. Blood 09/21/2021 4:13 PM EDT 09/21/2021 4:34 PM EDT Narrative Resulting Agency Comment Spec In Lab Haile Bolaños MD HEMATOLOGY YOANA NEAL Performing Organization Address [facility] de Phone Number [facility] [place] [address] * dRVVT (09/21/2021 4:13 PM EDT) dRVVT 1.16 <=1.20 IU/mL [facility] Comment: A result greater than 1.20 TR is consistent with the presence of lupus anticoagulant. Values of 1.20 to 1.30 in this assay are not definitively positive or negative for the presence of a lupus anticoagulant. The DRVVT ratio may be falsely elevated in patients on anticoagulants, especially heparins and direct oral anticoagulants. An abnormal test result in an anticoagulated patient must therefore be interpreted with caution, and repeat testing after discontinuing anticoagulation may be appropriate. Blood 09/21/2021 4:13 PM EDT 09/21/2021 4:34 PM EDT Narrative Resulting Agency Comment Spec In Lab Haile NEAL Performing Organization Address [facility] Co de Phone Number [facility] [place] [address] * Extractable Nuclear Antigen (KARL) Ab (09/21/2021 4:13 PM EDT) KARL Ab Test ?Result ? Flag ??Unit ??RefValue Ab to Extractable Nuclear Ag Eval,S ??SS-A/Ro Ab, IgG, S ?<0.2 ? U ? <1.0 (Negative) ??SS-B/La Ab, IgG, S ?<0.2 ? U ? <1.0 (Negative) ??Sm Ab, IgG, S ? <0.2 ? U ? <1.0 (Negative) ??TRAVELING CRANE OPERATOR Ab, IgG, S ?<0.2 ? U ? <1.0 (Negative) ??Scl 70 Ab, IgG, S ? <0.2 ? U ? <1.0 (Negative) ??Serenity 1 Ab, IgG, S ? <0.2 ? U ? <1.0 (Negative) ?Test Performed by: ?[facility] [address] ?[address] [place] [address] ?Stress Engineer: Deion Silva M.D. Ph.D.; CLIA# [id number] [facility] Blood 09/21/2021 4:13 PM EDT 09/22/2021 9:23 AM EDT Narrative Resulting Agency Comment Spec In Lab Cruz Tanner MD IMMUNOLOGY ORDERABLE S Performing Organization Address [facility] de Phone Number [facility] [place] [address] * (ABNORMAL) DNA Antibody (Double-Stranded) (09/21/2021 4:13 PM EDT) [facility] dsDNA Ab 52.8(H) <30.0 (Negative ) IU/mL [facility] Comment: Interpretation: Borderline (30.0-75.0) See dsDNA Ab by [place] IFA, IgG for confirmatory test result. Test Performed by: [address] [address] Stress Engineer: Deion Silva M.D. Ph.D.; CLIA# [id number] Blood 09/21/2021 4:13 PM EDT 09/22/2021 9:23 AM EDT Narrative Resulting Agency Comment Spec In Lab Cruz Tanner MD CHEMISTRY ORDERABLES Performing Organization Address [facility] de Phone Number [facility] [place] [address] * Comprehensive metabolic panel (non-fasting) (09/21/2021 4:13 PM EDT) [facility] Glucose Lvl 103 65 - 199 mg/dL [facility] Comment:Diabetes: >=200 mg/d L plus symptoms BUN 19 10 - 20 mg/dL [facility] Creatinine 1.06 0.80 - 1.50 mg/dL [facility] Sodium 141 135 - 145 mmol/L [facility] Potassium 3.8 3.5 - 5.0 mmol/L [facility] Comment: Please note: ??Patients with WBC >100,000 may have falsely elevated Potassium levels. ??For accurate Potassium quantification in these patients send serum separator tube (gold top) for subsequent determinations. ??Contact the Clinical Chemistry Laboratory if there are any questions. Chloride 98 98 - 107 mmol/L [facility] CO2 29 22 - 31 mmol/L [facility] Anion Gap 14 5 - 15 mmol/L [facility] Calcium 9.3 8.5 - 10.5 mg/dL [facility] Total Protein 7.2 6.1 - 8.0 g/dL [facility] Albumin 4.4 3.2 - 5.2 g/dL [facility] AST 12 0 - 39 unit/L [facility] ALT 15 0 - 55 unit/L [facility] Alk Phos 78 40 - 130 unit/L [facility] Total Bilirubin 0.4 0.2 - 1.3 mg/dL [facility] Estimated GFR 74 >=60 mL/min/1. 73 m?? [facility] Comment: This patient? s estimated glomerular filtration rate (eGFR) is between 74 mL/min/1.73 m2 (patients with less muscle mass per kg body weight) and 86 mL/min/1.73 m2 (patients with more muscle mass [...] and symptoms in addition to eGFR. Blood 09/21/2021 4:13 PM EDT 09/21/2021 4:34 PM EDT Narrative Resulting Agency Comment Spec In Lab Cruz Tanner MD CHEMISTRY ORDERABLES [facility] [place] [address] * (ABNORMAL) C3 Complement (09/21/2021 4:13 PM EDT) C3 Complement 183(H) 90 - 180 mg/dL [facility] Blood 09/21/2021 4:13 PM EDT 09/21/2021 4:34 PM EDT Narrative Resulting Agency Comment Spec In Lab Cruz Tanner MD CHEMISTRY ORDERABLES Performing Organization Address City/[facility]/ZIP Co de Phone Number [facility] [place] [address] * C4 Complement (09/21/2021 4:13 PM EDT) C4 Complement 35 10 - 40 mg/dL [facility] Blood 09/21/2021 4:13 PM EDT 09/21/2021 4:34 PM EDT Narrative Resulting Agency Comment Spec In Lab Cruz Tanner MD CHEMISTRY ORDERABLES Performing Organization Address City/[facility] Co de Phone Number [facility] [place] [address] * Cardiolipin Antibody Screen (09/21/2021 4:13 PM EDT) Cardiolipin IgG 0.9 <=9.9 GPL-U/mL [facility] Comment: Please note that as of 04/06/2021 that the test method and interpretive criteria for the cardiolipin antibody screen has changed. The interpretive criteria associated with the new assay no longer includes an indeterminate range, and the threshold for positive is lower than the previous method. Cardiolipin IgM 1.4 <=9.9 MPL-U/mL [facility] Comment: Please note that as of 04/06/2021 that the test method and interpretive criteria for the cardiolipin antibody screen has changed. The interpretive criteria associated with the new assay no longer includes an indeterminate range, and the threshold for positive is lower than the previous method. Blood 09/21/2021 4:13 PM EDT 09/22/2021 7:21 AM EDT Narrative Resulting Agency Comment Spec In Lab Cruz Tanner MD IMMUNOLOGY ORDERABLE S Performing Organization Address City/[facility]/ZIP Co de Phone Number [facility] [place] [address] * Beta-2 glycoprotein antibodies (09/21/2021 4:13 PM EDT) B2GPI IgG 0.9 <=6.9 unit/mL [facility] Comment: Please note that as of 04/06/2021 that the test method and interpretive criteria for the B2-GPI antibody screen has changed. The interpretive criteria associated with the new assay has a lower threshold for positive as compared to the previous method. B2GPI IgM <2.9 <=6.9 unit/mL [facility] Comment: Please note that as of 04/06/2021 that the test method and interpretive criteria for the B2-GPI antibody screen has changed. The interpretive criteria associated with the new assay has a lower threshold for positive as compared to the previous method. Blood 09/21/2021 4:13 PM EDT 09/22/2021 7:21 AM EDT Narrative Resulting Agency Comment Spec In Lab Cruz Tanner MD IMMUNOLOGY ORDERABLE S Performing Organization Address [facility] Co de Phone Number [facility] [place] [address] * Hepatitis B Core Antibody, Total (09/21/2021 4:13 PM EDT) Hep B Core Ab Negative Negative [facility] Blood 09/21/2021 4:13 PM EDT 09/21/2021 4:34 PM EDT Narrative Resulting Agency Comment Spec In Lab Cruz Tanner MD CHEMISTRY ORDERABLES Performing Organization Address City/[facility]/ZIP Co de Phone Number [facility] [place] [address] * Hepatitis B Surface Antigen (09/21/2021 4:13 PM EDT) HepB Surface Ag Negative Negative [facility] Blood 09/21/2021 4:13 PM EDT 09/21/2021 4:34 PM EDT Narrative Resulting Agency Comment Spec In Lab Cruz Tanner MD CHEMISTRY ORDERABLES [facility] [place] [address] * Hepatitis B Surface Antibody (09/21/2021 4:13 PM EDT) HepB Surface Ab Quant <3.5 IU/L [facility] Comment: HepB Surface Ab Quant: Unvaccinated: < 8.5 IU/L Vaccinated: > 11.5 IU/L HepB Surface Ab Negative [facility] Comment: Patient is presumed to be not vaccinated or immune to HBV infection. Expected Results: Vaccinated: Positive Unvaccinated: Negative Blood 09/21/2021 4:13 PM EDT 09/21/2021 4:34 PM EDT Narrative Resulting Agency Comment Spec In Lab Cruz Tanner MD IMMUNOLOGY ORDERABLE S [facility] [place] [address] * Hepatitis C Antibody (09/21/2021 4:13 PM EDT) Hepatitis C Ab Negative Negative [facility] Blood 09/21/2021 4:13 PM EDT 09/21/2021 4:34 PM EDT Narrative Resulting Agency Comment Spec In Lab Cruz Tanner MD IMMUNOLOGY ORDERABLE S [facility] [place] [address] * QuantiFERON-TB Gold (09/21/2021 4:13 PM EDT) QFT Nil 0.039 IU/mL [facility] QFT TB Ag1-Nil 0.006 IU/mL [facility] QFT TB Ag2-Nil -0.008 IU/mL [facility] QFT Mitogen-Nil 9.961 IU/mL [facility] Quantiferon TB Negative Negative [facility] Quantiferon TB Interp M. tuberculosis infection NOT likely A negative specimen should have a TB1 Ag minus Nil value and TB2 Ag minus Nil value of less than 0.35 IU/mL OR a TB1 Ag minus Nil or TB2 Ag minus Nil value greater than or equal to 0.35 IU/mL AND a TB Ag minus Nil value from the same tube of less than 25% of the Nil value. A negative specimen must also have a mitogen minus Nil value greater than or equal to 0.5 IU/mL. A negative QFT-Plus result does not preclude the possibility of M. tuberculosis infection. False negative results can occur due to stage of infection (specimen obtained prior to the development of immune response), co-morbid conditions which affect immune function, or other immunological factors. [facility] Blood 09/21/2021 4:13 PM EDT 09/22/2021 1:15 PM EDT Narrative Resulting Agency Comment Spec In Lab Cruz Tanner MD CHEMISTRY ORDERABLES [facility] [place] [address] * HIV Screen, 4th Generation (MC/CGP/APD/NLH) (09/21/2021 4:13 PM EDT) HIV-1/2 Ab and Ag Negative Negative [facility] Comment: This 4th Generation HIV test screens for the presence of the HIV-1 p24 antigen as well as antibodies reactive against HIV-1 and HIV-2. A negative screen does not rule out an acute HIV infection. If acute HIV infection is suspected, testing should be repeated in 2 - 3 weeks or HIV nucleic acid testing performed. HIV Comment Low Risk of HIV Infection [facility] Blood 09/21/2021 4:13 PM EDT 09/21/2021 4:34 PM EDT Narrative Resulting Agency Comment Spec In Lab Cruz Tanner MD IMMUNOLOGY ORDERABLE S Performing Organization Address [facility] Co de Phone Number [facility] [place] [address] * Centromere Antibody (09/21/2021 4:13 PM EDT) Centromere Ab <0.2 <1.0 (Negative) U [facility] Comment: Test Performed by: [facility] [address] [place] [address] Stress Engineer: Deion Silva M.D. Ph.D.; IA# [id number] Blood 09/21/2021 4:13 PM EDT 09/22/2021 9:23 AM EDT Narrative Resulting Agency Comment Spec In Lab Cruz Tanner MD IMMUNOLOGY ORDERABLE S Performing Organization Address [facility] de Phone Number [facility] [place] [address] * RNA Polymerase III Ab,IgG (09/21/2021 4:13 PM EDT) RNA Polymerase III Ab, IgG <20 <20 unit(s) [facility] Comment: Test performed by [facility] ?[address], ?[place] [address] ? Finish Painter: Pearl Nieves MD,PHD,TOSHIA Test Reported by Jorge Darden, [facility], [address] [place], [place] Roldan Olmos M.D., Ph.D., Director of Laboratories , [facility] [id number] Blood 09/21/2021 4:13 PM EDT 09/22/2021 10:15 AM EDT Narrative Resulting Agency Comment Spec In Lab Cruz Tanner MD CHEMISTRY ORDERABLES Performing Organization Address [facility]/State/ZIP Co de Phone Number [facility] [place] [address] * (ABNORMAL) SERGIO (09/21/2021 4:13 PM EDT) Antinuclear Ab Test ?Result ? Flag ??Unit ??RefValue Antinuclear Ab, HEp-2 Substrate, ?Positive 1:640 ??@ ?<1:80 (Negative) ??S ? ADDITIONAL INFORMATION --------- ?Method: Immunofluorescence using HEp-2 cellular substrate. ??SERGIO Titer: ?1:640 ??SERGIO Pattern: ?Homogeneous ?Test Performed by: ?[facility] ?[address] [place] [address] ?Stress Engineer: Deion Silva M.D. Ph.D.; CLIA# [id number] ([id number]) [facility] Blood 09/21/2021 4:13 PM EDT 09/22/2021 9:23 AM EDT Narrative Resulting Agency Comment Spec In Lab Cruz Tanner MD IMMUNOLOGY ORDERABLE S Performing Organization Address [facility]/ZIP Co de Phone Number [facility] [place] [address] * Urinalysis with reflex Culture (09/21/2021 4:06 PM EDT) Glucose UA Negative Negative mg/dL [facility] Protein UA Negative Negative mg/dL [facility] Bilirubin UA Negative Negative mg/dL [facility] Comment: Clinical correlation required for positive Urine Bilirubin results as false positive may occur with some drugs and drug related products. If a false positive is suspected a serum total bilirubin should be considered if clinically indicated. Urobilinogen UA Normal Normal mg/dL [facility] pH UA 6.5 5.0 - 8.0 [facility] Blood UA Negative Negative mg/dL [facility] Ketones UA Negative Negative mg/dL [facility] Nitrite UA Negative Negative [facility] Leukocytes UA Negative Negative [facility] Appearance UA Clear Clear [facility] Spec [facility] UA 1.016 1.005 - 1.030 [facility] Color UA Yellow Yellow [facility] Culture Reflexed No [facility] Urine NS 09/21/2021 4:06 PM EDT 09/21/2021 4:14 PM EDT Narrative Resulting Agency Comment Spec In Lab Cruz Tanner MD URINE ORDERABLES Performing Organization Address City/[facility]/ZIP Co de Phone Number [facility] [place] [address] * Protein/Creatinine Ratio, urine (09/21/2021 4:06 PM EDT) U Creatinine 78 mg/dL [facility] U Protein Ran <6 0 - 12 mg/dL [facility] Prot/Cre Ratio <0.1 ratio [facility] Urine 09/21/2021 4:06 PM EDT 09/21/2021 4:14 PM EDT Narrative Resulting Agency Comment Spec In Lab Cruz Tanner MD URINE ORDERABLES [facility] [place] [address] documented in this encounter Visit Diagnoses Diagnosis Pulmonary hypertension Other chronic pulmonary heart diseases documented in this encounter Care Teams Conservator Artifacts Relationship Specialty Start Date End Date Neha Mcmahan MD [address] [place] [address] PCP - General Family Medicine 03/25/20 documented as of this encounter
--- OUTSIDE RECORDS SUMMARY | 2024-01-10 02:16 | XMS_ITS | Encounter Summary ---
[place] [address] Care Team Providers Care Creping Machine Operator Helper Name Role Phone Neha Mcmahan MD Primary Care Provider [phone] Encounter Details Date Type Department Care Team (Latest Contact Info) Description 06/05/2022 Travel Social History Tobacco Use Types Packs/Day [...] 2:30 PM EDT Office Visit Rheumatology at [place] [phone] Dillon Trinidad MD [facility] [place] [address] 01/21/2024 2:30 PM EDT Office [place] [phone] Rosa Elena Villagomez APRN [facility] [place] [address] 02/05/2024 2:00 PM EDT Office [place] [phone] Rosa Elena Muhammad, RN documented as of this encounter Visit Diagnoses Not on filedocumented in this encounter Care Teams Creping Machine Operator Helper Relationship Specialty Start Date End Date Neha Mcmahan MD [address] [place] [address] PCP - General Family Medicine 03/25/20 documented as of this encounter
--- OUTSIDE RECORDS SUMMARY | 2024-01-10 02:16 | XMS_ITS | Encounter Summary ---
Author Organization [facility] [place] [address] Care Team Providers Care Destination Sign Repairer Name Role Phone Neha Mcmahan MD Primary Care Provider [phone] Encounter Details Date Type Department Care Team (Late st Contact Info) Description 10/07/2020 Telephone [place] [address] Aster Angelo Social History Tobacco Use Types Packs/Day Years [...] encounter Miscellaneous Notes * Telephone Encounter - Aster Angelo - 10/07/2020 3:45 PM EDT Called pt to schedule his procedure from his referral. No answer so left a vm. Pt had been sent a letter on 08/19/20 without any response. So closing the referral and sending a letter. documented in this encounter Plan of Treatment Upcoming Encounters Date Type Department Care Team (Late st Contact Info) Description 01/13/2024 2:30 PM EDT Office [place] [phone] Dillon Trinidad MD [facility] [place] [address] 01/21/2024 2:30 PM EDT Office [place] [address] Rosa Elena Villagomez APRN [facility] [place] [address] 02/05/2024 2:00 PM EDT Office [place] [phone] Rosa Elena Muhammad, RN documented as of this encounter Visit Diagnoses Not on filedocumented in this encounter Care Teams Destination Sign Repairer Relationship Specialty Start Date End Date Neha Mcmahan MD [address] [place] [address] PCP - General Family Medicine 03/25/20 documented as of this encounter
--- OUTSIDE RECORDS SUMMARY | 2024-01-10 02:16 | XMS_ITS | Encounter Summary ---
[place] [address] Care Team Providers Care Splitting Machine Operator Helper Name Role Phone Neha Mcmahan MD Primary Care Provider [phone] Encounter Details Date Type Department Care Team (Late st Contact Info) Description 11/16/2021 Telephone [place] [address] Adriana Napier Social History Tobacco Use Types Packs/Day Years [...] encounter Miscellaneous Notes * Telephone Encounter - Adriana Napier - 11/16/2021 12:26 PM EDTSummary: Authorization Not Needed Hello all, Please disregard denial notice. Per Lizy Dutta, case has been updated with correct codes for RHC 03331 & 55787 - which do not require authorization. This is all set to go. Thanks, Anne Napier, PSC * Telephone Encounter - Adriana Napier - 11/16/2021 10:19 AM EDTSumchristine: Prior Authorization Jori Manzanares : 1955 DOS: 11/21/2021 - Dusty CPT: 70012 CARDIAC CATHETERIZATION CORONARY ANGIOGRAPHY; W RHC 94202 PHARMACOLOGIC AGENT ADMIN I27.20 (ICD-10-CM) - Pulmonary hypertension, unspecified Hello, Request denied not meeting medically necessity per letter dated 11/14/21. I followed up same day andstatus was pending with no notification of denial. Reasons for denial are in letter attached above (and in chart under media tab). Prior to issuing an Adverse Determination, we???re offering an opportunity for your office to provide the clinical information that demonstrates this request is medically necessary. Please call , select Option # 1, and enter in Reference Number [id number] to speak with a clinician about this request. Please note that you must provide the clinical information Before 11/16/2021. You may also request a Pre-Determination Consult regarding the case. This discussion must take place Before 11/16/2021. If you wish to speak with the Business Information Consultant, please call , select Option # 1, and enter in Reference Number [id number]. Please keep me posted on final determination. Thank you, Adriana Napier, PSC documented in this encounter Plan of Treatment Upcoming Encounters Date Type Department Care Team (Late st Contact Info) Description 01/13/2024 2:30 PM EDT Office [place] [phone] Dillon Trinidad MD [facility] [place] [address] 01/21/2024 2:30 PM EDT Office [place] [phone] Rosa Elena Villagomez APRN [facility] [place] [address] 02/05/2024 2:00 PM EDT Office [place] [phone] Rosa Elena Muhammad, RN documented as of this encounter Visit Diagnoses Not on filedocumented in this encounter Care Teams Splitting Machine Operator Helper Relationship Specialty Start Date End Date Neha Mcmahan MD [address] [place] [address] PCP - General Family Medicine 03/25/20 documented as of this encounter
--- OUTSIDE RECORDS SUMMARY | 2024-01-10 02:16 | XMS_ITS | Encounter Summary ---
Author Organization [facility] [place] [place] [address] Care Team Providers Care Apartment Community Assistant Manager Name Role Phone Neha Mcmahan MD Primary Care Provider [phone] Encounter Details Date Type Department Care Team (Late st Contact Info) Description 11/15/2021 Orders Only Cardiology at [address] [phone] Mariam Dutta [facility] [place] [address] Pulmonary hypertension; Pre-procedural cardiovascular examination Social History Tobacco Use Types Packs/Day Years [...] 2:30 PM EDT Office [place] [address] Dillon Trinidad MD [facility] [place] [address] 01/21/2024 2:30 PM EDT Office [place] [phone] Rosa Elena Villagomez APRN [facility] [place] [place] [address] 02/05/2024 2:00 PM EDT Office Visit [place] [phone] Rosa Elena Muhammad RN documented as of this encounter Results * Comprehensive metabolic panel (non-fasting) (11/21/2021 10:48 AM EDT) Glucose Lvl 100 65 - 199 mg/dL [facility] Comment:Diabetes: >=200 mg/d L plus symptoms BUN 16 10 - 20 mg/dL [facility] Creatinine 0.89 0.80 - 1.50 mg/dL [facility] Sodium 140 135 - 145 mmol/L [facility] Potassium 4.1 3.5 - 5.0 mmol/L [facility] Comment: Please note: ??Patients with WBC >100,000 may have falsely elevated Potassium levels. ??For accurate Potassium quantification in these patients send serum separator tube (gold top) for subsequent determinations. ??Contact the Clinical Chemistry Laboratory if there are any questions. Chloride 100 98 - 107 mmol/L [facility] CO2 30 22 - 31 mmol/L [facility] Anion Gap 10 5 - 15 mmol/L [facility] Calcium 9.5 8.5 - 10.5 mg/dL [facility] Total Protein 6.8 6.1 - 8.0 g/dL [facility] Albumin 4.4 3.2 - 5.2 g/dL [facility] AST 12 0 - 39 unit/L [facility] ALT 8 0 - 55 unit/L [facility] Alk Phos 70 40 - 130 unit/L [facility] Total Bilirubin 0.4 0.2 - 1.3 mg/dL [facility] Estimated GFR 90 >=60 mL/min/1. 73 m?? [facility] Comment: This patient? s estimated [...] In Lab Mariam Dutta APRN CHEMISTRY ORDERABLES [facility] [place] [address] documented in this encounter Visit Diagnoses Diagnosis Pulmonary hypertension Other chronic pulmonary heart diseases Pre-procedural cardiovascular examination Pre-operative cardiovascular examination documented in this encounter Care Teams Apartment Community Assistant Manager Relationship Specialty Start Date End Date Neha Mcmahan MD [address] [place] [address] PCP - General Family Medicine 03/25/20 documented as of this encounter
--- OUTSIDE RECORDS SUMMARY | 2024-01-10 02:16 | XMS_ITS | Encounter Summary ---
Author Organization [facility] [place] [address] Care Team Providers Care Assistant Professor Name Role Phone Neha Mcmahan MD Primary Care Provider [phone] Encounter Details Date Type Department Care Team (Late st Contact Info) Description 05/01/2022 Telephone [place] [phone] Phyllis Norris Social History Tobacco Use Types Packs/Day Years [...] encounter Miscellaneous Notes * Telephone Encounter - Phyllis Norris - 05/01/2022 2:27 PM EST LM for pt to call back and get f/u scheduled documented in this encounter Plan of Treatment Upcoming Encounters Date Type Department Care Team (Late st Contact Info) Description 01/13/2024 2:30 PM EDT Office [place] [phone] Dillon Trinidad MD [facility] [place] [address] 01/21/2024 2:30 PM EDT Office [place] [phone] Rosa Elena Villagomez APRN [facility] [place] [place] [address] 02/05/2024 2:00 PM EDT Office [place] [address] Rosa Elena Muhammad RN documented as of this encounter Visit Diagnoses Not on filedocumented in this encounter Care Teams Assistant Professor Relationship Specialty Start Date End Date Neha Mcmahan MD [address] [place] [address] PCP - General Family Medicine 03/25/20 documented as of this encounter
--- OUTSIDE RECORDS SUMMARY | 2024-01-10 02:16 | XMS_ITS | Encounter Summary ---
Author Organization [facility] Address [facility] [place] [address] Care Team Providers Care Assembler Radio And Electrical Name Role Phone None Primary Care Provider Unavailabl e Reason for Referral * Consultation (Routine) - Closed Specialty Diagnoses / Procedures Referred By Contac t Referred To Contact Cardiology Diagnoses Pulmonary hypertension Right heart failure due to pulmonary hypertension PHTN Clinic Alva King MD [facility] [place] [address] Mariam Dutta APRN [facility] [place] [address] Referral ID Status Reason Start Date Expiration Date V isits Requested Visits Authorized [id number] Closed Consult, Test & Treat 08/18/2019 08/17/2020 1 1 Reason for Visit * Consultation (Routine) - Specialty Diagnoses / Procedures Referred By Contact Referred To Contact Pulmonary Disease / Pulmonology Diagnoses Dyspnea Procedures Dyspnea nAgel Toscano PA [address] [place] [address] [facility] [address] [place] [phone] Referral ID Status Reason Start Date Expiration Date V isits Requested Visits Authorized [id number] Consult, Test & Treat 03/30/2019 03/29/2020 1 1 Encounter Details Date Type Department Care Team (Late st Contact Info) Description 08/18/2019 2:00 PM EST Office [place] [address] [facility] [place] [address] Restrictive lung disease; EMI treated with BiPAP; Dependence on continuous supplemental oxygen; Pulmonary hypertension; Right heart failure due to pulmonary hypertension Social History Tobacco Use Types Packs/Day [...] Sign Reading Time Taken Comments Blood Pressure 96/59 08/18/2019 1:29 PM EST Pulse 79 08/18/2019 1:29 PM EST Temperature - - Respiratory Rate 16 08/18/2019 1:29 PM EST Oxygen Saturation 99% 08/18/2019 1:29 PM EST Inhaled Oxygen Concentration - - Weight 149 kg (328 lb 7.8 oz) 08/18/2019 1:29 PM EST Height 170.8 cm (5' 7.24) 08/18/2019 1:29 PM ES T Body Mass Index 51.08 08/18/2019 1:29 PM EST documented in this encounter Patient Instructions * Patient Instructions* Irena Amador RT - 08/18/2019 2:00 PM EST Oxygen at 2 lpm at rest and 3 lpm with activity Portable oxygen concentrator at 3 pulse dose at rest documented in this encounter Progress Notes * Alva King MD - 08/18/2019 2:00 PM EST Images from the original note were not included. [facility] Section of Pulmonary and Critical Care Medicine Outpatient Consultation Date of Encounter: 08/18/2019 Referring Provider: DANIEL Land [address] [place] [address] Reason for Evaluation: A provider at [facility] referred Mr. Jori Manzanares to the pulmonary clinic for evaluation and management of dyspnea. I independently interviewed and examined the patient in the office and have reviewed available records. Dear Dr. Toscano, As you know, Jori Manzanares is a 63 y.o. man with history of dCHF, obesity, arthritis, gout, chronic back pain and history of largely untreated EMI with chronic oxygen dependence, who was referred for evaluation of dyspnea. Mr. Manzanares reports a history of long-standing dyspnea, diagnosed years ago with lung disease. Currently he describes a lot of dyspnea with exertion, which recovers with rest. He gets dizzy easily withactivity, but has not passed out recently. He feels heart racing frequently with activity, sometimes with activity, but resolves quickly. Walking is now limited due to dyspnea, and he rides on a scooter. He feels very fatigued. He sometimes has chest tightness. He is using a portable oxygen concentrator at setting of 3-pulse. He generally does not have cough or chest congestion, but has some sinus congestion chronically and notices some past nasal drip with a little throat pooling overnight. Hetends to have nose bleeds easily, but denies any hemoptysis. He denies any fevers, and recalls one chill recently. He has no night sweats. Dyspnea correlates with increases in weight, and his weight has been fluctuating. He recalls being on oxygen some years ago at home, but had stopped using this because he didn't feel it was helpful, but has since resumed this (see below.) He uses 5 L NC via a concentrator at home;on home pulse ox finger checks he is usually 96-99%. He uses an inogen 1 portable concentrator on 3pulse when active. Oxygen supplier is [facility]. Regarding his CHF, he follows with a supervisor joiners in [facility]. His last ECHO was in fall 2018,when he was hospitalized for CHF exacerbation (by his report) in [facility]. He remains on lasix60 mg BID for volume control currently, and he feels his edema is now well controlled. Of note, he had moved to [place] for a year about 2 years ago, and during that time (about 1.5 years ago) hadan episode of near-passing out. He was evaluated in [place] and hospitalized related to this twice (records unavailable), and during one of these admission he was intubated and told he stopped breathing, although he thinks he required intubation for less than a day. He thinks this occurred lydia use of congestive heart failure, with volume overload and foot swelling, and this was treated with lasix. He was restarted on oxygen and prescribed a portable oxygen concentrator at that point in [place], which he is still using. He was recently re-evaluated for EMI, and underwent a repeat sleep study during which he successfully wore a nasal mask, and he is awaiting arrival of a BiPAP. He is being evaluated at the [facility] sleep silex. He was previously diagnosed 12 years ago, and at that point tried but did not tolerate CPAP therapy due to claustrophobia. He previously had trouble falling asleep while driving (years ago) and denies any near misses while driving. He denies any acid reflux or heartburn. He feels he has trouble with his memory. He has carpal tunnel and osteoarthritis. He denies any history of asthma or COPD or lung disease other than EMI. He denies any environmentalallergies. He does not recall any history of pneumonia. He has not tried any inhalers. He is a lifelong non-smoker other than occasional marijuana in the past (not recently.) He previously drank alcohol but quit years ago. He has no pets. He previously had a wood stove for about 20 years (closed.) He grew up in [place], and lived in [place] in the 1970s, 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 There is no family history of lung disease. He had a 2019 flu vaccine. He does not recall a pneumovax as an adult. Past Medical and Surgical History: Past Medical History: Diagnosis Date ??? Arthritis ??? Carpal tunnel syndrome ??? Chronic back pain ??? Gout ??? High blood pressure ??? Obesity ??? Sleep apnea Past Surgical History: Procedure Laterality Date ??? CARPAL TUNNEL RELEASE ??? CATARACT REMOVAL ??? FOOT SURGERY Left carbuncle removal ??? TOE AMPUTATION Family History: Family History Problem Relation Age of Onset ??? Depression Mother ??? Heart Failure Mother ??? Cancer Father ear, kidney ??? Cancer Maternal Grandmother unknown Social and Occupational History: Social History Socioeconomic History ??? Marital status: Single Spouse name: None ??? Number of children: None ??? Years of education: None ??? Highest education level: None Occupational History ??? None Social Needs ??? Financial resource strain: None ??? Food insecurity Worry: None Inability: None ??? Transportation needs Medical: None Non-medical: None Tobacco Use ??? Smoking status: Never Smoker ??? Smokeless tobacco: Never Used Substance and Sexual Activity ??? Alcohol use: None ??? Drug use: None ??? Sexual activity: None Lifestyle ??? Physical activity Days per week: None Minutes per session: None ??? Stress: None Relationships ??? Social connections Talks on phone: None Gets together: None Attends worship service: None Active member of club or organization: None Attends meetings of clubs or organizations: None Relationship status: None ??? Intimate partner violence Fear of current or ex partner: None Emotionally abused: None Physically abused: None Forced sexual activity: None Other Topics Concern ??? None Social History Narrative ??? None Current Medications at Start of Encounter: Outpatient Medications Prior to Visit Medication Sig Dispense Refill ??? acetaminophen (Tylenol) 325 mg Tablet Take 650 mg by mouth every 4 hours as needed for Pain (2 tablets at befor bed). ??? furosemide (Lasix) 20 mg Tablet ??? allopurinoL (Zyloprim) 300 mg Tablet Daily ??? vitamin E (vitamin E) 400 unit Capsule Take by mouth. ??? hydrochlorothiazide (HYDRODIURIL) 50 mg tablet Take 50 mg by mouth daily. ??? VITAMIN B COMPLEX (B COMPLEX ORAL) Take by mouth daily. ??? CHOLECALCIFEROL, VITAMIN D3, (VITAMIN D3 ORAL) Take by mouth daily. ??? SAW PALMETTO XTR/ZINC PICOLIN (SAW PALMETTO EXTRACT ORAL) Take by mouth 3 times daily. ??? ASCORBATE CALCIUM (VITAMIN C ORAL) Take by mouth daily. ??? GLUC HCL/GLUC FLOYD/AC-D-GLUCOS (GLUCOSAMINE COMPLEX ORAL) Take by mouth 3 times daily. ??? lisinopril (PRINIVIL;ZESTRIL) 40 mg tablet Take 40 mg by mouth daily. ??? traMADol (ULTRAM) 50 mg tablet Take 50 mg by mouth every 6 hours as needed. ??? ibuprofen (ADVIL;MOTRIN) 600 mg tablet Take 600 mg by mouth every 6 hours as needed. ??? indomethacin (INDOCIN) 50 mg capsule Take 50 mg by mouth 2 times daily (with meals). ??? DOCOSAHEXANOIC ACID/EPA (FISH OIL ORAL) Take by mouth 3 times daily. ??? SHARK CARTILAGE ORAL Take by mouth 3 times daily. ??? aspirin 81 mg EC tablet Take 81 mg by mouth daily. No facility-administered medications prior to visit. Adverse Drug Reactions: Allergies Allergen Reactions ??? Amlodipine Besylate ??? Lisinopril Review of Systems: An 10-point ROS was completed and was positive as noted in HPI, also positive for rash on his nose,some mild hearing loss, sensation of sparkling in right eye occasionally (not currently), back pain, and otherwise negative. Physical Examination: BP 96/59 Pulse 79 Resp 16 Ht 170.8 cm (5' 7.24) Wt (!) 149 kg (328 lb 7.8 oz) SpO2 99% PF (!) 3 L/min Comment: Patient stated that the DrSarah put him on 5L at home BMI 51.08 kg/m?? GEN: NAD, alert, comfortable and conversational, obese HEENT: MMM, small mouth with inability to visualize uvula, appears to have small posterior OP with high-riding tongue, nares patent with moderate erythema and some mild clear rhinitis, anicteric sclera, PERRL, neck is supple without LAD or tenderness with increased circumference CV: RRR, quiet S1 and S2, no murmur, pulse 2+ PULM: normal WOB at rest, CTAB, no crackles or wheezing, good chest wall excursion, no cyanosis or clubbing ABD: +BS, soft, NT/ND, protuberant abdomen with no palpable HSM or mass MSK: no joint swelling; he is ambulatory and able to get onto exam table EXT: warm, not tender, 1+ pitting edema at ankles DERM: slight flaking rash at nasolabial folds and ears, no erythema NEURO: AAO, appropriate, voice is clear Pulmonary Function Test Results: Date FVC FEV1 Ratio TLC RV RV/TLC ERV DLCO 6MWT 08/18/2019 1.96 L (47% predicted) 1.47 L (46% pred) 75 (normal) 77% pred (normal) I personally reviewed flow-volume loops and other tests. Results are most consistent with normal airflow, with concern for restrictive lung pattern on spirometry. Diffusing capacity is normal. Ambulatory SpO2 assessment as noted in attached RT note; required 3L NC to maintain SpO2 > 88 onambulation. Labs, Microbiology and Imaging: I personally reviewed relevant laboratory, microbiologic and radiology results which were significant for: OSH labs from 03/2019 notable for CO2 on BMP 35-36, Hgb 15. OSH chest CT-PE 03/2019, text report available, images pending: Negative for PE, no infiltrates, masses or adenopathy. OSH ECHO 03/2019, read scanned, normal LV function and LVEF, moderately dilated LA and RA; RV is moderately to severely dilated and mildly hypokinetic Immunization History: Flu vaccine: yes, 2018 flu vaccine Pneumovax: unknown Prevnar-13: NA Impression and Recommendations: Jori Manzanares is a 63 y/o man with progressive exertional dyspnea, dizziness and hypoxia, with evidence for possible severe restrictive lung disease on spirometry, possibly 2/2 obesity, and cardiopulmonary imaging from March concerning for possible pulmonary hypertension as etiology of his exertional dyspnea. He has a diagnosis of EMI and has recently been evaluated for BiPAP by Sleep Medicine which I strongly advised him to use as soon as he receives as untreated EMI can be a contributing factor in pulmonary hypertension. We did an ambulatory oxygen titration at this visit, and he will continue to use supplemental oxygen with activity currently needing 3 LPM with ambulation. Given moderate to severe right heart dysfunction on ECHO without evidence of left heart dysfunction, I am referring him for further evaluation likely including right heart cath to my colleague in Cardiology Dr. Jerry Martin, and anticipate he may benefit from targeted medical treatment of pHTN if this can be confirmed on RHC. I advised weight loss for additional management of his restrictive lung disease. Summary Recommendations: - ambulatory oxygen titration testing done in clinic today, recommend use of 3L NC with activity - referral for pulmonary hypertension evaluation with Dr. Martin at [facility] cardiology placed, anticipate he will benefit from medical management of pulmonary hypertension - strongly advised patient to start BiPAP use nightly as soon as he receives this device (followed by sleep medicine in [facility]) - weight loss for restrictive lung disease encouraged Thank you for involving me in Mr. Manzanares's care. Follow up has been arranged in 6 months in our clinic. Please feel free to contact me with any further questions or concerns Alva King MD [facility] AT [facility] [address] Dept: [phone] Loc: [phone] * Irena Amador RT - 08/18/2019 2:00 PM EST Home Oxygen Evaluation for Jori Manzanares arrived with O2 at 5 lpm. Resting SpO2 at 5 lpm O2=97% HR=75 Decreased O2 to 4 lpm Resting SpO2 on 4 lpm O2= 94% HR= 79 Decreased to 3 lpm O2: Resting SpO2 on 3 lpm O2= 94% HR= 79 Decreased to 2 lpm O2: Resting SpO2 on 2 lpm O2= 93 HR= 81 Resting SpO2 on room air: 89% HR: 83 Placed on O2 at 2 lpm: Resting SpO2 on 2 lpm O2: 93 HR: 79 Walked approximately 80 feet on 2 lpm O2, noted dizziness, SpO2: 94 HR: 100, Stopped sat down, during recovery SpO2 decreased to 87% HR= 95 Increased to 3 lpm O2: Resting SpO2 on 3 lpm O2: 95% HR: 75 Walked 80 feet on 3 lpm O2, SpO2: 93% HR: 96, no dizziness noted Changed to pulse dose: Resting SPO2 on 3 pulse dose: 90-92% HR=76 Jori Manzanares has [employer] with home oxygen concentrator and portable tanks from them. He has also purchased (2) inogen G1 - go up to 3 pulse dose and would prefer not to change this. documented in this encounter Plan of Treatment Upcoming Encounters Date Type Department Care Team (Late st Contact Info) Description 01/13/2024 2:30 PM EDT Office [place] [address] Dillon Trinidad MD [facility] [place] [address] 01/21/2024 2:30 PM EDT Office [place] [phone] Rosa Elena Villagomez APRN [facility] [place] [address] 02/05/2024 2:00 PM EDT Office [place] [address] Rosa Elena Muhammad, RN Scheduled Referrals Name Type Priority Associated Diagnoses Orde r Schedule Referral to Cardiology Outpatient Referral Routine Pulmonary hypertension Right heart failure due to pulmonary hypertension Ordered: 08/18/2019 documented as of this encounter Visit Diagnoses Diagnosis Restrictive lung disease Other diseases of lung, not elsewhere classified EMI treated with BiPAP Dependence on continuous supplemental oxygen Pulmonary hypertension Other chronic pulmonary heart diseases Right heart failure due to pulmonary hypertension Congestive heart failure, unspecified documented in this encounter Care Teams Assembler Radio And Electrical Relationship Specialty Start Date End Date None None PCP - General 05/07/19 03/24/20 documented as of this encounter
--- OUTSIDE RECORDS SUMMARY | 2024-01-10 02:16 | XMS_ITS | Encounter Summary ---
Author Organization [facility] Address [facility] [place] [address] Care Team Providers Care Dispatch Supervisor Name Role Phone Neha Mcmahan MD Primary Care Provider [phone] Encounter Details Date Type Department Care Team (Latest Contact Info) Description 12/10/2022 8:14 AM EDT - 12/10/2022 11:59 PM EDT Hospital Encounter Laboratory [facility] [place] [address] Discharge Disposition: Home Social History Tobacco Use [...] Sig Dispensed Refills Start Date End Date gabapentin (Neurontin) 300 mg capsule Take 300 mg by mouth nightly. sertraline (Zoloft) 50 mg tablet Take 50 mg by mouth Daily. potassium chloride ER (Klor-Con M) 20 mEq ER micro-encapsulated crystal tablet Take 20 mEq by mouth daily. mupirocin (Bactroban) 2 % Ointment Apply topically as needed. 03/23/2019 Ozcei-3-JMS-EPA-Fish Oil 1,000 mg (120 mg-180 mg) Capsule [...] Take by mouth 3 times daily. NIFEdipine CC (Adalat CC) 30 mg ER tablet Take 30 mg by mouth daily. 02/07/2023 Silver (SilvaSorb) Gel, Sustained Release daily. 06/24/2023 spironolactone (Aldactone) 25 mg tablet Take 25 mg by mouth daily. 02/04/2023 melatonin 5 mg tablet Take 10 mg by mouth. 02/07/2023 furosemide (Lasix) 20 mg Tablet Take 60 mg by mouth 2 times daily. 06/29/2019 02/04/2023 documented as of this encounter Plan of Treatment Upcoming Encounters Date Type Department Care Team (Late st Contact Info) Description 01/13/2024 2:30 PM EDT Office [place] [address] Dillon Trinidad MD [facility] [place] [address] 01/21/2024 2:30 PM EDT [place] [address] Rosa Elena Villagomez APRN [facility] [address] 02/05/2024 2:00 PM EDT Office Visit Wound Care at [facility] [address] Rosa Elena Muhammad RN documented as of this encounter Visit Diagnoses Not on filedocumented in this encounter Care Teams Dispatch Supervisor Relationship Specialty Start Date End Date Neha Mcmahan MD [address] [place] [address] PCP - General Family Medicine 03/25/20 documented as of this encounter
--- OUTSIDE RECORDS SUMMARY | 2024-01-10 02:16 | XMS_ITS | Encounter Summary ---
Author Organization [facility] [place] [address] Care Team Providers Care Rescue Worker Name Role Phone Neha Mcmahan MD Primary Care Provider [phone] Encounter Details Date Type Department Care Team (Late st Contact Info) Description 10/17/2021 [place]phone [place] [address] Yael Villagomez Social History Tobacco Use Types Packs/Day Years [...] 2:30 PM EDT Office [place] [address] Dillon Trinidad MD [facility] [place] [address] 01/21/2024 2:30 PM EDT Office [place] [address] Rosa Elena Villagomez APRN [facility] [place] [address] 02/05/2024 2:00 PM EDT Office [place] [address] Rosa Elena Muhammad, RN documented as of this encounter Visit Diagnoses Not on filedocumented in this encounter Care Teams Rescue Worker Relationship Specialty Start Date End Date Neha Mcmahan MD [address] [place] [address] PCP - General Family Medicine 03/25/20 documented as of this encounter
--- OUTSIDE RECORDS SUMMARY | 2024-01-10 02:16 | XMS_ITS | Encounter Summary ---
Author Organization [facility] Address [facility] [place] [address] Care Team Providers Care Cost Analyst Name Role Phone Neha Mcmahan MD Primary Care Provider Reason for Visit * Auth/Cert Specialty Diagnoses [...] Expiration Date Visits Re quested Visits Authorized [id number] 1 1 Encounter Details Date Type Department Care Team (Latest Contact Info) Description 11/21/2021 10:18 AM EDT - 11/21/2021 6:22 PM EDT Hospital Encounter [place] [address] Milton Montano MD [facility] [place] [address] Pulmonary hypertension; Pre-procedural cardiovascular examination Discharge Disposition: Home Social History Tobacco Use [...] Sign Reading Time Taken Comments Blood Pressure 118/60 11/21/2021 5:54 PM EDT Pulse 66 11/21/2021 5:54 PM EDT Temperature 36.7 ??C (98.1 ??F) 11/21/2021 6:00 PM ED T Respiratory Rate 20 11/21/2021 5:54 PM EDT Oxygen Saturation 100% 11/21/2021 5:54 PM EDT Inhaled Oxygen Concentration - - Weight 151 kg (333 lb) 11/21/2021 1:26 PM EDT Height - - Body Mass Index 49.18 11/08/2021 2:55 PM EDT documented in this encounter Discharge Instructions * Attachments The following attachments cannot be sent through Care Everywhere. * Right Heart Catheterization: Pulmonary Artery Catheterization: Post-op (Nicaraguan) documented in this encounter Medications at Time of Discharge Medication Sig Dispensed Refills Start Date End Date mupirocin (Bactroban) 2 % Ointment Apply topically as needed. 03/23/2019 Olmod-7-QDF-EPA-Fish Oil 1,000 mg (120 mg-180 mg) Capsule [...] 2:30 PM EDT Office [place] [id number] Dillon Trinidad MD [facility] [place] [address] 01/21/2024 2:30 PM EDT Office [place] [address] Rosa Elena Villagomez APRN [facility] [place] [place] [address] 02/05/2024 2:00 PM EDT Office [place] [address] Rosa Elena Muhammad RN documented as of this encounter Procedures Procedure Name Priority Date/Time Associated Diagnosis Comments CARDIAC CATHETERIZATION Routine 11/21/2021 5:20 PM EDT Pulmonary hypertension Pharmacologic Agent Admin & Hemodynamic Measurment (59998) 11/21/2021 4:31 PM EDT Pulmonary hypertension HEMOGRAM [...] Modality Other Narrative 11/21/2021 5:24 PM EDT ?[facility] ? Cardiac Catheterization/Intervention Report ? Patient Name: Jori Manzanares. ? Procedure Date: 11/21/2021 ? A #: [id number] ? Primary Physician: Milton Montano ? Case #: [id number] ? File Name: [id number] ? Catheterization Order Number: [id number] ? [facility] ? Final Report [place], [place] ? Patient Name: ? Jori Manzanares ?ID#: ?[id number] ? : ?1955 ? Procedure Date: ? [...] procedure was Elective. 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 Chest pain symptom [...] right heart catheterization and ?oximetry. ? Milton S Dusty, M.D. ? Electronically Signed by: Milton Saleh Dusty, M.D. ? Report Finalized: 11/21/2021 ??17:17 ? Report Last Ammended: 12/01/2021 ??14:46 ? Procedure Note Milton Montano MD - 12/01/2021 [facility] Cardiac Catheterization/Intervention Report Patient Name: Jori Manzanares Procedure Date: 11/21/2021 A #: [id number] Primary Physician: Milton Montano Case #: [id number] File Name: [id number] Catheterization Order Number: [id number] [facility] FinalReport [place], [place] Patient Name: Jori Manzanares ID#:[id number] :1955 Procedure Date: November 21, 2021 Case [...] patient was designated as ASAClass IV. The [facility] clinical frailty scale is 6: Moderately Frail. Diagnostic Tests: Electrocardiography: EKG was assessed by ECG. EKG was Normal. Indications for Diagnostic Cath: The priority of the diagnostic procedure was Elective. 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 Chest pain symptomassessment [...] 10:48 AM EDT) Neutrophils % 64.6 % [facility] Neutr Abs (ANC) 6.78(H) 1.70 - 6.10 x10(3)/[facility] Lymphocytes % 23.5 % [facility] Lymphocytes Abs 2.5 0.9 - 3.2 x10(3)/[facility] Monocytes % 8.5 % [facility] Monocyte Abs 0.9 0.3 - 0.9 x10(3)/[facility] Eosinophils % 2.1 % [facility] Eosinophils Abs 0.2 0.0 - 0.4 x10(3)/[facility] Basophils % 0.5 % [facility] Basophils Abs 0.0 0.0 - 0.1 x10(3)/[facility] Immature Gran % 0.80 % [facility] Comment: Immature granulocytes(IG's)percentage and absolute count will include metamyelocytes, myelocytes, and promyelocytes. Blood smears from CBCs yielding IG's will be scanned manually for concordance. If this scan disagrees with the automated IG or if promyelocytes are noted, a manual differential will be performed. Astrid Gran Abs 0.08(H) 0.00 - 0.04 x10(3)/[facility] Blood 11/21/2021 10:4 8 AM EDT 11/21/2021 10:55 AM EDT Narrative Resulting Agency Comment Spec In Lab Mariam Dutta APRN HEMATOLOGY ORDERABLE S [facility] [place] [address] * (ABNORMAL) Hemogram (11/21/2021 10:48 AM EDT) WBC 10.5(H) 4.0 - 9.5 x10(3)/[facility] RBC 4.31(L) 4.58 - 5.54 x10(6)/[facility] Hemoglobin 12.8(L) 13.7 - 16.5 g/dL [facility] Hematocrit 40.3(L) 40.5 - 48.5 % [facility] MCV 93.5(H) 82.9 - 93.1 [facility] MCH 29.7 27.5 - 32.1 pg [facility] MCHC 31.8(L) 32.0 - 35.7 g/dL [facility] Platelets 156 145 - 357 x10(3)/[facility] RDWSD 49.9(H) 36.0 - 45.0 [facility] RDWCV 14.6(H) 11.4 - 13.8 % [facility] MPV 10.5 7.6 - 12.9 [facility] nRBC % Auto 0.0 % [facility] nRBC Abs Auto 0.000 0.000 - 0.000 x10(3)/[facility] Blood 11/21/2021 10:4 8 AM EDT 11/21/2021 10:55 AM EDT Narrative Resulting Agency Comment Spec In Lab Mariam Dutta APRN HEMATOLOGY ORDERABLE S [facility] [place] [address] * Comprehensive metabolic panel (non-fasting) (11/21/2021 10:48 AM EDT) Glucose Lvl 100 65 - 199 mg/dL [facility] Comment:Diabetes: >=200 mg/d L plus symptoms BUN 16 10 - 20 mg/dL [facility] Creatinine 0.89 0.80 - 1.50 mg/dL [facility] Sodium 140 135 - 145 mmol/L [facility] Potassium 4.1 3.5 - 5.0 mmol/L [facility] Comment: Please note: ??Patients with WBC >100,000 may have falsely elevated Potassium levels. ??For accurate Potassium quantification in these patients send serum separator tube (gold top) for subsequent determinations. ??Contact the Clinical Chemistry Laboratory if there are any questions. Chloride 100 98 - 107 mmol/L [facility] CO2 30 22 - 31 mmol/L [facility] Anion Gap 10 5 - 15 mmol/L [facility] Calcium 9.5 8.5 - 10.5 mg/dL [facility] Total Protein 6.8 6.1 - 8.0 g/dL [facility] Albumin 4.4 3.2 - 5.2 g/dL [facility] AST 12 0 - 39 unit/L [facility] ALT 8 0 - 55 unit/L [facility] Alk Phos 70 40 - 130 unit/L [facility] Total Bilirubin 0.4 0.2 - 1.3 mg/dL [facility] Estimated GFR 90 >=60 mL/min/1. 73 m?? [facility] Comment: This patient? s estimated [...] In Lab Mariam Dutta APRN CHEMISTRY ORDERABLES [facility] [place] [address] documented in this encounter Visit Diagnoses Diagnosis [...] Contraindicated) documented in this encounter Care Teams Cost Analyst Relationship Specialty Start Date End Date Neha Mcmahan MD [address] [place] [address] PCP - General Family Medicine 03/25/20 documented as of this encounter
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
--- OUTSIDE RECORDS SUMMARY | 2024-01-10 02:16 | XMS_ITS | Encounter Summary ---
Author Organization [facility] Prashant castro [place] [id number] Care Team Providers Care Deaf Interpreter Name Role Phone Neha Mcmahan MD Primary Care Provider [phone] Reason for Visit * Reason Onset Date Comments Medication Refill 01/04/2022 Nifedipine inc rease Encounter Details Date Type Department Care Team (Late st Contact Info) Description 01/04/2022 Refill Cardiology at [place] [phone] Mariam Dutta [facility] [place] [address] Medication Refill (Nifedipine increase) Social History Tobacco Use Types Packs/Day Years [...] 2:30 PM EDT Office Visit Rheumatology at [place] [phone] Dillon Trinidad MD [facility] [place] [address] 01/21/2024 2:30 PM EDT Office [place] [phone] Rosa Elena Villagomez APRN [facility] [place] [address] 02/05/2024 2:00 PM EDT Office [place] [address] Rosa Elena Muhammad RN documented as of this encounter Visit Diagnoses Diagnosis Pulmonary hypertension Other chronic pulmonary heart diseases documented in this encounter Care Teams Deaf Interpreter Relationship Specialty Start Date End Date Neha Mcmahan MD [address] [place] [address] PCP - General Family Medicine 03/25/20 documented as of this encounter
--- OUTSIDE RECORDS SUMMARY | 2024-01-10 02:16 | XMS_ITS | Encounter Summary ---
Author Organization [facility] [place] [address] Care Team Providers Care Coupler Name Role Phone Neha Mcmahan MD Primary Care Provider [phone] Reason for Visit * Reason Onset Date Comments Follow-up 02/05/2023 Nifedipine refil l request Encounter Details Date Type Department Care Team (Late st Contact Info) Description 02/05/2023 Telephone Cardiology at [address] [phone] Linda Liriano RN Follow-up (Nifedipine refill request) Social History Tobacco Use Types Packs/Day Years [...] Encounter - Linda Liriano RN - 02/05/2023 2:35 PM EDT Call received from pt re: pt reports when he called yesterday he couldn't remember the name of the medication he needed refill. Pt reports he needs a refill of Nifedipine. Will forward rx refill request to MEDICAL TRANSCRIPTIONIST Luzmaria. documented in this encounter Plan of Treatment Upcoming Encounters Date Type Department Care Team (Late st Contact Info) Description 01/13/2024 2:30 PM EDT Office [place] [address] Dillon Trinidad MD [facility] DR RHEUMATOLOGY [place] [address] 01/21/2024 2:30 PM EDT Office [place] [phone] Rosa Elena Villagomez APRN [facility] [place] [address] 02/05/2024 2:00 PM EDT Office [place] [phone] Rosa Elena Muhammad, RN documented as of this encounter Visit Diagnoses Not on filedocumented in this encounter Care Teams Coupler Relationship Specialty Start Date End Date Neha Mcmahan MD [address] [place] [address] PCP - General Family Medicine 03/25/20 documented as of this encounter
--- OUTSIDE RECORDS SUMMARY | 2024-01-10 02:16 | XMS_ITS | Encounter Summary ---
Author Organization [facility] Address [facility] [place] [address] Care Team Providers Care Account Executive Sales Representative Name Role Phone Neha Mcmahan MD Primary Care Provider [phone] Encounter Details Date Type Department Care Team (Late st Contact Info) Description 06/05/2022 3:15 PM EST Office [place] [phone] Haile Bolaños MD [facility] RHEUMATOLOGY [place] [address] Pulmonary hypertension; Positive SERGIO (antinuclear antibody); Class 3 severe obesity with body mass index (BMI) of 45.0 to 49.9 in adult, unspecified obesity type, unspecified whether serious comorbidity present Social History Tobacco Use Types Packs/Day Years [...] Sign Reading Time Taken Comments Blood Pressure 123/54 06/05/2022 2:57 PM EST Pulse 70 06/05/2022 2:57 PM EST Temperature 36.2 ??C (97.1 ??F) 06/05/2022 2 :57 PM EST Respiratory Rate - - Oxygen Saturation 94% 06/05/2022 2:5 7 PM EST 3L of 02 via nC Inhaled Oxygen Concentration - - Weight 147.4 kg (325 lb) 06/05/2022 2:5 7 PM EST self reported Height 175.3 cm (5' 9) 06/05/2022 2:57 PM EST Body Mass Index 47.99 06/05/2022 2:57 PM EST documented in this encounter Progress Notes * Haile Bolaños MD - 06/05/2022 3:15 PM EST Rheumatology Outpatient Follow Up Note PCP: Neha Mcmahan MD Jori Manzanares is a 66 y.o. male who we are seeing for the continuing management of positive SERGIO in the setting of pulmonary HTN. 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 Martin of cardiology on 11/08/21, ordered RHC which was performed on 11/21/21 and showed severe pulmonary HTN -seen in follow up via telehealth by cardiology on 12/20/21, started on nifedipine 30 mg daily -states that his breathing has not changed much since starting nifedipine (for better or worse) -still on 3L O2 -does have some aches in his back and shoulders but these are aggravated by movement and alleviatedby rest; denies any morning stiffness and red/hot/swollen joints -continues to deny Raynauds, eye redness/pain, dry eyes, dry mouth, mouth sores, rash, reflux, and symptoms below ROS (positives in bold): Gen: no fevers, no chills, no night sweats Pulm: see HPI CV: no CP Abd: no abd pain, no nausea, no vomiting, no diarrhea MSK: see HPI Meds and Allergies: Reviewed in eDH Physical exam: BP 123/54 Pulse 70 Temp 36.2 ??C (97.1 ??F) (Temporal) Ht 175.3 cm (5' 9) Wt (!) 147.4 kg (325 lb) Comment: self reported SpO2 94% Comment: 3L of 02 via nC BMI 47.99 kg/m?? General: Well appearing, NAD, obese HEENT: Mucous [...] or lesions noted Nails: no nail pitting, again no abnormal nailfold capillaroscopy under dermatoscopy ?? Extremities: Shoulders: FROM Elbows:FROM Wrists: FROM, no swelling, non-tender Hands: No synovitis, no MCP compression tenderness, full fist and claw bilaterally Knees: no effusion, no tenderness Ankles: FROM, non-tender, no effusion Feet: no MTP compression tenderness Labs/Studies: Reviewed. Assessment/Plan: #positive SERGIO in the setting of pulmonary HTN This is first outpatient follow up since initial visit on 09/21/21 at which time extensive additionalserologic workup was found to be rather unrevealing. He was seen by Dr. Martin of cardiology on 11/08/21 and underwent RHC on 11/21/21 which again showed severe pulmonary HTN. He was started on nifedipine by cardiology on 12/20/21. Of note, he continues to not have any signs or symptoms of a systemic autoimmune connective tissue disease, including SLE. He has tested negative for double-stranded DNA antibodies by Crithidia IFA. -given lack of further signs or symptoms of connective tissue disease, no indication to initiate immunomodulation from rheumatology's standpoint at this time -will defer labs for now but plan to repeat dsDNA (by Crithidia), C3, C4, UA, and urine protein/creatinine at next visit -he was encouraged to make a follow up appointment with cardiology as he does not currently have one scheduled Follow up in 6 months Patient was discussed with Dr. Fadumo Bolaños MD Rheumatology Fellow Pager: [phone] * Claudia Thorne MD - 06/05/2022 3:15 PM EST The patient's history was reviewed with Dr. Bolaños. History of present illness and diagnosis discussed. Chief complaint and review of systems reviewed. Physical exam findings, serologic testing, anddiagnostic imaging reviewed. I agree with the summary, findings, diagnostic and therapeutic plans. documented in this encounter Plan of Treatment Upcoming Encounters Date Type Department Care Team (Late st Contact Info) Description 01/13/2024 2:30 PM EDT Office [place] [phone] Dillon Trinidad MD [facility] DR RHEUMATOLOGY [place] [address] 01/21/2024 2:30 PM EDT Office [place] [phone] Rosa Elena Villagomez APRN [facility] [place] [address] 02/05/2024 2:00 PM EDT Office [place] [phone] Rsoa Elena Muhammad, RN documented as of this encounter Visit Diagnoses Diagnosis Pulmonary hypertension Other chronic pulmonary heart diseases Positive SERGIO (antinuclear antibody) Other and unspecified nonspecific immunological findings Class 3 severe obesity with body mass index (BMI) of 45.0 to 49.9 in adult, unspecified obesity type, unspecified whether serious comorbidity present documented in this encounter Care Teams Account Executive Sales Representative Relationship Specialty Start Date End Date Neha Mcmahan MD [address] [place] [address] PCP - General Family Medicine 03/25/20 documented as of this encounter
--- OUTSIDE RECORDS SUMMARY | 2024-01-10 02:16 | XMS_ITS | Encounter Summary ---
Author Organization [facility] [place] [address] Care Team Providers Care Plan Rep Name Role Phone Neha Mcmahan MD Primary Care Provider [phone] Reason for Visit * Reason Comments Medication Refill Encounter Details Date Type Department Care Team (Late st Contact Info) Description 11/06/2022 Refill Cardiology at [address] [phone] Mariam Dutta, [facility] [place] [address] Medication Refill Social History Tobacco Use Types [...] encounter Miscellaneous Notes * Telephone Encounter - Celi Flores RN - 11/09/2022 12:47 PM EDT REMI: 12/20/21 Per assessment and Plan: ??? Request echo report from [facility] ??? Begin nifedipine 30 mg daily - uptitrate as tolerated ??? F/u in 6-8 weeks with Merary Marshall MD 01/03/22 phone note medication was increased to 60 mg daily. Next f/u: not scheduled. Celi Flores flatwork tier [facility] at [facility] [phone] documented in this encounter Plan of Treatment Upcoming Encounters Date Type Department Care Team (Late st Contact Info) Description 01/13/2024 2:30 PM EDT Office [place] [phone] Dillon Trinidad MD [facility] [place] [address] 01/21/2024 2:30 PM EDT Office [place] [phone] Rosa Elena Villagomez APRN [facility] [place] [address] 02/05/2024 2:00 PM EDT Office Visit Wound Care at [place] [phone] Rosa Elena Muhammad, RN documented as of this encounter Visit Diagnoses Diagnosis Pulmonary hypertension Other chronic pulmonary heart diseases documented in this encounter Care Teams Plan Rep Relationship Specialty Start Date End Date Neha Mcmahan MD [address] [place] [address] PCP - General Family Medicine 03/25/20 documented as of this encounter
--- OUTSIDE RECORDS SUMMARY | 2024-01-10 02:16 | XMS_ITS | Encounter Summary ---
Author Organization [facility] Address [facility] [place] [address] Care Team Providers Care Pipeline Engineer Name Role Phone Neha Mcmahan MD Primary Care Provider [phone] Encounter Details Date Type Department Care Team (Late st Contact Info) Description 12/10/2022 2:00 PM EDT Office [place] [phone] Haile Bolaños MD [facility] [place] [address] Pulmonary hypertension; Positive SERGIO (antinuclear antibody); Class [...] Sign Reading Time Taken Comments Blood Pressure 110/51 12/10/2022 1:37 PM EDT Pulse 65 12/10/2022 1:37 PM EDT Temperature 36.5 ??C (97.7 ??F) 12/10/2022 1:37 PM ED T Respiratory Rate 18 12/10/2022 1:37 PM EDT Oxygen Saturation 96% 12/10/2022 1:37 PM EDT on 3L O2 Inhaled Oxygen Concentration - - Weight 152.3 kg (335 lb 12.8 oz) 12/10/2022 1:37 PM EDT Height - - Body Mass Index 49.59 06/05/2022 2:57 PM EST documented in this encounter Patient Instructions * Patient Instructions* Haile Bolaños MD - 12/10/2022 2:00 PM EDT Please remember to schedule a follow up appointment with cardiology. documented in this encounter Progress Notes * Haile Bolaños MD - 12/10/2022 2:00 PM EDT Rheumatology Outpatient Follow Up Note PCP: Neha Mcmahan MD Jori Manzanares is a 67 y.o. male who we are seeing for the continuing management of positive SERGIO in the setting of pulmonary HTN. 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 so VQ scan performed on 07/31/21 did not find any VQ mismatches and no significant perfusion deficits -Labs August 2021 (obtained in the [facility] network): SERGIO 1:320 (homogenous), RF [...] root normal in size -initial visit with [facility] rheumatology 09/21/21 (no other signs of symptoms of CTD at that time) -labs 09/21/21: UA normal, urine protein/creatinine <0.1, SERGIO 1:640 (homogenous), anti-RNA polymerase III negative, anti-centromere negative, quantiferon/HIV/HBV/HCV serologies negative, LAC/B2GP/ACL antibodies negative, C4 35, C3 183, CMP normal, WBC/hb/plts normal, dsDNA 52.8 but negative by Crit riley IFA, KARL negative -TTE 11/16/21: Left ventricle [...] 30 mg daily on 12/20/21 Interval History: -last visit: 06/05/22 -Letter sent by cardiology on 11/28/2022 stating that he is due for a follow-up appointment but theyhave been unable to reach him by phone to schedule -feels that his breathing is about the same, still on 3L supplemental O2 -feels that nifedipine has helped his breathing -denies red/hot/swollen joints, mouth sores, Raynaud's, GERD, and dysphagia -only has about 30 minutes of morning stiffness (mainly his back) -states that he has been living in his camper since the weather has been warm and doesn't check hismail very frequently (did not get aforementioned letter from cardiology and has not made a follow up appointment) ROS (positives in bold): Gen: no fevers, no chills, no night sweats Pulm: see HPI CV: no CP Abd: no abd pain, no nausea, no vomiting, no diarrhea MSK: see HPI Meds and Allergies: Reviewed in eDH Physical exam: BP 110/51 (BP Location (NBP): Left arm, Patient Position: Sitting, BP Cuff Sizes: Thigh (40-55 cm)) Pulse 65 Temp 36.5 ??C (97.7 ??F) (Temporal) Resp 18 Wt (!) 152.3 kg (335 lb 12.8 oz) SpO2 96% Comment: on 3L O2 BMI 49.59 kg/m?? General: Well appearing, NAD, obese HEENT: [...] no nail pitting, again no abnormal nailfold capillaries under dermatoscopy Extremities: Shoulders: FROM Elbows:FROM Wrists: FROM, no swelling, non-tender Hands: No synovitis, no MCP compression tenderness, full fist and claw bilaterally Knees: no effusion, no tenderness Ankles: FROM, non-tender, no effusion Feet: no MTP compression tenderness Labs/Studies: Reviewed. Assessment/Plan: #positive SERGIO in the setting of pulmonary HTN Last visit 06/05/22. At initial visit on 09/21/21, extensive additional serologic workup was found viola rather unrevealing. He was seen by Dr. Martin of cardiology on 11/08/21 and underwent RHC on 11/21/21 which again showed severe pulmonary HTN. He was started on nifedipine by cardiology on 12/20/21. Ofnote, he continues to not have any signs or symptoms of a systemic autoimmune connective tissue disease, including SLE. He has tested negative for double-stranded DNA antibodies by Crithidia IFA. -given lack of further signs or symptoms of connective tissue disease, no indication to initiate immunomodulation from rheumatology's standpoint at this time -will repeat dsDNA (by Crithidia), C3, C4, UA, and urine protein/creatinine today -he was encouraged to make a follow up appointment with cardiology as he does not currently have one scheduled Follow up in 3 months Patient was discussed with Dr. Haydee Bolaños MD Rheumatology Fellow Pager: [phone] * Jacinta Hubbard MD - 12/10/2022 2:[address] Bolaños provided the care for this patient. We discussed and I have reviewed his note. documented in this encounter Plan of Treatment Upcoming Encounters Date Type Department Care Team (Late st Contact Info) Description 01/13/2024 2:30 PM EDT Office [place] [phone] Dillon Trinidad MD [facility] [place] [address] 01/21/2024 2:30 PM EDT Office [place] [phone] Rosa Elena Villagomez APRN [facility] [place] [address] 02/05/2024 2:00 PM EDT Office [place] [address] Rosa Elena Muhammad RN documented as of this encounter Procedures Procedure Name Priority Date/Time Associated Diagnosis Comments MISC ARUP TEST Routine 12/10/2022 3:03 PM EDT MISCELLANEOUS LAB REQUEST Routine 12/10/2022 3:03 PM EDT Pulmonary hypertension Positive SERGIO (antinuclear antibody) HC VENIPUNCTURE Routine 12/10/2022 3:03 PM EDT Pulmonary hypertension Positive SERGIO (antinuclear antibody) HC COMPLEMENT,C3 SERUM Routine 3:03 PM EDT Pulmonary hypertension Positive SERGIO (antinuclear antibody) HC COMPLEMENT C4, PLASMA Routine 12/10/2022 3:03 PM EDT Pulmonary hypertension Positive SERGIO (antinuclear antibody) documented in this encounter Results * (ABNORMAL) [facility] ARUP Test (12/10/2022 3:03 PM EDT) ARUP Test [id number] [facility] SEE NOTE(A) [facility] Comment: Test name ? Result Flag Units ??RefIntvl Double-Stranded DNA (dsDNA) Ab IgG IFA ? 1:160 A ? <1:10 INTERPRETIVE INFORMATION: Double-Stranded DNA (dsDNA) Antibody, IgG by IFA (using Crithidia luciliae) Positivity for anti-double stranded DNA (anti-dsDNA) IgG antibody is a diagnostic criterion of systemic lupus erythematosus (SLE). The presence of the anti-dsDNA IgG antibody is identified by IFA titer (Crithidia luciliae indirect fluorescent test [JUAN]). JUAN is highly specific for SLE with a sensitivity of 50-60 percent. Some patients with early or inactive SLE may be positive for anti-dsDNA IgG by ONEYDA but negative by JUAN. If the JUAN result is negative but the patient has a positive ONEYDA and clinical suspicion remains, consider antinuclear antibody (SERGIO) testing by IFA. Additional information and recommendations for testing may be found at [email or web address]. Performed By: [facility] [address] [place] [id number] Pony Edger: Tarik Mccormick MD, PHD Other Other / Unknown 12/10/2022 3 :03 PM EDT 12/11/2022 1:48 PM EDT Haile Bolaños MD CHEMISTRY ORDER ZEESHAN Performing Organization Address City/[facility]/ZIP Co de Phone Number [facility] [place] [address] * Miscellaneous Lab request (12/10/2022 3:03 PM EDT) [facility] Lab Result Request received in lab. [facility] Blood 12/10/2022 3:03 PM EDT 12/10/2022 3:32 PM EDT Narrative Resulting Agency Comment Spec In Lab Jacinta Hubbard MD HEMATOLOGY ORDERABLE S Performing Organization Address [facility] Co de Phone Number [facility] [place] [address] * DNA Antibody (Double-Stranded) (12/10/2022 3:03 PM EDT) [facility] dsDNA Ab 1.0 <=15.0 IU/mL [facility] Comment: <10 negative 10-15 equivocal >15 positive This dsDNA antibody result was generated using a fluoroenzyme immunoassay on the [employer] 250 analyzer. This quantitative test is designed to detect IgG antibodies directed against double stranded DNA in human serum. The presence of antibodies that recognize dsDNA is a highly specific marker for systemic lupus erythematosus. Please note that as of 04/10/2022 that this testing is performed by the [facility] Laboratory at [facility]. This change in testing location is associated with a change is testing method and reference intervals. Please review the results of this test in association with the posted reference intervals. Blood 12/10/2022 3:03 PM EDT 12/11/2022 7:26 AM EDT Narrative Resulting Agency Comment Spec In Lab Jacinta Hubbard MD CHEMISTRY ORDERABLES Performing Organization Address City/[facility]/ZIP Co de Phone Number [facility] [place] [address] * C4 Complement (12/10/2022 3:03 PM EDT) [facility] C4 Complement 34 10 - 40 mg/dL [facility] Blood 12/10/2022 3:03 PM EDT 12/10/2022 3:32 PM EDT Narrative Resulting Agency Comment Spec In Lab Jacinta Hubbard MD CHEMISTRY ORDERABLES Performing Organization Address City/[facility] Co de Phone Number [facility] [place] [address] * C3 Complement (12/10/2022 3:03 PM EDT) C3 Complement 177 90 - 180 mg/dL [facility] Blood 12/10/2022 3:03 PM EDT 12/10/2022 3:32 PM EDT Narrative Resulting Agency Comment Spec In Lab Jacinta Hubbard MD CHEMISTRY ORDERABLES Performing Organization Address [facility] Co de Phone Number [facility] [place] [address] documented in this encounter Visit Diagnoses Diagnosis Pulmonary hypertension Other chronic pulmonary heart diseases Positive SERGIO (antinuclear antibody) Other and unspecified nonspecific immunological findings Class 3 severe obesity with body mass index (BMI) of 45.0 to 49.9 in adult, unspecified obesity type, unspecified whether serious comorbidity present documented in this encounter Care Teams Pipeline Engineer Relationship Specialty Start Date End Date Neha Mcmahan MD [address] [place] [address] PCP - General Family Medicine 03/25/20 documented as of this encounter
--- OUTSIDE RECORDS SUMMARY | 2024-01-10 02:16 | XMS_ITS | Encounter Summary ---
Author Organization [facility] [place] [address] Care Team Providers Care Product Development Engineer Name Role Phone Neha Mcmahan MD Primary Care Provider [phone] Encounter Details Date Type Department Care Team (Late st Contact Info) Description 09/21/2021 [place] [address] Yael Villagomez Social History Tobacco [...] 2:30 PM EDT [place] [address] Dillon Trinidad MD [facility] [place] [address] 01/21/2024 2:30 PM EDT Office [place] [address] Rosa Elena Villagomez APRN [facility] [place] [address] 02/05/2024 2:00 PM EDT Office [place] [address] Rosa Elena Muhammad, RN documented as of this encounter Visit Diagnoses Not on filedocumented in this encounter Care Teams Product Development Engineer Relationship Specialty Start Date End Date Neha Mcmahan MD [address] [place] [address] PCP - General Family Medicine 03/25/20 documented as of this encounter
--- OUTSIDE RECORDS SUMMARY | 2024-01-10 02:16 | XMS_ITS | Encounter Summary ---
Author Organization [facility] Address [facility] [place] [address] Care Team Providers Care Cardiovascular Technologist Name Role Phone Neha Mcmahan MD Primary Care Provider [phone] Reason for Visit * Consultation (Routine) - Closed Specialty Diagnoses / Procedures Referred By Contac t Referred To Contact Cardiology Diagnoses Pulmonary hypertension PHTN CLINIC evidence of pHTN on PFTs & echo, ?R heart cath indicated Haile Bolaños MD [facility] [place] [address] Mariam Dutta APRN [facility] [place] [address] Referral ID Status Reason Start Date Expiration Date V isits Requested Visits Authorized [id number] Closed Consult, Test & Treat 09/21/2021 09/21/2022 1 1 Encounter Details Date Type Department Care Team (Late st Contact Info) Description 11/08/2021 3:00 PM EDT Office Visit Cardiology at [address] [address] Mariam Dutta, NUTRITIONAL YEAST SUPERVISOR [facility] [place] [address] Pulmonary hypertension; Essential hypertension Social History Tobacco Use Types Packs/Day [...] Sign Reading Time Taken Comments Blood Pressure 117/56 11/08/2021 2:55 PM EDT Pulse 73 11/08/2021 2:55 PM EDT Temperature - - Respiratory Rate - - Oxygen Saturation 99% 11/08/2021 2:55 PM EDT 3/5 Lt O2 Inhaled Oxygen Concentration - - Weight 151.3 kg (333 lb 8 oz) 11/08/2021 2:55 PM EDT Height 175.3 cm (5' 9) 11/08/2021 2:55 PM EDT Body Mass Index 49.25 11/08/2021 2:55 PM EDT documented in this encounter Progress Notes * Jerry Martin MD - 11/08/2021 3:00 PM EDT Images from the original note were not included. [facility] Cardiovascular Medicine Pulmonary Hypertension Clinic [place] [address] Reason for Consultation Referred by Chelsea Bolaños MD (rheumatology) for evaluation of possible pulmonary hypertension Identification Jori Manzanares is a 66 y.o. with the following previously identified CV problems: 1. PH by echo in 2019, no updated echo available 2. Hx of CHF requiring hospitalization 3. Essential hypertension Comorbidities include SLE, restrictive lung pattern, EMI (BiPap), Chronic resp failure Lives alone in [facility]. Disabled related to back pain Rare EtOH. Never smoker No children Maternal aunt with murmur Mother CHF 89 yo Father CHF 91 yo Estranged brother History Mr. Manzanares comes to us by way of rheumatology and pulmonology. He was referred late last year and wereached out to schedule a visit, but he declined as he was not sure why he needed the visit. He recently saw for evaluation of an autoimmune disorder and was asked to be evaluated in pH clinic. He had an echo in 2019 that showed severely dilated RV and a PASP of approximately 60. VQ scan excluded PE and PFTs are notable for a restrictive pattern. He has chronic respiratory failure and has been onoxygen since about 2018- when he was hospitalized for respiratory failure and CHF requiring intubation at that time. He is remained out of the hospital and on oxygen since that time. Currently he is limited by both back pain, his weight and shortness of breath with minimal activity. He remains on 5 L of nasal oxygen. He uses BiPAP faithfully at night. He describes brief dizzinesswhen he gets out of breath and a very light sensation of chest pressure when he exerts himself. This resolves with rest. He denies syncope. He reports a bit of lower extremity edema though this is not bothersome to him and he uses a low-dose loop diuretic. Risk Factor Yes No Comments Family hx [...] altitude x Medications Current Outpatient Medications: ??? diclofenac (Voltaren) 1 % Gel, Apply 2 grams to upper extremities and 4 grams to lower extremities up to 4 times daily as needed., Disp: 100 g, Rfl: 3 ??? acetaminophen (Tylenol) 325 mg Tablet, Take 650 mg by mouth every 4 hours as needed for Pain (2[facility])., Disp: , Rfl: ??? furosemide (Lasix) 20 mg Tablet, , Disp: , Rfl: ??? allopurinoL (Zyloprim) 300 mg Tablet, Daily, Disp: , Rfl: ??? vitamin E (vitamin E) 400 unit Capsule, Take by mouth., Disp: , Rfl: ??? lisinopril (PRINIVIL;ZESTRIL) 40 mg tablet, Take 40 mg by mouth daily. , Disp: , Rfl: ??? hydrochlorothiazide (HYDRODIURIL) 50 mg tablet, Take 50 mg by mouth daily. , Disp: , Rfl: ??? traMADol (ULTRAM) 50 mg tablet, Take 50 mg by mouth every 6 hours as needed. , Disp: , Rfl: ??? ibuprofen (ADVIL;MOTRIN) 600 mg tablet, Take 600 mg by mouth every 6 hours as needed. , Disp: ,Rfl: ??? indomethacin (INDOCIN) 50 mg capsule, Take [...] mouth 3 times daily. , Disp: ,Rfl: ??? SHARK CARTILAGE ORAL, Take by mouth 3 times daily. , Disp: , Rfl: ??? aspirin 81 mg EC tablet, Take 81 mg by mouth daily. , Disp: , Rfl: Exam Blood pressure 117/56, pulse 73, height 175.3 cm (5' 9), weight (!) 151.3 kg (333 lb 8 oz), SpO2 99 %. Body mass index is 49.25 kg/m??. Wt Readings from Last 3 Encounters: 11/08/21 (!) 151.3 kg (333 lb 8 oz) 08/18/19 (!) 149 kg (328 lb 7.8 oz) 07/17/12 (!) 136.1 kg (300 lb) This is a pleasant gentleman in [facility] with nasal O2 in place. He arrives by wheelchair but easily moves from wheelchair into the exam room. There is no scleral icterus. No visible rashes or lesions. JVP is not elevated. Lungs are clear to auscultation bilaterally though breath sounds are distant. Heart has a regular rate and rhythm with no obvious murmurs rubs or gallops. Abdomen is obese but soft. He has thick legs and small amount of edema around the sock line. Alert and oriented with appropriate affect. PH Relevant Test Date Comments LFTs, SERGIO, HIV SERGIO + 1:640. HIV neg. LFTs wnl CT of chest PFTs 08/2019 FVC 1.96 (47%). FEV1 1.47 (46%). FEV1/FVC 0.75. DLCO 77%. V/Q scan 07/2021 Neg Left heart function 2018 LVEF 55-60%, Mod LAE. No VHD Evaluation for EMI BiPap Right heart cath Serial Data Date Rx FC 6MWT Lukas O2 PASP by echo RV dilation RV dysfxn PVR CI 2019 60 Mod-sev mild 10/2021 III UTD 5L EKG today: Normal sinus rhythm at 74 bpm. [place] is normal. There is no evidence of prior MA or ST segment abnormalities. Labs Lab Results Component Value Date WBC 9.3 09/21/2021 HGB 13.8 09/21/2021 Lab Results Component Value Date NA 141 09/21/2021 K 3.8 09/21/2021 CL 98 09/21/2021 CO2 29 09/21/2021 BUN 19 09/21/2021 CREATININE 1.06 09/21/2021 GLUCOSE 103 09/21/2021 CALCIUM 9.3 09/21/2021 Lab Results Component Value Date ALT 15 09/21/2021 AST 12 09/21/2021 ALKPHOS 78 09/21/2021 BILITOT 0.4 09/21/2021 No results found for: TSH Assessment Severe pulmonary hypertension with severely dilated RV on echo from 3 years ago. RHC is necessary to understand etiology and direct potential therapy. Based on evaluation today andavailable data he is low-intermediate risk presently. His newly identified autoimmune disorder raises concern for pulmonary vascular disease and WHO group 1.4 PAH. He is certainly a phenotype for HFpEF raising concern for group 2 PAH, and EMI/respiratory failure raises concern for group 3 contribution. CTEPH excluded by V/Q 3 years ago. Plan ??? Right heart cath ??? Update echo when able Follow up after RHC Mariam Dutta APRN Cardiology Staff---- Medical Decision Making I shared this visit with Mariam Dutta APRN. My role was to review the history, exam, and laboratoryand imaging findings and to formulate the assessment and plan. Of note, his exercise intolerance and report of severe RV enlargement are concerning. Would not attribute this to EMI as he seem adherent to his biPAP. Agree this may be CTD related PAH. Agree with proceeding with RHC. Jerry Martin MD [facility] Cardiovascular Medicine cc: ?? Neha Mcmahan MD, [address] / [place] [address] documented in this encounter Plan of Treatment Upcoming Encounters Date Type Department Care Team (Late st Contact Info) Description 01/13/2024 2:30 PM EDT Office Visit [place] [phone] Dillon Trinidad MD [facility] [place] [address] 01/21/2024 2:30 PM EDT Office [place] [phone] Rosa Elena Villagomez APRN [facility] [place] [address] 02/05/2024 2:00 PM EDT Office [place] [address] Rosa Elena Muhammad RN documented as of this encounter Procedures Procedure Name Priority Date/Time Associated Diagnosis Comments EKG 12-LEAD Routine 11/08/2021 3:41 PM EDT Pulmonary hypertension documented in this encounter Results * EKG 12 Lead (11/08/2021 3:41 PM EDT) Ventricular rate 74 BPM MUSE SYSTEM Atrial Rate 74 BPM MUSE SYSTEM P-R Interval 166 ms MUSE SYSTEM QRS Duration 104 ms MUSE SYSTEM Q-T Interval 418 ms MUSE SYSTEM QTC Calculated (Bezet) 463 ms MUSE SYSTEM Calculated P [place] 24 degrees MUSE SYSTEM Calculated R [place] 44 degrees MUSE SYSTEM Calculated T [place] 39 degrees MUSE SYSTEM INTERPRETATION Normal sinus rhythm Normal ECG No previous ECGs available Confirmed by MD Juanito, Tarik Tran ([id number]) on 11/09/2021 9:10:59 AM MUSE SYSTEM 11/08/2021 3:41 PM EDT 11/09/2021 9:10 AM EDT Mariam Dutta APRN ECG ORDERABLES MUSE SYSTEM documented in this encounter Visit Diagnoses Diagnosis Pulmonary hypertension Other chronic pulmonary heart diseases Essential hypertension Unspecified essential hypertension documented in this encounter Care Teams Cardiovascular Technologist Relationship Specialty Start Date End Date Neha Mcmahan MD [address] [place] [address] PCP - General Family Medicine 03/25/20 documented as of this encounter
--- OUTSIDE RECORDS SUMMARY | 2024-01-10 02:16 | XMS_ITS | Encounter Summary ---
Author Organization [facility] [place] [address] Care Team Providers Care Videotape Editor Name Role Phone Neha Mcmahan MD Primary Care Provider [phone] Encounter Details Date Type Department Care Team (Late st Contact Info) Description 12/21/2021 External Results Non-Invasive Cardiology Lab [place] [phone] None None Social History Tobacco Use Types Packs/Day Years [...] 2:30 PM EDT Office [place] [address] Dillon Trinidad MD [facility] [place] [address] 01/21/2024 2:30 PM EDT Office [place] [address] Rosa Elena Villagomez APRN [facility] [address] 02/05/2024 2:00 PM EDT Office [place] [address] Rosa Elena Muhammad, RN documented as of this encounter Procedures Procedure Name Priority Date/Time Associated Diagnosis Comments ECHO SCAN (SCAN) Routine 11/16/2021 documented in this encounter Results * Scan Doc: Echo (11/16/2021) Anatomical Region Laterality Modality Cardiac Other None MEDIA MGR SCAN EXT O RDR/RSLT documented in this encounter Visit Diagnoses Not on filedocumented in this encounter Care Teams Videotape Editor Relationship Specialty Start Date End Date Neha Mcmahan MD [address] [place] [address] PCP - General Family Medicine 03/25/20 documented as of this encounter
--- OUTSIDE RECORDS SUMMARY | 2024-01-10 02:16 | XMS_ITS | Encounter Summary ---
Author Organization [facility] Address [facility] [place] [address] Care Team Providers Care Director Funeral Name Role Phone Neha Mcmahan MD Primary Care Provider [phone] Reason for Visit * Reason Onset Date Comments Follow-up 01/03/2022 Nifedipine start Encounter Details Date Type Department Care Team (Late st Contact Info) Description 01/03/2022 Telephone Cardiology at [address] [phone] Bella Ying RN Follow-up (Nifedipine start) Social History Tobacco Use Types Packs/Day Years [...] encounter Miscellaneous Notes * Telephone Encounter - Bella Ying RN - 01/04/2022 4:14 PM EDT Pt contacted and reviewed the message from IDRIS Dutta as written below. He will call with any questions/concerns and will monitor his BP/HR daily, when he gets the BP monitor. He will call if he does not get the BP monitor as well. * Telephone Encounter - Bella Ying RN - 01/04/2022 9:49 AM EDT Call placed to the home number listed. No answer. Message left on the identified VM asking him to call this loan underwriter to review the following response from IDRIS Dutta: Increase nifedipine to 60 mg daily. He is to call this loan underwriter to review the instructions and confirm his pharmacy so we can send new prescription. BP monitor has been mailed to the pt. Given USPS Tracking #: [id number]. For tracking inquiries go to [employer] or call . Awaiting a call back. * Telephone Encounter - Bella Ying RN - 01/03/2022 6:09 PM EDT Pt calling to report How he is doing on the new medication (Nifedipine 30 mg daily). He has not noticed any improvement. Denies anysnew/worsening symptoms, No FINE. He does have positional LH/dizziness but this it not new. He does not have a home BP monitor, so does not have any BP/HR readings. Reports he cannot afford one. Instructed that the HF Team will send him one, so he can get home BP readings to help when adjusting meds. Message forwarded to IDRIS Dutta for next steps. documented in this encounter Plan of Treatment Upcoming Encounters Date Type Department Care Team (Late st Contact Info) Description 01/13/2024 2:30 PM EDT Office [place] [address] Dillon Trinidad MD [facility] [place] [address] 01/21/2024 2:30 PM EDT Office [place] [phone] Rosa Elena Villagomez APRN [facility] [place] [place] [address] 02/05/2024 2:00 PM EDT Office [place] [phone] Rosa Elena Muhammad RN documented as of this encounter Visit Diagnoses Not on filedocumented in this encounter Care Teams Director Funeral Relationship Specialty Start Date End Date Neha Mcmahan MD [address] [place] [address] PCP - General Family Medicine 03/25/20 documented as of this encounter
--- OUTSIDE RECORDS SUMMARY | 2024-01-10 02:16 | XMS_ITS | Encounter Summary ---
Author Organization [facility] Address [facility] [place] [address] Care Team Providers Care Low Altitude Air Defense Officer Name Role Phone Neha Mcmahan MD Primary Care Provider [phone] Reason for Visit * Reason Onset Date Comments Medication Refill 02/04/2023 Furosemide Encounter Details Date Type Department Care Team (Late st Contact Info) Description 02/04/2023 Refill Cardiology at [address] [phone] Mariam Dutta APRN [facility] [place] [address] Medication Refill (Furosemide) Social History Tobacco Use Types Packs/Day Years [...] Encounter - Linda Liriano RN - 02/04/2023 1:26 PM EDT Pt returned call re: Spironolactone dose. Pt confirmed it was 12.5 mg daily. Pt reports there's another medication that needs to be refilled but he doesn't have any at [facility] however he can't remember the name of it and is camping all summer with spotty cell phone coverage. [facility] see if they could figure out which medication needs refilling. Pt wascalling to refill Spironolactone and Furosemide. They have the refills of Spironolactone just waiting for Furosemide. Will send refill request to [employer] to approve if appropriate. REMI 12/20/21 NOV 02/07/23 w/ Dr. Marshall Last RF unknown documented in this encounter Plan of Treatment Upcoming Encounters Date Type Department Care Team (Late st Contact Info) Description 01/13/2024 2:30 PM EDT Office [place] [address] Dillon Trinidad MD [facility] DR RHEUMATOLOGY DEPT [place] [id number] 01/21/2024 2:30 PM EDT Office [place] [address] Rosa Elena Villagomez APRN [facility] [place] [place] [address] 02/05/2024 2:00 PM EDT Office [place] [address] Rosa Elena Muhammad, TALHA documented as of this encounter Visit Diagnoses Diagnosis Pulmonary hypertension Other chronic pulmonary heart diseases documented in this encounter Care Teams Low Altitude Air Defense Officer Relationship Specialty Start Date End Date Neha Mcmahan MD [address] [place] [address] PCP - General Family Medicine 03/25/20 documented as of this encounter
--- OUTSIDE RECORDS SUMMARY | 2024-01-10 02:16 | XMS_ITS | Encounter Summary ---
[place] [address] Care Team Providers Care Electroplating Sales Representative Name Role Phone Neha Mcmahan MD Primary Care Provider [phone] Encounter Details Date Type Department Care Team (Latest Contact Info) Description 12/10/2022 Travel Social History Tobacco Use Types Packs/Day [...] EDT Office Visit Rheumatology at [place] [phone] Dillon Trinidad MD [facility] [place] [address] 01/21/2024 2:30 PM EDT Office Visit [place] [phone] Rosa Elena Villagomez APRN [facility] [place] [address] 02/05/2024 2:00 PM EDT Office Visit [place] [phone] Rosa Elena Muhammad, RN documented as of this encounter Visit Diagnoses Not on filedocumented in this encounter Care Teams Electroplating Sales Representative Relationship Specialty Start Date End Date Neha Mcmahan MD [address] [place] [address] PCP - General Family Medicine 03/25/20 documented as of this encounter
--- OUTSIDE RECORDS SUMMARY | 2024-01-10 02:17 | XMS_ITS | Encounter Summary ---
Author Organization [facility] [place] [address] Care Team Providers Care Drying And Winding Supervisor Name Role Phone Mariam Cartagena APRN Primary Care Provider [phone] Encounter Details Date Type Department Care Team (Late st Contact Info) Description 03/25/2019 Ancillary Procedure [place] [address] Alva King MD [facility] Pulmonary [place] [address] Social History Tobacco Use Types Packs/Day Years Used Date Smoking Tobacco: Never Sex and Gender Information Value Date Recorded Sex Assigned at Not on file Gender Identity Not on file Sexual Orientation Not on file documented as of this encounter Plan of Treatment Upcoming Encounters Date Type Department Care Team (Late st Contact Info) Description 01/13/2024 2:30 PM EDT Office Visit Rheumatology at [place] [phone] Dillon Trinidad MD [facility] RHEUMATOLOGY DEPT [place], [place] [phone] 01/21/2024 2:30 PM EDT Office [place] [address] Rosa Elena Villagomez APRN [facility] WOUND CENTER [place], [place] [id number] 02/05/2024 2:00 PM EDT Office [place] [address] Rosa Elena Muhammad RN documented as of this encounter Procedures Procedure Name Priority Date/Time Associated Diagnosis Comments FILM LIBRARY STORAGE ONLY ULTRASOUND STUDY Routine 03/25/2019 12:00 AM EDT documented in this encounter Results * Film Library- Storage Only Ultrasound Study (03/25/2019 12:00 AM EDT) Narrative HENRIQUE - 08/18/2019 2:37 PM EST This exam is auto-finalizing. It's purpose is for storage only. Alva King MD IMG FILM LIBRARY ORD ERABLES [place], [place] documented in this encounter Visit Diagnoses Not on filedocumented in this encounter Care Teams Drying And Winding Supervisor Relationship Specialty Start Date End Date Mariam Cartagena APRN PCP - General 07/17/12 05/06/19 documented as of this encounter
--- OUTSIDE RECORDS SUMMARY | 2024-01-10 02:17 | XMS_ITS | Encounter Summary ---
[place] [address] Care Team Providers Care Plant Breeder Name Role Phone HydeMariam flores ABIMAEL Primary Care Provider [phone] Reason for Referral * Physical Therapy (Routine) - Closed Specialty Diagnoses / Procedures Referred By Contac t Referred To Contact Physical Therapy Diagnoses Chronic neck pain Chronic low back pain [facility] [address] [place] [phone] [facility] [place] [address] Referral ID Status Reason Start Date Expiration Date V isits Requested Visits Authorized [id number] Closed Evaluate and Treat 07/17/2012 01/13/2013 12 12 * Consultation (Routine) - Complete - Patient Seen (External Appt Consult Notes Rcv'd) Specialty Diagnoses / Procedures Referred By Melanie hassan Referred To Contact Diagnoses Chronic neck pain Chronic low back pain [facility] [address] [place] [phone] [facility] [address] [place] [address] Referral ID Status Reason Start Date Expiration Date V isits Requested Visits Authorized [id number] Complete - Patient Seen (External Appt Consult Notes Rcv'd) Other 07/17/2012 01/13/2013 3 3 Reason for Visit * Reason Comments Back Pain compressed disks Encounter Details Date Type Department Care Team (Late st Contact Info) Description 07/17/2012 12:20 PM EST Office [place] [address] Judd Parish PA [facility] [place] [address] Chronic low back pain (Primary Dx); Chronic neck pain; Hip osteoarthritis; Neuropathy Discharge Disposition: Home Social History Tobacco Use Types Packs/Day Years Used Date Smoking Tobacco: Never Sex and Gender Information Value Date Recorded Sex Assigned at Not on file Gender Identity Not on file Sexual Orientation Not on file documented as of this encounter Last Filed Vital Signs Vital Sign Reading Time Taken Comments Blood Pressure 134/76 07/17/2012 12:29 PM EST Pulse - - Temperature - - Respiratory Rate - - Oxygen Saturation - - Inhaled Oxygen Concentration - - Weight 136.1 kg (300 lb) 07/17/2012 12:29 PM EST Height 177.8 cm (5' 10) 07/17/2012 12:29 PM EST Body Mass Index 43.05 07/17/2012 12:29 PM EST documented in this encounter Progress Notes * Judd Parish PA - 07/17/2012 1:47 PM EST Chief Complaint: Chief Complaint Patient presents with ??? Back Pain compressed disks HPI: This patient is a 56 y.o. male that presents to the spine center for Chronic low back pain andchronic neck pain with bilateral hand numbness, and dysesthesia in the plantar aspect of both feet.The patient indicates that he has had chronic neck pain for about 7 years and chronic low back painsince the 1980s. He feels today that his neck pain is more prominent than his low back pain, but this can very as to which is more prominent. He states that his pain is usually a fairly constant 8/10although it can get slightly worse. He feels his back pain is usually worse with standing and carrying wood and feels somewhat better in certain seats or sidelying was neck pain is usually worse withreaching positions with his neck flexed or standing and feels better slightly extending his neck orwith heat. He does not describe any radicular pain symptoms specifically but does state if he stands and walks likely get some lateral hip and lateral thigh discomfort on the right leg. He also describes a feeling is if he is stepping on something in the plantar aspect of both feet and states that this occurs just with standing but also can occur sitting and lying down. He does not report any history of diabetes. He has a history of carpal tunnel syndrome and has had surgery for this but has continued to have some pain and paresthesias in both hands and wrists. He does not feel any specific we akness. There is no bowel or bladder incontinence. He does have some dizziness but no ataxia. His treatments have included ibuprofen, and tramadol. He has not had any prior spine surgeries and is no history of cancer. ROS: Negative for any GI, or constitutional symptoms. Medications & Allergies: Are updated on the system. Problem List: Patient Active Problem List Diagnoses Code ??? Chronic neck pain 723.1 ??? Chronic low back pain 724.2 ??? Hip osteoarthritis 715.95 ??? Neuropathy 355.9 Past Medical History Diagnosis Date ??? Obesity ??? High blood pressure ??? Gout ??? Carpal tunnel syndrome ??? Sleep apnea PSH: Past Surgical History Procedure Date ??? Carpal tunnel release ??? Cataract removal ??? Toe amputation Social Hx: History Social History ??? Marital Status: Single Spouse Name: N/A Number of Children: N/A ??? Years of Education: N/A Occupational History ??? Not on file. Social History Main Topics ??? Smoking status: Never Smoker ??? Smokeless tobacco: Not on file ??? Alcohol Use: Not on file ??? Drug Use: Not on file ??? Sexually Active: Not on file Other Topics Concern ??? Not on file Social History Narrative ??? No narrative on file Physical Exam: This patient is an obese 56-year-old male who is alert and oriented x3 and has a normal affect. He stands with a slightly poor posture with rounded shoulders and a forward head, but no scoliosis. He endplate with a generalized antalgic gait but was able to toe and heel walk. He also is able to tandem walk without difficulty. He has some tenderness around T1-T3 and from L3-S1. He has relatively full lumbar range of motion today that did not produce any pain until he went from an extended position to a neutral position. His cervical range of motion was mildly limited on extension to about 40 degrees with neck pain, and he rotates bilaterally about 70 degrees with neck pain rotating to the right. His sensation is decreased in the right anterior thigh and also in the right foot, and was also report is decreased in the left thumb and index finger. Reflexes are 2+ and symmetrical in the upperextremities, 2+ at both knees and 1+ of both ankles. Motor testing was 5/5 in all extremities. Straight leg raise is negative but on the right did cause some back pain, and cross straight leg raise is also negative. Hip range of motion on the right was limited in did reproduce groin pain symptoms. There is no clonus and negative Babinski and Tavarez's. Distal pulses are intact. Imaging: There are plain films of the cervical spine and an MRI of the lumbar spine. The lumbar MRIdoes demonstrate a very mild spondylolisthesis of L5-S1. There is significant degenerative disc desiccation and disc bulging at multiple levels but no clear zandra disc herniation there is no significant central canal or foraminal narrowing. There is some facet hypertrophy which is mostly noted at the L3-L4 level. The cervical spine does reveal extensive spondylitic changes starting at C4-C5, and extending through the rest of the lower cervical spine. The alignment is normal. I reviewed these images with the patient Assessment: Chronic axial neck pain and mechanical low back pain which is likely related to more arthritic and degenerative changes. Also some indication of some right hip osteoarthritis and foot symptoms which fits more of a picture of some form of neuropathy than from a radicular pattern from thespine. Plan: I have discussed with the patient the nature of neck and low back pain in the difficulty identify an exact source for the symptoms and also a difficulty in being able to completely resolve his symptoms with any treatments. We did review that these symptoms are hurtful and not harmful and I have encouraged him to stay active and we did also discuss weight reduction. Treatment options for herneck and low back pain can include: Physical therapy with a Asiya and Rosalina approach, NSAIDs,medial branch block/radiofrequency ablation, functional faith program. My feeling at this time it would be best for him to be evaluated here in the spine center by one of the physical therapistto see if he has mechanical ways of correcting his neck and low back pain symptoms. I also feel that an NSAIDs such as meloxicam may help as well. If he does not respond with this treatment approach,we can then consider the possibility of doing an injection such as a medial branch block. After ourdiscussion and answering the patients questions, we have come to an aggreement in the below stated plan: 1) I have provided a prescription for meloxicam 15 mg a can take once a day and prescribed 30 tablets with one refill. He may discuss regular refills with his primary care physician to be certain of safety of his liver and kidney function. 2) I have referred the patient to the [facility] to view the video on chronic low back pain. 3) I have referred the patient to physical therapy in the Spine Center, to be treated with a mechanical, Asiya based approach, and consider Mulligan techniques. 4) at this point we will see how he responds to the Mobic and physical therapy and I will follow upwith him as needed at this time. This dictation was performed using [employer] voice recognition dictation. documented in this encounter Plan of Treatment Upcoming Encounters Date Type Department Care Team (Late st Contact Info) Description 01/13/2024 2:30 PM EDT [place] [address] Dillon Trinidad MD [facility] [place] [address] 01/21/2024 2:30 PM EDT Office [place] [phone] Rosa Elena Villagomez APRN [facility] [place] [place] [address] 02/05/2024 2:00 PM EDT Office [place] [phone] Rosa Elena Muhammad, RN Scheduled Referrals Name Type Priority Associated Diagnoses Orde r Schedule Referral to Shared Decision Program Outpatient Referral Routine Chronic neck pain Chronic low back pain Ordered: 07/17/2012 Referral to Physical Therapy Outpatient Referral Routine Chronic neck pain Chronic low back pain Ordered: 07/17/2012 documented as of this encounter Visit Diagnoses Diagnosis Chronic low back pain- Primary Lumbago Chronic neck pain Cervicalgia Hip osteoarthritis Osteoarthrosis, unspecified whether generalized or localized, pelvic region and thigh Neuropathy Mononeuritis of unspecified site documented in this encounter Care Teams Plant Breeder Relationship Specialty Start Date End Date Mariam Cartagena APRN PCP - General 07/17/12 05/06/19 documented as of this encounter
--- OUTSIDE RECORDS SUMMARY | 2024-01-10 02:17 | XMS_ITS | Encounter Summary ---
Author Organization [facility] [place] [address] Care Team Providers Care Centrifugal Separator Name Role Phone Chandler Bates Primary Care Provider [phone] Encounter Details Date Type Department Care Team (Late st Contact Info) Description 01/28/2012 Orders Only [place] [phone] Judd Parish PA [facility] [place] [address] Social History Tobacco Use Types Packs/Day Years Used Date Smoking Tobacco: Never Assessed Sex and Gender Information Value Date Recorded Sex Assigned at Not on file Gender Identity Not on file Sexual Orientation Not on file documented as of this encounter Plan of Treatment Upcoming Encounters Date Type Department Care Team (Late st Contact Info) Description 01/13/2024 2:30 PM EDT Office [place] [phone] Dillon Trinidad MD [facility] [place] [address] 01/21/2024 2:30 PM EDT Office [place] [phone] Rosa Elena Villagomez APRN [facility] [place] [place] [address] 02/05/2024 2:00 PM EDT Office [place] [address] Rosa Elena Muhammad RN documented as of this encounter Procedures Procedure Name Priority Date/Time Associated Diagnosis Comments FILM LIBRARY STORAGE ONLY MR SPINE Routine 01/28/2012 10:43 AM EDT documented in this encounter Results * Film Library- Storage only MR Spine (01/28/2012 10:43 AM EDT) 01/28/2012 10:4 3 AM EDT Narrative RAD - 02/03/2014 11:00 PM EDT This is a non-reportable exam. Procedure Note Rosalino Martinez - 02/03/2014 This is a non-reportable exam. Judd SANCHEZ IMJosé Luis FILM LIBRARY ORD ERABLES [facility] [address] [facility] [place] [address] documented in this encounter Visit Diagnoses Not on filedocumented in this encounter Care Teams Centrifugal Separator Relationship Specialty Start Date End Date Chandler Bates PA [address] [place] [address] PCP - General 05/09/10 07/16/12 documented as of this encounter
--- OUTSIDE RECORDS SUMMARY | 2024-01-10 02:17 | XMS_ITS | Encounter Summary ---
Author Organization [facility] [place] [address] Care Team Providers Care Oiling Machine Operator Name Role Phone Chandler Bates Primary Care Provider [phone] Encounter Details Date Type Department Care Team (Late st Contact Info) Description 07/09/2012 External Results XRay at [address] [place] [address] Provider, Scanning Social History Tobacco Use Types Packs/Day Years [...] 2:30 PM EDT Office [place] [address] Dillon Trinidad MD [facility] [place] [address] 01/21/2024 2:30 PM EDT Office [place] [address] Rosa Elena Villagomez APRN [facility] [place] [place] [address] 02/05/2024 2:00 PM EDT Office [place] [address] Rosa Elena Muhammad RN documented as of this encounter Procedures Procedure Name Priority Date/Time Associated Diagnosis Comments MRI/MRA SCAN Routine 01/28/2012 documented in this encounter Results * Scan Doc: MRI/MRA (01/28/2012) Anatomical Region Laterality Modality Other Scanning Provider MEDIA MGR SCAN EXT O RDR/RSLT documented in this encounter Visit Diagnoses Not on filedocumented in this encounter Care Teams Oiling Machine Operator Relationship Specialty Start Date End Date Chandler Bates PA [address] [place] [address] PCP - General 05/09/10 07/16/12 documented as of this encounter
--- OUTSIDE RECORDS SUMMARY | 2024-01-10 02:17 | XMS_ITS | Encounter Summary ---
Author Organization [facility] [place] [address] Care Team Providers Care Health Information Systems Technician Name Role Phone Mariam Cartagena APRN Primary Care Provider [phone] Encounter Details Date Type Department Care Team (Late st Contact Info) Description 03/24/2019 Ancillary Procedure [place] [address] Alva King MD [facility] [place] [address] Social History Tobacco Use Types Packs/Day Years [...] EDT Office Visit Rheumatology at [place] [phone] Dillon Trinidad MD [facility] RHEUMATOLOGY DEPT [place], [place] [phone] 01/21/2024 2:30 PM EDT Office [place] [address] Rosa Elena Villagomez APRN [facility] WOUND CENTER [place], [place] [phone] 02/05/2024 2:00 PM EDT Office [place] [address] Rosa Elena Muhammad RN documented as of this encounter Procedures Procedure Name Priority Date/Time Associated Diagnosis Comments FILM LIBRARY STORAGE ONLY CT CHEST Routine 03/24/2019 12:00 AM EDT documented in this encounter Results * Film Library- Storage Only CT Chest (03/24/2019 12:00 AM EDT) Narrative HENRIQUE - 08/18/2019 2:38 PM EST This exam is auto-finalizing. It's purpose is for storage only. Alva King MD IMG FILM LIBRARY ORD ERABLES [place], [place] documented in this encounter Visit Diagnoses Not on filedocumented in this encounter Care Teams Health Information Systems Technician Relationship Specialty Start Date End Date Mariam Cartagena APRN PCP - General 07/17/12 05/06/19 documented as of this encounter
--- OUTSIDE RECORDS SUMMARY | 2024-01-10 02:17 | XMS_ITS | Encounter Summary ---
[place] [address] Care Team Providers Care Power Cutting Machine Operator Name Role Phone Mariam Cartagena APRN Primary Care Provider [phone] Encounter Details Date Type Department Care Team (Late st Contact Info) Description 07/16/2012 Abstract Spine Center at [place] [phone] Nan Alexander LNA Social History Tobacco Use Types Packs/Day Years [...] 2:30 PM EDT Office Visit Rheumatology at [place] [phone] Dillon Trinidad MD [facility] [place] [address] 01/21/2024 2:30 PM EDT Office [place] [phone] Rosa Elena Villagomez APRN [facility] [place] [place] [address] 02/05/2024 2:00 PM EDT Office [place] [address] Rosa Elena Muhammad RN documented as of this encounter Visit Diagnoses Not on filedocumented in this encounter Care Teams Power Cutting Machine Operator Relationship Specialty Start Date End Date Mariam Cartagena APRN PCP - General 07/17/12 05/06/19 documented as of this encounter
--- OUTSIDE RECORDS SUMMARY | 2024-01-10 02:17 | XMS_ITS | Encounter Summary ---
Author Organization [facility] [place] [address] Care Team Providers Care [id number] Armor Crewman Name Role Phone Chandler Bates Primary Care Provider [phone] Encounter Details Date Type Department Care Team (Late st Contact Info) Description 07/10/2012 External Results XRay at [address] [place] [phone] Mariam Cartagena APRN [address] [place] [address] Social History Tobacco Use Types Packs/Day Years [...] 2:30 PM EDT Office [place] [phone] Dillon Trinidad MD [facility] [address] 01/21/2024 2:30 PM EDT Office Visit [place] [phone] Rosa Elena Villagomez APRN [facility] WOUND CENTER [place], [place] [phone] 02/05/2024 2:00 PM EDT Office [place] [address] Rosa Elena Muhammad RN documented as of this encounter Procedures Procedure Name Priority Date/Time Associated Diagnosis Comments DIAGNOSTIC RADIOLOGY SCAN Routine 06/27/2012 documented in this encounter Results * Scan Doc: Diagnostic Radiology (06/27/2012) Anatomical Region Laterality Modality Other Mariam José Luis [facility] MEDIA MGR SCAN EXT O RDR/RSLT documented in this encounter Visit Diagnoses Not on filedocumented in this encounter Care Teams [id number] Armor Crewman Relationship Specialty Start Date End Date Chandler Bates PA [address] [place] [address] PCP - General 05/09/10 07/16/12 documented as of this encounter
--- OUTSIDE RECORDS SUMMARY | 2024-01-10 02:17 | XMS_ITS | Encounter Summary ---
[place] [address] Care Team Providers Care [employer] Membership Advisors Name Role Phone Mariam Cartagena APRN Primary Care Provider Reason for Visit * Reason Comments Low Back Pain Back Pain Encounter Details Date Type Department Care Team (Late st Contact Info) Description 08/14/2012 1:00 PM EST Office [place] [id number] CLINIC, DR BOB Parish, DANIEL Langford [facility] [place] [address] Mariam Cartagena APRN [address] [place], [place] [id number] Roseanne Corey, PT [facility] Chronic neck pain (Primary Dx); Chronic low back pain Discharge Disposition: Home Social History Tobacco Use Types Packs/Day Years Used Date Smoking Tobacco: Never Sex and Gender Information Value Date Recorded Sex Assigned at Not on file Gender Identity Not on file Sexual Orientation Not on file documented as of this encounter Progress Notes * Roseanne Corey, PT - 08/14/2012 2:02 PM EST Jori Manzanares was referred to [facility] for a physical therapy consult at the request of DANIEL Menezes. He was seen with the expectations to see if there is anything that can be done from anexercise perspective to ease the pain and improve his ability to function. History of Present Illness: Mr. Manzanares reports chronic neck and back pain, approximately 7 years. Mr. Manzanares currently complains of neck symptoms worse than back symptoms. Symptoms worse after standingstill 15-20 minutes (back) and after walking 10 minutes (back, neck, legs). He reports difficulty bending forward to complete daily activity (bending over sink or countertop). Mr. Manzanares's functional self care goal includes being able to stand and walk 30 minutes or longer, travel, walk and hike, complete daily routine while managing neck and back symptoms. Past Medical History: gout, sleep apnea (no apparatus), bilateral knee osteoarthritis Past Surgical History: bilateral carpal tunnel surgery Social History: Mr. Manzanares lives in [place] and reports being disabled x 5 years. Physical Exam: Mr. Manzanares is a pleasant 56 y.o. male who moves about in the exam room with mildly antalgic spine, guarded cervical and spine motions. Bilateral scapular retraction/elevation and internally rotated humerus. Seated posture: mild to moderate forward head posture, protracted/elevated scapulae with internallyrotated humerus, generally flexed spine with bilateral hip abduction. Standing posture: bilateral lower extremity external rotation, mild increased lumbar lordosis, mildincreased thoracic kyphosis, mild to moderate scapular protraction/elevation without scapular winging, mild forward head, internally rotated humerus (bilaterally) Heel, toe walking able bilaterally Cervical AROM: flexion 60 degrees, extension 45 degrees, rotation bilaterally = left 75 degrees, right 70 degrees Lumbar AROM: flexion 50 degrees, extension 20 degrees Upper extremity reflexes, sensation to light touch and muscle strength = within functional limits Lower extremity reflexes (patella, Achilles), sensation to light touch and muscle strength = withinfunctional limits Seated straight leg raise = negative bilaterally Physical Therapy Assessment: Mr. Manzanares has chronic low back and chronic neck pain. I believe that these deficits can improve with physical therapy treatments directed to the retoration of cervical range of motion and lumbar extension then flexion range of motion while improving functional tolerancefor exercise, walking and or stationary biking. Mr. Manzanares has a good rehabilitation potential and Ianticipate to meet with him As needed, for 1 or 2 additional visits over the next 4 weeks. Treatment Plan: The natural history of back pain and neck pain and rational for exercise based treatment was reviewed. Mr. Manzanares was given a home exercise program consisting of lumbar extension in standing, (20 reps, 6 x day x 3 weeks, then 20 reps, 3x/day), seated or standing neck retraction (6 reps, 6x/day x 3 weeks, then 6 reps, 3x/day), Mulligan SNAGs AAROM cervical extension and rotation right and left, (6 reps each, 6x/day x 3 weeks then 3x/day). Walking and/or stationary biking graduallyincreasing tolerance to 15-30 minutes daily. Along with the prescribed exercises, we discussed the principles of symptom self monitoring and posture correction. He will call with any questions, concerns, or if the pain worsens. Mr. Manzanares will return to [facility] for a follow up appointment as needed( in 3-4 weeks time with the hope that he is ready to progress his home exercise program). Physical Therapy goals in 4 weeks: 1) Able to discuss or demonstrate home exercise program 2) Able to report improved tolerance for standing, walking, up to 30 or more minutes 3) Able to complete daily routine and recreation activity (possibly, hike, walk and travel) while managing neck and back symptoms 50 minutes were spent interviewing, assessing, and instructing Jori Manzanares in a home exercise program. Roseanne Corey DPT documented in this encounter Plan of Treatment Upcoming Encounters Date Type Department Care Team (Late st Contact Info) Description 01/13/2024 2:30 PM EDT Office [place] [phone] Dillon Trinidad MD [facility] [place] [address] 01/21/2024 2:30 PM EDT Office [place] [phone] Rosa Elena Villagomez APRN [facility] [place] [address] 02/05/2024 2:00 PM EDT Office [place] [phone] Rosa Elena Muhammad, RN documented as of this encounter Visit Diagnoses Diagnosis Chronic neck pain- Primary Cervicalgia Chronic low back pain Lumbago documented in this encounter Care Teams [employer] Membership Advisors Relationship Specialty Start Date End Date Mariam Cartagena APRN PCP - General 07/17/12 05/06/19 documented as of this encounter
--- OUTSIDE RECORDS SUMMARY | 2024-01-10 02:17 | XMS_ITS | Encounter Summary ---
Author Organization [facility] [place] [address] Care Team Providers Care Business Administration Instructor Name Role Phone Chandler Bates Primary Care Provider [phone] Encounter Details Date Type Department Care Team (Late st Contact Info) Description 06/27/2012 Orders [place] [phone] Judd Parish PA [facility] [place] [address] Social History Tobacco Use Types Packs/Day Years [...] 2:30 PM EDT Office [place] [phone] Dillon Trinidad MD [facility] [place] [address] 01/21/2024 2:30 PM EDT Office [place] [phone] Rosa Elena Villagomez APRN [facility] [place] [address] 02/05/2024 2:00 PM EDT Office [place] [phone] Rosa Elena Muhammad RN documented as of this encounter Procedures Procedure Name Priority Date/Time Associated Diagnosis Comments FILM LIBRARY STORAGE ONLY DX SPINE Routine 06/27/2012 11:54 AM EST documented in this encounter Results * Film Library- Storage only DX Spine (06/27/2012 11:54 AM EST) 06/27/2012 11:5 4 AM EST Narrative RAD - 02/03/2014 11:00 PM EDT This is a non-reportable exam. Procedure Note Rosalino Martinez - 02/03/2014 This is a non-reportable exam. Judd SANCHEZ IMG FILM LIBRARY ORD ERABLES [facility] [address] [facility] [place] [address] documented in this encounter Visit Diagnoses Not on filedocumented in this encounter Care Teams Business Administration Instructor Relationship Specialty Start Date End Date Chandler Bates PA [address] [place] [address] PCP - General 05/09/10 07/16/12 documented as of this encounter
[2024-01-10 22:50] LABS: PSA, Diagnostic 0.6 ng/mL (<=4.5)
== END 2024-01-10 01:55 | disposition home or self-care (01) ==
LOC: LBO 01:54
PROVIDERS: PCP Family Medicine; Visit Provider Urology
DX: R33.9 Retention of urine, unspecified (principal)
CPT/HCPCS: 36415; 84153

== ENCOUNTER → 2024-01-17 13:46 | Outpatient (BNVA) | payer MEDICARE, SELFPAY | PROVIDERS: PCP Family Medicine; Visit Provider Urology | DX: R33.8 Other retention of urine (principal) | CPT/HCPCS: 99213 ==

== ENCOUNTER → 2024-03-24 13:32 | Outpatient (BNVA) | payer MEDICARE, SELFPAY | PROVIDERS: PCP Family Medicine; Referring Provider Family Medicine; Visit Provider Student in an Organized Health Care Education/Training Program | DX: M19.011 Primary osteoarthritis, right shoulder (principal); M19.012 Primary osteoarthritis, left shoulder | CPT/HCPCS: 20610; J1010 ==

== ENCOUNTER → 2024-03-31 13:32 | Outpatient (BNVA) | payer MEDICARE, SELFPAY | PROVIDERS: PCP Family Medicine; Referring Provider Family Medicine; Visit Provider Student in an Organized Health Care Education/Training Program | DX: M65.311 Trigger thumb, right thumb (principal); M65.312 Trigger thumb, left thumb | CPT/HCPCS: 99214 ==

== ENCOUNTER 2024-10-28 12:46 | Emergency (ER) | payer MEDICARE, SELFPAY ==
[2024-10-28 12:59] VITALS: BP 119/74; PULSE 110; RESP 18; TEMP 36.1; O2SAT 98
[2024-10-28] MEDS: Silver Nitrate Stick 1 EACH TP (13:55)
[2024-10-28 14:28] VITALS: BP 135/55; PULSE 72; RESP 20; TEMP 37.1; O2SAT 96
--- NOTE | 2024-10-29 21:09 | ED.GENADUL_ITS ---
Discharge Plan Disposition Patient Disposition: Home Discharge Details Clinical Impression: Acute anterior epistaxis, Chronic respiratory failure with hypoxia, on home oxygen therapy, Atopic dermatitis Primary Care Provider: Neha Mcmahan ED Provider: Saba Sanchez Home Meds and New Rx's Prescriptions: New prednisone 20 mg tablet 40 mg PO ONCE Qty: 10 0RF triamcinolone acetonide 0.1 % cream 1 applic topical BID Qty: 453.6 0RF Rx Instructions: apply light layer to legs and area on abdomen for the next 10-14 days prednisone 20 mg tablet 40 mg PO BID Qty: 10 0RF triamcinolone acetonide 0.1 % cream 1 applic topical BID Qty: 453.6 0RF Continued furosemide 20 mg tablet 60 mg PO BID Patient Comments: per patient. vitamin E 1,000 unit capsule 1,000 unit PO DAILY potassium chloride 20 mEq tablet extended release 20 meq PO DAILY glucosamine HCl 500 mg tablet 500 mg PO BID Rx Instructions: administer with meals Rybelsus 14 mg tablet 14 mg PO DAILY ascorbic acid (vitamin C) [Vitamin C] 500 MG capsule, extended release 500 mg PO DAILY cholecalciferol (vitamin D3) 1,000 UNIT capsule 1,000 unit PO DAILY (DME) Oxygen Tank See Rx Instructions .ROUTE .MEDSUPPLY Qty: 1 Rx Instructions: As directed acetaminophen [Tylenol] 325 mg tablet 650 mg PO ONCE Patient Comments: Takes daily at night for arthritis. spironolactone 25 mg tablet 12.5 mg PO DAILY Qty: 45 6RF allopurinol 300 MG tablet 300 mg PO DAILY Discharge Instructions Instructions: Eczema (atopic dermatitis), Nosebleeds ED Additional Instructions: apply layer of bacitracin to both nares 3 times daily humidified oxygen refrain from blowing nose use nasal clamp if the bleeding reoccurs and let sit for 20 minutes Return should you develop new or worsening symptoms and follow-up with primary care physician I will place a referral to dermatology Referrals: Neha Mcmahan [Primary Care Provider] - 1 day Discharge Data Discharge Date/Time-TO BE ENTERED AT DEPARTURE: 10/28/24 14:37 HPI General Date/Time Provider Initiated Documentation: 10/28/24 13:07 . HPI Narrative: This 69 yo male with pmh, chf and CRF 02 dependency, htn, hypertriglyceridemia, anxiety and depression presents with reports of intermittent epistaxis for the past 2 days. pt states he's required cautery in the past and thinks it's secondary to his ongoing oxygen needs. pt does not use humidified oxygen. he also mentions he has a diffuse rash that is worsening to bilateral lower extremities, abdomen and hands. states the rash is very itchy, but not painful. Related Data Home Medications ?Medication ?Instructions ?Recorded ?Confirmed allopurinol 300 mg tablet 300 mg PO DAILY 01/12/14 10/28/24 Vitamin C 500 mg capsule,extended 500 mg PO DAILY 10/17/17 10/28/24 release (ascorbic acid (vitamin C)) cholecalciferol (vitamin D3) 25 1,000 unit PO DAILY 10/17/17 10/28/24 mcg (1,000 unit) capsule Oxygen #1 ea 03/23/19 10/28/24 furosemide 20 mg tablet 60 mg PO BID 07/21/19 10/28/24 acetaminophen 325 mg tablet 650 mg PO ONCE 08/23/20 10/28/24 (Tylenol) potassium chloride 20 mEq 20 meq PO DAILY 06/21/21 10/28/24 tablet,extended release vitamin E 670 mg (1,000 unit) 1,000 unit PO DAILY 06/21/21 10/28/24 capsule glucosamine HCl 500 mg tablet 500 mg PO BID 08/23/21 10/28/24 spironolactone 25 mg tablet 12.5 mg (1/2 x 25 mg) PO DAILY #45 10/31/21 10/28/24 tabs semaglutide 14 mg tablet (Rybelsus) 14 mg PO DAILY 03/24/24 10/28/24 prednisone 20 mg tablet 40 mg (2 x 20 mg) PO BID #10 tabs 10/28/24 prednisone 20 mg tablet 40 mg (2 x 20 mg) PO ONCE #10 tabs 10/28/24 triamcinolone acetonide 0.1 % 1 applic topical BID #453.6 grams 10/28/24 topical cream triamcinolone acetonide 0.1 % 1 applic topical BID #453.6 grams 10/28/24 topical cream Previous Rx's ?Medication ?Instructions ?Recorded spironolactone 25 mg tablet 12.5 mg (1/2 x 25 mg) PO DAILY #45 10/31/21 tabs prednisone 20 mg tablet 40 mg (2 x 20 mg) PO BID #10 tabs 10/28/24 prednisone 20 mg tablet 40 mg (2 x 20 mg) PO ONCE #10 tabs 10/28/24 triamcinolone acetonide 0.1 % 1 applic topical BID #453.6 grams 10/28/24 topical cream triamcinolone acetonide 0.1 % 1 applic topical BID #453.6 grams 10/28/24 topical cream Allergies Allergy/AdvReac Type Severity Reaction Status Date / Time lisinopril Allergy Mild Psychosis Verified 10/28/24 13:03 amlodipine besylate (From AdvReac Severe Racing Verified 10/28/24 13:03 [facility]) heart General Stated Complaint: Epistaxis PAPI: 4 Exam Narrative Exam Narrative: alert and oriented, nares with excoriations bilaterally with blood in nares, coagulated, left nares with excoriation and area of bleeding ant septum x2 lungs ctabi cardiac rrr bilateral legs with papules diffuse patches with erythema at hand with dorsal lesions of similar nature, no crepitus or tenderness Course Vital Signs Vital signs: Vital Signs Temperature 36.1 C L 10/28/24 12:59 Pulse 110 H 10/28/24 12:59 Respiratory Rate 18 10/28/24 12:59 Blood Pressure 119/74 10/28/24 12:59 Pulse Oximetry 98 10/28/24 12:59 Temperature 37.1 C 10/28/24 14:28 Temperature Source Tympanic 10/28/24 14:28 Pulse 72 10/28/24 14:28 Respiratory Rate 20 10/28/24 14:28 Blood Pressure 135/55 L 10/28/24 14:28 Blood Pressure Mean 81 10/28/24 14:28 Blood Pressure Position Supine 10/28/24 12:59 Pulse Oximetry 96 10/28/24 14:28 Oxygen Delivery Method Nasal Cannula 10/28/24 14:28 Oxygen Flow Rate 4 10/28/24 14:28 Procedure Epistaxis Control Date of Procedure: 10/27/24 Time of Procedure: 12:59 Provider that performed the procedure: Saba Sanchez Patient Consented: Verbally Time Out Performed: Yes Nostril: left Direct Inspection: yes Clots Removed by: blowing nose Cautery Used: silver nitrate Medical Decision Making pt presents with skin rash and epistaxis. two anterior left septal nasal regions were cauterized with achieved coagulation. rash is consistent with atopic dermatitis. will attempt prednisone burst and refer to pan washer. supplied with nasal clamp. reviewed diagnostic blood work from one year prior without thrombocytopenia or cbc abnormalities. as hemodynamically stable, will refrain from additional bloodwork at this time. return precautions reviewed and pt expressed understanding Quality:SDOH Health Related Social Needs: No Data to Display PFSH All Active Problems (Updated 10/28/24 @ 14:14 by DANIEL Hayes) Atopic dermatitis (Acute) Chronic respiratory failure with hypoxia, on home oxygen therapy (Acute) Acute anterior epistaxis (Acute) Trigger thumb of both hands (Acute) Osteoarthritis of bilateral glenohumeral joints (Chronic) Bilateral 40 mg subacromial injections: 03/24/24, 01/23/23, 07/11/22 Restrictive lung disease (Acute) Right hip pain (Acute) Cubital tunnel syndrome, bilateral (Acute) Bilateral carpal tunnel syndrome (Acute) Obesity hypoventilation syndrome (Acute) Chronic respiratory failure with hypoxia and hypercapnia (Chronic) Pulmonary hypertension (Acute) Discharge planning issues (Acute) DVT prophylaxis (Acute) Headache (Chronic) Abnormal EKG (Acute) Dizziness (Acute) Hypertriglyceridemia (Acute) Hypertension (Chronic) Anxiety and depression (Chronic) Obstructive sleep apnea (Chronic) Tachycardia (Acute) Elevated glucose (Acute) Medical History Anxiety with depression Diastolic heart failure Nail hypertrophy Low back pain Chronic respiratory failure with hypoxia Morbid obesity Asbestos exposure Gout Osteoarthrosis Ulcer of foot, chronic Shoulder pain, bilateral CHF (congestive heart failure) Surgical History S/P bunionectomy S/P bilateral cataract extraction S/p bilateral carpal tunnel release Status post amputation of toe of left foot Family History Mother CHF (congestive heart failure) Hypertension Father Hypertension Alzheimer disease Social History Smoking/Tobacco Use Status: Never Smoking risk assessment performed?: Yes Alcohol Intake: current Alcohol Intake frequency: holidays/special occasions only Alcohol type: beer Drug use: Never Substance use type: does not use Housing: apartment Number of Children: 0 Current gender identity: male What type of physical activity do you participate in: none Seatbelt use: sometimes Do you feel safe at home: Yes Do you feel safe in your relationship?: Yes PAWSS Have you Been Recently Intoxicated or Drunk Within the Last 30 days?: No Have you Ever Experienced Previous Episodes of Alcohol Withdrawal?: No Have you ever Experienced Withdrawal Seizures?: No Have you ever Experienced Delirium Tremens(DT)s?: No Have you ever undergone Alcohol Rehabilitation Treatment (i.e, inpt ot outpatient treatment programs)?: No Have you ever Experienced Blackouts?: No Have you ever Combined Alcohol with other Downers within the last 90 days?: No Have you ever Combined Alcohol with any other Substance of Abuse during the last 90 days?: No Positive Blood Alcohol level on Presentation? [PCS.BAL]: No Evidence of Increased Autonomic Activity (i.e. HR>120, tremor, sweating, agitation, nausea)?: No Result: 0
== END 2024-10-28 14:37 | disposition home or self-care (01) ==
LOC: ER 14:20
PROVIDERS: Emergency Provider Physician Assistant; PCP Family Medicine
DX: R04.0 Epistaxis (principal); L20.89 Other atopic dermatitis; J96.11 Chronic respiratory failure with hypoxia; Z99.81 Dependence on supplemental oxygen
CPT/HCPCS: 99283 ×2; 30901; 36416; 82962

== ENCOUNTER 2025-01-15 12:28 | Outpatient (CLI) | payer MEDICARE, SELFPAY ==
[2025-01-15 22:51] LABS: PSA, Diagnostic 0.3 ng/mL (<=4.5)
== END 2025-01-15 12:29 | disposition home or self-care (01) ==
LOC: LBO 02-11 12:29
PROVIDERS: PCP Family Medicine; Visit Provider Urology
DX: N40.1 Benign prostatic hyperplasia with lower urinary tract symptoms (principal)
CPT/HCPCS: 36415; 84153

== ENCOUNTER → 2025-01-15 14:09 | Outpatient (BNVA) | payer MEDICARE, SELFPAY | PROVIDERS: PCP Family Medicine; Visit Provider Urology | DX: N40.1 Benign prostatic hyperplasia with lower urinary tract symptoms (principal); R35.1 Nocturia; Z80.42 Family history of malignant neoplasm of prostate | CPT/HCPCS: 99213 ==

== ENCOUNTER 2025-03-02 15:09 | Outpatient (REF) | payer MEDICARE, SELFPAY ==
[2025-03-02 20:48] LABS: Abs Immature Grans 0.03 10^3/uL (0.0-0.06); HCT 37.0 % (40.0-50.0); HGB 11.9 g/dL (13.5-17.5); Immature Grans % 0.5 %; MCH 29.0 pg (27.0-33.0); MCHC 32.2 % (32.0-36.0); MCV 90 fL (80-95); MPV 11.3 fL (8.0-11.0); Platelet Count 195 10^3/uL (130-400); RBC 4.11 10^6/uL (4.36-5.78); RDW 14.3 % (11.8-14.1); RDW-SD 46.5 fL; WBC 6.24 10^3/uL (4.4-10.8)
[2025-03-02 21:10] LABS: ALT 21 U/L (16-63); AST 13 U/L (15-37); Albumin 3.5 g/dL (3.4-5.0); Alkaline Phosphatase 94 U/L (46-116); Anion Gap 9.1 mmol/L (3-11); BUN 18 mg/dL (7-18); Bilirubin, Total 0.4 mg/dL (0.2-1.0); CO2 29.9 mmol/L (21.0-32.0); Calcium 9.2 mg/dL (8.5-10.1); Chloride 103 mmol/L (98-107); Estimated GFR 82.49 (mL/min/1.73m2); Glucose 120 mg/dL (74-106); Potassium 3.9 mmol/L (3.5-5.1); Sodium 142 mmol/L (136-145); Total Protein 6.9 g/dL (6.4-8.2)
== END 2025-03-02 15:10 | disposition home or self-care (01) ==
LOC: NCHCN 15:09
PROVIDERS: PCP Family Medicine; Visit Provider Family Medicine
DX: I10 Essential (primary) hypertension (principal)
CPT/HCPCS: 80053; 85025

== ENCOUNTER 2025-03-17 13:58 | Outpatient (REF) | payer MEDICARE, SELFPAY ==
[2025-03-17 20:58] LABS: HCT 37.9 % (40.0-50.0); HGB 11.8 g/dL (13.5-17.5); MCH 28.6 pg (27.0-33.0); MCHC 31.1 % (32.0-36.0); MCV 92 fL (80-95); MPV 11.1 fL (8.0-11.0); Platelet Count 179 10^3/uL (130-400); RBC 4.12 10^6/uL (4.36-5.78); RDW 14.6 % (11.8-14.1); RDW-SD 49.1 fL; WBC 7.82 10^3/uL (4.4-10.8)
[2025-03-17 22:27] LABS: Iron 62 ug/dL (65-175); Total Iron Binding Capacity 296 ug/dL (250-450); Transferrin Sat 21 % (20-55)
[2025-03-17 22:39] LABS: Ferritin 253 ng/mL (26-388)
== END 2025-03-17 13:59 | disposition home or self-care (01) ==
LOC: NCHCN 13:58
PROVIDERS: PCP Family Medicine; Visit Provider Family Medicine
DX: D64.9 Anemia, unspecified (principal)
CPT/HCPCS: 85027; 82728; 83540; 83550; 85045